=== PATIENT | female | born 1945 | race Caucasian/White ===

== ENCOUNTER 2020-06-26 09:54 | Outpatient (REF) | payer MEDICARE, SELFPAY ==
--- NOTE | 2020-06-26 09:59 | EMG_ITS ---
HISTORY OF PRESENT ILLNESS: This is a 75-year-old woman who had a 45-minute episode of left hand and left leg numbness and that cleared spontaneously and has not recurred. She has no persistent symptoms. She is not on any medications. PHYSICAL EXAMINATION: On examination, she has mild atrophy of the abductor pollicis brevis muscle on the left with slight weakness. She has some atrophy of the extensor digitorum brevis muscle also. Her reflexes symmetrical. IMPRESSION: Rule out carpal tunnel syndrome. Rule out peripheral neuropathy. History consistent with possible TIA. NERVE CONDUCTION EMG STUDY: Left median neuropathy consistent with carpal tunnel syndrome. Nerve conduction study in the left lower extremity shows axonal loss in the peroneal nerve consistent with peroneal neuropathy. EMG of the left C5 through T1 innervated muscles consistent with mild chronic carpal tunnel syndrome. EMG of the left L4-S1 innervated muscles consistent with mild chronic denervated changes in the extensor digitorum brevis muscle that correlates with a chronic peroneal neuropathy. MD HODAN Chin/JALEN / [id number]
== END 2020-06-26 09:55 | disposition home or self-care (01) ==
LOC: HO.NEURO 09:54
PROVIDERS: PCP Internal Medicine; Visit Provider Internal Medicine
DX: R20.0 Anesthesia of skin (principal)
CPT/HCPCS: 95860; 95886; 95913

== ENCOUNTER → 2020-09-02 09:23 | Outpatient (BNVA) | payer MEDICARE, SELFPAY | PROVIDERS: PCP Internal Medicine; Referring Provider Internal Medicine; Visit Provider Internal Medicine Endocrinology, Diabetes & Metabolism | DX: M81.0 Age-related osteoporosis without current pathological fracture (principal); E55.9 Vitamin D deficiency, unspecified; E03.8 Other specified hypothyroidism; E06.3 Autoimmune thyroiditis; Z79.899 Other long term (current) drug therapy | CPT/HCPCS: Q3014 ==

== ENCOUNTER → 2020-10-03 10:54 | Outpatient (BNVA) | payer MEDICARE, SELFPAY | PROVIDERS: PCP Internal Medicine; Visit Provider Internal Medicine Endocrinology, Diabetes & Metabolism | DX: M81.0 Age-related osteoporosis without current pathological fracture (principal) | CPT/HCPCS: 96402; J0897 ==

== ENCOUNTER 2020-10-24 06:57 | Outpatient (REF) | payer MEDICARE, SELFPAY ==
[2020-10-24 08:14] LABS: Alanine Aminotransferase 13 U/L (0-31); Albumin Level 4.5 g/dL (3.5-5.0); Albumin Level 4.6 g/dL (3.5-5.0); Alkaline Phosphatase 76 U/L (39-117); Anion Gap 13 (12-20); Aspartate Amino Transferase 25 U/L (5-31); Bilirubin Total 0.2 mg/dL (0.0-1.0); Blood Urea Nitrogen 8 mg/dL (9-16); Calcium 9.5 mg/dL (8.4-10.2); Calcium 9.6 mg/dL (8.4-10.2); Carbon Dioxide 28 mmol/L (22-29); Chloride 103 mmol/L (96-108); Cholesterol 173 mg/dL; Estimated Glomerular Filt Rate > 60; Glucose Fasting 98 mg/dL (60-99); HDL Cholesterol 54 mg/dL; LDL Cholesterol Calculated 91 mg/dl; Potassium 4.9 mmol/L (3.3-5.1); Sodium 139 mmol/L (135-145); Total Protein 8.4 g/dL (6.5-8.0); Triglycerides 144 mg/dL
[2020-10-24 08:30] LABS: Free T4 (Free Thyroxine) 1.01 ng/dL (0.71-1.85); Thyroid Stimulating Hormone 2.44 uIU/mL (0.32-4.0); Vitamin D 25-OH Total 34.1 ng/mL (>30)
== END 2020-10-24 06:58 | disposition home or self-care (01) ==
LOC: HO.LAB 06:57
PROVIDERS: Absent Provider Internal Medicine; PCP Internal Medicine; Visit Provider Internal Medicine Endocrinology, Diabetes & Metabolism
DX: M81.0 Age-related osteoporosis without current pathological fracture (principal); E78.5 Hyperlipidemia, unspecified; I10 Essential (primary) hypertension
CPT/HCPCS: 36415; 80053; 80061; 82040; 82306; 82310; 84439; 84443

== ENCOUNTER 2020-11-08 10:05 | Outpatient (REF) | payer MEDICARE, SELFPAY ==
--- NOTE | ~2020-11-08 | XR_ITS ---
EXAMINATION: XR HIP, LEFT CLINICAL INFORMATION: Pain COMPARISON: None TECHNIQUE: Two views of the left hip. FINDINGS: The femoral acetabular joint appears normal without degenerative change. Surrounding bone normal. Arterial calcification present. XR/XR hip LT min 2V IMPRESSION: Normal left hip joint. Calcific atherosclerotic disease noted
--- NOTE | ~2020-11-08 | XR_ITS ---
EXAMINATION: XR HAND, RIGHT CLINICAL INFORMATION: Pain. COMPARISON: X-rays of the right hand and wrist September 2007. TECHNIQUE: PA, lateral, and oblique views of the right hand. FINDINGS: Slight deformity of the distal radius compatible with healed old fracture. Slight deformity of the ulnar styloid compatible with healed fracture. Radiocarpal joint: Marginal osteophytes and small subchondral cysts indicative of mild arthrosis. Triscaphoid joint: Small marginal osteophytes. Mild arthrosis new compared to prior. First carpometacarpal joint: Mild joint space narrowing and subchondral cystic change indicative of mild arthrosis new compared to prior. Metacarpophalangeal joints: Severe joint space narrowing and marginal osteophytes at the 1st metacarpophalangeal joint indicative of severe arthrosis increased compared to prior. Second metacarpophalangeal joint: Persistent subluxation with marginal osteophytes indicative of arthrosis unchanged compared to prior. Third metacarpophalangeal joint: Subluxation with mild arthrosis new compared to prior. Interphalangeal joints: Advanced arthrosis of the IP joint of the thumb unchanged. Mild arthrosis of the 2nd PIP joint manifested by small marginal osteophytes and capsular calcification unchanged. No chondrocalcinosis or marginal erosions noted. XR/XR hand RT min 3V IMPRESSION: Degenerative changes in the right hand progressed compared with the prior x-rays in 2007 most notably in the wrist and 1st and 3rd metacarpophalangeal joints with an appearance most consistent with osteoarthritis. Subluxation of the 2nd and 3rd metacarpophalangeal joints raise the question of an underlying inflammatory arthropathy although no periarticular erosions are noted.
--- NOTE | ~2020-11-08 | XR_ITS ---
EXAMINATION: XR SHOULDER, RIGHT CLINICAL INFORMATION: Primary osteoarthritis. COMPARISON: None TECHNIQUE: AP external rotation, Grashey, scapular Y, and axillary views of the right shoulder. FINDINGS: GLENOHUMERAL JOINT: Marginal osteophytes most evident along the inferior aspect of the humeral head. No definite joint space narrowing. ACROMIOCLAVICULAR JOINT: Unremarkable. Subacromial spur. Surrounding bone and soft tissues unremarkable. XR/XR shoulder RT min 2V IMPRESSION: [id number] osteoarthritis of the glenohumeral joint.
[2020-11-08 11:28] LABS: MANUAL DIFF FLAG NO
[2020-11-08 11:38] LABS: Basophils Percent Auto 0.1 % (0-2); Hematocrit 41.7 % (37-47); Hemoglobin 13.1 g/dl (12.0-16.0); Imm Gran Abs Auto 0.01 X10*3/uL (0.00-0.03); Imm Gran Pct Auto 0.1 % (0.0-0.4); Lymphocytes Absolute Auto 3.8 X10*3/uL (1.2-4.9); Lymphocytes Percent Auto 46.8 % (20-40); Mean Corpuscular HGB Conc 31.4 g/dl (31.0-35.0); Mean Corpuscular Hemoglobin 32.3 pg (27.0-33.0); Mean Platelet Volume 9.3 fL (9.4-12.3); Monocytes Absolute Auto 0.4 X10*3/uL (0.1-1.2); Monocytes Percent Auto 5.3 % (2-11); Neutrophils Absolute Auto 3.9 X10*3/uL (2.0-8.3); Neutrophils Percent Auto 47.7 % (45-73); Platelet Count 276 X10*3/uL (160-400); Red Blood Count 4.05 X10*6/uL (4.20-5.50); Red Cell Distribution Width 12.3 % (11.0-16.0); White Blood Count 8.1 X10*3/uL (4.8-10.8)
[2020-11-08 12:00] LABS: Alanine Aminotransferase 12 U/L (0-31); Albumin Level 4.6 g/dL (3.5-5.0); Alkaline Phosphatase 66 U/L (39-117); Anion Gap 11 (12-20); Aspartate Amino Transferase 27 U/L (5-31); Bilirubin Total 0.2 mg/dL (0.0-1.0); Blood Urea Nitrogen 9 mg/dL (9-16); C Reactive Protein 0.27 mg/dL (< or = 0.50); Calcium 9.7 mg/dL (8.4-10.2); Carbon Dioxide 30 mmol/L (22-29); Chloride 101 mmol/L (96-108); Estimated Glomerular Filt Rate > 60; Glucose Random 97 mg/dL (60-115); Potassium 4.1 mmol/L (3.3-5.1); Sodium 138 mmol/L (135-145); Total Protein 8.3 g/dL (6.5-8.0)
[2020-11-08 12:15] LABS: Rheumatoid Factor < 15.0 IU/mL (<15.0)
[2020-11-08 12:20] LABS: Erythrocyte Sedimentation Rate 21 MM/HR (0-20)
[2020-11-10 22:21] LABS: Cyclic Citrullinated Peptide <16 UNITS
== END 2020-11-08 10:06 | disposition home or self-care (01) ==
LOC: HO.LAB 10:05
PROVIDERS: PCP Internal Medicine; Visit Provider Student in an Organized Health Care Education/Training Program
DX: M19.011 Primary osteoarthritis, right shoulder (principal); M25.50 Pain in unspecified joint; L40.9 Psoriasis, unspecified; I10 Essential (primary) hypertension; E03.9 Hypothyroidism, unspecified; M81.0 Age-related osteoporosis without current pathological fracture; Z88.0 Allergy status to penicillin; Z79.899 Other long term (current) drug therapy
CPT/HCPCS: 20610; 36415; 73030; 73130; 73502; 80053; 85025; 85652; 86140; 86200; 86431; 99202

== ENCOUNTER → 2021-03-05 10:23 | Outpatient (BNVA) | payer MEDICARE, SELFPAY | PROVIDERS: PCP Internal Medicine; Visit Provider Internal Medicine Endocrinology, Diabetes & Metabolism | CPT/HCPCS: Q3014 ==

== ENCOUNTER 2021-03-11 09:54 | Outpatient (REF) | payer MEDICARE, SELFPAY ==
[2021-03-11 11:07] LABS: Albumin Level 4.2 g/dL (3.5-5.0); Calcium 9.7 mg/dL (8.4-10.2)
[2021-03-11 11:23] LABS: Free T4 (Free Thyroxine) 1.15 ng/dL (0.71-1.85); Thyroid Stimulating Hormone 1.71 uIU/mL (0.32-4.0); Vitamin D 25-OH Total 41.6 ng/mL (>30)
== END 2021-03-11 09:55 | disposition home or self-care (01) ==
LOC: HO.LAB 09:54
PROVIDERS: Absent Provider Internal Medicine; PCP Internal Medicine; Visit Provider Internal Medicine Endocrinology, Diabetes & Metabolism
DX: E03.8 Other specified hypothyroidism (principal); E06.3 Autoimmune thyroiditis; M81.0 Age-related osteoporosis without current pathological fracture
CPT/HCPCS: 36415; 82040; 82306; 82310; 84439; 84443

== ENCOUNTER → 2021-03-21 08:59 | Outpatient (BNVA) | payer MEDICARE, SELFPAY | PROVIDERS: PCP Internal Medicine; Visit Provider Student in an Organized Health Care Education/Training Program | DX: M19.011 Primary osteoarthritis, right shoulder (principal); M25.50 Pain in unspecified joint; L40.9 Psoriasis, unspecified | CPT/HCPCS: 99212 ==

== ENCOUNTER → 2021-04-03 10:56 | Outpatient (BNVA) | payer MEDICARE, SELFPAY | PROVIDERS: PCP Internal Medicine; Visit Provider Nurse Practitioner Gerontology | DX: M81.0 Age-related osteoporosis without current pathological fracture (principal) | CPT/HCPCS: 96372; J0897 ==

== ENCOUNTER 2021-04-22 09:57 | Outpatient (REF) | payer MEDICARE, SELFPAY ==
--- NOTE | ~2021-04-22 | XR_ITS ---
EXAMINATION: XR HAND, LEFT CLINICAL INFORMATION: Left hand pain. COMPARISON: Left hand radiograph dated 08/12/2018. TECHNIQUE: PA, lateral, and oblique views of the left hand. FINDINGS: Mild to moderate interphalangeal, metacarpophalangeal, first carpometacarpal and triscaphe degenerative joint changes are seen. Degenerative joint changes are seen most pronounced laterally in the wrist. There is no acute fracture or dislocation. An old healed proximal fifth metacarpal fracture is noted. The carpal bones are normally aligned. The distal radius and ulna are intact. The soft tissues are unremarkable. XR/XR hand LT min 3V IMPRESSION: [id number] degenerative joint changes without significant change, most consistent with osteoarthritis. No overt acute abnormality.
[2021-04-22 11:40] LABS: Albumin Level 4.3 g/dL (3.5-5.0); Calcium 9.5 mg/dL (8.4-10.2)
[2021-04-22 11:59] LABS: Alanine Aminotransferase 14 U/L (0-31); Albumin Level 4.3 g/dL (3.5-5.0); Alkaline Phosphatase 53 U/L (39-117); Anion Gap 12 (12-20); Aspartate Amino Transferase 27 U/L (5-31); Bilirubin Total 0.3 mg/dL (0.0-1.0); Blood Urea Nitrogen 8 mg/dL (9-16); Calcium 9.5 mg/dL (8.4-10.2); Carbon Dioxide 27 mmol/L (22-29); Chloride 104 mmol/L (96-108); Cholesterol 171 mg/dL; Estimated Glomerular Filt Rate > 60; Glucose Fasting 91 mg/dL (60-99); HDL Cholesterol 54 mg/dL; LDL Cholesterol Calculated 94 mg/dl; Potassium 4.3 mmol/L (3.3-5.1); Sodium 139 mmol/L (135-145); Total Protein 7.8 g/dL (6.5-8.0); Triglycerides 118 mg/dL
[2021-04-22 12:03] LABS: TSH reflex Free T4 2.52 uIU/mL (0.32-4.0)
[2021-04-23 15:57] LABS: Calcium (PTHI) 9.5 mg/dL (8.6-10.4); PTHI 57 pg/mL (14-64)
[2021-04-26 13:01] LABS: Vitamin D 25-OH, D2 <4 ng/mL; Vitamin D 25-OH, D3 34 ng/mL; Vitamin D 25-OH, Total 34 ng/mL (30-100)
== END 2021-04-22 09:58 | disposition home or self-care (01) ==
LOC: HO.LAB 09:57
PROVIDERS: Absent Provider Internal Medicine; PCP Internal Medicine; Visit Provider Student in an Organized Health Care Education/Training Program
DX: M25.50 Pain in unspecified joint (principal); I10 Essential (primary) hypertension; E78.5 Hyperlipidemia, unspecified; E55.9 Vitamin D deficiency, unspecified; E06.3 Autoimmune thyroiditis; E03.8 Other specified hypothyroidism; M81.0 Age-related osteoporosis without current pathological fracture
CPT/HCPCS: 36415; 73130; 80053; 80061; 82040; 82306; 82310; 83970; 84443

== ENCOUNTER 2021-05-15 11:58 | Outpatient (REF) | payer MEDICARE, SELFPAY ==
--- NOTE | ~2021-05-15 | US_ITS ---
EXAMINATION: US VENOUS ULTRASOUND WITH DOPPLER LOWER EXTREMITY, RIGHT CLINICAL INFORMATION: Right leg pain. COMPARISON: None TECHNIQUE: Ultrasound of the deep veins is performed from the hip to the calf with compression sonography and color and pulse Doppler assessment. Spectral analysis with color-flow imaging is performed. FINDINGS: There is normal venous compression and respiratory variation and augmented flow. The visualized common femoral vein, superficial femoral vein, profunda femoral vein, popliteal vein, and the trifurcation region shows no evidence of deep venous thrombosis. There is no significant popliteal fossa cyst. If the patient's symptoms persist, followup ultrasound in 5 days 7 days might be of value to exclude proximal propagation from a non-visualized calf vein. US/US venous duplex LE RT IMPRESSION: No DVT demonstrated in the right lower extremity.
== END 2021-05-15 11:59 | disposition home or self-care (01) ==
LOC: HO.US 11:58
PROVIDERS: PCP Internal Medicine; Visit Provider Internal Medicine
DX: M79.604 Pain in right leg (principal)
CPT/HCPCS: 93971

== ENCOUNTER 2021-05-26 14:19 | Outpatient (REF) | payer MEDICARE, SELFPAY ==
--- NOTE | ~2021-05-26 | US_ITS ---
EXAMINATION: US VENOUS ULTRASOUND WITH DOPPLER LOWER EXTREMITY, RIGHT CLINICAL INFORMATION: Right leg pain COMPARISON: Previous exam 05/15/2021 TECHNIQUE: Ultrasound of the deep veins is performed from the hip to the calf with compression sonography and color and pulse Doppler assessment. Spectral analysis with color-flow imaging is performed. FINDINGS: There is normal venous compression and respiratory variation and augmented flow. The visualized common femoral vein, superficial femoral vein, profunda femoral vein, popliteal vein, and the trifurcation region shows no evidence of deep venous thrombosis. There is no Romo's cyst. US/US venous duplex LE RT IMPRESSION: No DVT demonstrated in the right lower extremity.
== END 2021-05-26 14:20 | disposition home or self-care (01) ==
LOC: HO.US 14:19
PROVIDERS: PCP Internal Medicine; Visit Provider Nurse Practitioner Family
DX: M79.604 Pain in right leg (principal)
CPT/HCPCS: 93971

== ENCOUNTER → 2021-07-08 10:58 | Outpatient (BNVA) | payer MEDICARE, SELFPAY | PROVIDERS: PCP Internal Medicine; Visit Provider Surgery Vascular Surgery | DX: I83.11 Varicose veins of right lower extremity with inflammation (principal) | CPT/HCPCS: 99212 ==

== ENCOUNTER 2021-07-30 10:01 | Outpatient (REF) | payer MEDICARE, SELFPAY ==
--- NOTE | ~2021-07-30 | US_ITS ---
EXAMINATION: US LOWER EXTREMITY VENOUS (REFLUX EXAM), BILATERAL CLINICAL INDICATION: This is a 76-year-old female with venous insufficiency and varicose veins. COMPARISON: None. TECHNIQUE: Color flow triplex imaging and compression Doppler was performed to evaluate both the deep and the superficial systems bilaterally. To evaluate the superficial system, the examination was performed in the upright position. Color-flow Doppler ultrasound and compression ultrasound were utilized. In addition, maneuvers were utilized to demonstrate reflux. FINDINGS: 1. DEEP VENOUS ULTRASOUND OF THE RIGHT LOWER EXTREMITY: Common Femoral Vein: Compressible, normal respiratory variation and augmented flow. Femoral vein: Compressible, normal color flow and augmentation. Popliteal Vein: Compressible, normal augmentation. Deep Reflux: There is no evidence of reflux in the deep system in either the common femoral vein or the popliteal vein. There is no evidence of a Romo's cyst. 2. SUPERFICIAL ULTRASOUND WITH DOPPLER OF RIGHT LOWER EXTREMITY: GREAT SAPHENOUS VEIN: Saphenofemoral Junction: 0.5 cm Mid Thigh: 0.3 cm Above Knee: 0.3 cm Below Knee: 0.3 cm Mid Calf: 0.2 cm Ankle: 0.2 cm GSV REFLUX: There is no reflux in the great saphenous vein. DUPLICATED GREAT SAPHENOUS VEIN: There is a 0.2 cm duplicated lateral great saphenous vein without reflux. SMALL SAPHENOUS VEIN: Proximal: 0.2 cm. There is 900 ms of reflux at the junction. Distal: 0.2 cm SSV REFLUX: There is reflux at the junction. VEIN OF GIACOMINI: None Imaged. PERFORATORS: None Imaged VARICOSITIES: There is a proximal calf 0.2 cm varicose vein with 920 ms of reflux. 3. DEEP VENOUS ULTRASOUND OF THE LEFT LOWER EXTREMITY: Common Femoral Vein: Compressible, normal respiratory variation and augmented flow. Femoral Vein: Compressible, normal color flow and augmentation. Popliteal Vein: Compressible, normal augmentation. Deep Reflux: There is no evidence of reflux in the deep system in either the common femoral vein or the popliteal vein. There is no evidence of a Romo's cyst. 4. SUPERFICIAL ULTRASOUND WITH DOPPLER OF LEFT LOWER EXTREMITY: GREAT SAPHENOUS VEIN: Saphenofemoral Junction: 0.4 cm. There is no reflux at the junction. Mid Thigh: 0.3 cm. The reflux time is 2156 ms per Above Knee: 0.3 cm. The reflux time is 1056 ms. Below Knee: 0.3 cm. The reflux time is 1420 ms. Mid Calf: 0.3 cm. There is no reflux. Ankle: 0.2 cm. There is no reflux. GSV REFLUX: There is no reflux at the junction. However, there is reflux in the mid thigh. DUPLICATED GREAT SAPHENOUS VEIN: There is a 0.3 cm duplicated lateral great saphenous vein without reflux. SMALL SAPHENOUS VEIN: Proximal: 0.2 cm. There is no reflux at the junction. Distal: 0.2 cm. There is a reflux time of 1644 ms per SSV REFLUX: There is distal reflux. VEIN OF GIACOMINI: None Imaged. PERFORATORS: There is a 0.2 cm mid calf [employer] without reflux. VARICOSITIES: There are 0.2 cm mid calf varicose veins with the reflux time 1108 ms. US/US venous duplex LE BI IMPRESSION: 1. There is a patent right great saphenous vein without evidence of reflux at the junction. 2. There is a duplicated right lateral great saphenous vein without evidence of reflux at the junction. 3. There is a patent right small saphenous vein measuring 0.2 cm with reflux of 900 ms at the junction. 4. There is a patent left great saphenous vein without evidence of reflux at the junction. 5. There is a patent tube located left lateral great saphenous vein without reflux. 6. There is a patent left small saphenous vein without evidence of reflux at the junction. 7. There are bilateral 0.2 cm calf varicose veins with reflux as noted.
== END 2021-07-30 10:02 | disposition home or self-care (01) ==
LOC: HO.US 10:01
PROVIDERS: PCP Internal Medicine; Visit Provider Surgery Vascular Surgery
DX: I83.11 Varicose veins of right lower extremity with inflammation (principal)
CPT/HCPCS: 93970

== ENCOUNTER → 2021-08-07 09:56 | Outpatient (BNVA) | payer MEDICARE, SELFPAY | PROVIDERS: PCP Internal Medicine; Visit Provider Surgery Vascular Surgery | DX: I83.12 Varicose veins of left lower extremity with inflammation (principal) | CPT/HCPCS: 99212 ==

== ENCOUNTER → 2021-09-05 10:54 | Outpatient (BNVA) | payer MEDICARE, SELFPAY | PROVIDERS: PCP Internal Medicine; Visit Provider Surgery Vascular Surgery | DX: I83.12 Varicose veins of left lower extremity with inflammation (principal) | CPT/HCPCS: 36482 ==

== ENCOUNTER 2021-09-10 12:49 | Outpatient (REF) | payer MEDICARE, SELFPAY ==
--- NOTE | ~2021-09-10 | US_ITS ---
EXAMINATION: US VENOUS ULTRASOUND WITH DOPPLER LOWER EXTREMITY, LEFT CLINICAL INFORMATION: Pain. Venous seal procedure 09/05/2021 COMPARISON: Previous venous ultrasound most recent July 2021 TECHNIQUE: Ultrasound of the deep veins is performed from the hip to the calf with compression sonography and color and pulse Doppler assessment. Spectral analysis with color-flow imaging is performed. FINDINGS: There is normal venous compression and respiratory variation and augmented flow. The visualized common femoral vein, superficial femoral vein, profunda femoral vein, popliteal vein, and the trifurcation region shows no evidence of deep venous thrombosis. There is echogenic material seen in the left greater saphenous vein post vena seal procedure. This extends to 2.7 cm from the saphenofemoral junction. The left greater saphenous vein is closed. There is no Romo's cyst. The contralateral right common femoral vein is patent. US/US venous duplex LE LT IMPRESSION: No DVT demonstrated in the left lower extremity.
== END 2021-09-10 12:50 | disposition home or self-care (01) ==
LOC: HO.US 12:49
PROVIDERS: PCP Internal Medicine; Visit Provider Surgery Vascular Surgery
DX: M79.605 Pain in left leg (principal)
CPT/HCPCS: 93971

== ENCOUNTER → 2021-09-18 09:52 | Outpatient (BNVA) | payer MEDICARE, SELFPAY | PROVIDERS: PCP Internal Medicine; Visit Provider Surgery Vascular Surgery | DX: I83.12 Varicose veins of left lower extremity with inflammation (principal) | CPT/HCPCS: 99212 ==

== ENCOUNTER 2021-09-18 10:24 | Outpatient (REF) | payer MEDICARE, SELFPAY ==
[2021-09-18 11:39] LABS: Alanine Aminotransferase 14 U/L (0-31); Albumin Level 4.3 g/dL (3.5-5.0); Alkaline Phosphatase 49 U/L (39-117); Anion Gap 12 (12-20); Aspartate Amino Transferase 29 U/L (5-31); Bilirubin Total 0.4 mg/dL (0.0-1.0); Blood Urea Nitrogen 8 mg/dL (9-16); Calcium 9.8 mg/dL (8.4-10.2); Carbon Dioxide 27 mmol/L (22-29); Chloride 105 mmol/L (96-108); Estimated Glomerular Filt Rate > 60; Glucose Random 100 mg/dL (60-115); Phosphorus 3.5 mg/dL (2.7-4.5); Potassium 3.5 mmol/L (3.3-5.1); Sodium 140 mmol/L (135-145)
[2021-09-18 12:00] LABS: Free T4 (Free Thyroxine) 0.66 ng/dL (0.71-1.85); Thyroid Stimulating Hormone 15.56 uIU/mL (0.32-4.0); Vitamin D 25-OH Total 35.4 ng/mL (>30)
[2021-09-19 13:06] LABS: Calcium (PTHI) 9.4 mg/dL (8.6-10.4); PTHI 41 pg/mL (14-64)
[2021-09-23 22:41] LABS: Prot Elec - Albumin 4.1 g/dL (3.8-4.8); Prot Elec - Alpha1 0.3 g/dL (0.2-0.3); Prot Elec - Alpha2 0.8 g/dL (0.5-0.9); Prot Elec - Beta 1 0.6 g/dL (0.4-0.6); Prot Elec - Beta 2 0.5 g/dL (0.2-0.5); Prot Elec - Gamma 1.5 g/dL (0.8-1.7); Prot Elec - Total Protein 7.8 g/dL (6.1-8.1)
== END 2021-09-18 10:25 | disposition home or self-care (01) ==
LOC: HO.LAB 10:24
PROVIDERS: PCP Internal Medicine; Visit Provider Internal Medicine
DX: M81.0 Age-related osteoporosis without current pathological fracture (principal); E55.9 Vitamin D deficiency, unspecified
CPT/HCPCS: 36415; 80053; 82306; 83970; 84100; 84165; 84439; 84443

== ENCOUNTER 2021-09-23 11:07 | Outpatient (REF) | payer MEDICARE, SELFPAY ==
[2021-09-23 11:40] LABS: Total Volume 24 Hour Urine 800 mL
[2021-09-23 12:08] LABS: Creatinine, 24Hr Urine 0.6 G/Day (1.0-2.0); Creatinine, mg/dL 76.37
[2021-09-25 18:37] LABS: Calcium, 24 Hr Urine 175 mg/24 h; Calcium/Creatinine Ratio 292 mg/g creat (30-275)
[2021-09-28 14:12] LABS: N-Telopeptide 40 (see note); NTXCreaRU 88 mg/dL (20-275)
== END 2021-09-23 11:08 | disposition home or self-care (01) ==
LOC: HO.LNP 11:07
PROVIDERS: Visit Provider Internal Medicine
DX: M81.0 Age-related osteoporosis without current pathological fracture (principal)
CPT/HCPCS: 82340; 82523; 82570

== ENCOUNTER 2021-11-25 10:58 | Outpatient (REF) | payer MEDICARE, SELFPAY ==
[2021-11-25 14:02] LABS: Thyroid Stimulating Hormone 7.48 uIU/mL (0.32-4.0)
== END 2021-11-25 10:59 | disposition home or self-care (01) ==
LOC: HO.LAB 10:58
PROVIDERS: PCP Internal Medicine; Visit Provider Internal Medicine Endocrinology, Diabetes & Metabolism
DX: E03.9 Hypothyroidism, unspecified (principal); M81.0 Age-related osteoporosis without current pathological fracture; I10 Essential (primary) hypertension; E55.9 Vitamin D deficiency, unspecified; Z87.891 Personal history of nicotine dependence; Z88.1 Allergy status to other antibiotic agents; Z88.0 Allergy status to penicillin; Z79.899 Other long term (current) drug therapy
CPT/HCPCS: 36415; 84439; 84443; 96372; 99212; J0897

== ENCOUNTER 2021-12-17 | Outpatient (REF) | payer MEDICARE, SELFPAY ==
[2021-12-18 12:53] LABS: CDiff Gene PCR NEGATIVE (Negative)
[2021-12-18 12:55] LABS: Leukocytes Stool Qualitative NEGATIVE (NEGATIVE)
== END 2021-12-17 00:01 | disposition home or self-care (01) ==
LOC: HO.LNP
PROVIDERS: Visit Provider Internal Medicine
DX: R19.7 Diarrhea, unspecified (principal)
CPT/HCPCS: 87045; 87046; 87329; 87338; 87493; 89055

== ENCOUNTER 2021-12-18 10:33 | Outpatient (REF) | payer MEDICARE, SELFPAY ==
[2021-12-23 17:56] LABS: N-Telopeptide 10 (see note); NTXCreaRU 63 mg/dL (20-275)
== END 2021-12-18 10:34 | disposition home or self-care (01) ==
LOC: HO.LNP 10:33
PROVIDERS: Visit Provider Internal Medicine
DX: M81.0 Age-related osteoporosis without current pathological fracture (principal)
CPT/HCPCS: 82523

== ENCOUNTER 2021-12-22 11:33 | Outpatient (REF) | payer MEDICARE, SELFPAY | END 2021-12-22 11:34 | disposition home or self-care (01) | LOC: HO.LNP 11:33 | PROVIDERS: Visit Provider Internal Medicine | DX: R19.7 Diarrhea, unspecified (principal) | CPT/HCPCS: 87045; 87046 ==

== ENCOUNTER 2022-02-10 09:59 | Outpatient (REF) | payer MEDICARE, SELFPAY ==
[2022-02-10 10:20] LABS: MANUAL DIFF FLAG NO
[2022-02-10 12:03] LABS: Basophils Percent Auto 0.1 % (0-2); Hematocrit 33.6 % (37.0-47.0); Hemoglobin 10.1 g/dl (12.0-16.0); Imm Gran Abs Auto 0.02 X10*3/uL (0.00-0.03); Imm Gran Pct Auto 0.3 % (0.0-0.4); Lymphocytes Absolute Auto 2.9 X10*3/uL (1.2-4.9); Lymphocytes Percent Auto 42.8 % (20-40); Mean Corpuscular HGB Conc 30.1 g/dl (31.0-35.0); Mean Corpuscular Hemoglobin 29.3 pg (27.0-33.0); Mean Corpuscular Volume 97.4 fL (80.0-98.0); Mean Platelet Volume 10.2 fL (9.4-12.3); Monocytes Absolute Auto 0.5 X10*3/uL (0.1-1.2); Monocytes Percent Auto 7.6 % (2-11); Neutrophils Absolute Auto 3.3 x10*3/uL (2.0-8.3); Neutrophils Percent Auto 49.2 % (45-73); Platelet Count 236 X10*3/uL (160-400); Red Blood Count 3.45 X10*6/uL (4.20-5.50); Red Cell Distribution Width 13.8 % (11.0-16.0); White Blood Count 6.8 X10*3/uL (4.8-10.8)
[2022-02-10 12:08] LABS: Cholesterol 159 mg/dL; HDL Cholesterol 44 mg/dL; LDL Cholesterol Calculated 92 mg/dl; Triglycerides 119 mg/dL
[2022-02-15 13:31] LABS: Vitamin D 25-OH, D2 <4 ng/mL; Vitamin D 25-OH, D3 27 ng/mL; Vitamin D 25-OH, Total 27 ng/mL (30-100)
== END 2022-02-10 10:00 | disposition home or self-care (01) ==
LOC: HO.LAB 09:59
PROVIDERS: PCP Internal Medicine; Visit Provider Nurse Practitioner Family
DX: Z00.00 Encounter for general adult medical examination without abnormal findings (principal); E55.9 Vitamin D deficiency, unspecified; E78.00 Pure hypercholesterolemia, unspecified; I10 Essential (primary) hypertension
CPT/HCPCS: 36415; 80061; 82306; 85025; 85027

== ENCOUNTER 2022-03-04 12:57 | Outpatient (REF) | payer MEDICARE, SELFPAY ==
--- NOTE | ~2022-03-04 | US_ITS ---
EXAMINATION: US VENOUS ULTRASOUND WITH DOPPLER LOWER EXTREMITY, RIGHT CLINICAL INFORMATION: Right lower extremity pain. COMPARISON: None TECHNIQUE: Ultrasound of the deep veins is performed from the hip to the calf with compression sonography and color and pulse Doppler assessment. Spectral analysis with color-flow imaging is performed. FINDINGS: There is normal venous compression and respiratory variation and augmented flow. The visualized common femoral vein, superficial femoral vein, profunda femoral vein, popliteal vein, and the trifurcation region shows no evidence of deep venous thrombosis. There is no significant popliteal fossa cyst. If the patient's symptoms persist, followup ultrasound in 5 days 7 days might be of value to exclude proximal propagation from a non-visualized calf vein. US/US venous duplex LE RT IMPRESSION: No DVT demonstrated in the right lower extremity.
[2022-03-04 13:09] LABS: MANUAL DIFF FLAG NO
[2022-03-04 13:27] LABS: Basophils Percent Auto 0.1 % (0-2); Hematocrit 36.5 % (37.0-47.0); Hemoglobin 10.8 g/dl (12.0-16.0); Imm Gran Abs Auto 0.03 X10*3/uL (0.00-0.03); Imm Gran Pct Auto 0.4 % (0.0-0.4); Lymphocytes Percent Auto 42.8 % (20-40); Mean Corpuscular HGB Conc 29.6 g/dl (31.0-35.0); Mean Corpuscular Hemoglobin 28.4 pg (27.0-33.0); Mean Corpuscular Volume 96.1 fL (80.0-98.0); Mean Platelet Volume 9.5 fL (9.4-12.3); Monocytes Absolute Auto 0.6 X10*3/uL (0.1-1.2); Monocytes Percent Auto 7.9 % (2-11); Neutrophils Absolute Auto 3.4 x10*3/uL (2.0-8.3); Neutrophils Percent Auto 48.8 % (45-73); Platelet Count 257 X10*3/uL (160-400); Red Cell Distribution Width 13.6 % (11.0-16.0)
[2022-03-04 14:21] LABS: Iron 42 mcg/dL (30-160); Percent Iron Saturation 10 % (15-50); Total Iron Binding Capacity 414 mcg/dL (228-428); Unsaturated Iron Binding 372 ug/dL
[2022-03-04 15:12] LABS: Folate > 20.0 ng/mL (> or = 4.0); Vitamin B12 189 pg/mL (200-900)
== END 2022-03-04 12:58 | disposition home or self-care (01) ==
LOC: HO.US 12:57
PROVIDERS: PCP Internal Medicine; Visit Provider Nurse Practitioner Family
DX: D64.9 Anemia, unspecified (principal); M79.604 Pain in right leg; R60.0 Localized edema; I10 Essential (primary) hypertension
CPT/HCPCS: 36415; 82607; 82746; 83540; 85025; 93971

== ENCOUNTER 2022-03-17 10:58 | Outpatient (REF) | payer MEDICARE, SELFPAY ==
[2022-03-17 12:35] LABS: Hematocrit 35.3 % (37.0-47.0); Hemoglobin 10.6 g/dl (12.0-16.0); Mean Corpuscular Hemoglobin 28.8 pg (27.0-33.0); Mean Corpuscular Volume 95.9 fL (80.0-98.0); Mean Platelet Volume 10.1 fL (9.4-12.3); Platelet Count 281 X10*3/uL (160-400); Red Blood Count 3.68 X10*6/uL (4.20-5.50); Red Cell Distribution Width 13.5 % (11.0-16.0); White Blood Count 6.8 X10*3/uL (4.8-10.8)
[2022-03-17 13:25] LABS: Thyroid Stimulating Hormone 2.45 uIU/mL (0.32-4.0)
[2022-03-24 19:31] LABS: Intrinsic Factor Antibodies Negative (Negative)
[2022-03-25 05:46] LABS: Parietal Cell Antibody <=20.0 Unit (<=20.0)
== END 2022-03-17 10:59 | disposition home or self-care (01) ==
LOC: HO.LAB 10:58
PROVIDERS: Internal Medicine; Nurse Practitioner Family; PCP Internal Medicine; Visit Provider Internal Medicine
DX: Z00.00 Encounter for general adult medical examination without abnormal findings (principal); E53.8 Deficiency of other specified B group vitamins; I10 Essential (primary) hypertension; E55.9 Vitamin D deficiency, unspecified
CPT/HCPCS: 36415; 83516; 84439; 84443; 85027; 86340

== ENCOUNTER 2022-06-02 09:58 | Outpatient (REF) | payer MEDICARE, SELFPAY ==
--- NOTE | ~2022-06-02 | MM_ITS ---
EXAMINATION: BONE DENSITOMETRY CLINICAL INDICATION: Age-related osteoporosis without current pathological fracture. COMPARISON: Previous BD dated 05/29/2020 and baseline BD dated 03/30/2007 (lumbar spine and left hip). This is the initial examination of the left forearm radius 33%. TECHNIQUE: Using a [employer] DXA System (software version: 13.1) manufactured by [employer], dual-energy x-ray absorptiometry was performed of the lumbar spine, left hip and left forearm radius 33%. The images are of good technical quality. Summary results are attached. FINDINGS: AP SPINE L1-L3 (excluding L4): The data of L1-L4 has been changed to exclude the L4 vertebral body, because degenerative changes at this level may cause overestimation of lumbar spine density. Current: BMD 1.077 g/cm2, Z-score 1.0, T-score -0.8, normal, 4.1% increase from previous, 18.6% increase from baseline (<5% change is not significant). Prior: BMD 1.035 g/cm2. Baseline: BMD 0.908 g/cm2. LEFT FEMUR, NECK: Current: BMD 0.608 g/cm2, Z-score -1.1, T-score -3.1, osteoporosis. Prior: BMD 0.588 g/cm2. Baseline: BMD 0.659 g/cm2. LEFT FEMUR, TOTAL: Current: BMD 0.558 g/cm2, Z-score -1.8, T-score -3.6, osteoporosis, 0.5% increase from previous, 13.6% decrease from baseline (<5% change is not significant). Prior: BMD 0.555 g/cm2. Baseline: BMD 0.646 g/cm2. LEFT FOREARM RADIUS 33%: BMD 0.416 g/cm2, Z-score -3.0, T-score -5.3, osteoporosis. IDENTIFIED RISK FACTORS: History of adult fracture. Osteoporosis. Height loss. Anticonvulsant. Menopause. HISTORY OF FRACTURE: Wrist. Tibia. MEDICATIONS: Calcium supplement and/or multivitamin. Vitamin D. Prolia. MM/XR DEXA appendicular skeleton IMPRESSION: 1. DIAGNOSIS: Osteoporosis based on the lowest T-score value of -5.3 in the left forearm radius 33% applying World Health Organization criteria. 2. 10-YEAR FRACTURE RISK PREDICTION, FRAX: According to the guidelines, FRAX calculation should only be performed on patients in the osteopenia bone density category.?Therefore, FRAX was not performed on this patient.? 3. Treatment Recommendations: NOF guidelines recommend consideration for treatment in postmenopausal women and men age 50 and older presenting with the following: -A hip or vertebral (clinical or morphometric) fracture. -T-score less than or equal to -2.5 at the femoral neck or spine after appropriate evaluation to exclude secondary causes. -Low bone mass at the hip or spine and a 10-year fracture probability by FRAX of greater than or equal to 3% for hip fracture or greater than or equal to 20% for major osteoporotic fracture based on the [place] adapted WHO algorithm. 4. Other Recommendations: All treatment decisions require clinical judgment and consideration of individual patient factors, including patient preferences, comorbidities, previous drug use, risk factors not captured in the FRAX model (e.g. frailty, falls, vitamin D deficiency, increased bone turnover, interval significant decline in bone density) and possible under or overestimation of fracture risk by FRAX. Additional medical evaluation for secondary cause of low bone mineral density may be appropriate. FUTURE SCAN RECOMMENDATION: People with diagnosed cases of osteoporosis or at high risk for fracture should have regular bone mineral density tests. For patients eligible for Medicare, routine testing is allowed once every 2 years. The testing frequency can be increased to one year for patients who have rapidly progressing disease, those who are receiving or discontinuing medical therapy to restore bone mass, or have additional risk factors.
== END 2022-06-02 09:59 | disposition home or self-care (01) ==
LOC: HO.MAMMO 09:58
PROVIDERS: PCP Internal Medicine; Visit Provider Internal Medicine Endocrinology, Diabetes & Metabolism
DX: Z13.820 Encounter for screening for osteoporosis (principal); M81.0 Age-related osteoporosis without current pathological fracture; Z78.0 Asymptomatic menopausal state
CPT/HCPCS: 77081

== ENCOUNTER 2022-06-05 10:03 | Outpatient (REF) | payer MEDICARE, SELFPAY ==
--- NOTE | ~2022-06-05 | MM_ITS ---
DXA VERTEBRAL FRACTURE ASSESSMENT CLINICAL INFORMATION: Osteoporosis, TC score -5.3 left forearm radius 33%. Assess thoracolumbar spine. COMPARISON: Bone densitometry 06/02/2022, radiographs lumbar spine 04/18/2019, chest radiographs 11/02/2017. TECHNIQUE: Your patient completed a vertebral fracture assessment using the [employer] DXA system (software version: 14.10) manufactured by [employer]. The following summarizes the results of our evaluation. LVA MORPHOMETRY RESULTS: Evaluation of the thoracolumbar spine from T4 through L4 was performed. Image quality is acceptable. There are multilevel degenerative disc changes thoracic and lumbar spine. Morphologic assessment suggests wedging lower thoracic region T10, T11, and T12. Visual assessment shows mild wedging in this area without focal angulation. Z scores are T10 (-3.9); T11 (-3.5); T12 (-6.3). MM/XR DEXA vertrebral fracture IMPRESSION: -Multilevel degenerative disc changes thoracic and lumbar spine. -Wedging lower thoracic vertebral bodies T10-T12. RECOMMENDATIONS: All patients should ensure an adequate intake of dietary calcium (1200 mg/d) and vitamin D (400-800 IU/d). Effective therapies are now available in the form of bisphosphonates, (alendronate, ibandronate, risedronate, zoledronic acid), antiresorptive agents (calcitonin, estrogen+progesterone and raloxifene) and anabolic agent (teriparatide). These therapies may reduce vertebral, hip and other fractures by up to 50%. FOLLOW-UP: People with diagnosed cases of osteoporosis, high risk for fracture, or current vertebral fractures should have regular bone mineral density tests. The frequency of follow-up vertebral fracture assessment tests should be determined based on clinical circumstances. Often times, testing frequency will be based on rapidly progressing disease, or the addition or elimination of therapy to treat the disease.
== END 2022-06-05 10:04 | disposition home or self-care (01) ==
LOC: HO.MAMMO 10:03
PROVIDERS: Visit Provider Internal Medicine Endocrinology, Diabetes & Metabolism
DX: Z13.820 Encounter for screening for osteoporosis (principal); Z78.0 Asymptomatic menopausal state; M81.0 Age-related osteoporosis without current pathological fracture
CPT/HCPCS: 77086

== ENCOUNTER → 2022-06-09 10:01 | Outpatient (BNVA) | payer MEDICARE, SELFPAY | PROVIDERS: PCP Internal Medicine; Visit Provider Internal Medicine Endocrinology, Diabetes & Metabolism | DX: M81.0 Age-related osteoporosis without current pathological fracture (principal); E03.8 Other specified hypothyroidism; E06.3 Autoimmune thyroiditis | CPT/HCPCS: 96372; 99212; J0897 ==

== ENCOUNTER 2022-06-25 09:59 | Outpatient (REF) | payer MEDICARE, SELFPAY ==
[2022-06-25 12:33] LABS: Folate > 20.0 ng/mL (> or = 4.0); Vitamin B12 240 pg/mL (200-900)
== END 2022-06-25 10:00 | disposition home or self-care (01) ==
LOC: HO.LAB 09:59
PROVIDERS: PCP Internal Medicine; Visit Provider Internal Medicine
DX: E55.9 Vitamin D deficiency, unspecified (principal); E53.8 Deficiency of other specified B group vitamins
CPT/HCPCS: 36415; 82306; 82607; 82746

== ENCOUNTER 2022-11-12 10:13 | Outpatient (REF) | payer MEDICARE, SELFPAY ==
[2022-11-12 10:36] LABS: MANUAL DIFF FLAG NO
[2022-11-12 10:50] LABS: Basophils Percent Auto 0.1 % (0-2); Hematocrit 34.2 % (37.0-47.0); Hemoglobin 10.1 g/dl (12.0-16.0); Imm Gran Abs Auto 0.03 X10*3/uL (0.00-0.03); Imm Gran Pct Auto 0.4 % (0.0-0.4); Lymphocytes Absolute Auto 2.8 X10*3/uL (1.2-4.9); Mean Corpuscular HGB Conc 29.5 g/dl (31.0-35.0); Mean Corpuscular Hemoglobin 27.7 pg (27.0-33.0); Mean Corpuscular Volume 93.7 fL (80.0-98.0); Mean Platelet Volume 9.7 fL (9.4-12.3); Monocytes Absolute Auto 0.5 X10*3/uL (0.1-1.2); Monocytes Percent Auto 6.9 % (2-11); Neutrophils Percent Auto 54.6 % (45-73); Platelet Count 257 X10*3/uL (160-400); Red Blood Count 3.65 X10*6/uL (4.20-5.50); Red Cell Distribution Width 14.7 % (11.0-16.0); White Blood Count 7.2 X10*3/uL (4.8-10.8)
[2022-11-12 11:19] LABS: Iron 21 mcg/dL (30-160); Percent Iron Saturation 6 % (15-50); Total Iron Binding Capacity 345 mcg/dL (228-428); Unsaturated Iron Binding 324 ug/dL
[2022-11-12 13:07] LABS: Folate > 20.0 ng/mL (> or = 4.0); Thyroid Stimulating Hormone 21.58 uIU/mL (0.32-4.0); Vitamin B12 383 pg/mL (200-900); Vitamin D 25-OH Total 45.1 ng/mL (>30)
== END 2022-11-12 10:14 | disposition home or self-care (01) ==
LOC: HO.LAB 10:13
PROVIDERS: PCP Internal Medicine; Visit Provider Internal Medicine
DX: E53.8 Deficiency of other specified B group vitamins (principal); E03.9 Hypothyroidism, unspecified; D64.9 Anemia, unspecified; E55.9 Vitamin D deficiency, unspecified
CPT/HCPCS: 36415; 82306; 82607; 82746; 83540; 84443; 85025

== ENCOUNTER → 2022-12-09 09:57 | Outpatient (BNVA) | payer MEDICARE, SELFPAY | PROVIDERS: PCP Internal Medicine; Visit Provider Internal Medicine Endocrinology, Diabetes & Metabolism | DX: M81.0 Age-related osteoporosis without current pathological fracture (principal); E03.8 Other specified hypothyroidism; E06.3 Autoimmune thyroiditis | CPT/HCPCS: 99212 ==

== ENCOUNTER 2022-12-09 10:51 | Outpatient (REF) | payer MEDICARE, SELFPAY ==
[2022-12-09 14:40] LABS: Anion Gap 12 (12-20); Blood Urea Nitrogen 7 mg/dL (9-16); Calcium 9.4 mg/dL (8.4-10.2); Carbon Dioxide 27 mmol/L (22-29); Chloride 106 mmol/L (96-108); Estimated Glomerular Filt Rate > 60; Glucose Random 115 mg/dL (60-115); Potassium 3.7 mmol/L (3.3-5.1); Sodium 141 mmol/L (135-145)
== END 2022-12-09 10:52 | disposition home or self-care (01) ==
LOC: HO.10HDL 10:51
PROVIDERS: Visit Provider Internal Medicine Endocrinology, Diabetes & Metabolism
DX: M81.0 Age-related osteoporosis without current pathological fracture (principal)
CPT/HCPCS: 36415; 80048

== ENCOUNTER → 2022-12-11 09:59 | Outpatient (BNV) | payer MEDICARE, SELFPAY | PROVIDERS: Visit Provider Internal Medicine Medical Oncology | DX: D64.9 Anemia, unspecified (principal) | CPT/HCPCS: 99204; 99213; 99214 ==

== ENCOUNTER → 2022-12-15 09:00 | Outpatient (BNVA) | payer MEDICARE, SELFPAY | PROVIDERS: PCP Internal Medicine; Visit Provider Internal Medicine Endocrinology, Diabetes & Metabolism | DX: M81.0 Age-related osteoporosis without current pathological fracture (principal) | CPT/HCPCS: 96372; J0897 ==

== ENCOUNTER 2022-12-28 10:00 | Outpatient (REF) | payer MEDICARE, SELFPAY ==
[2022-12-28 10:22] LABS: MANUAL DIFF FLAG NO
[2022-12-28 10:39] LABS: Basophils Percent Auto 0.2 % (0-2); Hematocrit 37.2 % (37.0-47.0); Hemoglobin 11.2 g/dl (12.0-16.0); Imm Gran Abs Auto 0.02 X10*3/uL (0.00-0.03); Imm Gran Pct Auto 0.3 % (0.0-0.4); Lymphocytes Absolute Auto 2.7 X10*3/uL (1.2-4.9); Lymphocytes Percent Auto 43.6 % (20-40); Mean Corpuscular HGB Conc 30.1 g/dl (31.0-35.0); Mean Corpuscular Hemoglobin 29.7 pg (27.0-33.0); Mean Corpuscular Volume 98.7 fL (80.0-98.0); Mean Platelet Volume 9.8 fL (9.4-12.3); Monocytes Absolute Auto 0.5 X10*3/uL (0.1-1.2); Monocytes Percent Auto 7.4 % (2-11); Neutrophils Percent Auto 48.5 % (45-73); Platelet Count 233 X10*3/uL (160-400); Red Blood Count 3.77 X10*6/uL (4.20-5.50); Red Cell Distribution Width 15.9 % (11.0-16.0); White Blood Count 6.1 X10*3/uL (4.8-10.8)
[2022-12-28 11:59] LABS: Ferritin 12 ng/mL (10-250)
[2022-12-28 12:44] LABS: Alanine Aminotransferase 18 U/L (0-31); Albumin Level 4.1 g/dL (3.5-5.0); Alkaline Phosphatase 51 U/L (39-117); Anion Gap 13 (12-20); Aspartate Amino Transferase 31 U/L (5-31); Bilirubin Total 0.2 mg/dL (0.0-1.0); Blood Urea Nitrogen 9 mg/dL (9-16); Calcium 9.2 mg/dL (8.4-10.2); Carbon Dioxide 27 mmol/L (22-29); Chloride 106 mmol/L (96-108); Estimated Glomerular Filt Rate > 60; Glucose Random 106 mg/dL (60-115); Lactate Dehydrogenase 272 U/L (122-220); Potassium 3.5 mmol/L (3.3-5.1); Sodium 142 mmol/L (135-145); Total Protein 7.5 g/dL (6.5-8.0)
[2022-12-28 13:18] LABS: Free T4 (Free Thyroxine) 1.32 ng/dL (0.71-1.85); Thyroid Stimulating Hormone 0.13 uIU/mL (0.32-4.0); Vitamin B12 286 pg/mL (200-900)
== END 2022-12-28 10:01 | disposition home or self-care (01) ==
LOC: HO.LAB 10:00
PROVIDERS: Internal Medicine Endocrinology, Diabetes & Metabolism; PCP Internal Medicine; Visit Provider Internal Medicine Medical Oncology
DX: E03.9 Hypothyroidism, unspecified (principal); D64.9 Anemia, unspecified
CPT/HCPCS: 36415; 80053; 82607; 82728; 83615; 84439; 84443; 85025

== ENCOUNTER 2023-03-26 09:54 | Outpatient (REF) | payer MEDICARE, SELFPAY ==
[2023-03-26 10:07] LABS: MANUAL DIFF FLAG NO
[2023-03-26 10:21] LABS: Hematocrit 37.5 % (37.0-47.0); Hemoglobin 11.5 g/dl (12.0-16.0); Imm Gran Abs Auto 0.02 X10*3/uL (0.00-0.03); Imm Gran Pct Auto 0.3 % (0.0-0.4); Lymphocytes Absolute Auto 2.7 X10*3/uL (1.2-4.9); Lymphocytes Percent Auto 44.7 % (20-40); Mean Corpuscular HGB Conc 30.7 g/dl (31.0-35.0); Mean Corpuscular Hemoglobin 30.5 pg (27.0-33.0); Mean Corpuscular Volume 99.5 fL (80.0-98.0); Mean Platelet Volume 9.9 fL (9.4-12.3); Monocytes Absolute Auto 0.5 X10*3/uL (0.1-1.2); Monocytes Percent Auto 7.9 % (2-11); Neutrophils Absolute Auto 2.9 x10*3/uL (2.0-8.3); Neutrophils Percent Auto 47.1 % (45-73); Platelet Count 212 X10*3/uL (160-400); Red Blood Count 3.77 X10*6/uL (4.20-5.50); Red Cell Distribution Width 14.1 % (11.0-16.0); White Blood Count 6.1 X10*3/uL (4.8-10.8)
[2023-03-26 11:04] LABS: Iron 47 mcg/dL (30-160); Percent Iron Saturation 16 % (15-50); Total Iron Binding Capacity 301 mcg/dL (228-428); Unsaturated Iron Binding 254 ug/dL
[2023-03-26 11:14] LABS: Thyroid Stimulating Hormone 0.18 uIU/mL (0.32-4.0)
[2023-03-26 12:27] LABS: Free T4 (Free Thyroxine) 1.06 ng/dL (0.71-1.85)
== END 2023-03-26 09:55 | disposition home or self-care (01) ==
LOC: HO.LAB 09:54
PROVIDERS: Internal Medicine Endocrinology, Diabetes & Metabolism; PCP Internal Medicine; Visit Provider Internal Medicine
DX: E03.8 Other specified hypothyroidism (principal); E06.3 Autoimmune thyroiditis; D64.9 Anemia, unspecified
CPT/HCPCS: 36415; 83540; 84439; 84443; 85025

== ENCOUNTER 2023-03-26 10:11 | Outpatient (AMB) | payer MEDICARE, SELFPAY ==
[2023-03-26 10:14] VITALS: BP 112/78; PULSE 76; O2SAT 99; BMI 21.3
--- NOTE | 2023-03-26 10:14 | A.OFFPC_ITS ---
Vital Signs 03/26/23 10:14 Height 5 ft 3 in Weight 120 lb BMI 21.3 BP 112/78 Blood Pressure Location Lt brachial Position Sitting Pulse 76 Pulse Source Pulse Oximeter Temp Source Skin Pulse Oximetry (%) 99 Oxygen Delivery Method Room Air Intake Visit Reasons: PE Intake Note: Patient is here today for a physical. Subsurface Augmentee Operator Required: No Allergies Penicillins [PENICILLINS] Allergy (Intermediate, Verified 03/26/23 11:15) CANKER SORES cephalexin Adverse Reaction (Mild, Verified 03/26/23 11:15) Didn't work Medication List - Last Reconciled 03/26/23 by NAVNEET Davalos acetaminophen 500 mg PO Q6H PRN [id number] 0.85 mg-200 mcg-1.2 mcg (Neuriva Plus) 1 tab PO DAILY blood pressure monitor As directed cholecalciferol (vitamin D3) 50 mcg PO .every other day 90 days compr.stocking,knee,long,large As directed cyanocobalamin (vitamin B-12) 1,000 mcg PO DAILY 90 days folic acid 1 mg PO DAILY 90 days gabapentin 300 mg PO BID Lactobacillus rhamnosus GG (Culturelle) 1 cap PO DAILY PRN levothyroxine 112 mcg PO DAILY melatonin 5 mg PO BEDTIME PRN metoprolol succinate ER 25 mg PO DAILY 90 days Tobacco use date assessed: 03/26/23 Fall risk assessment: No Falls in past year Last assessed Fall Risk: 03/26/23 Dental Screening Dental Screen Date: 03/26/23 HPI HPI Comments History of Present Illness Details This is a 77-year-old female with hypothyroidism, B12 deficiency, osteoporosis and low vitamin-D that comes today for physical exam. Patient denies CP,palpitations,sob and syncope. Patient currently following with Dr. Gross hematology for normochromic anemia. Patient continues to follow-up with Dr. Acosta for osteoporosis bone density screening up-to-date. Patient ambulates with a cane. mammogram: Refused Colonoscopy: 05/2013, repeat colonscopy recommended DEXA: May 2022 eye exam: Due in march. [facility] Medical History Acute diarrhea Essential hypertension Hypothyroidism Hypovitaminosis D Osteoporosis Polyarthralgia Right leg pain Surgical History History of cataract surgery History of colonoscopy History of tubal ligation Family History Father CHF (congestive heart failure) Liver cirrhosis Mother Stroke Social History Household Members: None Housing: Apartment Alcohol intake: never Patient Tobacco Use Status: Never used Tobacco Tobacco use type: Cigarette e-Cigarette/Vaping Use: Never Used Second Hand Smoke Exposure: No service: No Current occupational status: retired Gender identity: Female Cognitive needs: Yes (cane) Hearing needs: No Vision needs: Yes (reading glasses) Questionnaire PHQ-9 Over the last 2 weeks, how often have you been bothered by any of the following problems? 1. Little interest or pleasure in doing things: not at all 2. Feeling down, depressed, or hopeless: not at all 3. Trouble falling or staying asleep, or sleeping too much: not at all 4. Feeling tired or having little energy: not at all 5. Poor appetite or overeating: not at all 6. Feeling bad about yourself - or that you are a failure or have let yourself or your family down: not at all 7. Trouble concentrating on things, such as reading the newspaper or watching television: not at all 8. Moving or speaking so slowly that other people could have noticed. Or the opposite - being so fidgety or restless that you have been moving around a lot more than usual: not at all 9. Thoughts that you would be better off or of hurting yourself in some way: not at all Total score: 0 Depression Screening Interpretation: Negative Source: Developed by Drs. Richard Cintron, Racheal Snell, Arvin Griffiths and colleagues, with an educational daisha from [employer]. Thrive Questionnaire Date Thrive assessed: 03/26/23 I am a: Patient What is your living situation today?: I have a steady place to live Within the past 12 months, did the food you bought not last and you didn't have the money to get more?: Never true Within the past 12 months, did you worry whether your food would run out before you got money to buy more?: Never true Do you have trouble paying for medicines?: No Do you have trouble getting transportation to medical appointments?: No Do you have trouble paying your heating and electricity bill?: No Do you have trouble taking care of your child, family member or friend?: No Do you have trouble with day-to-day activities such as bathing, preparing meals, shopping, managing finances, etc.?: No Are you currently unemployed and looking for a job?: No Are you interested in more education?: No AUDIT C Alcohol Use Questionnaire (AUDIT-C) 1. How often do you have a drink containing alcohol?: Never Total Score: 0 FLORECITA-7 AMB Questionnaire FLORECITA-7 Date FLORECITA - 7 assessed: 03/26/23 Feeling nervous, anxious, or on edge: 0 = Not at all Not being able to stop or control worryin = Not at all Worrying too much about different things: 0 = Not at all Trouble relaxin = Not at all Being so restless that it is hard to sit still: 0 = Not at all Becoming easily annoyed or irritable: 0 = Not at all Feeling afraid as if something awful might happen: 0 = Not at all Total FLORECITA-7 score (0-4 normal; 5-9 mild; 10-14 moderate; 15-21 severe): 0 Source: Developed by Drs. Richard Cintron, Racheal Snell, Arvin Griffiths and colleagues, with an educational daisha from [employer]. Review of Systems Const Denies chills, Denies fatigue, Denies fever(s) and Denies poor appetite Eyes Denies no additional complaints ENT Reports Normal hearing present Card Denies chest pain, Denies syncope, Denies rapid heart rate and Denies dyspnea Resp Denies cough and Denies dyspnea GI Denies change in stool character, Denies constipation, Denies diarrhea, Denies nausea and Denies vomiting Denies urinary frequency, Denies dysuria and Denies urinary urgency Neuro Reports Normal hearing present, Denies confusion and Denies syncope Psych Denies confusion Endo Denies fatigue Physical exam (Primary Care) Vital Signs: Last Vital Signs Pulse 76 03/26/23 10:14 BP 112/78 03/26/23 10:14 Pulse Ox 99 03/26/23 10:14 Oxygen Delivery Method Room Air 03/26/23 10:14 BMI result Body Mass Index 21.3 Tobacco/Smoking Status: Tobacco use Status Tobacco use date assessed 03/26/23 03/26/23 10:17 Patient Tobacco Use Status Never used Tobacco 03/26/23 10:17 Tobacco use type Cigarette 03/26/23 10:17 e-Cigarette/Vaping Use Never Used 03/26/23 10:17 PHQ-9: PHQ-9 Score PHQ-9: Total score 0 03/26/23 11:12 Depression Screening Interpretation: Negative Thrive Assessment: Date of Thrive Assessment Date Thrive assessed 03/26/23 03/26/23 10:17 Const General: No confusion Orientation/consciousness: No confusion HENMT Head: Yes normocephalic and Yes atraumatic Ears: external ears normal and TM's normal bilaterally General nose exam: Normal external nose present and Normal nasal mucous membranes and turbinates present Face and sinus: Yes normal facial exam and Yes sinuses nontender Mouth: moist mucous membranes Throat: Yes tonsils normal Eyes Conjunctivae: conjunctivae normal Sclerae: sclerae normal Pupils: Equal, round and reactive pupils present and Pupils normal by confrontation EOM: EOMs intact bilaterally Direct Ophthalmoscopy: normal light reflex Neck Neck: Yes no lymphadenopathy and Yes supple Thyroid: Thyroid normal Chest Chest palpation & inspection: normal inspection of the chest Resp Effort & Inspection: normal respiratory effort Auscultation: clear to auscultation bilaterally, no crackles, no rhonchi and no wheezes Cardio Rate: regular rate Rhythm: regular rhythm Peripheral pulses: radial pulses present and dorsalis pedis present GI Inspection: Yes normal to inspection Palpation (GI): Soft to palpation, nontender and No hepatosplenomegaly present Auscultation: normoactive bowel sounds Skin General skin exam: no rashes or lesions noted Neuro General: No confusion Cranial nerves: Yes Equal, round and reactive pupils present and Yes Normal hearing present Cognition (Neuro): normal cognition Gait exam (Neuro): Normal gait present Motor exam (neuro): 5/5 motor strength present throughout Deep tendon reflexes (DTR's): Right brachioradialis reflex intensity grade: 2+, Left brachioradialis reflex intensity grade: 2+, Right patellar reflex intensity grade: 2+ and Left patellar reflex intensity grade: 2+ Extrem General: No edema Assessment and Plan Assessment & Plan (1) Normochromic anemia: Code(s): D64.9 - Anemia, unspecified Plan: Continue to follow with Dr. Gross. (2) Osteoporosis: Code(s): M81.0 - Age-related osteoporosis without current pathological fracture Qualifiers: Osteoporosis type: age-related Presence of current pathological fracture: without current pathological fracture Qualified Code(s): M81.0 - Age- related osteoporosis without current pathological fracture Plan: Continue to follow with Dr. Acosta. 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 Patient reports that she has a pain pill and agree pill states occasionally when she runs low 1 the pain pill she will cut the great pill in half which just about makes up her 112 mcg does patient advised not to alter her medication dose in if she runs out of for 112 mcg dose she contact PCP or pharmacy for more refills. Refills sent on levothyroxine in December 2022 with 5 refills on it by Dr. Acosta. TSH and free T4 pending at this time (4) Essential hypertension: Code(s): I10 - Essential (primary) hypertension Plan: Continue on metoprolol 25 mg daily. Blood pressure below goal today. Follow low-salt diet and exercise. 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
== END 2023-03-26 11:33 | disposition home or self-care (01) ==
PROVIDERS: PCP Internal Medicine; Visit Provider Nurse Practitioner Family
DX: Z00.00 Encounter for general adult medical examination without abnormal findings (principal); E03.8 Other specified hypothyroidism; E06.3 Autoimmune thyroiditis; I10 Essential (primary) hypertension; D64.9 Anemia, unspecified; M81.0 Age-related osteoporosis without current pathological fracture
CPT/HCPCS: 99397

== ENCOUNTER 2023-06-04 09:56 | Outpatient (REF) | payer MEDICARE, SELFPAY | END 2023-06-04 09:57 | disposition home or self-care (01) | LOC: HO.LAB 09:56 | PROVIDERS: PCP Internal Medicine; Visit Provider Internal Medicine Endocrinology, Diabetes & Metabolism | DX: E03.8 Other specified hypothyroidism (principal); E06.3 Autoimmune thyroiditis; M81.0 Age-related osteoporosis without current pathological fracture | CPT/HCPCS: 80048; 84439; 84443 ==

== ENCOUNTER 2023-06-09 09:56 | Outpatient (AMB) | payer MEDICARE, SELFPAY ==
[2023-06-09 09:58] VITALS: BP 144/74; PULSE 84; BMI 21.4
--- NOTE | 2023-06-09 09:58 | MHC.OFFVIS ---
Intake Vital Signs 06/09/23 09:58 Height 5 ft 3 in Weight 121 lb 0.54 oz BMI 21.4 BP 144/74 H Blood Pressure Location Lt brachial Position Sitting Pulse 84 Pulse Source Pulse Oximeter Intake Visit Reasons: Osteoporosis,hypothyroism and prolia Intake Note: Patient here today for osteoporosis and hypothyroidism prolia shot f/u visit. Geothermal Technician Required: No Accompanied by: Self / Same As Patient Allergies Penicillins [PENICILLINS] Allergy (Intermediate, Verified 06/09/23 10:04) CANKER SORES cephalexin Adverse Reaction (Mild, Verified 06/09/23 10:04) Didn't work HPI HPI Comments History of Present Illness Details 77 yo female, for osteoporosis and hypothyroidism She is feeling well, she has no complaints. She had her last Prolia injection on She has been on Prolia for about 5 years. She had a Right wrist fracture 2010, GERD, negative FH of fractures or osteoporosis, she denies nephrolithiasis, Denies steroids used, ex smoker quit 1995, denies anti seizures medications, PPI use. She has negative History of head or neck irradiation. Bisphosphonates use:never Calcium intake: caltrate 600 mg daily. Vitamin D:. 2000 IU Weekly +800 international units in the Caltrate Herbal medications. none She is on Levothyroxine 125 ug 2 wks ago raied by PCP was on 100 ug prior She is 100 % adherent, has a good method of administration. State s she wasn't compliant with levothyroxine in 08/2021. She is currently on 125 mcg levothyroxine She denies cold or heat intolerance,no weigth loss or gain, no diarrhea, + constipation, imsomnia, fatigue, dry skin, denies dysphagia, dyspnea, dysphonia, tremors, palpitations, irritability, anxiety. 05/29/2020 DEXA scan SPINE L1-L3 (excluding L4): The data of L1-L4 has been changed to exclude the L4 vertebral body, because dextrocurvature and degenerative changes at this level may cause overestimation of lumbar spine density. Current: BMD 1.035 g/cm2, Z-score 0.6, T-score -1.1, osteopenia, 3.6% increase from previous, 14.0% increase from baseline (<5% change is not significant). Prior: BMD 0.999 g/cm2. Baseline: BMD 0.908 g/cm2. LEFT FEMUR, NECK: Current: BMD 0.588 g/cm2, Z-score -1.4, T-score -3.2, osteoporosis. Prior: BMD 0.629 g/cm2. Baseline: BMD 0.659 g/cm2. LEFT FEMUR, TOTAL: Current: BMD 0.555 g/cm2, Z-score -2.0, T-score -3.6, osteoporosis, 1.6% increase from previous, 14.1% decrease from baseline (<5% change is not significant). Prior: BMD 0.546 g/cm2. Baseline: BMD 0.646 g/cm2. she had a complete secondary workup which was negative. Laboratory Tests Recent DEXA showed [facility] [address] [place] [address] Mammography Report Signed Patient: Merlyn Wong MR#: [id number] : 1945 Acct:[id number] Age/Sex: 77 / F ADM Date: 06/02/22 Loc: MAMMO Attending Dr: Richard Acosta MD Ordering Physician: Richard Acosta MD Results: Date of Service: 06/02/22 Follow Up: Procedure(s): XR DEXA appendicular skeleton Accession Number(s): [id number] cc: Richard Acosta MD~ EXAMINATION: BONE DENSITOMETRY CLINICAL INDICATION: Age-related osteoporosis without current pathological fracture. COMPARISON: Previous BD dated 05/29/2020 and baseline BD dated 03/30/2007 (lumbar spine and left hip). This is the initial examination of the left forearm radius 33%. TECHNIQUE: Using a [employer] DXA System (software version: 13.1) manufactured by [employer], dual-energy x-ray absorptiometry was performed of the lumbar spine, left hip and left forearm radius 33%. The images are of good technical quality. Summary results are attached. FINDINGS: AP SPINE L1-L3 (excluding L4): The data of L1-L4 has been changed to exclude the L4 vertebral body, because degenerative changes at this level may cause overestimation of lumbar spine density. Current: BMD 1.077 g/cm2, Z-score 1.0, T-score -0.8, normal, 4.1% increase from previous, 18.6% increase from baseline (<5% change is not significant). Prior: BMD 1.035 g/cm2. Baseline: BMD 0.908 g/cm2. LEFT FEMUR, NECK: Current: BMD 0.608 g/cm2, Z-score -1.1, T-score -3.1, osteoporosis. Prior: BMD 0.588 g/cm2. Baseline: BMD 0.659 g/cm2. LEFT FEMUR, TOTAL: Current: BMD 0.558 g/cm2, Z-score -1.8, T-score -3.6, osteoporosis, 0.5% increase from previous, 13.6% decrease from baseline (<5% change is not significant). Prior: BMD 0.555 g/cm2. Baseline: BMD 0.646 g/cm2. 02/21/20 02/21/20 10/24/20 00:00 Unknown 07:15 Hgb Hct Sodium Potassium Creatinine Estimated GFR Calcium Alkaline Phosphata se Albumin 25-OH Vitamin D To domenica 34.1 TSH 2.44 Free T4 1.01 Ur 24 Hour Volume 1475 Ur Calcium 24 Hr 165 Calcium/Creat 24 H r 237 11/08/20 11/08/20 10:57 10:57 Hgb 13.1 Hct 41.7 Sodium 138 Potassium 4.1 Creatinine 0.72 Estimated GFR > 60 Calcium 9.7 Alkaline Phosphata se 66 Albumin 4.6 25-OH Vitamin D To domenica TSH Free T4 Ur 24 Hour Volume Ur Calcium 24 Hr Calcium/Creat 24 H r Laboratory Tests 02/09/20 02/09/20 02/09/20 08:31 08:31 08:34 Creatinine 0.70 Est GFR (Non-Af Am er) > 60 Calcium 10.1 Albumin 4.7 N-Telopeptide X-li nked 36 25-OH Vitamin D To domenica 53.1 Free T4 1.14 TSH 3rd Generation 0.39 PTH Intact 25 Ur Calcium 24 Hr Calcium/Creat 24 H r Bone Specific Alk Phos 11.9 02/21/20 00:00 Creatinine Est GFR (Non-Af Am er) Calcium Albumin N-Telopeptide X-li nked 25-OH Vitamin D To domenica Free T4 TSH 3rd Generation PTH Intact Ur Calcium 24 Hr 165 Calcium/Creat 24 H r 237 Bone Specific Alk Phos here today for Prolia injection [facility] Medical History Acute diarrhea Essential hypertension Hypothyroidism Hypovitaminosis D Osteoporosis Polyarthralgia Right leg pain Surgical History History of cataract surgery History of colonoscopy History of tubal ligation Family History Father CHF (congestive heart failure) Liver cirrhosis Mother Stroke Social History Household Members: None Housing: Apartment Alcohol intake: never Patient Tobacco Use Status: Never used Tobacco Tobacco use type: Cigarette e-Cigarette/Vaping Use: Never Used Second Hand Smoke Exposure: No service: No Current occupational status: retired Gender identity: Female Cognitive needs: Yes (cane) Hearing needs: No Vision needs: Yes (reading glasses) Physical Exam Vital Signs: Last Vital Signs Pulse 84 06/09/23 09:58 BP 144/74 H 06/09/23 09:58 BMI result Body Mass Index 21.4 Office Meds Prolia 60 mg/mL subcutaneous syringe Performing Provider: Richard Acosta MD [place] [facility] [place] Administered by: Javi Carrizales RN on 06/09/23 10:18 Dose Route Admin Location Dispensed Lot Number Expiration Date [facility] Thread Grinder Tool 60 mg subcut L arm 1 mL [id number] 10/27/25 AMGEN Assessment & Plan Assessment & Plan (1) Osteoporosis: Code(s): M81.0 - Age-related osteoporosis without current pathological fracture Qualifiers: Osteoporosis type: age-related Presence of current pathological fracture: without current pathological fracture Qualified Code(s): M81.0 - Age-related osteoporosis without current pathological fracture Plan: 78-year-old female with a history of osteoporosis with previous fragility fracture currently on Prolia for 5 years. Secondary workup has been negative. Recent DEXA continue to show osteoporosis in the hip and wrist with stable bone density The plan is to continue the Prolia . 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 She appears to be clinically euthyroid and biochemically euthyroid on 88 mcg levothyroxine. 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
--- NOTE | 2023-06-09 10:18 | AM.OFFVISNUR ---
Intake Vital Signs 06/09/23 09:58 Height 5 ft 3 in Weight 121 lb 0.54 oz BMI 21.4 BP 144/74 H Blood Pressure Location Lt brachial Position Sitting Pulse 84 Pulse Source Pulse Oximeter Intake Visit Reasons: Osteoporosis,hypothyroism and prolia Allergies Penicillins [PENICILLINS] Allergy (Intermediate, Verified 06/09/23 10:04) CANKER SORES cephalexin Adverse Reaction (Mild, Verified 06/09/23 10:04) Didn't work Office Meds Prolia 60 mg/mL subcutaneous syringe Performing Provider: Richard Acosta MD [place] [facility] [place] Administered by: Javi Carrizales RN on 06/09/23 10:18 Dose Route Admin Location Dispensed Lot Number Expiration Date [facility] Senior Devops Engineer 60 mg subcut L arm 1 mL [id number] 10/27/25 AMGEN Coding Diagnoses Age-related osteoporosis without current pathological fracture M81.0 Osteoporosis type: age-related Presence of current pathological fracture: without current pathological fracture 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 Assessment & Plan Assessment & Plan (1) Osteoporosis: Code(s): M81.0 - Age-related osteoporosis without current pathological fracture Qualifiers: Osteoporosis type: age-related Presence of current pathological fracture: without current pathological fracture Qualified Code(s): M81.0 - Age-related osteoporosis without current pathological fracture (2) Hypothyroidism: Code(s): E03.9 - Hypothyroidism, unspecified Qualifiers: 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
== END 2023-06-09 10:25 | disposition home or self-care (01) ==
PROVIDERS: PCP Internal Medicine; Referring Provider Internal Medicine; Visit Provider Internal Medicine Endocrinology, Diabetes & Metabolism
DX: M81.0 Age-related osteoporosis without current pathological fracture (principal); E03.8 Other specified hypothyroidism; E06.3 Autoimmune thyroiditis
CPT/HCPCS: 99213

== ENCOUNTER → 2023-06-09 09:56 | Outpatient (BNVA) | payer MEDICARE, SELFPAY | PROVIDERS: Visit Provider Internal Medicine Endocrinology, Diabetes & Metabolism | DX: M81.0 Age-related osteoporosis without current pathological fracture (principal); E03.8 Other specified hypothyroidism; E06.3 Autoimmune thyroiditis | CPT/HCPCS: 96372; 99212; J0897 ==

== ENCOUNTER 2023-06-29 09:54 | Outpatient (AMB) | payer MEDICARE, SELFPAY ==
--- NOTE | 2023-06-29 09:57 | MHC.PC.OV ---
Vital Signs 06/29/23 09:58 Height 5 ft 3 in Weight 114 lb 4 oz BMI 20.2 BP 120/70 Blood Pressure Location Lt brachial Position Sitting Pulse 67 Pulse Source Pulse Oximeter Pulse Oximetry (%) 97 Oxygen Delivery Method Room Air Intake Visit Reasons: 3 MONTH F/U Intake Note: Patient is here to follow up on Hypothyroidism, Polyarthralgia, HTN . Commercial Lending Relationship Manager Required: No Purchase Analyst: Not Required per policy Accompanied by: Self / Same As Patient Allergies Penicillins [PENICILLINS] Allergy (Intermediate, Verified 06/29/23 10:13) CANKER SORES cephalexin Adverse Reaction (Mild, Verified 06/29/23 10:13) Didn't work Medication List - Last Reconciled 06/29/23 by NAVNEET Davalos acetaminophen 500 mg PO Q6H PRN [id number] 0.85 mg-200 mcg-1.2 mcg (Neuriva Plus) 1 tab PO DAILY blood pressure monitor As directed cholecalciferol (vitamin D3) 50 mcg PO .every other day 90 days compr.stocking,knee,long,large As directed folic acid 1 mg PO DAILY 90 days gabapentin 300 mg PO BID Lactobacillus rhamnosus GG (Culturelle) 1 cap PO DAILY PRN levothyroxine 88 mcg PO DAILY melatonin 5 mg PO BEDTIME PRN metoprolol succinate ER 25 mg PO DAILY 90 days Tobacco use date assessed: 06/29/23 Fall risk assessment: No Falls in past year Last assessed Fall Risk: 06/29/23 Dental Screening Dental Screen Date: 06/29/23 Did you have a dental visit in the last 12 months?: Yes Did you have a dental problem in the last 6 months where you did not have access to dental care?: No Was dental information given to patient?: Patient has dentist HPI HPI Comments History of Present Illness Details This is a 77-year-old female with hypothyroidism, B12 deficiency, osteoporosis and low vitamin-D that comes today for follow-up visit. Patient continues to follow with Dr. Acosta endocrinology states her levothyroxine was decreased 88 mcg daily, TSH 0.73. Blood pressure below goal in office today 120/70. FORMER[facility] Medical History Acute diarrhea Essential hypertension Hypothyroidism Hypovitaminosis D Osteoporosis Polyarthralgia Right leg pain Surgical History History of cataract surgery History of colonoscopy History of tubal ligation Family History Father CHF (congestive heart failure) Liver cirrhosis Mother Stroke Social History Household Members: None Housing: Apartment Alcohol intake: never Patient Tobacco Use Status: Never used Tobacco Tobacco use type: Cigarette e-Cigarette/Vaping Use: Never Used Second Hand Smoke Exposure: No service: No Current occupational status: retired Gender identity: Female Cognitive needs: Yes (cane) Hearing needs: No Vision needs: Yes (reading glasses) Questionnaire Thrive Questionnaire Date Thrive assessed: 03/26/23 FLORECITA-7 AMB Questionnaire FLORECITA-7 Date FLORECITA - 7 assessed: 03/26/23 Source: Developed by Drs. Richard Cintron, Racheal Snell, Arvin Griffiths and colleagues, with an educational daisha from [employer]. Review of Systems Const Denies chills, Denies fatigue, Denies fever(s) and Denies poor appetite Eyes Denies no additional complaints ENT Reports Normal hearing present Card Denies chest pain, Denies syncope, Denies rapid heart rate and Denies dyspnea Resp Denies cough and Denies dyspnea GI Denies change in stool character, Denies constipation, Denies diarrhea, Denies nausea and Denies vomiting Denies urinary frequency, Denies dysuria and Denies urinary urgency Neuro Reports Normal hearing present, Denies confusion and Denies syncope Psych Denies confusion Endo Denies fatigue Physical exam (Primary Care) Vital Signs: Last Vital Signs Pulse 67 06/29/23 09:58 BP 120/70 06/29/23 09:58 Pulse Ox 97 06/29/23 09:58 Oxygen Delivery Method Room Air 06/29/23 09:58 BMI result Body Mass Index 20.2 Tobacco/Smoking Status: Tobacco use Status Tobacco use date assessed 06/29/23 06/29/23 10:04 Patient Tobacco Use Status Never used Tobacco 06/29/23 10:04 Tobacco use type Cigarette 06/29/23 10:04 e-Cigarette/Vaping Use Never Used 06/29/23 10:04 Thrive Assessment: Date of Thrive Assessment Date Thrive assessed 03/26/23 06/29/23 10:04 Const General: No confusion Orientation/consciousness: No confusion HENMT Head: Yes normocephalic and Yes atraumatic Eyes Conjunctivae: conjunctivae normal Chest Chest palpation & inspection: normal inspection of the chest Resp Effort & Inspection: normal respiratory effort Auscultation: clear to auscultation bilaterally, no crackles, no rhonchi and no wheezes Cardio Rate: regular rate Rhythm: regular rhythm Heart sounds: S1 normal heart sound present and S2 normal heart sound present GI Inspection: Yes normal to inspection Neuro General: No confusion Cranial nerves: Yes Normal hearing present Extrem General: No edema Assessment and Plan Assessment & Plan (1) Essential hypertension: Code(s): I10 - Essential (primary) hypertension Plan: Continue metoprolol 25 mg daily. Follow low-salt diet. 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 Continue to follow with endocrinology. (3) Anemia: Code(s): D64.9 - Anemia, unspecified Plan: Continue to follow with Dr. Gross Plan Follow-up in 6 months PCP or sooner if needed Orders: Orders Complete Blood Count Auto Diff 6 Months Z13.0 - Encounter for screening for diseases of the blood and blood-forming organs and certain disorders involving the immune mechanism Comprehensive [place]. 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
[2023-06-29 09:58] VITALS: BP 120/70; PULSE 67; O2SAT 97; BMI 20.2
== END 2023-06-29 10:24 | disposition home or self-care (01) ==
PROVIDERS: PCP Internal Medicine; Visit Provider Nurse Practitioner Family
DX: I10 Essential (primary) hypertension (principal); E03.8 Other specified hypothyroidism; E06.3 Autoimmune thyroiditis; D64.9 Anemia, unspecified
CPT/HCPCS: 99213

== ENCOUNTER 2023-12-21 10:00 | Outpatient (AMB) | payer MEDICARE, SELFPAY ==
--- NOTE | 2023-12-21 10:21 | AM.OFFVISNUR ---
Intake Intake Visit Reasons: Prolia Allergies Penicillins [PENICILLINS] Allergy (Intermediate, Verified 09/13/23 13:15) CANKER SORES cephalexin Adverse Reaction (Mild, Verified 09/13/23 13:15) Didn't work Office Meds Prolia 60 mg/mL subcutaneous syringe Performing Provider: Richard Acosta MD Performing Location: [facility] Endocrinology Administered by: Steff Mckeon LPN on 12/21/23 10:21 Dose Route Admin Location Dispensed Lot Number Expiration Date [facility] Certified Procedural Coder 60 mg subcut Right upper arm 1 mL [id number] 02/26/26 [facility] Coding Assessment & Plan Assessment & Plan Orders: Orders AMB Denosumab Injection Practice Supplied Today M81.0 - Age-related osteoporosis without current pathological fracture Medications: New Prolia (denosumab) 60 mg subcut ONCE 1 mL 0RF NS M81.0 - Age-related osteoporosis without current pathological fracture
== END 2023-12-21 10:20 | disposition home or self-care (01) ==
PROVIDERS: PCP Internal Medicine; Visit Provider Internal Medicine Endocrinology, Diabetes & Metabolism
DX: M81.0 Age-related osteoporosis without current pathological fracture (principal)

== ENCOUNTER 2023-12-21 10:00 | Outpatient (REF) | payer MEDICARE, SELFPAY ==
[2023-12-21 12:25] LABS: Free T4 (Free Thyroxine) 0.94 ng/dL (0.71-1.85); Thyroid Stimulating Hormone 1.75 uIU/mL (0.32-4.0)
[2023-12-21 13:46] LABS: Anion Gap 13 (12-20)
[2023-12-21 13:50] LABS: Alanine Aminotransferase 19 U/L (0-31); Albumin Level 4.4 g/dL (3.5-5.0); Alkaline Phosphatase 57 U/L (39-117); Aspartate Amino Transferase 31 U/L (5-31); Bilirubin Total 0.3 mg/dL (0.0-1.0); Blood Urea Nitrogen 9 mg/dL (9-16); Carbon Dioxide 28 mmol/L (22-29); Chloride 104 mmol/L (96-108); Estimated Glomerular Filt Rate > 60; Glucose Random 127 mg/dL (60-115); Potassium 3.6 mmol/L (3.3-5.1); Sodium 141 mmol/L (135-145); Total Protein 8.3 g/dL (6.5-8.0)
== END 2023-12-21 10:01 | disposition home or self-care (01) ==
LOC: HO.LAB 10:00
PROVIDERS: PCP Internal Medicine; Visit Provider Internal Medicine Endocrinology, Diabetes & Metabolism
DX: E03.8 Other specified hypothyroidism (principal); E06.3 Autoimmune thyroiditis; M81.0 Age-related osteoporosis without current pathological fracture
CPT/HCPCS: 36415; 80053; 84439; 84443; 96372; J0897

== ENCOUNTER 2023-12-29 09:52 | Outpatient (AMB) | payer MEDICARE, SELFPAY ==
--- NOTE | 2023-12-29 10:14 | A.OFFPC_ITS ---
Vital Signs 12/29/23 10:17 Height 5 ft 3 in Weight 111 lb BMI 19.7 BP 148/70 H Blood Pressure Location Lt brachial Position Sitting Intake Visit Reasons: HTN , hypothyroidism, Anemia Intake Note: Patient here for a follow up HTN, Hypothyroidism, Anemia Operations Vocational Instructor Required: No Accompanied by: Self / Same As Patient Allergies Penicillins [PENICILLINS] Allergy (Intermediate, Verified 12/29/23 10:41) CANKER SORES cephalexin Adverse Reaction (Mild, Verified 12/29/23 10:41) Didn't work Medication List - Last Reconciled 12/29/23 by Ashley Hernandez MD acetaminophen 500 mg PO Q6H PRN [id number] 0.85 mg-200 mcg-1.2 mcg (Neuriva Plus) 1 tab PO DAILY blood pressure monitor As directed cholecalciferol (vitamin D3) 50 mcg PO .every other day 90 days compr.stocking,knee,long,large As directed folic acid 1 mg PO DAILY 90 days gabapentin 300 mg PO BID Lactobacillus rhamnosus GG (Culturelle) 1 cap PO DAILY PRN levothyroxine 88 mcg PO DAILY melatonin 5 mg PO BEDTIME PRN metoprolol succinate ER 25 mg PO DAILY 90 days Tobacco use date assessed: 12/29/23 Fall risk assessment: No Falls in past year Last assessed Fall Risk: 12/29/23 Dental Screening Dental Screen Date: 12/29/23 Did you have a dental visit in the last 12 months?: No Did you have a dental problem in the last 6 months where you did not have access to dental care?: No Was dental information given to patient?: Patient has dentist HPI HPI Comments History of Present Illness Details This is a 78-year-old female with hypothyroidism, B12 deficiency, osteoporosis and low vitamin-D that comes today for follow-up on her conditions. Blood pressure borderline. TSH normal. Vitamin B12 and vitamin-D levels will be repeated. Last bone density was May 2022 and osteoporosis is being followed by Endocrinology which have her on Prolia. Walks with a cane for gait stability. Denies any chest pain or shortness of breath. [facility]LY [facility] Medical History Acute diarrhea Right leg pain Polyarthralgia Osteoporosis Hypothyroidism Hypovitaminosis D Essential hypertension Surgical History History of cataract surgery History of colonoscopy History of tubal ligation Family History Father CHF (congestive heart failure) Liver cirrhosis Mother Stroke Social History Household Members: None Housing: Apartment Alcohol intake: never Patient Tobacco Use Status: Never used Tobacco e-Cigarette/Vaping Use: Never Used Second Hand Smoke Exposure: No service: No Current occupational status: retired Gender identity: Female Cognitive needs: Yes (cane) Hearing needs: No Vision needs: Yes (reading glasses) Questionnaire PHQ-9 Over the last 2 weeks, how often have you been bothered by any of the following problems? 1. Little interest or pleasure in doing things: not at all 2. Feeling down, depressed, or hopeless: not at all 3. Trouble falling or staying asleep, or sleeping too much: not at all 4. Feeling tired or having little energy: not at all 5. Poor appetite or overeating: not at all 6. Feeling bad about yourself - or that you are a failure or have let yourself or your family down: not at all 7. Trouble concentrating on things, such as reading the newspaper or watching television: not at all 8. Moving or speaking so slowly that other people could have noticed. Or the opposite - being so fidgety or restless that you have been moving around a lot more than usual: not at all 9. Thoughts that you would be better off or of hurting yourself in some way: not at all Total score: 0 Depression Screening Interpretation: Negative Depression Screening Done: Yes 47998 - PHQ-9 Billing: Yes Source: Developed by Drs. Richard Cintron, Racheal Snell, Arvin Griffiths and colleagues, with an educational daisha from [employer]. Thrive Questionnaire Date Thrive assessed: 12/29/23 I am a: Patient What is your living situation today?: I have a steady place to live Within the past 12 months, did the food you bought not last and you didn't have the money to get more?: Never true Within the past 12 months, did you worry whether your food would run out before you got money to buy more?: Never true Do you have trouble paying for medicines?: No Do you have trouble getting transportation to medical appointments?: No Do you have trouble paying your heating and electricity bill?: No Do you have trouble taking care of your child, family member or friend?: No Do you have trouble with day-to-day activities such as bathing, preparing meals, shopping, managing finances, etc.?: No Are you currently unemployed and looking for a job?: No Are you interested in more education?: No Please select the resources that you would like help with: None Currently or been in a relationship where the following occur: no concerns reported THRIVE Score: 0 AUDIT C Alcohol Use Questionnaire (AUDIT-C) 1. How often do you have a drink containing alcohol?: Never Total Score: 0 Score Reviewed/Action Taken: No FLORECITA-7 AMB Questionnaire FLORECITA-7 Date FLORECITA - 7 assessed: 12/29/23 Feeling nervous, anxious, or on edge: 0 = Not at all Not being able to stop or control worryin = Not at all Worrying too much about different things: 0 = Not at all Trouble relaxin = Not at all Being so restless that it is hard to sit still: 0 = Not at all Becoming easily annoyed or irritable: 0 = Not at all Feeling afraid as if something awful might happen: 0 = Not at all Total FLORECITA-7 score (0-4 normal; 5-9 mild; 10-14 moderate; 15-21 severe): 0 Source: Developed by Drs. Richard Cintron, Racheal Snell, Arvin Griffiths and colleagues, with an educational dasiha from [employer]. FLORECITA-7 Assessment Billing FLORECITA-7 Assessment Tool: FLORECITA-7 Assessment 21190 Review of Systems Const All systems reviewed & are unremarkable except as noted in HPI and below Eyes Reports no additional complaints, Denies change in vision and Denies other visual disturbances Card Denies chest pain at rest, Denies chest pain with activity, Denies edema, Denies irregular heart rhythm, Denies claudication, Denies dyspnea, Denies dyspnea on exertion, Denies orthopnea, Denies paroxysmal nocturnal dyspnea and Denies slow heart rate Resp Denies cough, Denies dyspnea and Denies dyspnea on exertion Musc Denies atrophy, Denies deformity and Denies limited range of motion Physical exam (Primary Care) Vital Signs: Last Vital Signs BP 148/70 H 12/29/23 10:17 BMI result Body Mass Index 19.7 BMI Assessment/Plan discussion: Low BMI Low, Plan discussed: lifestyle and increase calorie intake Tobacco/Smoking Status: Tobacco use Status Tobacco use date assessed 12/29/23 12/29/23 10:24 Patient Tobacco Use Status Never used Tobacco 12/29/23 10:15 Tobacco use type 12/29/23 10:24 e-Cigarette/Vaping Use Never Used 12/29/23 10:15 PHQ-9: PHQ-9 Score PHQ-9: Total score 0 12/29/23 10:49 Depression Screening Interpretation: Negative Thrive Assessment: Date of Thrive Assessment Date Thrive assessed 12/29/23 12/29/23 10:24 Currently or been in a relationship where the following occur: no concerns reported Const Limitations: ambulation with cane Resp Effort & Inspection: normal respiratory effort Auscultation: clear to auscultation bilaterally Cardio Jugular venous distension: no JVD Rate: regular rate Rhythm: regular rhythm Heart sounds: S1 normal heart sound present and S2 normal heart sound present Extrem General: Yes full ROM Assessment and Plan Assessment & Plan (1) Hypovitaminosis D: Code(s): E55.9 - Vitamin D deficiency, unspecified Plan: Continue vitamin-D supplements. 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 (3) Osteoporosis: Code(s): M81.0 - Age-related osteoporosis without current pathological fracture Qualifiers: Osteoporosis type: age-related Presence of current pathological fracture: without current pathological fracture Qualified Code(s): M81.0 - Age- related osteoporosis without current pathological fracture Plan: Continue Prolia. Follow-up with endocrinology. (4) B12 deficiency: Code(s): E53.8 - Deficiency of other specified B group vitamins Plan: Repeat vitamin B12 levels. Orders: Orders Vitamin D 25-OH Total 4 Months E55.9 - Vitamin D deficiency, unspecified Complete Blood Count Auto Diff 4 Months D64.9 - Anemia, unspecified IRON PROFILE 4 Months D64.9 - Anemia, unspecified Thyroid Stimulating Hormone 4 Months E03.8 - Other specified hypothyroidism, E06.3 - Autoimmune thyroiditis Vitamin B12 and Folate 4 Months E53.8 - Deficiency of other specified B group vitamins Comprehensive [place]. 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
[2023-12-29 10:17] VITALS: BP 148/70; BMI 19.7
== END 2023-12-29 10:53 | disposition home or self-care (01) ==
PROVIDERS: PCP Internal Medicine; Visit Provider Internal Medicine
DX: E55.9 Vitamin D deficiency, unspecified (principal); E03.8 Other specified hypothyroidism; E06.3 Autoimmune thyroiditis; M81.0 Age-related osteoporosis without current pathological fracture; E53.8 Deficiency of other specified B group vitamins
CPT/HCPCS: 99214

== ENCOUNTER 2024-01-11 10:03 | Outpatient (REF) | payer MEDICARE, SELFPAY ==
[2024-01-11 10:26] LABS: MANUAL DIFF FLAG NO
[2024-01-11 11:14] LABS: Hematocrit 41.8 % (37.0-47.0); Hemoglobin 13.4 g/dl (12.0-16.0); Imm Gran Abs Auto 0.01 X10*3/uL (0.00-0.03); Imm Gran Pct Auto 0.2 % (0.0-0.4); Lymphocytes Absolute Auto 2.2 X10*3/uL (1.2-4.9); Mean Corpuscular HGB Conc 32.1 g/dl (31.0-35.0); Mean Corpuscular Hemoglobin 34.7 pg (27.0-33.0); Mean Corpuscular Volume 108.3 fL (80.0-98.0); Mean Platelet Volume 10.1 fL (9.4-12.3); Monocytes Absolute Auto 0.4 X10*3/uL (0.1-1.2); Neutrophils Absolute Auto 3.1 x10*3/uL (2.0-8.3); Neutrophils Percent Auto 53.8 % (45-73); Platelet Count 201 X10*3/uL (160-400); Red Blood Count 3.86 X10*6/uL (4.20-5.50); Red Cell Distribution Width 12.5 % (11.0-16.0); White Blood Count 5.7 X10*3/uL (4.8-10.8)
[2024-01-11 11:59] LABS: Alanine Aminotransferase 21 U/L (0-31); Albumin Level 4.6 g/dL (3.5-5.0); Alkaline Phosphatase 71 U/L (39-117); Anion Gap 15 (12-20); Aspartate Amino Transferase 32 U/L (5-31); Bilirubin Total 0.3 mg/dL (0.0-1.0); Blood Urea Nitrogen 9 mg/dL (9-16); Carbon Dioxide 29 mmol/L (22-29); Chloride 102 mmol/L (96-108); Cholesterol 163 mg/dL (<200); Estimated Glomerular Filt Rate > 60; Glucose Fasting 92 mg/dL (60-99); HDL Cholesterol 65 mg/dL (>40); LDL Cholesterol Calculated 85 mg/dL (<100); Potassium 3.9 mmol/L (3.3-5.1); Sodium 142 mmol/L (135-145); Total Protein 8.8 g/dL (6.5-8.0); Triglycerides 68 mg/dL (<150)
== END 2024-01-11 10:04 | disposition home or self-care (01) ==
LOC: HO.LAB 10:03
PROVIDERS: Nurse Practitioner Family; PCP Internal Medicine; Visit Provider Internal Medicine Endocrinology, Diabetes & Metabolism
DX: I10 Essential (primary) hypertension (principal); Z13.0 Encounter for screening for diseases of the blood and blood-forming organs and certain disorders involving the immune mechanism; Z13.220 Encounter for screening for lipoid disorders
CPT/HCPCS: 36415; 80053; 80061; 85025

== ENCOUNTER 2024-02-14 09:57 | Outpatient (REF) | payer MEDICARE, SELFPAY ==
[2024-02-14 10:12] LABS: MANUAL DIFF FLAG NO
[2024-02-14 10:14] LABS: Basophils Percent Auto 0.2 % (0-2); Hematocrit 40.3 % (37.0-47.0); Hemoglobin 13.2 g/dl (12.0-16.0); Imm Gran Abs Auto 0.01 X10*3/uL (0.00-0.03); Imm Gran Pct Auto 0.2 % (0.0-0.4); Lymphocytes Absolute Auto 2.2 X10*3/uL (1.2-4.9); Lymphocytes Percent Auto 39.1 % (20-40); Mean Corpuscular HGB Conc 32.8 g/dl (31.0-35.0); Mean Corpuscular Hemoglobin 35.7 pg (27.0-33.0); Mean Corpuscular Volume 108.9 fL (80.0-98.0); Mean Platelet Volume 9.3 fL (9.4-12.3); Monocytes Absolute Auto 0.4 X10*3/uL (0.1-1.2); Monocytes Percent Auto 6.3 % (2-11); Neutrophils Percent Auto 54.2 % (45-73); Platelet Count 173 X10*3/uL (160-400); Red Cell Distribution Width 12.1 % (11.0-16.0); White Blood Count 5.6 X10*3/uL (4.8-10.8)
[2024-02-14 11:06] LABS: Ferritin 81 ng/mL (10-250)
== END 2024-02-14 09:58 | disposition home or self-care (01) ==
LOC: HO.LAB 09:57
PROVIDERS: Internal Medicine Medical Oncology; PCP Internal Medicine; Visit Provider Internal Medicine Endocrinology, Diabetes & Metabolism
DX: D64.9 Anemia, unspecified (principal)
CPT/HCPCS: 36415; 82728; 85025

== ENCOUNTER 2024-02-16 10:58 | Outpatient (AMB) | payer MEDICARE, SELFPAY ==
[2024-02-16 11:04] VITALS: BP 150/72; PULSE 99; BMI 19.9
--- NOTE | 2024-02-16 11:04 | MHC.OFFVIS ---
Vital Signs 02/16/24 11:04 Height 5 ft 3 in Weight 112 lb 6.972 oz BMI 19.9 BP 150/72 H Blood Pressure Location Lt brachial Position Sitting Pulse 99 Pulse Source Pulse Oximeter Intake Visit Reasons: f/u osteoporosis and hypothyroidism-lvm Intake Note: Patient present today for Osteoporosis and Hypothyroidism follow up visit. Screwmaker Automatic Required: No Accompanied by: Self / Same As Patient Allergies Penicillins [PENICILLINS] Allergy (Intermediate, Verified 02/16/24 11:08) CANKER SORES cephalexin Adverse Reaction (Mild, Verified 02/16/24 11:08) Didn't work HPI Comments Details: 78 yo female, for osteoporosis and hypothyroidism She is feeling well, she has no complaints. She had her last Prolia injection on She has been on Prolia for about 5 years. She had a Right wrist fracture 2010, GERD, negative FH of fractures or osteoporosis, she denies nephrolithiasis, Denies steroids used, ex smoker quit 1995, denies anti seizures medications, PPI use. She has negative History of head or neck irradiation. Bisphosphonates use:never Calcium intake: caltrate 600 mg daily. Vitamin D:. 2000 IU Weekly +800 international units in the Caltrate Herbal medications. none She is on Levothyroxine 125 ug 2 wks ago raied by PCP was on 100 ug prior She is 100 % adherent, has a good method of administration. State s she wasn't compliant with levothyroxine in 08/2021. She is currently on 125 mcg levothyroxine She denies cold or heat intolerance,no weigth loss or gain, no diarrhea, + constipation, imsomnia, fatigue, dry skin, denies dysphagia, dyspnea, dysphonia, tremors, palpitations, irritability, anxiety. 05/29/2020 DEXA scan SPINE L1-L3 (excluding L4): The data of L1-L4 has been changed to exclude the L4 vertebral body, because dextrocurvature and degenerative changes at this level may cause overestimation of lumbar spine density. Current: BMD 1.035 g/cm2, Z-score 0.6, T-score -1.1, osteopenia, 3.6% increase from previous, 14.0% increase from baseline (<5% change is not significant). Prior: BMD 0.999 g/cm2. Baseline: BMD 0.908 g/cm2. LEFT FEMUR, NECK: Current: BMD 0.588 g/cm2, Z-score -1.4, T-score -3.2, osteoporosis. Prior: BMD 0.629 g/cm2. Baseline: BMD 0.659 g/cm2. LEFT FEMUR, TOTAL: Current: BMD 0.555 g/cm2, Z-score -2.0, T-score -3.6, osteoporosis, 1.6% increase from previous, 14.1% decrease from baseline (<5% change is not significant). Prior: BMD 0.546 g/cm2. Baseline: BMD 0.646 g/cm2. she had a complete secondary workup which was negative. Laboratory Tests [facility] [place] [address] Mammography Report Signed Patient: Merlyn Wong MR#: [id number] : 1945 Acct:[id number] Age/Sex: 77 / F ADM Date: 06/02/22 Loc: HOShantiMAMMO Attending Dr: Richard Acosta MD Ordering Physician: Richard Acosta MD Results: Date of Service: 06/02/22 Follow Up: Procedure(s): XR DEXA appendicular skeleton Accession Number(s): [id number] cc: Richard Acosta MD~ EXAMINATION: BONE DENSITOMETRY CLINICAL INDICATION: Age-related osteoporosis without current pathological fracture. COMPARISON: Previous BD dated 05/29/2020 and baseline BD dated 03/30/2007 (lumbar spine and left hip). This is the initial examination of the left forearm radius 33%. TECHNIQUE: Using a Influitive DXA System (software version: 13.1) manufactured by [employer], dual-energy x-ray absorptiometry was performed of the lumbar spine, left hip and left forearm radius 33%. The images are of good technical quality. Summary results are attached. FINDINGS: AP SPINE L1-L3 (excluding L4): The data of L1-L4 has been changed to exclude the L4 vertebral body, because degenerative changes at this level may cause overestimation of lumbar spine density. Current: BMD 1.077 g/cm2, Z-score 1.0, T-score -0.8, normal, 4.1% increase from previous, 18.6% increase from baseline (<5% change is not significant). Prior: BMD 1.035 g/cm2. Baseline: BMD 0.908 g/cm2. LEFT FEMUR, NECK: Current: BMD 0.608 g/cm2, Z-score -1.1, T-score -3.1, osteoporosis. Prior: BMD 0.588 g/cm2. Baseline: BMD 0.659 g/cm2. LEFT FEMUR, TOTAL: Current: BMD 0.558 g/cm2, Z-score -1.8, T-score -3.6, osteoporosis, 0.5% increase from previous, 13.6% decrease from baseline (<5% change is not significant). Prior: BMD 0.555 g/cm2. Baseline: BMD 0.646 g/cm2. 02/21/20 02/21/20 10/24/20 00:00 Unknown 07:15 Hgb Hct Sodium Potassium Creatinine Estimated GFR Calcium Alkaline Phosphatase Albumin 25-OH Vitamin D Total 34.1 TSH 2.44 Free T4 1.01 Ur 24 Hour Volume 1475 Ur Calcium 24 Hr 165 Calcium/Creat 24 Hr 237 11/08/20 11/08/20 10:57 10:57 Hgb 13.1 Hct 41.7 Sodium 138 Potassium 4.1 Creatinine 0.72 Estimated GFR > 60 Calcium 9.7 Alkaline Phosphatase 66 Albumin 4.6 25-OH Vitamin D Total TSH Free T4 Ur 24 Hour Volume Ur Calcium 24 Hr Calcium/Creat 24 Hr Laboratory Tests 02/09/20 02/09/20 02/09/20 08:31 08:31 08:34 Creatinine 0.70 Est GFR (Non-Af Amer) > 60 Calcium 10.1 Albumin 4.7 N-Telopeptide X-linked 36 25-OH Vitamin D Total 53.1 Free T4 1.14 TSH 3rd Generation 0.39 PTH Intact 25 Ur Calcium 24 Hr Calcium/Creat 24 Hr Bone Specific Alk Phos 11.9 02/21/20 00:00 Creatinine Est GFR (Non-Af Amer) Calcium Albumin N-Telopeptide X-linked 25-OH Vitamin D Total Free T4 TSH 3rd Generation PTH Intact Ur Calcium 24 Hr 165 Calcium/Creat 24 Hr 237 Bone Specific Alk Phos on 88 ug of levothyroxine . No fx since last visit [facility] Medical History Acute diarrhea Right leg pain Polyarthralgia Osteoporosis Hypothyroidism Hypovitaminosis D Essential hypertension Surgical History History of cataract surgery History of colonoscopy History of tubal ligation Family History Father CHF (congestive heart failure) Liver cirrhosis Mother Stroke Social History Household Members: None Housing: Apartment Alcohol intake: never Patient Tobacco Use Status: Never used Tobacco e-Cigarette/Vaping Use: Never Used Second Hand Smoke Exposure: No service: No Current occupational status: retired Gender identity: Female Cognitive needs: Yes (cane) Hearing needs: No Vision needs: Yes (reading glasses) Physical Exam Const Other: Thyroid gland is normal size weighs about 15 g. There are no thyroid nodules palpated. Reflexes 2+ DTR. There is no tenderness present on palpation the vertebral spine Assessment & Plan Assessment & Plan (1) Osteoporosis: Code(s): M81.0 - Age-related osteoporosis without current pathological fracture Category: Medical Qualifiers: Osteoporosis type: age-related Presence of current pathological fracture: without current pathological fracture Qualified Code(s): M81.0 - Age-related osteoporosis without current pathological fracture Plan: 78-year-old female with a history of osteoporosis with previous fragility fracture currently on Prolia for> 5 years. Secondary workup has been negative. The plan is to continue the Prolia next dose in 05/2024. 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 She appears to be clinically euthyroid and biochemically euthyroid on 88 mcg levothyroxine. Plan is to continue the current treat. At this point, in terms of hypothyroidism, patient returned to the care of her primary care provider returned back to endocrinology as needed Orders: Orders XR DEXA axial skeleton 4 Months M81.0 - Age-related osteoporosis without current pathological fracture Basic Metabolic Panel 4 Months M81.0 - Age-related osteoporosis without current pathological fracture Calcium 4 Months M81.0 - Age-related osteoporosis without current pathological fracture Albumin Level 4 Months M81.0 - Age-related osteoporosis without current pathological fracture Coding Level of Care Code Est Pt Level 3 (45345) Diagnoses Age-related osteoporosis without current pathological fracture M81.0 Osteoporosis type: age-related Presence of current pathological fracture: without current pathological fracture 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
== END 2024-02-16 11:47 | disposition home or self-care (01) ==
PROVIDERS: PCP Internal Medicine; Visit Provider Internal Medicine Endocrinology, Diabetes & Metabolism
DX: M81.0 Age-related osteoporosis without current pathological fracture (principal); E03.8 Other specified hypothyroidism; E06.3 Autoimmune thyroiditis
CPT/HCPCS: 99213

== ENCOUNTER → 2024-02-16 10:58 | Outpatient (BNVA) | payer MEDICARE, SELFPAY | PROVIDERS: PCP Internal Medicine; Visit Provider Internal Medicine Endocrinology, Diabetes & Metabolism | DX: M81.0 Age-related osteoporosis without current pathological fracture (principal); E03.8 Other specified hypothyroidism; E06.3 Autoimmune thyroiditis | CPT/HCPCS: 99212 ==

== ENCOUNTER 2024-05-18 11:47 | Outpatient (AMB) | payer MEDICARE, SELFPAY ==
--- NOTE | 2024-05-18 12:32 | A.OFFPC_ITS ---
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: No Accompanied by: Self / Same As Patient Allergies Penicillins [PENICILLINS] Allergy (Intermediate, Verified 05/18/24 12:45) CANKER SORES cephalexin Adverse Reaction (Mild, Verified 05/18/24 12:45) Didn't work Medication List - Last Reconciled 05/18/24 by Ashley Hernandez MD acetaminophen 500 mg PO Q6H PRN [id number] 0.85 mg-200 mcg-1.2 mcg (Neuriva Plus) 1 tab PO DAILY blood pressure monitor As directed cholecalciferol (vitamin D3) 50 mcg PO .every other day 90 days compr.stocking,knee,long,large As directed folic acid 1 mg PO DAILY 90 days gabapentin 300 mg PO BID Lactobacillus rhamnosus GG (Culturelle) 1 cap PO DAILY PRN levothyroxine 88 mcg PO DAILY melatonin 5 mg PO BEDTIME PRN metoprolol succinate ER 25 mg PO DAILY 90 days Tobacco use date assessed: 12/29/23 Fall risk assessment: No Falls in past year Last assessed Fall Risk: 05/18/24 Dental Screening Dental Screen Date: 12/29/23 HPI HPI Comments History of Present Illness Details This is a 79-year-old female with mild major depression that comes for her physical exam. She declines any type of treatment for her depression. Says that her 55-year-old son has not talked to her in over a year. She declines mammogram. DEXA scan done 2021 and has another DEXA this year. Will also have colonoscopy soon. Walks with a cane for gait stability. [facility] Medical History (Updated 05/18/24 @ 13:04 by Ashley Hernandez MD) Acute diarrhea Right leg pain Polyarthralgia Osteoporosis Hypothyroidism Hypovitaminosis D Essential hypertension Surgical History History of cataract surgery History of colonoscopy History of tubal ligation Family History Father CHF (congestive heart failure) Liver cirrhosis Mother Stroke Social History (Updated 05/18/24 @ 12:53 by Ashley Hernandez MD) Household Members: None Housing: Apartment Alcohol intake: former Patient Tobacco Use Status: Former Tobacco user e-Cigarette/Vaping Use: Never Used Second Hand Smoke Exposure: No service: No Current occupational status: retired Gender identity: Female Cognitive needs: Yes (cane) Hearing needs: No Vision needs: Yes (reading glasses) Questionnaire PHQ-9 Over the last 2 weeks, how often have you been bothered by any of the following problems? 1. Little interest or pleasure in doing things: several days 2. Feeling down, depressed, or hopeless: not at all 3. Trouble falling or staying asleep, or sleeping too much: nearly every day 4. Feeling tired or having little energy: not at all 5. Poor appetite or overeating: not at all 6. Feeling bad about yourself - or that you are a failure or have let yourself or your family down: not at all 7. Trouble concentrating on things, such as reading the newspaper or watching television: not at all 8. Moving or speaking so slowly that other people could have noticed. Or the opposite - being so fidgety or restless that you have been moving around a lot more than usual: not at all 9. Thoughts that you would be better off or of hurting yourself in some way: not at all Total score: 4 Depression Screening Interpretation: Positive Depression Screening Follow-up: Existing condition, Follow-up Visit Requested and Declines treatment Depression Screening Done: Yes 71725 - PHQ-9 Billing: Yes Source: Developed by Drs. Richard Cintron, Racheal Snell, Arvin Griffiths and colleagues, with an educational daisha from [employer]. Thrive Questionnaire Date Thrive assessed: 05/18/24 I am a: Patient What is your living situation today?: I have a steady place to live Within the past 12 months, did the food you bought not last and you didn't have the money to get more?: Never true Within the past 12 months, did you worry whether your food would run out before you got money to buy more?: Never true Do you have trouble paying for medicines?: No Do you have trouble getting transportation to medical appointments?: Yes Do you have trouble paying your heating and electricity bill?: No Do you have trouble taking care of your child, family member or friend?: No Do you have trouble with day-to-day activities such as bathing, preparing meals, shopping, managing finances, etc.?: No Are you currently unemployed and looking for a job?: No Are you interested in more education?: No Please select the resources that you would like help with: None Currently or been in a relationship where the following occur: No concerns reported THRIVE Score: 1 AUDIT C Alcohol Use Questionnaire (AUDIT-C) 1. How often do you have a drink containing alcohol?: Never Total Score: 0 Score Reviewed/Action Taken: No FLORECITA-7 AMB Questionnaire FLORECITA-7 Date FLORECITA - 7 assessed: 05/18/24 Feeling nervous, anxious, or on edge: 1 = Several days Not being able to stop or control worryin = Not at all Worrying too much about different things: 0 = Not at all Trouble relaxin = Not at all Being so restless that it is hard to sit still: 0 = Not at all Becoming easily annoyed or irritable: 0 = Not at all Feeling afraid as if something awful might happen: 0 = Not at all Total FLORECITA-7 score (0-4 normal; 5-9 mild; 10-14 moderate; 15-21 severe): 1 Source: Developed by Drs. Richard Cintron, Racheal Snell, Arvin Griffiths and colleagues, with an educational daisha from [employer]. FLROECITA-7 Assessment Billing FLORECITA-7 Assessment Tool: FLORECITA-7 Assessment 41245 Review of Systems Const All systems reviewed & are unremarkable except as noted in HPI and below Card Denies chest pain at rest, Denies chest pain with activity, Denies edema, Denies irregular heart rhythm, Denies claudication, Denies dyspnea, Denies dyspnea on exertion, Denies orthopnea, Denies paroxysmal nocturnal dyspnea and Denies slow heart rate Resp Denies cough, Denies dyspnea and Denies dyspnea on exertion GI Denies abdominal pain, Denies change in bowel habits, Denies excessive flatus, Denies nausea and Denies vomiting Denies urinary incontinence, Denies urinary hesitancy and Denies urinary urgency Musc Denies abnormal gait, Denies atrophy, Denies deformity and Denies limited range of motion Skin/Breast Denies bleeding lesions, Denies changing lesions and Denies rash Neuro Denies abnormal gait, Denies behavioral changes and Denies lack of coordination Psych Denies behavioral changes Physical exam (Primary Care) Vital Signs: Last Vital Signs BP 132/74 05/18/24 12:33 BMI result Body Mass Index 20.0 Tobacco/Smoking Status: Tobacco use Status Tobacco use date assessed 12/29/23 05/18/24 12:38 Patient Tobacco Use Status Never used Tobacco 05/18/24 12:38 Tobacco use type 01/10/24 12:45 e-Cigarette/Vaping Use Never Used 05/18/24 12:38 PHQ-9: PHQ-9 Score PHQ-9: Total score 4 05/18/24 12:38 Depression Screening Interpretation: Positive Depression Screening Follow-up: Existing condition, Follow-up Visit Requested and Declines treatment Thrive Assessment: Date of Thrive Assessment Date Thrive assessed 05/18/24 05/18/24 12:38 Currently or been in a relationship where the following occur: No concerns reported [facility] Head: Yes normal to inspection, Yes normocephalic and Yes atraumatic Ears: external ears normal Eyes General: appearance normal, both eyes and all related structures Eyelids: Yes eyelids normal Conjunctivae: conjunctivae normal Neck Neck: Yes normal visual inspection and Yes supple Resp Effort & Inspection: normal respiratory effort Auscultation: clear to auscultation bilaterally Cardio Jugular venous distension: no JVD Rate: regular rate Rhythm: regular rhythm Heart sounds: S1 normal heart sound present and S2 normal heart sound present GI Inspection: Yes normal to inspection Palpation (GI): Soft to palpation and nontender Auscultation: normal bowel sounds Skin General skin exam: no rashes or lesions noted Neuro General: no focal motor deficits Extrem General: Yes full ROM Psych Appearance: grossly normal Assessment and Plan Assessment & Plan (1) Physical exam: Comment: Dr. Denney for eye exam Colourguard ordered for colon cancer screening Never had mammogram, declines Code(s): Z00.00 - Encounter for general adult medical examination without abnormal findings Plan: Repeat in a year. (2) Mild major depression: Code(s): F32.0 - Major depressive disorder, single episode, mild Plan: Declines treatment. Medications: Refilled metoprolol succinate ER 25 mg PO DAILY 90 days 90 tabs 3RF folic acid 1 mg PO DAILY 90 days 90 tabs 1RF E53.8 - Deficiency of other specified B group vitamins cholecalciferol (vitamin D3) 50 mcg PO .every other day 90 days 45 tabs 2RF M81.0 - Age-related osteoporosis without current pathological fracture Review Patient declined Mammogram: 05/18/24 Coding Level of Care Code Est Pt Prev Care >65y(16536) Diagnoses Physical exam Z00.00 Mild major depression F32.0 Additional Codes FLORECITA-7 Assessment Billing - FLORECITA-7 Assessment Tool: FLORECITA-7 Assessment 27005 ([id number]) Time Spent (min) 30
[2024-05-18 12:33] VITALS: BP 132/74
== END 2024-05-18 13:05 | disposition home or self-care (01) ==
PROVIDERS: PCP Internal Medicine; Visit Provider Internal Medicine
DX: Z00.00 Encounter for general adult medical examination without abnormal findings (principal); F32.0 Major depressive disorder, single episode, mild

== ENCOUNTER → 2024-05-18 11:47 | Outpatient (BNVA) | payer MEDICARE, SELFPAY | PROVIDERS: PCP Internal Medicine; Visit Provider Internal Medicine | DX: Z00.00 Encounter for general adult medical examination without abnormal findings (principal); F32.0 Major depressive disorder, single episode, mild | CPT/HCPCS: 96127 ==

== ENCOUNTER 2024-05-29 09:56 | Outpatient (REF) | payer MEDICARE, SELFPAY ==
[2024-05-29 11:32] LABS: Albumin Level 4.5 g/dL (3.5-5.0); Anion Gap 11 (12-20); Blood Urea Nitrogen 12 mg/dL (9-16); Calcium 10.2 mg/dL (8.4-10.2); Carbon Dioxide 30 mmol/L (22-29); Chloride 102 mmol/L (96-108); Estimated Glomerular Filt Rate > 60; Glucose Random 108 mg/dL (60-115); Potassium 4.3 mmol/L (3.3-5.1); Sodium 139 mmol/L (135-145)
== END 2024-05-29 09:57 | disposition home or self-care (01) ==
LOC: HO.LAB 09:56
PROVIDERS: PCP Internal Medicine; Visit Provider Internal Medicine Endocrinology, Diabetes & Metabolism
DX: M81.0 Age-related osteoporosis without current pathological fracture (principal)
CPT/HCPCS: 36415; 80048; 82040

== ENCOUNTER 2024-06-13 10:57 | Outpatient (AMB) | payer MEDICARE, SELFPAY ==
[2024-06-13 10:59] VITALS: BMI 19.7
--- NOTE | 2024-06-13 10:59 | A.OFFVIS_ITS ---
Vital Signs 06/13/24 10:59 Height 5 ft 3 in Weight 111 lb BMI 19.7 Intake Visit Reasons: VV of R lower extremity/behind knee Intake Note: PRN follow up Right LE VV. Has Hx of Left GSV Venaseal 09/05/21, she states Left LE feels great but Right LE continues to feel worse. Accompanied by: Self / Same As Patient Allergies Penicillins [PENICILLINS] Allergy (Intermediate, Verified 06/13/24 11:03) CANKER SORES cephalexin Adverse Reaction (Mild, Verified 06/13/24 11:03) Didn't work HPI HPI VV of R lower extremity/behind knee: Details: Very pleasant 79-year-old female presents for follow-up regarding venous insufficiency. She had actually seen us nearly 3 years ago where she had undergone left lower extremity ablation. The left leg has done extremely well since that time. She is noticing some swelling and discomfort on the right lower extremity. She does have areas that are uncomfortable for her. She now presents for re-evaluation of the right lower extremity. Of note she has been extremely compliant with her compression stockings in actually brought a pair in during her visit. She has been using compression stockings for nearly 3 years [facility] Medical History Acute diarrhea Right leg pain Polyarthralgia Osteoporosis Hypothyroidism Hypovitaminosis D Essential hypertension Surgical History History of cataract surgery History of colonoscopy History of tubal ligation Family History Father CHF (congestive heart failure) Liver cirrhosis Mother Stroke Social History Household Members: None Housing: Apartment Alcohol intake: former Patient Tobacco Use Status: Former Tobacco user e-Cigarette/Vaping Use: Never Used Second Hand Smoke Exposure: No service: No Current occupational status: retired Gender identity: Female Cognitive needs: Yes (cane) Hearing needs: No Vision needs: Yes (reading glasses) Review of Systems Const Reports as per HPI ENT Reports no additional complaints Card Denies chest pain, Denies chest pain at rest and Denies chest pain with activity Resp Denies chest congestion and Denies cough GI Reports no additional complaints Musc Details: pain over varicosities, aching of lower extremities, swelling, cramping, heaviness and tiredness, itching Denies abnormal gait Skin/Breast Reports pruritus and Denies wounds Neuro Reports no additional complaints and Denies abnormal gait Psych Denies no additional complaints Physical Exam Vital Signs: BMI result Body Mass Index 19.7 Const General: cooperative, healthy appearing and comfortable Orientation/consciousness: oriented to person, oriented to place and oriented to time Neck Carotids: no bruits Chest Chest palpation & inspection: normal inspection of the chest and normal palpation of entire chest wall Resp Effort & Inspection: normal respiratory effort and able to speak in complete sentences Cardio Rate: regular rate Heart sounds: S1 normal heart sound present and S2 normal heart sound present Peripheral pulses: Peripheral pulses 2+ throughout GI Inspection: Yes normal to inspection Skin Other: +2 edema, right calf and behind the knee CEAP Classification C4 - skin color changes Ep - Etiology Primary As - superficial veins P - reflux General skin exam: dry skin Neuro General: oriented to person, oriented to place and oriented to time Extrem Right lower extremity: full ROM, normal capillary refill and edema Left lower extremity: full ROM, normal capillary refill and edema Psych Mental Status: mental status grossly normal Assessment & Plan Assessment & Plan (1) Varicose veins of right lower extremity with inflammation: Code(s): I83.11 - Varicose veins of right lower extremity with inflammation Category: Medical Plan: In short patient does have evidence of venous insufficiency. We did discuss routine conservative measures including compression elevation and exercise. I have taken the liberty of ordering repeat venous insufficiency testing since the last 1 was dated 07/30/2021. She will follow up with us after testing. Thank you for allowing us to assist in her care. (2) Varicose veins of left lower extremity with inflammation: Comment: 09/05/2021 - left great saphenous vein Cyanoacralate ablation Code(s): I83.12 - Varicose veins of left lower extremity with inflammation Category: Medical Plan: Doing well. See above Orders: Orders US venous duplex LE RT 1 Week I83.11 - Varicose veins of right lower extremity with inflammation Coding Level of Care Code Est Pt Level 4 (35055) Diagnoses Varicose veins of right lower extremity with inflammation I83.11 Varicose veins of left lower extremity with inflammation I83.12
== END 2024-06-13 11:23 | disposition home or self-care (01) ==
PROVIDERS: PCP Internal Medicine; Visit Provider Surgery Vascular Surgery
DX: I83.11 Varicose veins of right lower extremity with inflammation (principal); I83.12 Varicose veins of left lower extremity with inflammation
CPT/HCPCS: 99214

== ENCOUNTER → 2024-06-13 10:57 | Outpatient (BNVA) | payer MEDICARE, SELFPAY | PROVIDERS: PCP Internal Medicine; Visit Provider Surgery Vascular Surgery | DX: I83.11 Varicose veins of right lower extremity with inflammation (principal); I83.12 Varicose veins of left lower extremity with inflammation | CPT/HCPCS: 99212 ==

== ENCOUNTER 2024-06-15 09:58 | Outpatient (REF) | payer MEDICARE, SELFPAY ==
--- NOTE | ~2024-06-15 | MM_ITS ---
EXAMINATION: BONE DENSITOMETRY CLINICAL INDICATION: Age-related osteoporosis without current pathological fracture. COMPARISON: Previous BD dated 06/02/2022 and baseline BD dated 03/30/2007. TECHNIQUE: Using a [employer] DXA System (software version: 13.1) manufactured by [employer], dual-energy x-ray absorptiometry was performed of the lumbar spine and left hip. The images are of good technical quality. Summary results are attached. FINDINGS: AP SPINE L1-L4: Current: BMD 0.998 g/cm2, Z-score 0.7, T-score -1.5, osteopenia, 16.0% decrease from previous, 9.7% increase from baseline (<5% change is not significant). Prior: BMD 1.188 g/cm2. Baseline: BMD 0.910 g/cm2. LEFT FEMUR, NECK: Current: BMD 0.650 g/cm2, Z-score -0.5, T-score -2.8, osteoporosis. Prior: BMD 0.608 g/cm2. Baseline: BMD 0.659 g/cm2. LEFT FEMUR, TOTAL: Current: BMD 0.527 g/cm2, Z-score -1.7, T-score -3.8, osteoporosis, 5.6% decrease from previous, 18.4% decrease from baseline (<5% change is not significant). Prior: BMD 0.558 g/cm2. Baseline: BMD 0.646 g/cm2. IDENTIFIED RISK FACTORS: History of adult fracture. Osteoporosis. Height loss. Menopause. HISTORY OF FRACTURE: Wrist. MEDICATIONS: Calcium supplement and/or multivitamin. Vitamin D. Prolia. MM/XR DEXA axial skeleton IMPRESSION: 1. DIAGNOSIS: Severe osteoporosis based on the lowest T-score value of -3.8 in the total femur and the prior history of fracture applying World Health Organization criteria. 2. 10-YEAR FRACTURE RISK PREDICTION, FRAX: According to the guidelines, FRAX calculation should only be performed on patients in the osteopenia bone density category. Therefore, FRAX was not performed on this patient. 3. Treatment Recommendations: NOF guidelines recommend consideration for treatment in postmenopausal women and men age 50 and older presenting with the following: -A hip or vertebral (clinical or morphometric) fracture. -T-score less than or equal to -2.5 at the femoral neck or spine after appropriate evaluation to exclude secondary causes. -Low bone mass at the hip or spine and a 10-year fracture probability by FRAX of greater than or equal to 3% for hip fracture or greater than or equal to 20% for major osteoporotic fracture based on the [place] adapted WHO algorithm. 4. Other Recommendations: All treatment decisions require clinical judgment and consideration of individual patient factors, including patient preferences, comorbidities, previous drug use, risk factors not captured in the FRAX model (e.g. frailty, falls, vitamin D deficiency, increased bone turnover, interval significant decline in bone density) and possible under or overestimation of fracture risk by FRAX. Additional medical evaluation for secondary cause of low bone mineral density may be appropriate. FUTURE SCAN RECOMMENDATION: People with diagnosed cases of osteoporosis or at high risk for fracture should have regular bone mineral density tests. For patients eligible for Medicare, routine testing is allowed once every 2 years. The testing frequency can be increased to one year for patients who have rapidly progressing disease, those who are receiving or discontinuing medical therapy to restore bone mass, or have additional risk factors. Electronically signed by: Osman Castillo MD 06/15/2024 01:13 PM EDT
== END 2024-06-15 09:59 | disposition home or self-care (01) ==
LOC: HO.MAMMO 09:58
PROVIDERS: PCP Internal Medicine; Visit Provider Internal Medicine Endocrinology, Diabetes & Metabolism
DX: M81.0 Age-related osteoporosis without current pathological fracture (principal)
CPT/HCPCS: 77080

== ENCOUNTER → 2024-06-20 10:03 | Outpatient (BNVA) | payer MEDICARE, SELFPAY | PROVIDERS: PCP Internal Medicine; Visit Provider Internal Medicine Endocrinology, Diabetes & Metabolism ==

== ENCOUNTER 2024-06-21 12:00 | Outpatient (REF) | payer MEDICARE, SELFPAY ==
[2024-06-21 12:44] LABS: MANUAL DIFF FLAG NO
[2024-06-21 13:06] LABS: Appearance Urine Clear; Color Urine Yellow; Glucose Urine UA Negative (Negative); Leukocyte Esterase Urine Trace (Negative); Nitrite Urine Negative (Negative); PH 5.5 (5.0-9.0); UMIC TRIGGER UACC YES; Urine Blood Small (1+) (Negative); Urine Ketones Negative (Negative); Urine Protein Negative (Neg-Trace)
[2024-06-21 13:19] LABS: Bacteria Urine 2+ (None Seen); Hyaline Casts Urine 0-2 /LPF (0-2); Squamous Epithelial Cell Urine 0-2 /HPF (0-2); UACC Culture Trigger YES
[2024-06-21 13:40] LABS: Basophils Percent Auto 0.2 % (0-2); Hematocrit 38.8 % (37.0-47.0); Hemoglobin 12.6 g/dl (12.0-16.0); Imm Gran Abs Auto 0.01 X10*3/uL (0.00-0.03); Imm Gran Pct Auto 0.2 % (0.0-0.4); Lymphocytes Absolute Auto 2.1 X10*3/uL (1.2-4.9); Lymphocytes Percent Auto 38.8 % (20-40); Mean Corpuscular HGB Conc 32.5 g/dl (31.0-35.0); Mean Corpuscular Hemoglobin 35.7 pg (27.0-33.0); Mean Corpuscular Volume 109.9 fL (80.0-98.0); Mean Platelet Volume 9.6 fL (9.4-12.3); Monocytes Absolute Auto 0.4 X10*3/uL (0.1-1.2); Neutrophils Absolute Auto 2.8 x10*3/uL (2.0-8.3); Neutrophils Percent Auto 52.8 % (45-73); Platelet Count 214 X10*3/uL (160-400); Red Blood Count 3.53 X10*6/uL (4.20-5.50); White Blood Count 5.4 X10*3/uL (4.8-10.8)
[2024-06-21 14:25] LABS: Alanine Aminotransferase 20 U/L (0-31); Alkaline Phosphatase 49 U/L (39-117); Anion Gap 9 (12-20); Aspartate Amino Transferase 37 U/L (5-31); Bilirubin Total 0.2 mg/dL (0.0-1.0); Blood Urea Nitrogen 8 mg/dL (9-16); Calcium 9.7 mg/dL (8.4-10.2); Carbon Dioxide 33 mmol/L (22-29); Chloride 104 mmol/L (96-108); Estimated Glomerular Filt Rate > 60; Glucose Fasting 132 mg/dL (60-99); Iron 42 mcg/dL (30-160); Percent Iron Saturation 18 % (15-50); Potassium 3.6 mmol/L (3.3-5.1); Sodium 142 mmol/L (135-145); Total Iron Binding Capacity 235 mcg/dL (228-428); Total Protein 7.6 g/dL (6.5-8.0); Unsaturated Iron Binding 193 ug/dL
[2024-06-21 14:38] LABS: Vitamin D 25-OH Total 59.3 ng/mL (>30)
[2024-06-21 14:43] LABS: Thyroid Stimulating Hormone 2.17 uIU/mL (0.32-4.0)
[2024-06-21 14:53] LABS: Folate 16.9 ng/mL (> or = 4.0); Vitamin B12 255 pg/mL (200-900)
== END 2024-06-21 12:01 | disposition home or self-care (01) ==
LOC: HO.LAB 12:00
PROVIDERS: Internal Medicine Endocrinology, Diabetes & Metabolism; PCP Internal Medicine; Visit Provider Internal Medicine
DX: D64.9 Anemia, unspecified (principal); E55.9 Vitamin D deficiency, unspecified; E03.8 Other specified hypothyroidism; E06.3 Autoimmune thyroiditis; E53.8 Deficiency of other specified B group vitamins; I10 Essential (primary) hypertension; E03.9 Hypothyroidism, unspecified; N39.0 Urinary tract infection, site not specified; B96.1 Klebsiella pneumoniae [K. pneumoniae] as the cause of diseases classified elsewhere
CPT/HCPCS: 36415; 80053; 81001; 81003; 82306; 82607; 82746; 83540; 84443; 85025; 87086; 87088; 87186

== ENCOUNTER 2024-06-23 12:30 | Outpatient (REF) | payer MEDICARE, SELFPAY ==
--- NOTE | ~2024-06-23 | US_ITS ---
EXAMINATION: US LOWER EXTREMITY (REFLUX EXAM), RIGHT CLINICAL INDICATION: Chronic venous insufficiency with right lower extremity varicose veins, inflammation COMPARISON: None. TECHNIQUE: Color flow triplex imaging and compression Doppler was performed to evaluate both the deep and the superficial systems of the right lower extremity. To evaluate the superficial system, the examination was performed in the upright position. Color-flow Doppler ultrasound and compression ultrasound were utilized. In addition, maneuvers were utilized to demonstrate reflux. FINDINGS: 1. DEEP VENOUS DOPPLER ULTRASOUND: Common Femoral Vein: Compressible, normal respiratory variation and augmented flow. Femoral Vein: Compressible, normal color flow and augmentation. Popliteal Vein: Compressible, normal augmentation. Deep Reflux: There is no evidence of reflux in the deep system in either the common femoral vein, superficial femoral vein or the popliteal vein. There is no evidence of a Romo's cyst. 2. SUPERFICIAL VENOUS DOPPLER ULTRASOUND: GREAT SAPHENOUS VEIN: Saphenofemoral Junction: 0.5 cm; Reflux: 0 ms Proximal Thigh: 0.5 cm; Reflux: 0 ms Mid Thigh: 0.2 cm; Reflux: 0 ms Above Knee: 0.3 cm; Reflux: 0 ms At Knee: 0.3 cm; Reflux: 0 ms Below Knee: 0.2 cm; Reflux: 0 ms Mid Calf: 0.2 cm; Reflux: 2396 ms Ankle: 0.1 cm; Reflux: 2388 ms DUPLICATED MEDIAL GREAT SAPHENOUS VEIN: Diameter: None imaged Reflux: NA DUPLICATED LATERAL GREAT SAPHENOUS VEIN: Diameter: 0.2 cm Reflux: None SMALL SAPHENOUS VEIN: Saphenopopliteal Junction: 0.2 cm; Reflux: 1956 ms Proximal: 0.1 cm; Reflux: 0 ms Distal: 0.3 cm; Reflux: 0 ms VEIN OF GIACOMINI: Size: NA Reflux: NA PERFORATORS: Location: None imaged Size: NA Reflux: NA VARICOSITIES: Location: Medial thigh and calf off the great saphenous vein. Posterior calf off the small saphenous vein. Size: Less than 2 mm in size Reflux: None US/US venous duplex LE RT IMPRESSION: 1. Right great saphenous vein with focal reflux in the mid calf and ankle. 2. Right small saphenous vein with severe reflux at the saphenopopliteal junction. 3. Small varicosities in the right thigh and calf as described above. Electronically signed by: Minor Singh MD 07/03/2024 10:14 AM EST RP
== END 2024-06-23 12:31 | disposition home or self-care (01) ==
LOC: HO.US 12:30
PROVIDERS: PCP Internal Medicine; Visit Provider Surgery Vascular Surgery
DX: I83.11 Varicose veins of right lower extremity with inflammation (principal)
CPT/HCPCS: 93971

== ENCOUNTER 2024-06-27 10:00 | Outpatient (AMB) | payer MEDICARE, SELFPAY ==
--- NOTE | 2024-06-27 10:02 | A.OFFVIS_ITS ---
Vital Signs 06/27/24 10:05 Height 5 ft 3.98 in Weight 119 lb 4.321 oz BMI 20.5 BP 126/56 L Blood Pressure Location Rt brachial Position Sitting Pulse 65 Pulse Source Pulse Oximeter Intake Visit Reasons: f/u osteoporosis-vm not set up Intake Note: Patient present today for osteoporosis follow up visit. Medical Collections Specialist Required: No Accompanied by: Self / Same As Patient Allergies Penicillins [PENICILLINS] Allergy (Intermediate, Verified 06/27/24 10:05) CANKER SORES cephalexin Adverse Reaction (Mild, Verified 06/27/24 10:05) Didn't work Medication List - Last Reconciled 06/27/24 by Richard Acosta MD acetaminophen 500 mg PO Q6H PRN [id number] 0.85 mg-200 mcg-1.2 mcg (Neuriva Plus) 1 tab PO DAILY blood pressure monitor As directed cholecalciferol (vitamin D3) 50 mcg PO .every other day 90 days compr.stocking,knee,long,large As directed folic acid 1 mg PO DAILY 90 days gabapentin 300 mg PO BID Lactobacillus rhamnosus GG (Culturelle) 1 cap PO DAILY PRN levothyroxine 88 mcg PO DAILY melatonin 5 mg PO BEDTIME PRN metoprolol succinate ER 25 mg PO DAILY 90 days nitrofurantoin macrocrystal 100 mg PO BID 5 days HPI Comments Details: 79 yo female, for osteoporosis She is feeling well, she has no complaints. She had her last Prolia injection on She has been on Prolia for about 5 years. She had a Right wrist fracture 2010, GERD, negative FH of fractures or osteoporosis, she denies nephrolithiasis, Denies steroids used, ex smoker quit 1995, denies anti seizures medications, PPI use. She has negative History of head or neck irradiation. Bisphosphonates use:never Calcium intake: caltrate 600 mg daily. Vitamin D:. 2000 IU Weekly +800 international units in the Caltrate Herbal medications. none She is on Levothyroxine 125 ug 2 wks ago raied by PCP was on 100 ug prior She is 100 % adherent, has a good method of administration. State s she wasn't compliant with levothyroxine in 08/2021. She is currently on 125 mcg levothyroxine She denies cold or heat intolerance,no weigth loss or gain, no diarrhea, + constipation, imsomnia, fatigue, dry skin, denies dysphagia, dyspnea, dysphonia, tremors, palpitations, irritability, anxiety. 05/29/2020 DEXA scan SPINE L1-L3 (excluding L4): The data of L1-L4 has been changed to exclude the L4 vertebral body, because dextrocurvature and degenerative changes at this level may cause overestimation of lumbar spine density. Current: BMD 1.035 g/cm2, Z-score 0.6, T-score -1.1, osteopenia, 3.6% increase from previous, 14.0% increase from baseline (<5% change is not significant). Prior: BMD 0.999 g/cm2. Baseline: BMD 0.908 g/cm2. LEFT FEMUR, NECK: Current: BMD 0.588 g/cm2, Z-score -1.4, T-score -3.2, osteoporosis. Prior: BMD 0.629 g/cm2. Baseline: BMD 0.659 g/cm2. LEFT FEMUR, TOTAL: Current: BMD 0.555 g/cm2, Z-score -2.0, T-score -3.6, osteoporosis, 1.6% increase from previous, 14.1% decrease from baseline (<5% change is not significant). Prior: BMD 0.546 g/cm2. Baseline: BMD 0.646 g/cm2. she had a complete secondary workup which was negative. Laboratory Tests Recent DEXA showed [facility] [address] [place] [address] Mammography Report Signed Patient: Merlyn Wong MR#: [id number] : 1945 Acct:[id number] Age/Sex: 77 / F ADM Date: 06/02/22 Loc: HO.MAMMO Attending Dr: Richrad Acosta MD Ordering Physician: Richard Acosta MD Results: Date of Service: 06/02/22 Follow Up: Procedure(s): XR DEXA appendicular skeleton Accession Number(s): [id number] cc: Richard Acosta MD~ EXAMINATION: BONE DENSITOMETRY CLINICAL INDICATION: Age-related osteoporosis without current pathological fracture. COMPARISON: Previous BD dated 05/29/2020 and baseline BD dated 03/30/2007 (lumbar spine and left hip). This is the initial examination of the left forearm radius 33%. TECHNIQUE: Using a [employer] DXA System (software version: 13.1) manufactured by [employer], dual-energy x-ray absorptiometry was performed of the lumbar spine, left hip and left forearm radius 33%. The images are of good technical quality. Summary results are attached. FINDINGS: AP SPINE L1-L3 (excluding L4): The data of L1-L4 has been changed to exclude the L4 vertebral body, because degenerative changes at this level may cause overestimation of lumbar spine density. Current: BMD 1.077 g/cm2, Z-score 1.0, T-score -0.8, normal, 4.1% increase from previous, 18.6% increase from baseline (<5% change is not significant). Prior: BMD 1.035 g/cm2. Baseline: BMD 0.908 g/cm2. LEFT FEMUR, NECK: Current: BMD 0.608 g/cm2, Z-score -1.1, T-score -3.1, osteoporosis. Prior: BMD 0.588 g/cm2. Baseline: BMD 0.659 g/cm2. LEFT FEMUR, TOTAL: Current: BMD 0.558 g/cm2, Z-score -1.8, T-score -3.6, osteoporosis, 0.5% increase from previous, 13.6% decrease from baseline (<5% change is not significant). Prior: BMD 0.555 g/cm2. Baseline: BMD 0.646 g/cm2. 02/21/20 02/21/20 10/24/20 00:00 Unknown 07:15 Hgb Hct Sodium Potassium Creatinine Estimated GFR Calcium Alkaline Phosphatase Albumin 25-OH Vitamin D Total 34.1 TSH 2.44 Free T4 1.01 Ur 24 Hour Volume 1475 Ur Calcium 24 Hr 165 Calcium/Creat 24 Hr 237 11/08/20 11/08/20 10:57 10:57 Hgb 13.1 Hct 41.7 Sodium 138 Potassium 4.1 Creatinine 0.72 Estimated GFR > 60 Calcium 9.7 Alkaline Phosphatase 66 Albumin 4.6 25-OH Vitamin D Total TSH Free T4 Ur 24 Hour Volume Ur Calcium 24 Hr Calcium/Creat 24 Hr Laboratory Tests 02/09/20 02/09/20 02/09/20 08:31 08:31 08:34 Creatinine 0.70 Est GFR (Non-Af Amer) > 60 Calcium 10.1 Albumin 4.7 N-Telopeptide X-linked 36 25-OH Vitamin D Total 53.1 Free T4 1.14 TSH 3rd Generation 0.39 PTH Intact 25 Ur Calcium 24 Hr Calcium/Creat 24 Hr Bone Specific Alk Phos 11.9 02/21/20 00:00 Creatinine Est GFR (Non-Af Amer) Calcium Albumin N-Telopeptide X-linked 25-OH Vitamin D Total Free T4 TSH 3rd Generation PTH Intact Ur Calcium 24 Hr 165 Calcium/Creat 24 Hr 237 Bone Specific Alk Phos . No fx since last visit . On Prolia [facility] Medical History Acute diarrhea Right leg pain Polyarthralgia Osteoporosis Hypothyroidism Hypovitaminosis D Essential hypertension Surgical History History of cataract surgery History of colonoscopy History of tubal ligation Family History Father CHF (congestive heart failure) Liver cirrhosis Mother Stroke Social History Household Members: None Housing: Apartment Alcohol intake: former Patient Tobacco Use Status: Former Tobacco user e-Cigarette/Vaping Use: Never Used Second Hand Smoke Exposure: No service: No Current occupational status: retired Gender identity: Female Cognitive needs: Yes (cane) Hearing needs: No Vision needs: Yes (reading glasses) Physical Exam Vital Signs: BMI result Body Mass Index 20.5 Assessment & Plan Assessment & Plan (1) Osteoporosis: Code(s): M81.0 - Age-related osteoporosis without current pathological fracture Category: Medical Qualifiers: Osteoporosis type: age-related Presence of current pathological fracture: without current pathological fracture Qualified Code(s): M81.0 - Age- related osteoporosis without current pathological fracture Plan: 79-year-old female with a history of osteoporosis with previous fragility fracture currently on Prolia for> 5 years. Secondary workup has been negative. Recent DEXA showed continued severe osteoporosis in the hip The plan is to continue the Prolia with dose today. Would continue the Prolia for a full 10 years in this patient who has a very high risk for subsequent fracture (2) Hypothyroidism: Code(s): E03.9 - Hypothyroidism, unspecified Category: Medical Qualifiers: 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 Qualified Code(s): E03.8 - Other specified hypothyroidism; E06.3 - Autoimmune thyroiditis Plan: This to be followed by patient's primary care provider Coding Level of Care Code Est Pt Level 3 (31993) Diagnoses Age-related osteoporosis without current pathological fracture M81.0 Osteoporosis type: age-related Presence of current pathological fracture: without current pathological fracture 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
[2024-06-27 10:05] VITALS: BP 126/56; PULSE 65; BMI 20.5
== END 2024-06-27 10:35 | disposition home or self-care (01) ==
LOC: HO.ENCR 10:01
PROVIDERS: PCP Internal Medicine; Visit Provider Internal Medicine Endocrinology, Diabetes & Metabolism
DX: M81.0 Age-related osteoporosis without current pathological fracture (principal); E03.8 Other specified hypothyroidism; E06.3 Autoimmune thyroiditis
CPT/HCPCS: 99213

== ENCOUNTER → 2024-06-27 10:00 | Outpatient (BNVA) | payer MEDICARE, SELFPAY | PROVIDERS: PCP Internal Medicine; Visit Provider Internal Medicine Endocrinology, Diabetes & Metabolism | DX: M81.0 Age-related osteoporosis without current pathological fracture (principal); E03.8 Other specified hypothyroidism; E06.3 Autoimmune thyroiditis; Z51.81 Encounter for therapeutic drug level monitoring; Z79.899 Other long term (current) drug therapy | CPT/HCPCS: 96372; 99212; J0897 ==

== ENCOUNTER 2024-07-18 11:06 | Outpatient (AMB) | payer MEDICARE, SELFPAY ==
--- NOTE | 2024-07-18 11:12 | MHC.OFFVIS ---
Intake Visit Reasons: follow up s/p US 06/23/24 Intake Note: Patient presents for follow up US performed on 06/23/24. Patient states she has had pain in her right leg. Minimal swelling. Accompanied by: Self / Same As Patient Allergies Penicillins [PENICILLINS] Allergy (Intermediate, Verified 07/18/24 11:15) CANKER SORES cephalexin Adverse Reaction (Mild, Verified 07/18/24 11:15) Didn't work HPI HPI follow up s/p US 06/23/24: Details: Very pleasant 79-year-old female presents for follow-up regarding venous insufficiency. She had seen us in the past and had undergone left lower extremity ablation. She now has some discomfort on the right lower extremity and now presents for follow-up with venous insufficiency testing. She does report that compression stockings do provide mild relief. [facility] Medical History Acute diarrhea Right leg pain Polyarthralgia Osteoporosis Hypothyroidism Hypovitaminosis D Essential hypertension Surgical History History of cataract surgery History of colonoscopy History of tubal ligation Family History Father CHF (congestive heart failure) Liver cirrhosis Mother Stroke Social History Household Members: None Housing: Apartment Alcohol intake: former Patient Tobacco Use Status: Former Tobacco user e-Cigarette/Vaping Use: Never Used Second Hand Smoke Exposure: No service: No Current occupational status: retired Gender identity: Female Cognitive needs: Yes (cane) Hearing needs: No Vision needs: Yes (reading glasses) Review of Systems Const All systems reviewed & are unremarkable except as noted in HPI and below Reports no additional complaints ENT Reports Normal hearing present Card Denies chest pain, Denies chest pain at rest, Denies chest pain with activity and Denies pedal edema Resp Denies cough GI Denies abdominal pain Musc Denies abnormal gait, Denies muscle cramps and Denies radiating pain into limb Skin/Breast Denies skin ulcer and Denies wounds Neuro Reports Normal hearing present and Denies abnormal gait Psych Reports no additional complaints Physical Exam Const General: cooperative, healthy appearing and comfortable Orientation/consciousness: oriented to person, oriented to place and oriented to time HEENT Head: Yes normal to inspection Neck Neck: Yes normal visual inspection Carotids: no bruits Chest Chest palpation & inspection: normal inspection of the chest Resp Effort & Inspection: normal respiratory effort and able to speak in complete sentences Auscultation: clear to auscultation bilaterally, no crackles, no rales, no rhonchi and no wheezes Cardio Rate: regular rate Rhythm: regular rhythm Heart sounds: S1 normal heart sound present and S2 normal heart sound present Bruits: no carotid bruits Peripheral pulses: Peripheral pulses 2+ throughout GI Inspection: Yes normal to inspection Skin Wounds: no wounds Hair: normal Neuro General: oriented to person, oriented to place and oriented to time Cranial nerves: Yes CN's II-XII intact bilaterally and Yes Normal hearing present Cognition (Neuro): normal cognition Motor exam (neuro): 5/5 motor strength present throughout Extrem Other: venous exam: No significant superficial varicosities or spider telangiectasias, minimal edema General: No clubbing, No cyanosis and No edema Psych Appearance: grossly normal Mental Status: mental status grossly normal Speech and movement: Normal speech and movement present Results Reviewed Results Reviewed: Brief summary of venous insufficiency testing is as follows: right great saphenous vein: Focally positive only a calf with small caliber vein right small saphenous vein: negative right accessory vein: none present Please note there is no evidence of any venous aneurysms or significant tortuosity Assessment & Plan Assessment & Plan (1) Varicose veins of left lower extremity with inflammation: Comment: 09/05/2021 - left great saphenous vein Cyanoacralate ablation Code(s): I83.12 - Varicose veins of left lower extremity with inflammation Category: Medical Plan: See below (2) Varicose veins of right lower extremity with inflammation: Code(s): I83.11 - Varicose veins of right lower extremity with inflammation Category: Medical Plan: Right lower extremity has minimal venous insufficiency. I would not treat this. At the current time would recommend only conservative measures including compression elevation and exercise. This was discussed with the patient and she was in agreement. She will follow up with us on an as-needed basis. Thank you for allowing us to assist in her care. Coding Level of Care Code Est Pt Level 4 (76310) Diagnoses Varicose veins of left lower extremity with inflammation I83.12 Varicose veins of right lower extremity with inflammation I83.11
== END 2024-07-18 11:35 | disposition home or self-care (01) ==
PROVIDERS: PCP Internal Medicine; Visit Provider Surgery Vascular Surgery
DX: I83.12 Varicose veins of left lower extremity with inflammation (principal); I83.11 Varicose veins of right lower extremity with inflammation
CPT/HCPCS: 99214

== ENCOUNTER → 2024-07-18 11:06 | Outpatient (BNVA) | payer MEDICARE, SELFPAY | PROVIDERS: PCP Internal Medicine; Visit Provider Surgery Vascular Surgery | DX: I83.12 Varicose veins of left lower extremity with inflammation (principal); I83.11 Varicose veins of right lower extremity with inflammation | CPT/HCPCS: 99212 ==

== ENCOUNTER 2024-09-25 11:01 | Outpatient (REF) | payer MEDICARE, SELFPAY ==
[2024-09-25 11:46] LABS: Appearance Urine Turbid; Color Urine Yellow; Glucose Urine UA Negative (Negative); Leukocyte Esterase Urine Large (3+) (Negative); Nitrite Urine Positive (Negative); PH 5.5 (5.0-9.0); Specific Gravity - Urine 1.015 (1.005-1.025); UMIC TRIGGER UACC YES; Urine Blood Small (1+) (Negative); Urine Ketones Negative (Negative); Urine Protein Trace mg/dL (Neg-Trace)
[2024-09-25 11:54] LABS: Bacteria Urine 3+ (None Seen); Hyaline Casts Urine 0-2 /LPF (0-2); RBC Urine 0-2 /HPF (0-2); Squamous Epithelial Cell Urine 0-2 /HPF (0-2); UACC Culture Trigger YES; WBC Clumps Urine Present; WBC Urine >50 /HPF (0-5)
--- OUTSIDE RECORDS SUMMARY | 2024-09-25 16:01 | XMS_ITS ---
[facility] Organization [facility] [place] Address [address] [place] [address] Care Team Providers Care Die Filer Name Role Phone Gomez CLARK, Ashley Primary Care Provider Unavail able Lesly Srinivasan Unavailable [phone] Omar Rojas Unavailable [phone] Allergies Allergen (clinical drug ingredient) Drug/Non Drug Allergy documented on EMR Reaction Allergy Type Onset Date Status erythromycin Erythromycin does not work Drug Allergy Active Penicillin break out in mouth Drug Allergy Active Medications Medication SIG (Take, Route, Frequency, Duration) Notes Start Date End Date Status Melatonin 5 MG 1 tablet in the evening Orally Once a day for 30 day(s) Active Gabapentin 300 MG 1 capsule Orally Once a day for 30 day(s) Active Vitamin D3 50 MCG (2000 UT) 1 capsule Orally Once a day for 30 day(s) every other day Active Folic Acid Active Ferrous Sulfate 325 (65 Fe) MG 1 tablet Orally Three times a Week for 30 day(s) Active Neuriva Plus Active Acetaminophen prn Active Metoprolol Succinate 25 MG 1 capsule Orally Once a day for 30 day(s) Active Levothyroxine Sodium 88 MCG 1 tablet in the morning on an empty stomach Orally Once a day for 30 day(s) Active Prolia every 6 months Activ e Social History Tobacco Use: Social History Observation Description Date Details (start date - stop date) Former Smoker NA - NA Tobacco Use/Smoking Question Answer Notes Are you a: former smoker Alcohol Screen Question Answer Notes Did you have a drink containing alcohol in the p ast year? No Points 0 Interpretation Negative Tobacco use other than smoking: Question Answer Notes Are you an other tobacco user? No Vital Signs Height 5ft 3in in 03/28/2024 Weight 120 lbs 03/28/2024 BMI 21.25 kg/m2 03/28/2024 Encounters Encounter Location Date Provider Diagnosis [facility] [place] [address] [facility] [address] [place] [address] 03/28/2024 Omar Rojas Skin disease L98.9 and Tinea unguium B35.1 Assessments Encounter Date Diagnosis (ICD Code) Assessment Notes Treatment Notes Treatment Clinical Notes Section Notes 03/28/2024 Skin disease (ICD-10 - L98.9) 03/28/2024 Tinea unguium (ICD-10 - B35.1) Plan Of Treatment Next Appt Details Follow Up: 6 Months, Reason: Provider Name:Lesly Armendariz ruben, 09/26/2024 10:00:00 AM, [address] [facility], [place] [address] [address], [place], [address], Progress Notes * Merlyn KHOURY ADOB:1944 (78 yo F)Acc No.[id number]:03/28/2024 Progress Note Patient:?Judith Merlyn A Provider:?Omar Rojas DPM :1945???Age:78 Y???Sex:Female D ate:03/28/2024 Address:[address] [place], [place] [address] Pcp:Ashley Dyer MD Subjective: * Chief Complaints: * ??? * HPI: ???Skin problems:?Nature:?discolored.?[facility]Duration:?a year.?Onset/Cause:?pt believes that this change is due to bed bug infestation.? * ROS:?General/Constitutional:?Nausea?denies.?Vomiting?denies.?Hunger Thirst?denies.?Loss appetite?denies.?Chills?denies.?Fatigue?denies.?Fever?denies.?Night Sweats?denies.?Unexplained weight loss?denies.?Unexplained weight gain?denies.?HEENTM:?Dentures?denies.?Dizziness?admits.?Glasses/contacts?denies.?Retinopathy?de nies.?Blurred/double vision?denies.?TMJ?denies.?Discharge/drainage?denies.?Implants?denies.?Sore throat?denies.?Dental implants?denies.?Hard of hearing ?denies.?Difficulty chewing/swallowing/speaking?denies.?Nose bleeds?denies.?Sore mouth?denies.?Respiratory:?On Oxygen?denies.?Pneumonia/pleurisy?admits.?Bronchitis?denies.?Emphysema?denies.?C oughing?denies.?Cough blood?denies.?Shortness of breath?denies.?Wheezing?denies.?Cardiovascular:?Pacemaker?denies.?MVP?denies.?WPW?denies.?CHF?denies.?Heart attack?denies.?Septal defect?denies.?Rapid beat?denies.?Chest pain ?denies.?Atrial Fib.?denies.?Murmur/Palpitations?denies.?Gastrointestinal:?Hemorrhoids?denies.?Stomach/Abdominal pain?denies.?Dark blood stool?denies.?Irritable bowel ?denies.?Constipation?denies.?Diarrhea?admits.?Hematology:?Swelling?denies.?Clots?denies.?Varicose Veins?denies.?Bruising?denies.?Bleeding problem?denies.?Genitourinary:?Blood urine?denies.?Frequent/Painfu/urination/bladder control?denies.?Kidney stones?denies.?Infection (UTI)?denies.?Nephropathy?denies.?sex trans dis (STD)?denies.?Prostate?denies.?Musculoskeletal:?Hammertoes?denies.?Bunions?denies.?Back Pain?denies.?Muscle Cramps/ Resting?denies.?Muscle cramps / walking?denies.?Generalized aches and pains?denies.?Weakness?denies.?Integ.:?Cantor?denies.?Scars?denies.?Corns/calluses?denies.?Ingrown nails?denies.?Painful nails?denies.?Open Sores?denies.?Rashes?denies.?Neurologic:?Difficulty sleeping?denies.?Brain disorder?denies.?Numbness?denies.?Balance trouble?denies.?Confusion?denies.?Fainting/blackouts?denies.?Tingling?denies.?Tr emors?denies.? * Medical History:? * Surgical History:?mohs surge ry 07/21/22 * Hospitalization/Major Diagno stic Procedure:?No Hospitalization History. * Family History:?Mother: dece ased, diagnosed with Unspecified cerebral artery occlusion with cerebral infarction.?Father: , diagnosed with Unspecified essential hypertension.? * Social History:?Tobacco Use:?Tobacco Use/Smoking?Are you a:?former smoker ?Tobacco use other than smoking?Are you an other tobacco user??No ???Drugs/Alcohol:?Drugs?Have you used drugs other than those for medical reasons in the past 12 months??No ?Alcohol Screen?Did you have a drink containing alcohol in the past year??No ?Points?0 ?Interpretation?Negative ???Miscellaneous:?Caffeine: yes, 1-2 cups per day. ?Children: yes. ?Exercise: yes, walking. ?Marital status: . ?Occupation: Retired. * Medications:?TakingProlia , Notes: every 6 monthsAcetaminophen , Notes: prnNeuriva Plus Ferrous Sulfate 325 (65 Fe) MG Tablet 1 tablet Orally Three times a WeekMelatonin 5 MG Tablet 1 tablet in the evening Orally Once a dayGabapentin 300 MG Capsule 1 capsule Orally Once a dayVitamin D3 50 MCG (2000 UT) Capsule 1 capsule Orally Once a day, Notes: every other dayFolic Acid Metoprolol Succinate 25 MG Capsule ER 24 Hour Sprinkle 1 capsule Orally Once a dayLevothyroxine Sodium 88 MCG Tablet 1 tablet in the morning on an empty stomach Orally Once a dayMedication List reviewed and reconciled with the patientTaking Prolia , Notes: every 6 monthsTaking Acetaminophen , Notes: prnTaking Neuriva Plus Taking Ferrous Sulfate 325 (65 Fe) MG Tablet 1 tablet Orally Three times a WeekTaking Melatonin 5 MG Tablet 1 tablet in the evening Orally Once a dayTaking Gabapentin 300 MG Capsule 1 capsule Orally Once a dayTaking Vitamin D3 50 MCG (1999 UT) Capsule 1 capsule Orally Once a day, Notes: every other dayTaking Folic Acid Taking Metoprolol Succinate 25 MG Capsule ER 24 Hour Sprinkle 1 capsule Orally Once a dayTaking Levothyroxine Sodium 88 MCG Tablet 1 tablet in the morning on an empty stomach Orally Once a dayMedication List reviewed and reconciled with the patient * Allergies:?Penicillin: break out in mouthErythromycin: does not workyes[Allergies Verified] Objective: * Vitals:?Ht: 5ft 3in, Wt: 120 , BMI: 21.25, Shoe size: 8, Wt-k.43 kg. * Examination: ???General Examination: ?GENERAL APPEARANCE:?pleasant, alert, well nourished, well developed, well hydrated, with good attention to hygene/body habitus, and in no acute distress.?ORIENTED:?person,place, and time.?Neurological: ?SENSORY:?neurological exam reveals intact sensorium, pain sensation normal, vibration sensation intact, pinprick sensation is normal in the lower extremities, anesthesia, burning, tingling, B/L.?Vascular: ?DP PULSES:?2/4, B/L.?PT PULSES:?2/4, B/L.?CAPILLARY FILL TIME:?3 secs. per digit. B/L.?SKIN TEMPERTURE GRADIENT OF THE LOWER EXTERMITIES:?normal, B/L.?HAIR GROWTH/TEXTURE/ELASTICITY/TURGOR:?normal, B/L.?PIGMENTATION:?normal, B/L.?EDEMA:?absent, B/L.?TELANGECTASIA:?absent, B/L.?Dermatologic: ?SKIN FINDINGS:?Skin exam reveals normal texture, elasticity, and tugor. There are no masses. The interspaces are clear.?Orthopedic: ?MUSCLE STRENGTH:?5/5 all groups in a symmetrical fashion , B/L.?Nails: ?NAILS are:? Elongated, overgrown, dystrophic, lytic, greater than 3mm thick, discolored and friable with crumbly malodorous subungual debris, TA--20% lysis , T5--10% lysis, Elongated, overgrown, dystrophic, lytic, greater than 3mm thick, discolored and friable with crumbly malodorous subungual debris, T4, T9.? Assessment: * Assessment: 1.?Skin disease - L98.9 ([facility])?2.?Tinea unguium - B35.1? Plan: * Treatment: * Procedure Codes:? * Preventive Medicine:? ??Counseling:?Discussion:?-13: Office or other outpatient visit for the evaluation and management of an established patient, which required a medically appropriate history and/or examination and LOW level of DECISION MAKING for: 1 STABLE ACUTE UNCOMPLICATED PROBLEM, 2 OR MORE MINOR PROBLEMS, OR 1 STABLE CHRONIC PROBLEM, THAT POSE(S) A LOW RISK FOR MORBIDITY/MORTALITY. The visit on the day of the encounter encompassed interpreting the data and educating the patient as to the nature of their condition, treatment options available according to their individual PMH, meds, allergies, and overall health/living conditions, as well as any potential risks or complications that may occur from a failure to adhere to, and participate in, the recommended course of therapy. The discussion included a complete verbal, and/or written explanation of the examination results, any x-rays taken, the proposed diagnosis, and outline of the treatment plan. A schedule for future care needs was also explained. The patient verbalized an understanding of the instructions at this time and agreed to be an active participant in their treatment. If the patient should think of any questions or concerns after the visit, I have encouraged the patient to call the office; cotninue with topical vicks qd hs eileen 1,5 toes.? * Follow Up:?6 Months * Images: * Sign off status: Completed true * Provider:?Omar Rojas DPM Date:? 024 Generated for Carloz cantrell/Sabine/Hank on:?09/25/2024 04:01 PM EST History and Physical Notes * HPI (History of Present Illness) Category Sub-Category Detail Notes Category Not es Skin problems Nature: discolored Location: B/L , 1st Duration: a year Onset/Cause: pt believes that thi s change is due to bed bug infestation Examination Category Sub-Category Detail Notes Category Not es Neurological SENSORY: neurological exa m reveals intact sensorium, pain sensation normal, vibration sensation intact, pinprick sensation is normal in the lower extremities, anesthesia, burning, tingling, B/L Dermatologic SKIN FINDINGS: Skin exam reveal s normal texture, elasticity, and tugor. There are no masses. The interspaces are clear Orthopedic MUSCLE STRENGTH: 5/5 all groups in a symmetrical fashion , B/L General Examination GENERAL APPEARANCE: pleasant , alert, well nourished, well developed, well hydrated, with good attention to hygene/body habitus, and in no acute distress ORIENTED: person,place, and ti me Vascular DP PULSES (B): 2/4, B/L PT PULSES (B): 2/4, B/L CAPILLARY FILL TIME: 3 secs. per digit. B/L TEMPERTURE GRADIENT (C): normal, B/L TROPHIC CONDITION-TEXTURE/ELASTICITY/TUR GOR/HAIR GROWTH (B): normal, B/L EDEMA (C): absent, B/L TELANGECTASIA: absent, B/L PIGMENTATION: normal, B/L Nails NAILS are: Elongated, overg rown, dystrophic, lytic, greater than 3mm thick, discolored and friable with crumbly malodorous subungual debris, TA--20% lysis , T5--10% lysis, Elongated, overgrown, dystrophic, lytic, greater than 3mm thick, discolored and friable with crumbly malodorous subungual debris, T4, T9
--- OUTSIDE RECORDS SUMMARY | 2024-09-25 16:01 | XMS_ITS ---
Author Organization [facility] Address [address] [place] [address] Care Team Providers Care Mash Filter Operator Name Role Phone Gomez CLARK, Ashley Primary Care Provider Unavail able Lesly Srinivasan Unavailable [phone] Omar Rojas Unavailable [phone] REASON FOR VISIT biopsy assessment Encounters Encounter Location Date Provider Diagnosis [facility] [address] [place] [address] 10/15/2023 Omar Rojas Plan Of Treatment Next Appt Details Provider Name:Lesly Marcello miranda, 09/26/2024 10:00:00 AM, [address] [facility], [address] [facility], [place], [address], Progress Notes * IRAIDA Merlyn ADOB:1944 (78 yo F)Acc No.[id number]:10/15/2023 Patient:?Meryln Wong A :1945???Age:78 Y???Sex:Female Address:[address] [facility], [address], [place] [address] * true * Date:? Generated for Elidai tamia/Sabine/eTransmitting on:?09/25/2024 04:01 PM EST
--- OUTSIDE RECORDS SUMMARY | 2024-09-25 16:02 | XMS_ITS ---
Author Organization [facility] [place] Address [address] [place] [address] Care Team Providers Care Coverstitch Machine Operator Name Role Phone Gomez CLARK, Ashley Primary Care Provider Unavail able Lesly Srinivasan Unavailable [phone] Omar Rojas Unavailable [phone] Allergies Allergen (clinical drug ingredient) Drug/Non Drug Allergy documented on EMR Reaction Allergy Type Onset Date Status erythromycin Erythromycin does not work Drug Allergy Active Penicillin break out in mouth Drug Allergy Active Medications Medication SIG (Take, Route, Frequency, Duration) Notes Start Date End Date Status Ferrous Sulfate 325 (65 Fe) MG 1 tablet Orally Three times a Week for 30 day(s) Active Neuriva Plus Active Vitamin D3 50 MCG (2000 UT) 1 capsule Orally Once a day for 30 day(s) every other day Active Gabapentin 300 MG 1 capsule Orally Once a day for 30 day(s) Active Melatonin 5 MG 1 tablet in the evening Orally Once a day for 30 day(s) Active Acetaminophen prn Active Prolia every 6 months Activ e Levothyroxine Sodium 88 MCG 1 tablet in the morning on an empty stomach Orally Once a day for 30 day(s) Active Metoprolol Succinate 25 MG 1 capsule Orally Once a day for 30 day(s) Active Folic Acid Active Social History Tobacco Use: Social History Observation [...] No Vital Signs Height 5ft 3in in 09/28/2023 Weight 120 lbs 09/28/2023 BMI 21.25 kg/m2 09/28/2023 Encounters Encounter Location Date Provider Diagnosis [facility] [place] [address] [facility] [address] [place] [address] 09/28/2023 Omar Rojas Skin disease L98.9 and Tinea unguium B35.1 Assessments Encounter Date Diagnosis (ICD Code) Assessment Notes Treatment Notes Treatment Clinical Notes Section Notes 09/28/2023 Skin disease (ICD-10 - L98.9) 09/28/2023 Tinea unguium (ICD-10 - B35.1) Plan Of Treatment Next Appt Details Follow Up: 6 Months, Reason: Provider Name:Lesly Armendariz ruben, 09/26/2024 10:00:00 AM, [address] [facility], [place] [address], [place], [address], Progress Notes * Merlyn KHOURY ADOB:1944 (78 yo F)Acc No.[id number]:09/28/2023 Progress Notes Patient:?Merlyn Khoury A Provider:?Omar Rojas DPM :1945???Age:78 Y???Sex:Female D ate:09/28/2023 Address:[address] [place], [place] [address] Pcp:Ashley Dyer MD Subjective: * Chief Complaints: * ??? * HPI: ???Skin problems:?Nature:?discolored.?Location:?/ , [facility].?Duration:?a year.?Onset/Cause:?pt believes that this change is due to bed bug infestation.?Course:?worse.? * ROS:?General/Constitutional:?Nausea?denies.?Vomiting?denies.?Hunger Thirst?denies.?Loss appetite?denies.?Chills?denies.?Fatigue?denies.?Fever?denies.?Night Sweats?denies.?Unexplained weight loss?denies.?Unexplained [...] Orally Once a dayVitamin D3 50 MCG (1999 UT) Capsule 1 [...] Once a dayTaking Vitamin D3 50 MCG (1999) Capsule 1 capsule Orally Once a day, [...] and friable with crumbly malodorous subungual debris, TA--80% lysis , T5--30% lysis, Elongated, overgrown, dystrophic, lytic, greater than 3mm thick, discolored and friable with crumbly malodorous subungual debris, T4, T9.? Assessment: * Assessment: 1.?Tinea unguium - B35.1?2.? Skin disease - L98.9 (Primary)? Plan: * Treatment: * Procedure Codes:? * Preventive Medicine:? ??Counseling:?Biopsy Follow-Up:?Biopsy Results (All components):?Reviewed with patient, Tracking process documented ?Discussion:?-13: Office or other outpatient visit for the [...] have encouraged the patient to call the office.?Fungal Nail Counseling:?The patient was counseled on the diagnosis, potential etiologies (including, but not limited to, environmental factors, genetic, immune deficiency), and the multiple treatment options for Onychomycosis. We discussed the risks and benefits of each option from performing no treatment, to ultraviolet light shoe treatment, to laser nail treatment, to applying topical antifungals, to taking oral antifungal medication, to surgical removal of the involved nail(s) with or without performing a matricectomy, or any combination thereof. We discussed the advantages and disadvantages of each of possible treatment and importance for adherence to all the recommended therapies for optimum success. This includes the necessity for weekly emery board self nail home debridements, and control the nail and skin environment as much as possible by only using a fresh, dry pair of shoes/socks each day, as well as keeping the skin as dry as possible through the use of sprays/powders if necessary. The patient was instructed to discard the emery board after use to prevent reinfection of the involved nail(s). We discussed the mycological and visual clinical effectiveness of topical vs oral antifungal treatments as well as each ones potential side effects and/or any patient- specific medication interactions. We discussed the reasons behind the important requirement of regular liver function testing with oral antifungal therapy for safety. Patient questions regarding use, dosage, successful outcomes, blood tests, and possible pharmaceutical interactions were reviewed and the patient verbalized that all answers were clearly understood, The Pt prefers topical treatment--rx vicks qd hs for 6 months.? * Follow Up:?6 Months * Images: * [...] change is due to bed bug infestation Course: worse Examination Category Sub-Category Detail Notes Category Not [...] and friable with crumbly malodorous subungual debris, TA--80% lysis , T5--30% lysis, Elongated, overgrown, dystrophic, lytic, greater than 3mm thick, discolored and friable with crumbly malodorous subungual debris, T4, T9
--- OUTSIDE RECORDS SUMMARY | 2024-09-25 16:02 | XMS_ITS | Patient Health Record ---
Author Organization [facility] [place] Address [address] [place] [address] Care Team Providers Care General Merchandise Manager Name Role Phone Gomez CLARK, Ashley Primary Care Provider Unavail able Lesly Srinivasan Unavailable [phone] Omar Rojas Unavailable [phone] Allergies Allergen (clinical drug ingredient) Drug/Non Drug Allergy documented on EMR Reaction Allergy Type Onset Date Status erythromycin Erythromycin does not work Drug Allergy Active Penicillin break out in mouth Drug Allergy Active Reason For Referral No Information Medications Medication SIG (Take, Route, Frequency, Duration) [...] every other day Active Folic Acid Active Neuriva Plus Active Ferrous Sulfate 325 (65 Fe) MG 1 tablet Orally Three times a Week for 30 day(s) Active Acetaminophen prn Active Metoprolol Succinate 25 [...] 03/28/2024 Encounters Encounter Location Date [facility] [address] [address] 09/28/2023 Omar Rojas Skin disease L98.9 and Tinea unguium B35.1 [facility] [address] [place] [address] 03/28/2024 Omar Rojas Skin disease L98.9 and Tinea unguium B35.1 [facility] [address] [place] [address] 10/15/2023 Omar Rojas Assessments Encounter Date Diagnosis (ICD Code) Assessment Notes Treatment Notes Treatment Clinical Notes Section Notes 09/28/2023 Tinea unguium (ICD-10 - B35.1) 09/28/2023 Skin disease (ICD-10 - L98.9) 03/28/2024 Skin disease (ICD-10 - L98.9) 03/28/2024 Tinea unguium (ICD-10 - B35.1) Plan Of Treatment Next Appt Details Provider Name:Lesly Armendariz ruben, 09/26/2024 10:00:00 AM, [address] [address], [place], [address], Insurance Providers Payer Name Payer Address Payer Phone Subscriber Number Group Number Insured Name Patient Relationship to Insured Coverage Start Date Coverage End Date [employer] Medicare Complete [address] [address] [place] [address] [phone] [id number] Merlyn Wong Self - patient is the insured Medical (General) History Medical History History ICD Code Anemia Back,Hip,and Knee pain Osteoporosis Psoriasis/eczema Rheumatic fever thyroid Measles Surgical History Surgery Date(Month/Year) mohs surgery 07/21/22
== END 2024-09-25 11:02 | disposition home or self-care (01) ==
LOC: HO.LAB 11:01
PROVIDERS: PCP Internal Medicine; Visit Provider Internal Medicine
DX: R30.0 Dysuria (principal)
CPT/HCPCS: 81001; 87086; 87088; 87186

== ENCOUNTER 2024-12-14 08:56 | Outpatient (REF) | payer MEDICARE, SELFPAY ==
--- NOTE | ~2024-12-14 | XR_ITS ---
EXAMINATION: XR CHEST 2 VIEWS HISTORY: J18.9 - Pneumonia, unspecified organism COMPARISON: Comparison is made with the prior examination dated the least 61. FINDINGS: PA and lateral views of the chest are submitted. There is airspace opacity in the left upper lobe which is superimposed on the hilum on the PA view. Findings are compatible with pneumonia. There is no pleural effusion, pneumothorax, or pulmonary vascular congestion. The heart is normal in size. There is scoliosis and degenerative disc disease of the spine. XR/XR chest 2V IMPRESSION: Left upper lobe pneumonia. Follow-up is recommended to document resolution. Electronically signed by: Richard Cedeno MD 12/14/2024 11:31 AM EDT
--- OUTSIDE RECORDS SUMMARY | 2024-12-14 09:44 | XMS_ITS ---
Author Organization [facility] [place] Address [address] [place] [address] Care Team Providers Care Boatswain'S Mate Name Role Phone Gomez CLARK, Ashley Primary Care Provider Unavail able Lesly Srinivasan Unavailable [phone] Omar Rojas Unavailable [phone] Allergies Allergen (clinical drug ingredient) Drug/Non Drug Allergy documented on EMR Reaction Allergy Type Onset Date Status Information temporarily unavailable Erythromycin does not work Drug Allergy Active Information temporarily unavailable Penicillin break out in mouth Drug Allergy [...] 03/28/2024 Encounters Encounter Location Date Provider Diagnosis [facility] [place] [address] [facility] [address] [place] [address] 03/28/2024 Omar Rojas Skin disease L98.9 and Tinea unguium B35.1 Assessments Encounter Date Diagnosis (ICD Code) Assessment Notes Treatment Notes Treatment Clinical Notes Section Notes 03/28/2024 Skin disease (ICD-10 - L98.9) 03/28/2024 Tinea unguium (ICD-10 - B35.1) Plan Of Treatment Next Appt Details Follow Up: 6 Months, Reason: Progress Notes * Merlyn KHOURY ADOB:1944 (78 yo F)Acc No.[id number]:03/28/2024 Progress Note Patient:?Merlyn Khoury A Provider:?Omar Rojas DPM :1945???Age:78 Y???Sex:Female D ate:03/28/2024 Address:[address] [place], [place] [id number] Pcp:Ashley Dyer MD Subjective: * Chief Complaints: * ??? * HPI: ???Skin problems:?Nature:?discolored.?Location:?/ , [facility].?Duration:?a year.?Onset/Cause:?pt believes that this change is [...] Once a dayTaking Vitamin D3 50 MCG (2000 UT) Capsule 1 [...] Assessment: * Assessment: 1.?Skin disease - L98.9 ([facility])?2.?Tinea unguium - B35.1? Plan: * Treatment: * [...] DPM Date:? 024 Generated for Carloz cantrell/Sabine/Hank on:?12/14/2024 09:43 AM EDT History and Physical Notes * HPI (History [...]
--- OUTSIDE RECORDS SUMMARY | 2024-12-14 09:44 | XMS_ITS ---
Author Organization [facility] Address [address] [place] [address] Care Team Providers Care Software Sales Manager Name Role Phone Gomez CLARK, Ashley Primary Care Provider Unavail able Lesly Srinivasan Unavailable [phone] REASON FOR VISIT NS to 09/26/24 appt Encounters Encounter Location Date [facility] [address] [place] [address] [address] [place] [address] 09/26/2024 Lesly Srinivasan Plan Of Treatment No Information Progress Notes * JUDITH Merlyn ADOB:1944 (79 yo F)Acc No.[id number]:09/26/2024 Patient:?Merlyn KHOURY A :1945???Age:79 Y???Sex:Female Address:[address], [address], [place] [address] * true * Date:? Generated for Carloz cantrell/Sabine/eTransmitting on:?12/14/2024 09:43 AM EDT
--- OUTSIDE RECORDS SUMMARY | 2024-12-14 09:44 | XMS_ITS ---
Author Organization [facility] Address [address] [place] [address] Care Team Providers Care Photo Booth Operator Name Role Phone Gomez CLARK, Ashley Primary Care Provider Unavail Lesly Roe Unavailable [phone] Encounters Encounter Location Date [facility] [address] [facility] [address] [place] [address] 09/26/2024 Lesly Srinivasan Plan Of Treatment No Information Progress Notes * Merlyn KHOURY ADOB:1944 (79 yo F)Acc No.[id number]:09/26/2024 Progress Note Patient:?Merlyn KHOURY A Provider:?Lesly Srinivasan DPM :1945???Age:79 Y???Sex:Female D ate:09/26/2024 Address:[address] [facility], [facility] Pcp:Ashley Dyer MD Subjective: * Chief Complaints: * ??? * Medical History:? Objective: * Vitals:? Assessment: Plan: * Treatment: * Images: * The named appointment provid er may or may not be the originator of this progress note, and it is not deemed complete until electronically signed by the appointment provider. Sign off status: Pending * Provider:?Lesly Srinivasan DPM Date:?0 09/26/2024 Generated for Carloz cantrell/Sabine/eTransmitting on:?12/14/2024 09:44 AM EDT
--- OUTSIDE RECORDS SUMMARY | 2024-12-14 09:44 | XMS_ITS | Patient Health Record ---
Author Organization [facility] Address [address] [place] [address] Care Team Providers Care Patrol Officer Name Role Phone Gomez CLARK, Ashley Primary Care Provider Unavail able Lesly Srinivasan Unavailable [phone] Omar Rojas Unavailable [phone] Allergies Allergen (clinical drug ingredient) Drug/Non Drug [...] 03/28/2024 Encounters Encounter Location Date Provider Diagnosis [facility] [place] [address] [address] 03/28/2024 Omar Rojas Skin disease L98.9 and Tinea unguium B35.1 [facility] [place] [address] [address] 09/26/2024 Lesly Srinivasan Assessments Encounter Date Diagnosis (ICD Code) Assessment Notes Treatment Notes Treatment Clinical Notes Section Notes 03/28/2024 Skin disease (ICD-10 - L98.9) 03/28/2024 Tinea unguium (ICD-10 - B35.1) Plan Of Treatment No Information Insurance Providers Payer Name Payer Address Payer Phone Subscriber Number Group Number Insured Name Patient Relationship to Insured Coverage Start Date Coverage End Date AARP Medicare Complete [address] [address] [place] [address] [phone] [id number] [place], [place] Self - patient is the insured Medical (General) History Medical History History ICD Code Anemia Back,Hip,and Knee pain Osteoporosis Psoriasis/eczema Rheumatic fever thyroid Measles Surgical History Surgery Date(Month/Year) mohs surgery 07/21/22
[2024-12-14 09:50] LABS: Influenza A PCR NEGATIVE (Negative); Influenza B PCR NEGATIVE (Negative); Resp Syncy Virus RNA Qual PCR NEGATIVE (Negative); SARS COV2 PCR INHOUSE NEGATIVE (Negative)
== END 2024-12-14 08:57 | disposition home or self-care (01) ==
LOC: HO.LAB 08:56
PROVIDERS: PCP Internal Medicine; Visit Provider Internal Medicine
DX: J18.9 Pneumonia, unspecified organism (principal); R09.89 Other specified symptoms and signs involving the circulatory and respiratory systems
CPT/HCPCS: 0241U; 71046

== ENCOUNTER → 2024-12-14 09:13 | Outpatient (BNV) | payer MEDICARE, SELFPAY | PROVIDERS: PCP Internal Medicine; Visit Provider Radiology Diagnostic Radiology | DX: J18.9 Pneumonia, unspecified organism (principal) | CPT/HCPCS: 71046 ==

== ENCOUNTER 2024-12-27 09:53 | Outpatient (REF) | payer MEDICARE, SELFPAY ==
--- OUTSIDE RECORDS SUMMARY | 2024-12-27 10:50 | XMS_ITS ---
Author Organization [facility] Address [address] [place] [address] Care Team Providers Care Piped Buttonhole Machine Operator Name Role Phone Gomez CLARK, Ashley Primary Care Provider Unavail able Lesly Srinivasan Unavailable [phone] REASON FOR VISIT NS to 09/26/24 appt Encounters Encounter Location Date [facility] [address] [place] [address] [address] [place] [address] 09/26/2024 Lesly Srinivasan Plan Of Treatment No Information Progress Notes * JUDITH Merlyn ADOB:1944 (79 yo F)Acc No.[id number]:09/26/2024 Patient:?Merlyn KHOURY A :1945???Age:79 Y???Sex:Female Address:[address], [place] [address] * true * Date:? Generated for Carloz cantrell/Sabine/eTransmitting on:?12/27/2024 10:50 AM EDT
--- OUTSIDE RECORDS SUMMARY | 2024-12-27 10:50 | XMS_ITS | Patient Health Record ---
Author Organization [facility] Address [address] [place] [address] Care Team Providers Care Test Case Developer Name Role Phone Gomez CLARK, Ashley Primary Care Provider Unavail able Lesly Srinivasan Unavailable [phone] Omar Rojas Unavailable [phone] Allergies Allergen (clinical drug ingredient) Drug/Non Drug [...] 03/28/2024 Encounters Encounter Location Date Provider Diagnosis [facility] [place] [address] [address] 03/28/2024 Omar Rojas Skin disease L98.9 and Tinea unguium B35.1 [facility] [place] [address] [address] 09/26/2024 Lesly Srinivasan Assessments Encounter Date Diagnosis [...] End Date AARP Medicare Complete [address] [address] [place] [id number] [place], [place] Self - patient is the insured Medical (General) History Medical History History ICD Code Anemia Back,Hip,and Knee pain Osteoporosis Psoriasis/eczema Rheumatic fever thyroid Measles Surgical History Surgery Date(Month/Year) mohs surgery 07/21/22
--- OUTSIDE RECORDS SUMMARY | 2024-12-27 10:50 | XMS_ITS ---
Author Organization [facility] Address [address] [place] [address] Care Team Providers Care Transition Assistant Name Role Phone Gomez CLARK, Ashley Primary Care Provider Unavail Lesly Roe Unavailable [phone] Encounters Encounter Location Date [facility] [address] [facility] [address] [place] [address] 09/26/2024 Lesly Srinivasan Plan Of Treatment No Information Progress Notes * Merlyn KHOURY ADOB:1944 (79 yo F)Acc No.[id number]:09/26/2024 Progress Note Patient:?Merlyn KHOURY A Provider:?Lesly Srinivasan DPM :1945???Age:79 Y???Sex:Female D ate:09/26/2024 Address:[address] [facility], [address], [facility] Pcp:Ashley Dyer MD Subjective: * Chief Complaints: [...] DPM Date:?0 09/26/2024 Generated for Carloz cantrell/Sabine/eTransmitting on:?12/27/2024 10:50 AM EDT
--- OUTSIDE RECORDS SUMMARY | 2024-12-27 10:50 | XMS_ITS ---
[facility] Address [address] [place] [address] Care Team Providers Care Energy Sales Consultant Name Role Phone Gomez CLARK, Ashley Primary Care Provider Unavail able Lesly Srinivasan Unavailable [phone] Omar Rojas Unavailable [phone] Allergies Allergen (clinical drug ingredient) Drug/Non Drug [...] 03/28/2024 Encounters Encounter Location Date Provider Diagnosis [facility] [place] [address] [facility] [address] [place] [address] 03/28/2024 Omar Rojas Skin disease L98.9 and Tinea unguium B35.1 Assessments Encounter Date Diagnosis (ICD Code) Assessment Notes Treatment Notes Treatment Clinical Notes Section Notes 03/28/2024 Skin disease (ICD-10 - L98.9) 03/28/2024 Tinea unguium (ICD-10 - B35.1) Plan Of Treatment Next Appt Details Follow Up: 6 Months, Reason: Progress Notes * IRAIDA Merlyn ADOB:1944 (78 yo F)Acc No.[id number]:03/28/2024 Progress Note Patient:?Merlyn Wong A Provider:?Omar Rojas DPM :1945???Age:78 Y???Sex:Female D ate:03/28/2024 Address:[address] [place], [place] [id number] Pcp:Ashley Dyer MD Subjective: * Chief Complaints: * ??? * HPI: ???Skin problems:?Nature:?discolored.?Location:?/L , [facility].?Duration:?a year.?Onset/Cause:?pt believes that this change [...] * Assessment: 1.?Skin disease - L98.9 (Bhavani shaw)?2.?Tinea unguium - B35.1? Plan: * Treatment: * [...] DPM Date:? 024 Generated for Carloz cantrell/Sabine/Hank on:?12/27/2024 10:49 AM EDT History and Physical Notes * [...]
[2024-12-27 11:30] LABS: Calcium 10.3 mg/dL (8.4-10.2)
== END 2024-12-27 09:54 | disposition home or self-care (01) ==
LOC: HO.LAB 09:53
PROVIDERS: PCP Internal Medicine; Visit Provider Internal Medicine Endocrinology, Diabetes & Metabolism
DX: M81.0 Age-related osteoporosis without current pathological fracture (principal)
CPT/HCPCS: 36415; 82310

== ENCOUNTER 2025-01-03 10:02 | Outpatient (REF) | payer MEDICARE, SELFPAY ==
[2025-01-03 11:01] LABS: Anion Gap 12 (12-20); Blood Urea Nitrogen 6 mg/dL (9-16); Carbon Dioxide 30 mmol/L (22-29); Chloride 99 mmol/L (96-108); Estimated Glomerular Filt Rate > 60; Glucose Random 105 mg/dL (60-115); Potassium 3.3 mmol/L (3.3-5.1); Sodium 138 mmol/L (135-145)
--- OUTSIDE RECORDS SUMMARY | 2025-01-03 11:12 | XMS_ITS ---
Author [facility] [place] Address [address] [place] [address] Care Team Providers Care Newspaper Press Operator Apprentice Name Role Phone Gomez CLARK, Ashley Primary Care Provider Unavail able Lesly Srinivasan Unavailable [phone] Omar Rojas Unavailable [phone] Allergies Allergen (clinical drug ingredient) Drug/Non Drug [...] 03/28/2024 Encounters Encounter Location Date Provider Diagnosis [facility] [place] [address] [facility] [address] [place] [address] 03/28/2024 Omar Rojas Skin disease L98.9 and Tinea unguium B35.1 Assessments Encounter Date Diagnosis (ICD Code) Assessment Notes Treatment Notes Treatment Clinical Notes Section Notes 03/28/2024 Skin disease (ICD-10 - L98.9) 03/28/2024 Tinea unguium (ICD-10 - B35.1) Plan Of Treatment Next Appt Details Follow Up: 6 Months, Reason: Progress Notes * IRAIDA Merlyn ADOB:1944 (78 yo F)Acc No.[id number]:03/28/2024 Progress Note Patient:?Merlyn Wong A Provider:?Omar Rojas DPM :1945???Age:78 Y???Sex:Female D ate:03/28/2024 Address:[address] [place], [place] [id number] Pcp:Ashley Dyer MD Subjective: * Chief Complaints: * ??? * HPI: ???Skin problems:?Nature:?discolored.?Location:?/L , [facility].?Duration:?a year.?Onset/Cause:?pt believes that this change is [...] DPM Date:? 024 Generated for Carloz cantrell/Sabine/Hank on:?01/03/2025 11:12 AM EDT History and Physical Notes * [...]
--- OUTSIDE RECORDS SUMMARY | 2025-01-03 11:13 | XMS_ITS | Patient Health Record ---
Author Organization [facility] Address [address] [place] [address] Care Team Providers Care Research Center Partner Name Role Phone Gomez CLARK, Ashley Primary Care Provider Unavail able Lesly Srinivasan Unavailable [phone] Omar Rojas Unavailable [phone] Allergies Allergen (clinical drug ingredient) Drug/Non Drug [...] 03/28/2024 Encounters Encounter Location Date Provider Diagnosis [facility] [place] [address] [address] 03/28/2024 Omar Rojas Skin disease L98.9 and Tinea unguium B35.1 [facility] [place] [address] [address] 09/26/2024 Lesly Srinivasan Assessments Encounter Date Diagnosis [...] End Date AARP Medicare Complete [address] [address] [place] [phone] [id number] [place], [place] Self - patient is the insured Medical (General) History Medical History History ICD Code Anemia Back,Hip,and Knee pain Osteoporosis Psoriasis/eczema Rheumatic fever thyroid Measles Surgical History Surgery Date(Month/Year) mohs surgery 07/21/22
--- OUTSIDE RECORDS SUMMARY | 2025-01-03 11:13 | XMS_ITS ---
Author Organization [facility] Address [address] [place] [address] Care Team Providers Care Client Finance Analyst Name Role Phone Gomez CLARK, Ashley Primary Care Provider Unavail able Lesly Srinivasan Unavailable [phone] REASON FOR VISIT NS to 09/26/24 appt Encounters Encounter Location Date [facility] [address] [place] [address] [address] [place] [address] 09/26/2024 Lesly Srinivasan Plan Of Treatment No Information Progress Notes * JUDITH Merlyn ADOB:1944 (79 yo F)Acc No.[id number]:09/26/2024 Patient:?Merlyn KHOURY A :1945???Age:79 Y???Sex:Female Address:[address], [place] [address] * true * Date:? Generated for Carloz cantrell/Sabine/eTransmitting on:?01/03/2025 11:12 AM EDT
--- OUTSIDE RECORDS SUMMARY | 2025-01-03 11:13 | XMS_ITS ---
Author Organization [facility] Address [address] [place] [address] Care Team Providers Care Cage Clerk Name Role Phone Gomez CLARK, Ashley Primary Care Provider Unavail Lesly Roe Unavailable [phone] Encounters Encounter Location Date [facility] [address] [facility] [address] [place] [address] 09/26/2024 Lesly Srinivasan Plan Of Treatment No Information Progress Notes * Merlyn KHOURY ADOB:1944 (79 yo F)Acc No.[id number]:09/26/2024 Progress Note Patient:?Merlyn KHOURY A Provider:?Lesly Srinivasan DPM :1945???Age:79 Y???Sex:Female D ate:09/26/2024 Address:[address] [facility], [address], [facility] Pcp:Ashley Dyer MD Subjective: * Chief Complaints: [...] DPM Date:?0 09/26/2024 Generated for Carloz cantrell/Sabine/eTransmitting on:?01/03/2025 11:12 AM EDT
[2025-01-03 12:07] LABS: Appearance Urine Clear; Color Urine Yellow; Glucose Urine UA Negative (Negative); Leukocyte Esterase Urine Moderate (2+) (Negative); Nitrite Urine Positive (Negative); Specific Gravity - Urine 1.015 (1.005-1.025); UMIC TRIGGER UACC YES; Urine Blood Trace (Negative); Urine Ketones Negative (Negative); Urine Protein 30 (1+) mg/dL (Neg-Trace)
[2025-01-03 12:13] LABS: Bacteria Urine 4+ (None Seen); Hyaline Casts Urine 0-2 /LPF (0-2); RBC Urine 0-2 /HPF (0-2); UACC Culture Trigger YES; WBC Urine >50 /HPF (0-5)
== END 2025-01-03 10:03 | disposition home or self-care (01) ==
LOC: HO.LAB 10:02
PROVIDERS: PCP Internal Medicine; Visit Provider Internal Medicine Endocrinology, Diabetes & Metabolism
DX: M81.0 Age-related osteoporosis without current pathological fracture (principal)
CPT/HCPCS: 36415; 80048; 81001; 81003; 87086; 87088; 87186

== ENCOUNTER 2025-01-08 10:05 | Outpatient (AMB) | payer MEDICARE, SELFPAY ==
--- NOTE | 2025-01-08 10:09 | MHC.OFFVIS ---
Vital Signs 01/08/25 10:14 Height 5 ft 3.35 in Weight 115 lb 4.828 oz BMI 20.2 BP 152/86 H Blood Pressure Location Rt brachial Position Sitting Pulse 90 Pulse Source Pulse Oximeter Pulse Oximetry (%) 94 Oxygen Delivery Method Room Air Intake Visit Reasons: f/u osteoporosis/prolia injection Intake Note: Patient present today for Osteoporosis and Prolia Injection. Claims Coordinator Required: No Accompanied by: Self / Same As Patient Allergies Penicillins [PENICILLINS] Allergy (Intermediate, Verified 01/08/25 10:15) CANKER SORES cephalexin Adverse Reaction (Mild, Verified 01/08/25 10:15) Didn't work Medication List - Last Reconciled 01/08/25 by Richard Acosta MD acetaminophen 500 mg PO Q6H PRN azithromycin 250 mg PO DAILY 5 days [id number] 0.85 mg-200 mcg-1.2 mcg (Neuriva Plus) 1 tab PO DAILY blood pressure monitor As directed cholecalciferol (vitamin D3) 50 mcg PO .every other day 90 days compr.stocking,knee,long,large As directed folic acid 1 mg PO DAILY 90 days Lactobacillus rhamnosus GG (Culturelle) 1 cap PO DAILY PRN levofloxacin 750 mg PO DAILY 7 days levothyroxine 88 mcg PO DAILY melatonin 5 mg PO BEDTIME PRN metoprolol succinate ER 25 mg PO DAILY 90 days nitrofurantoin macrocrystal 100 mg PO BID 5 days HPI Comments Details: 79 yo female, for osteoporosis She is feeling well, she has no complaints. She had her last Prolia injection on She has been on Prolia for about 5 years. She had a Right wrist fracture 2010, GERD, negative FH of fractures or osteoporosis, she denies nephrolithiasis, Denies steroids used, ex smoker quit 1995, denies anti seizures medications, PPI use. She has negative History of head or neck irradiation. Bisphosphonates use:never Calcium intake: caltrate 600 mg daily. Vitamin D:. 2000 IU Weekly +800 international units in the Caltrate Herbal medications. none She is on Levothyroxine 125 ug 2 wks ago raied by PCP was on 100 ug prior She is 100 % adherent, has a good method of administration. State s she wasn't compliant with levothyroxine in 08/2021. She is currently on 125 mcg levothyroxine She denies cold or heat intolerance,no weigth loss or gain, no diarrhea, + constipation, imsomnia, fatigue, dry skin, denies dysphagia, dyspnea, dysphonia, tremors, palpitations, irritability, anxiety. 05/29/2020 DEXA scan SPINE L1-L3 (excluding L4): The data of L1-L4 has been changed to exclude the L4 vertebral body, because dextrocurvature and degenerative changes at this level may cause overestimation of lumbar spine density. Current: BMD 1.035 g/cm2, Z-score 0.6, T-score -1.1, osteopenia, 3.6% increase from previous, 14.0% increase from baseline (<5% change is not significant). Prior: BMD 0.999 g/cm2. Baseline: BMD 0.908 g/cm2. LEFT FEMUR, NECK: Current: BMD 0.588 g/cm2, Z-score -1.4, T-score -3.2, osteoporosis. Prior: BMD 0.629 g/cm2. Baseline: BMD 0.659 g/cm2. LEFT FEMUR, TOTAL: Current: BMD 0.555 g/cm2, Z-score -2.0, T-score -3.6, osteoporosis, 1.6% increase from previous, 14.1% decrease from baseline (<5% change is not significant). Prior: BMD 0.546 g/cm2. Baseline: BMD 0.646 g/cm2. she had a complete secondary workup which was negative. Laboratory Tests Recent DEXA showed [facility]'[address] [place] [address] Mammography Report Signed Patient: Merlyn Wong MR#: [id number] : 1945 Acct:[id number] Age/Sex: 77 / F ADM Date: 06/02/22 Loc: HO.MAMMO Attending Dr: Richard Acosta MD Ordering Physician: Richard Acosta MD Results: Date of Service: 06/02/22 Follow Up: Procedure(s): XR DEXA appendicular skeleton Accession Number(s): [id number] cc: Richard Acosta MD~ EXAMINATION: BONE DENSITOMETRY CLINICAL INDICATION: Age-related osteoporosis without current pathological fracture. COMPARISON: Previous BD dated 05/29/2020 and baseline BD dated 03/30/2007 (lumbar spine and left hip). This is the initial examination of the left forearm radius 33%. TECHNIQUE: Using a Sagence DXA System (software version: 13.1) manufactured by [employer], dual-energy x-ray absorptiometry was performed of the lumbar spine, left hip and left forearm radius 33%. The images are of good technical quality. Summary results are attached. FINDINGS: AP SPINE L1-L3 (excluding L4): The data of L1-L4 has been changed to exclude the L4 vertebral body, because degenerative changes at this level may cause overestimation of lumbar spine density. Current: BMD 1.077 g/cm2, Z-score 1.0, T-score -0.8, normal, 4.1% increase from previous, 18.6% increase from baseline (<5% change is not significant). Prior: BMD 1.035 g/cm2. Baseline: BMD 0.908 g/cm2. LEFT FEMUR, NECK: Current: BMD 0.608 g/cm2, Z-score -1.1, T-score -3.1, osteoporosis. Prior: BMD 0.588 g/cm2. Baseline: BMD 0.659 g/cm2. LEFT FEMUR, TOTAL: Current: BMD 0.558 g/cm2, Z-score -1.8, T-score -3.6, osteoporosis, 0.5% increase from previous, 13.6% decrease from baseline (<5% change is not significant). Prior: BMD 0.555 g/cm2. Baseline: BMD 0.646 g/cm2. 02/21/20 02/21/20 10/24/20 00:00 Unknown 07:15 Hgb Hct Sodium Potassium Creatinine Estimated GFR Calcium Alkaline Phosphatase Albumin 25-OH Vitamin D Total 34.1 TSH 2.44 Free T4 1.01 Ur 24 Hour Volume 1475 Ur Calcium 24 Hr 165 Calcium/Creat 24 Hr 237 11/08/20 11/08/20 10:57 10:57 Hgb 13.1 Hct 41.7 Sodium 138 Potassium 4.1 Creatinine 0.72 Estimated GFR > 60 Calcium 9.7 Alkaline Phosphatase 66 Albumin 4.6 25-OH Vitamin D Total TSH Free T4 Ur 24 Hour Volume Ur Calcium 24 Hr Calcium/Creat 24 Hr Laboratory Tests 02/09/20 02/09/20 02/09/20 08:31 08:31 08:34 Creatinine 0.70 Est GFR (Non-Af Amer) > 60 Calcium 10.1 Albumin 4.7 N-Telopeptide X-linked 36 25-OH Vitamin D Total 53.1 Free T4 1.14 TSH 3rd Generation 0.39 PTH Intact 25 Ur Calcium 24 Hr Calcium/Creat 24 Hr Bone Specific Alk Phos 11.9 02/21/20 00:00 Creatinine Est GFR (Non-Af Amer) Calcium Albumin N-Telopeptide X-linked 25-OH Vitamin D Total Free T4 TSH 3rd Generation PTH Intact Ur Calcium 24 Hr 165 Calcium/Creat 24 Hr 237 Bone Specific Alk Phos . No fx since last visit . On Prolia for >5 yrs The patient is a 79-year-old female presenting for her scheduled Prolia injection, which is part of her ongoing osteoporosis management. She has been receiving these injections for approximately nine years, and the treatment plan has been consistent as a measure to address her low bone density and reduce fracture risk. Her medical history with Prolia indicates its effectiveness; however, it is noted that her bone density remains low, hence the continuation of treatment beyond the traditionally considered period of ten years. Recent discussions emphasize the safety profile of Prolia up to ten years, though continuation beyond this timeframe is possible based on patient-specific factors, which includes ongoing monitoring of bone density. Her routine blood tests, inclusive of serum calcium, revealed no significant abnormalities. There is a proactive approach in maintaining calcium and vitamin D supplementation, alongside the Prolia regimen, considering the absence of data beyond ten years of Prolia administration. - Prolia (Denosumab) injections for osteoporosis, approximately nine years, compliance good, no adverse effects noted. - Calcium and Vitamin D supplements for bone health, current regimen not specified. [facility] Medical History Acute diarrhea Right leg pain Polyarthralgia Osteoporosis Hypothyroidism Hypovitaminosis D Essential hypertension Surgical History History of cataract surgery History of colonoscopy History of tubal ligation Family History Father CHF (congestive heart failure) Liver cirrhosis Mother Stroke Social History Household Members: None Housing: Apartment Alcohol intake: former Patient Tobacco Use Status: Former Tobacco user e-Cigarette/Vaping Use: Never Used Second Hand Smoke Exposure: No service: No Current occupational status: retired Gender identity: Female Cognitive needs: Yes (cane) Hearing needs: No Vision needs: Yes (reading glasses) Physical Exam Vital Signs: Last Vital Signs Pulse 90 01/08/25 10:14 BP 152/86 H 01/08/25 10:14 Pulse Ox 94 01/08/25 10:14 Oxygen Delivery Method Room Air 01/08/25 10:14 BMI result Body Mass Index 20.2 Assessment & Plan Assessment & Plan (1) Osteoporosis: Code(s): M81.0 - Age-related osteoporosis without current pathological fracture Category: Medical Qualifiers: Osteoporosis type: age-related Presence of current pathological fracture: without current pathological fracture Qualified Code(s): M81.0 - Age-related osteoporosis without current pathological fracture Plan: 79-year-old female with a history of osteoporosis with previous fragility fracture currently on Prolia for> 5 years. Secondary workup has been negative. Recent DEXA showed continued severe osteoporosis in the hip The plan is to continue the Prolia with dose today. Would continue the Prolia for at least full 10 years in this patient who has a very high risk for subsequent fracture 1. Osteoporosis The patient continues on Prolia injections, a treatment she has been on for approximately nine years. Given her ongoing low bone density and heightened fracture risk, the decision was made to extend the use of Prolia beyond the ten-year data-supported window. Her current laboratory tests indicate stable and normal calcium levels, affirming the safety of continued treatment. The regimen of Prolia injections, calcium, and vitamin D supplementation remains optimal for managing her osteoporosis, with a planned follow-up injection in six months. Further monitoring of her bone health will be maintained during subsequent visits. I discussed with the patient the importance of continuing the Prolia injections due to her ongoing low bone density and elevated risk of fractures. We reviewed that while Prolia is typically supported for use up to ten years, her unique health circumstances warrant the continuation of treatment beyond this period given the absence of adverse effects and the stability of her calcium levels. I stressed the ongoing monitoring of her bone health and any potential risks associated with prolonged Prolia use. Calcium and vitamin D supplementation were confirmed to be part of her management plan. The patient agreed to return for follow-up in six months for her next injection, understanding the necessity and benefits of this approach. - Continue receiving Prolia injections as scheduled for osteoporosis. - Maintain the prescribed calcium and vitamin D supplementation. - Return in six months for the next scheduled Prolia injection. - Follow up sooner if there are any concerns or unusual symptoms. The patient had an opportunity to ask questions regarding treatment plan. The patient expressed understanding and agreement with the above treatment plan. and any followup testing/consults which may have been ordered. Patient was informed and verbally consented to the use of an ambient scribe for clinic note documentation during this visit. 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
[2025-01-08 10:14] VITALS: BP 152/86; PULSE 90; O2SAT 94; BMI 20.2
--- OUTSIDE RECORDS SUMMARY | 2025-01-08 10:31 | XMS_ITS ---
Author [facility] jose Kaplan Address [address] [place] [address] Care Team Providers Care [place] Removal/Plowing Name Role Phone Gomez CLARK, Ashley Primary Care Provider Unavail able Lesly Srinivasan Unavailable [phone] Omar Rojas Unavailable [phone] Allergies Allergen (clinical drug ingredient) Drug/Non Drug [...] 03/28/2024 Encounters Encounter Location Date Provider Diagnosis [facility] [address] [facility] [address] [place] [address] 03/28/2024 Omar Rojas Skin disease L98.9 and Tinea unguium B35.1 Assessments Encounter Date Diagnosis (ICD Code) Assessment Notes Treatment Notes Treatment Clinical Notes Section Notes 03/28/2024 Skin disease (ICD-10 - L98.9) 03/28/2024 Tinea unguium (ICD-10 - B35.1) Plan Of Treatment Next Appt Details Follow Up: 6 Months, Reason: Progress Notes * IRAIDA Merlyn ADOB:1944 (78 yo F)Acc No.[id number]:03/28/2024 Progress Note Patient:?Merlyn Wong A Provider:?Omar Rojas DPM :1945???Age:78 Y???Sex:Female D ate:03/28/2024 Address:[address] [place], [place] [id number] Pcp:Ashley Dyer MD Subjective: * Chief Complaints: * ??? * HPI: ???Skin problems:?Nature:?discolored.?Location:?/L , [facility].?Duration:?a year.?Onset/Cause:?pt believes that this change [...] DPM Date:? 024 Generated for Carloz cantrell/Sabine/Hank on:?01/08/2025 10:31 AM EDT History and Physical Notes * [...]
--- OUTSIDE RECORDS SUMMARY | 2025-01-08 10:32 | XMS_ITS ---
Author Organization [facility] Address [address] [place] [address] Care Team Providers Care Carpet Installer Helper Name Role Phone Gomez CLARK, Ashley Primary Care Provider Unavail able Lesly Srinivasan Unavailable [phone] REASON FOR VISIT NS to 09/26/24 appt Encounters Encounter Location Date [facility] [address] [place] [address] [address] [place] [address] 09/26/2024 Lesly Srinivasan Plan Of Treatment No Information Progress Notes * JUDITH Merlyn ADOB:1944 (79 yo F)Acc No.[id number]:09/26/2024 Patient:?Merlyn KHOURY A :1945???Age:79 Y???Sex:Female Address:[address], [address], [place] [address] * true * Date:? Generated for Carloz cantrell/Sabine/eTransmitting on:?01/08/2025 10:31 AM EDT
--- OUTSIDE RECORDS SUMMARY | 2025-01-08 10:32 | XMS_ITS | Patient Health Record ---
Author Organization [facility] Address [address] [place] [address] Care Team Providers Care Air Quality Engineer Name Role Phone Gomez CLARK, Ashley Primary Care Provider Unavail able Lesly Srinivasan Unavailable [phone] Omar Rojas Unavailable [phone] Allergies Allergen (clinical drug ingredient) Drug/Non Drug [...] 03/28/2024 Encounters Encounter Location Date Provider Diagnosis [facility] [address] [address] 03/28/2024 Omar Rojas Skin disease L98.9 and Tinea unguium B35.1 [facility] [address] [address] 09/26/2024 Lesly Srinivasan Assessments Encounter Date Diagnosis [...] End Date [employer] Medicare Complete [address] [address] [place] [id number] [place], [place] Self - patient is the insured Medical (General) History Medical History History ICD Code Anemia Back,Hip,and Knee pain Osteoporosis Psoriasis/eczema Rheumatic fever thyroid Measles Surgical History Surgery Date(Month/Year) mohs surgery 07/21/22
--- OUTSIDE RECORDS SUMMARY | 2025-01-08 10:32 | XMS_ITS ---
Author Organization [facility] Address [address] [place] [address] Care Team Providers Care Alteration Worker Name Role Phone Gomez CLARK, Ashley Primary Care Provider Unavail Lesly Roe Unavailable [phone] Encounters Encounter Location Date Provider [facility] [address] [facility] [address] [place] [address] 09/26/2024 Lesly Srinivasan Plan Of Treatment No Information Progress Notes * Merlyn KHOURY ADOB:1944 (79 yo F)Acc No.[id number]:09/26/2024 Progress Note Patient:?Merlyn KHOURY A Provider:?Lesly Srinivasan DPM :1945???Age:79 Y???Sex:Female D ate:09/26/2024 Address:[address] [facility], [facility] Pcp:Ashley Dyer MD Subjective: * Chief Complaints: [...] DPM Date:?0 09/26/2024 Generated for Carloz cantrell/Sabine/eTransmitting on:?01/08/2025 10:32 AM EDT
== END 2025-01-08 10:35 | disposition home or self-care (01) ==
PROVIDERS: PCP Internal Medicine; Visit Provider Internal Medicine Endocrinology, Diabetes & Metabolism
DX: M81.0 Age-related osteoporosis without current pathological fracture (principal); E03.8 Other specified hypothyroidism; E06.3 Autoimmune thyroiditis
CPT/HCPCS: 99213

== ENCOUNTER → 2025-01-08 10:05 | Outpatient (BNVA) | payer MEDICARE, SELFPAY | PROVIDERS: PCP Internal Medicine; Visit Provider Internal Medicine Endocrinology, Diabetes & Metabolism | DX: M81.0 Age-related osteoporosis without current pathological fracture (principal); E03.8 Other specified hypothyroidism; E06.3 Autoimmune thyroiditis | CPT/HCPCS: 96372; 99212; J0897 ==

== ENCOUNTER 2025-05-17 10:13 | Inpatient (IN) | payer MEDICARE, SELFPAY ==
--- NOTE | ~2025-05-17 | CT_ITS ---
EXAMINATION: CT HEAD WITHOUT CONTRAST CLINICAL INFORMATION: Fall, head strike COMPARISON: CT brain 02/06/2013. TECHNIQUE: Contiguous axial imaging was performed from the skull base to vertex without intravenous administration of contrast. This CT examination was performed using dose optimization techniques as appropriate, variously including the following: *Automated exposure control *Adjustment of mA and/or kV according to patient size (this includes techniques or standardized protocols for targeted exams where dose is matched to indication/reason for exam; i.e. extremities or head) *Use of iterative reconstruction technique DLP: [id number] FINDINGS: There is no acute intra-axial, extra-axial bleed, masses or midline shift shift. There is a hypodensity in the right mesial occipital lobe suggestive of old infarction, but new since 2013 CT brain exam. There is diffuse periventrical hypodensity in both cerebral hemispheres without mass effect. The lateral ventricles are symmetrical in size and configuration with mild enlargement. Bone windows reveal no calvarial abnormality. No scalp soft tissue abnormality. Bilateral paranasal sinuses and mastoid air cells are well-aerated. CT/CT head/brain wo IV con IMPRESSION: No acute intracranial process seen. 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 Diffuse small vessel ischemic disease in periventricular white matter. Electronically signed by: Joshua Atkinson MD 05/17/2025 11:44 AM EDT
--- NOTE | ~2025-05-17 | CT_ITS ---
EXAMINATION: CT CERVICAL SPINE WITHOUT CONTRAST CLINICAL INFORMATION: Fall, neck pain COMPARISON: None available. TECHNIQUE: Spiral CT imaging of the cervical spine performed in axial plane without contrast. Multiplanar reformatted images were constructed from the axial data set. This CT examination was performed using dose optimization techniques as appropriate, variously including the following: *Automated exposure control *Adjustment of mA and/or kV according to patient size (this includes techniques or standardized protocols for targeted exams where dose is matched to indication/reason for exam; i.e. extremities or head) *Use of iterative reconstruction technique FINDINGS: CORONAL ALIGNMENT: -There is a mild levoconvex scoliosis, apex at C5. SAGITTAL ALIGNMENT: -There is a mild reversal of the normal lordosis. -There is a 2 mm degenerative anterolisthesis of C3 on C4. Sagittal alignment is otherwise anatomic. C1-C2 AND CRANIOCERVICAL JUNCTION: -Intact and aligned. Moderate to severe degenerative arthritis in the anterior atlantoaxial joint. There is calcified posterior pannus formation. VERTEBRAL BODIES AND FACETS: -There is no definite fracture, compression deformity, or suspicious bone lesion. There is no evidence of traumatic subluxation. -There is normal facet alignment bilaterally. There are multilevel hypertrophic degenerative facet changes bilaterally. There is facet fusion of C2-3 on the left. DISCS: -Severe disc degeneration present spanning C4-T1. Moderate degeneration at C3-4, and mild degeneration at C2-3. CENTRAL CANAL: -There appears to be high-grade central canal stenosis at C3-4, C4-5, and C5-6 secondary to disc osteophytic bulges, and posterior element hypertrophic changes. Cannot exclude cord impingement at these levels. PREVERTEBRAL AND PARAVERTEBRAL SOFT TISSUES: -There is no prevertebral or paravertebral soft tissue swelling, edema, or abnormal fluid collection. -The thyroid is diminutive. -There is no mass or abnormal lymphadenopathy within the neck. -Mild left and moderate right carotid bulb calcifications. LUNG APICES: -There is a cavitary lesion in the medial right apex (series 7, image 303) measuring 1.2 x 1.3 cm. This is nonspecific. -There are multiple groundglass nodular foci in the posterior left upper lobe, nonspecific. CT/CT cervical spine wo IV con IMPRESSION: 1. No CT evidence of acute cervical spine fracture or injury. 2. Advanced cervical spondylosis. Probable severe central canal stenosis at C3-4, C4-5, and C5-C6. Cannot exclude cord impingement at these levels. 3. Abnormal nodular opacities in the lung apices, with a cavitary right apical opacity measuring 1.2 x 1.3 cm. These are nonspecific and could be neoplastic, infectious, or inflammatory. Would correlate with known recent medical history. Would also consider dedicated CT imaging of the thorax. Electronically signed by: Cm Galarza MD 05/17/2025 11:45 AM EDT
--- NOTE | ~2025-05-17 | XR_ITS ---
EXAMINATION: XR WRIST 3 OR MORE VIEWS LEFT HISTORY: fall COMPARISON: There are no prior studies available for comparison. FINDINGS: Four views of the left wrist, including a scaphoid view are submitted. The bones are osteopenic. There is no fracture or dislocation. There is severe degenerative change of the radial aspect of the carpus. There is chondrocalcinosis. XR/XR wrist LT min 3V IMPRESSION: Osteopenia. No evidence of fracture of the left wrist. Electronically signed by: Richard Cedeno MD 05/17/2025 11:45 AM EDT
--- NOTE | ~2025-05-17 | CT_ITS ---
EXAMINATION: CT CHEST WITHOUT CONTRAST CLINICAL INFORMATION: Cavitary abnormality in right lung apex on CT C-spine of same day. Weakness. COMPARISON: CT C-spine earlier same day. No prior chest CT. Chest radiograph 05/17/2025 TECHNIQUE: Multidetector volumetric CT imaging of the chest was done. Axial MIP volume rendering provided. Sagittal and coronal reformatted images were obtained. This CT examination was performed using dose optimization techniques as appropriate, variously including the following: *Automated exposure control *Adjustment of mA and/or kV according to patient size (this includes techniques or standardized protocols for targeted exams where dose is matched to indication/reason for exam; i.e. extremities or head) *Use of iterative reconstruction technique FINDINGS: LUNGS: Oval cavitary opacity in the posterior right apex measuring 1.4 x 1.1 cm (series 4, image 20). Abutting tree-in-bud nodules in the anterior right upper lobe, as well as the posterior left upper lobe, in keeping with infectious etiology. Centrilobular nodular opacities in the posterior segment right upper lobe (series 4, images 44-45), similar etiology. There are 2 additional abutting stellate nodular opacities in the posterior segment right upper lobe (series 4, image 52). Bronchiectasis in the lower anterior segment right upper lobe with foci of endobronchial mucous plugging and tree-in-bud opacities. Pleural-based nodular opacity in the right lower lobe medially measuring 1.2 x 1.2 cm (series 4, image 81). Right middle lobe bronchiectasis with foci of endobronchial mucous plugging, and similar foci in the lateral left upper lobe and lingula. There is no effusion or pneumothorax. There is mild lower lobe bronchiectasis bilaterally. MEDIASTINUM: Thyroid is atrophic. No adenopathy is noted in the mediastinum or hilum. Aorta is moderately calcified without aneurysm. Main pulmonary artery is normal in size. Heart size is normal. There is a tiny pericardial effusion. The esophagus is mildly patulous. There is some retained internal debris suggesting reflux. This raises the possibility of aspiration. There is no mediastinal mass. The central airways are patent. CORONARY ARTERY CALCIFICATION: There are heavy coronary calcifications. AXILLA/CHEST WALL: No abnormal lymphadenopathy or mass. UPPER ABDOMEN: Heavy atheromatous calcification of the abdominal aorta. There is a granuloma in the posterior spleen. Remainder the imaged upper abdominal contents appear normal. OSSEOUS STRUCTURES: No suspicious lytic or blastic bone lesions. S-shaped scoliosis of the thoracic spine with moderate to severe degenerative spondylosis. CT/CT chest wo IV con IMPRESSION: 1. Scattered bilateral centrilobular opacities, tree-in-bud opacities, and stellate nodular opacities in both lungs. There is a cavitary oval opacity in the right apex measuring 1.4 x 1.1 cm. In addition, there are foci of cylindrical bronchiectasis in the lower anterior right upper lobe and right middle lobe, as well as the lingula, with foci of endobronchial mucous plugging and associated tree-in-bud opacities. Overall, the findings are highly suspicious for disseminated atypical infection, such as DAVIE/MAC. Cannot exclude fungal etiologies. 2. There are no effusions. 3. Mildly patulous esophagus with some internal retained debris. This raises the possibility of reflux and possible aspiration. 4. Heavy coronary calcification. Electronically signed by: Cm Galarza MD 05/17/2025 12:52 PM EDT
--- NOTE | ~2025-05-17 | XR_ITS ---
EXAMINATION: XR CHEST 1 VIEW HISTORY: weakness, fall COMPARISON: Comparison is made with the prior examination dated 12/14/2024. FINDINGS: A single AP portable view of the chest performed at 11:23 AM is submitted. The lungs are expanded and clear. There is no pleural effusion, pneumothorax, or pulmonary vascular congestion. The heart is normal in size. There is scoliosis and degenerative disc disease of the spine. XR/XR chest 1V IMPRESSION: No acute cardiopulmonary abnormality. Electronically signed by: Richard Cedeno MD 05/17/2025 11:43 AM EDT
--- NOTE | ~2025-05-17 | XR_ITS ---
Examination: Pelvis and chest. CLINICAL INDICATION: Fall with weakness. COMPARISON: Chest 12/14/2024. TECHNIQUE: Chest 1 view. AP pelvis one view. FINDINGS: PELVIS: There is normal symmetry of bilateral hip joints and SI joints. No visible acute fracture, dislocation or subluxation seen. There is mild Rotary dextroscoliosis of lumbar spine. CHEST: The lungs are well-expanded and clear acute process. The heart size and pulmonary vascularity is normal. No gross bony abnormality seen. XR/XR shoulder RT min 2V IMPRESSION: Unremarkable pelvic exam. No visible fracture or dislocation. Unremarkable chest exam. Electronically signed by: Joshua Atkinson MD 05/17/2025 11:47 AM EDT
--- NOTE | ~2025-05-17 | XR_ITS ---
Examination: Pelvis and chest. CLINICAL INDICATION: Fall with weakness. COMPARISON: Chest 12/14/2024. TECHNIQUE: Chest 1 view. AP pelvis one view. FINDINGS: PELVIS: There is normal symmetry of bilateral hip joints and SI joints. No visible acute fracture, dislocation or subluxation seen. There is mild Rotary dextroscoliosis of lumbar spine. CHEST: The lungs are well-expanded and clear acute process. The heart size and pulmonary vascularity is normal. No gross bony abnormality seen. XR/XR pelvis 1-2V IMPRESSION: Unremarkable pelvic exam. No visible fracture or dislocation. Unremarkable chest exam. Electronically signed by: Joshua Atkinson MD 05/17/2025 11:47 AM EDT
[2025-05-17 10:20] VITALS: BP 187/86; PULSE 98; RESP 20; TEMP 36.8; O2SAT 96; BMI 19.3
--- NOTE | 2025-05-17 10:29 | ECG_ITS ---
Test Reason : FALL Blood Pressure : */* mmHG Vent. Rate : 95 BPM Atrial Rate : 95 BPM P-R Int : 142 ms QRS Dur : 128 ms QT Int : 416 ms P-R-T Axes : 87 79 66 degrees QTcB Int : 522 ms Normal sinus rhythm Possible Left atrial enlargement Right bundle branch block Abnormal ECG When compared with ECG of 09-Feb-2020 08:43, QT has lengthened Referred By: Charo Dillard Electronically Signed By: LEEANN CANTRELL
--- NOTE | 2025-05-17 10:37 | ED_ITS ---
HPI - Fall General Chief Complaint: Fall Stated Complaint: unwit fall, headstrike Source: patient, EMS and old records reviewed Mode of arrival: EMS Limitations: no limitations History of Present Illness ED Provider: LEONARDO HPI Narrative: 80 yo female with PMH of HTN, hypothyroidism who is not on thinners she lives alone. She reports recent falls starting last wednesday had some bruises, again on Wednesday bruises never checked out. Last night she is not sure of the time. She tried to get out of her bed and had a hard time she has to prop herself up and she fell. No headstrike or LOC any of the falls but she has sore L wrist, R shoulder, she was on the ground for unknown amount of time. She has no life alert. She denies any CP/SOB. She is alert and oriented. She had saturated pad on when she came in. MD complaint: fall Onset (ago): day(s) (1) Fall from: out of bed Fall witnessed: no Place fall occurred: home Loss of consciousness: none Prolonged down time: yes and hour(s) (since last night) Symptoms prior to fall: none Context: tripped/slipped Location of injury: other Severity: mild Quality: aching Associated symptoms (after fall): denies Related Data Home Medications ?Medication ?Instructions ?Recorded ?Confirmed acetaminophen 500 mg capsule 500 mg PO Q6H PRN Pain, M ild 06/06/20 05/17/25 B6 0.85 mg-folic 200 1 tab PO DAILY 02/18/2104/30 [id number] oral chewable tablet (Neuriva Plus) ascorbic acid (vitamin C) 500 mg 500 mg PO DAILY 05/1705/17/25 chewable tablet (Vitamin C) cholecalciferol (vitamin D3) 50 50 mcg PO Q48H 5 05/17/25 mcg (2,000 unit) tablet levothyroxine 88 mcg tablet 88 mcg PO DAILY@0600 05/1705/17/25 Previous Rx's ?Medication ?Instructions ?Recorded compr.stocking,knee,long,large #2 ea 07/02/21 blood pressure monitor #1 ea 02/04/22 Lactobacillus rhamnosus GG 10 1 cap PO DAILY PRN abdom inal 02/05/22 billion cell capsule (Culturelle) discomfort #30 caps metoprolol succinate 25 mg 25 mg PO DAILY 90 days #90 tabs 11/24/24 tablet,extended release 24 hr folic acid 1 mg tablet 1 mg PO DAILY 90 days #90 ta bs 02/12/25 Allergies Allergy/AdvReac Type Severity Reaction Status Date / Time Penicillins (PENICILLINS) Allergy Intermediate MATEOKER Verified 05/17/25 10:35 SORES cephalexin AdvReac Mild Didn't work Verified 05/17/25 10:35 Review of Systems 2 Review of Systems: Constitutional : No Fever, No Chills, pos Fatigue ENT/Mouth : No sore throat, No Rhinorrhea Eyes: No Eye Pain, No Swelling, No Redness Cardiovascular : No Chest Pain, No SOB, No Dyspnea on Exertion Respiratory : No Cough, No Sputum Gastrointestinal : No Nausea, No Vomiting, No Diarrhea, No abdominal Pain Genitourinary : No Dysuria, No Urinary Frequency, No Hematuria, Musculoskeletal : pos joint pain, No Myalgias, No Joint Swelling Skin : No Skin Lesions, No rash Neuro : No Weakness, No Numbness, No Dizziness, no Headache All other systems reviewed and are negative [facility] Past Medical History Attestation statement: The following information was validated with the patient. Source: old records reviewed Medical History Acute diarrhea Right leg pain Polyarthralgia Osteoporosis Hypothyroidism Hypovitaminosis D Essential hypertension Surgical History History of cataract surgery History of colonoscopy History of tubal ligation Family History Family History Father CHF (congestive heart failure) Liver cirrhosis Mother Stroke Social History Social History Household Members: None Housing: Apartment Do you presently have visiting nurse or other home services: No Alcohol intake: former Patient Tobacco Use Status: Former Tobacco user e-Cigarette/Vaping Use: Never Used Second Hand Smoke Exposure: No Have you been hit, kicked, punched, or otherwise hurt by someone within the past year? If so, by whom?: No Do you feel safe in your current relationship?: No Current Relationship Is there a partner from a previous relationship who is making you feel unsafe now?: No Are you made to feel afraid or neglected: No Advance Directives: No Advance Directives Information Provided: Yes Do you have a plan to hurt others: No Plan Recently lost weight without trying: No How much weight loss: Not applicable Eating poorly because of decreased appetite: No Nutrition screen score: 0 Nutrition Risks: No Nutritional Risk Patient : No : No Poor oral hygiene: No service: No Current occupational status: retired Gender identity: Female Cognitive needs: Yes (cane) Hearing needs: No Vision needs: Yes (reading glasses) Physical Exam 2 Vital Signs: Vital Signs: Last Vital Signs Temp 98.3 F 05/17/25 10:20 Pulse 93 05/17/25 14:32 Resp 20 05/17/25 10:20 BP 123/59 L 05/17/25 14:32 Pulse Ox 96 05/17/25 10:20 O2 Del Method Room Air 05/17/25 10:20 BMI result Body Mass Index 19.3 Appearance: Alert. Oriented X3. No acute distress. Eyes: Pupils equal, round and reactive to light. ENT: Pharynx normal. Neck: Normal inspection. Neck supple. refuses cervical collar CVS: Normal heart rate and rhythm. Pulses normal. Respiratory: No respiratory distress. Breath sounds normal. Abdomen: Soft and nontender. Skin: Skin warm and dry. Normal skin color. Normal skin turgor. Extremities: No lower extremity edema. multiple old and new bruises on legs, hips, back, R shoulder/elbows - nothing appears acute Neuro: Oriented X 3. No motor deficit. No sensory deficit. CN2-12 intact Course Course Course Narrative: WBC elevated possible infection suspected I ordered ceftriaxone in case of UTI Charo EffieDO 05/17/25 1110 Medications Administered Generic Name Dose Route Start Last Admin Trade Name Freq PRN Reason Stop Dose Admin Heparin Sodium (Porcine) 5,000 unit 05/17/25 14:00 05/17/25 14:00 Heparin Sodium,Porcine 5,000 Unit/Ml Vial SUBCUT 5,000 unit Q12H JOY Administration Sodium Chloride 1,000 mls @ 100 mls/hr 05/17/25 12:15 05/17/25 13:57 Ns IVCONT 100 mls/hr .Q10H JOY Administration Metoprolol Succinate 25 mg 05/17/25 14:10 05/17/25 14:32 Metoprolol Succinate Er 25 Mg Tab.Er.24h PO 25 mg DAILY JOY Administration Protocol Sodium Chloride 3 ml 05/17/25 16:00 05/17/25 16:16 0.9 % Sodium Chloride Flush 3 Ml Syringe IVFLUSH Not Given QSHIFT JOY Vitamin D 50 mcg 05/17/25 14:15 05/17/25 14:24 Cholecalciferol (Vitamin D3) 25 Mcg Tablet PO 50 mcg Q48H JOY Administration Discontinued Medications Generic Name Dose Route Start Last Admin Trade Name Xochilt PRN Reason Stop Dose Admin Ceftriaxone Sodium 1 gm 05/17/25 11:06 05/17/25 12:03 Ceftriaxone Sodium 1 Gm Vial IVPUSH 05/17/25 11:07 1 gm ONCE ONE Administration Lactated Ringer's 1,000 mls @ 999 mls/hr 05/17/25 10:29 05/17/25 13:50 Lr IV 05/17/25 11:29 Infused .Q1H1M ONE Infusion Acetaminophen 1,000 mg in 100 mls @ 400 mls/hr 05/17/25 10:29 05/17/25 11:59 Ofirmev IV 05/17/25 10:43 Infused ONCE ONE Infusion Magnesium Sulfate 2 gm in 50 mls @ 25 mls/hr 05/17/25 12:06 05/17/25 14:29 Magnesium Sulfate/H2o IV 05/17/25 14:05 Infused ONCE ONE Infusion Medical Decision Making Medical Decision Making [facility] Narrative: 80 yo female with PMH of HTN, hypothyroidism who is not on thinners now here s/p prolonged downtime from fall out of bed she denies preceding symptoms to the fall she is covered in old and new bruises - at this time will obtain labs, CT scans of head/neck, CXR, pelvis xray, ext xray and start on IVF in case of rhabdo - possible PRIYANK, lyte abnormality, trauma, FTT Differential Diagnosis Differential Diagnoses: The differential diagnosis associated with the presentation includes rhabdo, PRIYANK, trauma, contusions, FTT Admission/Observation Consideration of admission/observation: Escalation of care including admission/observation considered will admit for labs, CT scan pending of chest, UTI, rhabdo Consult Healthcare Provider Management of the patient was discussed with: Hospitalist (will admit) Lab Data [facility] Lab Attestation statement: I reviewed the patient's lab results. 05/17/25 10:56 05/17/25 10:54 Labs: Lab Results 05/17/25 05/17/25 05/17/25 Range/Units 10:54 10:56 11:01 WBC 17.9 H (4.8-10.8) X10*3/uL RBC 4.51 D (4.20-5.50) X10*6/uL Hgb 15.3 D (12.0-16.0) g/dl Hct 44.9 (37.0-47.0) % MCV 99.6 H (80.0-98.0) fL MCH 33.9 H (27.0-33.0) pg MCHC 34.1 (31.0-35.0) g/dl RDW 12.2 (11.0-16.0) % Plt Count 240 (160-400) X10*3/uL MPV 9.9 (9.4-12.3) fL Immature Gran % (Auto) 0.4 (0.0-0.4) % Neut % (Auto) 88.1 H (45-73) % Lymph % (Auto) 6.8 L (20-40) % [place] % (Auto) 4.5 (2-11) % Eos % (Auto) 0.0 (0-4) % Baso % (Auto) 0.2 (0-2) % Lymph # (Auto) 1.2 (1.2-4.9) X10*3/uL [place] # (Auto) 0.8 (0.1-1.2) X10*3/uL Eos # (Auto) 0.0 (0.0-0.4) X10*3/uL Baso # (Auto) 0.0 (0.0-0.2) X10*3/uL Abs Immat Gran (auto) 0.08 H (0.00-0.03) X10*3/uL Absolute Neuts (auto) 15.8 H (2.0-8.3) x10*3/uL Absolute Nucleated RBC 0.000 (0.0-0.012) X10*3/uL Nucleated RBC % (auto) 0.0 (0.0-0.2) /100WBC Sodium 138 (135-145) mmol/L Potassium 4.6 D (3.3-5.1) mmol/L Chloride 99 (96-108) mmol/L Carbon Dioxide 25 (22-29) mmol/L Anion Gap 19 (12-20) BUN 27 H (9-16) mg/dL Creatinine 0.80 (0.5-1.4) mg/dL Estim Creat Clear Calc 43.8 Estimated GFR > 60 Random Glucose 115 (60-115) mg/dL Lactic Acid 2.0 (0.5-2.0) mmol/L Calcium 10.2 (8.4-10.2) mg/dL Magnesium 2.1 (1.6-2.6) mg/dL Total Bilirubin 0.8 (0.0-1.0) mg/dL Direct Bilirubin 0.2 (0.0-0.5) mg/dL AST 296 H (5-31) U/L ALT 91 H (0-31) U/L Alkaline Phosphatase 62 (39-117) U/L Total Creatine Kinase 5024 H (26-140) U/L Troponin I High Sens 35.2 H (<3.5-17.0) ng/L C-Reactive Protein 20.06 H (< or = 0.50) mg/dL Total Protein 9.1 H (6.5-8.0) g/dL Albumin 4.6 (3.5-5.0) g/dL Lipase 10 (8-78) U/L TSH 20.77 H (0.32-4.0) uIU/mL Free T4 0.76 (0.71-1.85) ng/dL Urine Color Yellow Urine Appearance Turbid Urine pH 5.5 (5.0-9.0) Ur Specific [place] 1.020 (1.005-1.025) Urine Protein 300 (3+) H (Neg-Trace) mg/dL Urine Glucose (UA) Negative (Negative) mg/dL Urine Ketones 40 (Negative) mg/dL Urine Blood Large (3+) H (Negative) Urine Nitrite Negative (Negative) Ur Leukocyte Esterase Large (3+) H (Negative) Urine RBC 3-5 H (0-2) /HPF Urine WBC >50 H (0-5) /HPF Ur Squamous Epith Cells 3-5 (0-2) /HPF Urine Bacteria 3+ (None Seen) Hyaline Casts 11-20 (0-2) /LPF Independent Interpretation I performed an independent interpretation of an: EKG, Plain X-Ray (no trauma) and CT Scan (no head or neck trauma, apices of lungs are abnormal) Interpretation: Rate: 95 Rhythm: NSR [place]: normal Normal P waves. Normal CAROLYNE. RBBB ST T wave : inverted t waves V1-V3, no SARAH qTC: 522 prior studies: no change from prior The study has been interpreted contemporaneously by me. . Radiology Impression Discussion of test interpretation with radiology: I have reviewed the radiologist's reading. Independent Historian Clinical information obtained from an independent historian. History obtained from or confirmed by: EMS External Record Review External record reviewed: Inpatient record and Outpatient record Critical Care Time Critical Care Time Critical Care Time: Yes Total Critical Care Time: 45 Attestation: Time is exclusive of separately billable procedures. Time includes: direct patient care, patient reassessment, coordination of patient care, interpretation of data (laboratory data, pulse oximetry, CT scans and chest xrays), review of patient's medical records, medical consultation and documentation of patient care. IVF and repeat fluids for rhabod, IV magnesium for prolonged qtc. Procedures excluded from critical care time: central intravenous line placement and electrocardiography. Discharge Plan Discharge Clinical Impression: Prolonged QT interval, Acute UTI Contusion Qualifiers: Encounter type: initial encounter Contusion area: upper arm Laterality: right Q ualified Code(s): S40.021A - Contusion of right upper arm, initial encounter Rhabdomyolysis Qualifiers: Rhabdomyolysis type: non-traumatic Qualified Code(s): M62.82 - Rhabdomyolysis Patient Disposition: Admitted As Inpatient Interventions: Admission Worksheet (ED) Last Done: 05/17/25 15:23 Discharge Date/Time: 05/17/25 16:28
[2025-05-17 11:01] LABS: MANUAL DIFF FLAG NO
[2025-05-17 11:03] LABS: Hematocrit 44.9 % (37.0-47.0); Hemoglobin 15.3 g/dl (12.0-16.0); Imm Gran Abs Auto 0.08 X10*3/uL (0.00-0.03); Imm Gran Pct Auto 0.4 % (0.0-0.4); Lymphocytes Absolute Auto 1.2 X10*3/uL (1.2-4.9); Mean Corpuscular HGB Conc 34.1 g/dl (31.0-35.0); Mean Corpuscular Hemoglobin 33.9 pg (27.0-33.0); Mean Corpuscular Volume 99.6 fL (80.0-98.0); NRBC Abs Auto 0.000 X10*3/uL (0.0-0.012); NRBC Pct Auto 0.0 /100WBC (0.0-0.2); Platelet Count 240 X10*3/uL (160-400); Red Blood Count 4.51 X10*6/uL (4.20-5.50); White Blood Count 17.9 X10*3/uL (4.8-10.8)
--- NOTE | 2025-05-17 11:11 | MHC.EDTECH ---
Attempted to do 2nd set of blood cultures but patient was taken to ct scan will atempt again shortly RN aware.
--- NOTE | 2025-05-17 11:16 | PC.NURSE ---
coming in from assisted living for multiple falls over past week, bruising noted. patient reports pain all over. no thinners. alert and oriented w/ even and unlabored respirations. patient incontinent of urine upon arrival, states she has been experiencing this lately. straight cath to obtain urine. IV established, labs/cultures obtained and sent. in ct/xray at this time.
[2025-05-17 11:19] LABS: Appearance Urine Turbid; Glucose Urine UA Negative (Negative); PH 5.5 (5.0-9.0); Specific Gravity - Urine 1.020 (1.005-1.025); UMIC TRIGGER UACC YES
[2025-05-17 11:23] LABS: Alanine Aminotransferase 91 U/L (0-31); Albumin Level 4.6 g/dL (3.5-5.0); Alkaline Phosphatase 62 U/L (39-117); Anion Gap 19 (12-20); Aspartate Amino Transferase 296 U/L (5-31); Blood Urea Nitrogen 27 mg/dL (9-16); Calcium 10.2 mg/dL (8.4-10.2); Carbon Dioxide 25 mmol/L (22-29); Chloride 99 mmol/L (96-108); Creatinine Clr Calc Pharmacy 43.8; Estimated Glomerular Filt Rate > 60; Lipase 10 U/L (8-78); Magnesium 2.1 mg/dL (1.6-2.6); Potassium 4.6 mmol/L (3.3-5.1); Sodium 138 mmol/L (135-145); Total Protein 9.1 g/dL (6.5-8.0)
[2025-05-17 11:27] LABS: Troponin-I High Sensitivity 35.2 ng/L (<3.5-17.0)
[2025-05-17 11:36] LABS: UACC Culture Trigger YES
[2025-05-17] MEDS: Lactated Ringers 1,000 ML 999 ML IV (11:44)
[2025-05-17 12:14] LABS: Free T4 (Free Thyroxine) 0.76 ng/dL (0.71-1.85)
[2025-05-17] MEDS: Magnesium Sulfate/H2O 2 GM/50 ML PIGGYBACK IV (12:29)
--- NOTE | 2025-05-17 13:39 | PM.IMHP ---
History of Present Illness Date of Service: 05/17/25 Attending physician on admission: Leida Ferrari Chief Complaint: fall, elevated CPK This is a 80-year-old female who presented to the emergency department after falling. Patient states she has macular degeneration and that her eyesight is poor. She had a fall 1 week ago and she also fell yesterday. She denies being dizzy prior to her fall. She said that she lost her balance due to bad eyesight. Last night she was unable to get up off the floor and although she tried shouting no one from her apartment building came to check on her. This morning someone did come to check on her and called 911 and she was brought to the hospital for evaluation. She had imaging studies which were all negative for acute fracture. Lab work was significant for CPK of 5024, elevated LFTs, abnormal TSH and elevated CRP. Urinalysis was consistent with a UTI and she was started on IV ceftriaxone. Due to lung abnormality on CT C-spine a chest CT was obtained which was abnormal, showin findings concerning for disseminated atypical infection. She denies any respiratory symptoms. Review of Systems Review of Systems: Yes all other systems are reviewed and are negative Constitutional: Constitutional: Denies chills and Denies fever(s) ENT: Denies dizziness Cardiovascular: Cardiovascular: Denies chest pain, Denies palpitations and Denies dyspnea Respiratory: Respiratory: Denies cough and Denies dyspnea Gastrointestinal: Gastrointestinal: Denies abdominal pain Neurologic: Denies dizziness Endocrine: Endocrine: Denies palpitations [facility] Medical History Acute diarrhea Right leg pain Polyarthralgia Osteoporosis Hypothyroidism Hypovitaminosis D Essential hypertension Family History Father CHF (congestive heart failure) Liver cirrhosis Mother Stroke Surgical History History of cataract surgery History of colonoscopy History of tubal ligation Social History Household Members: None Housing: Apartment Alcohol intake: former Patient Tobacco Use Status: Former Tobacco user e-Cigarette/Vaping Use: Never Used Second Hand Smoke Exposure: No Advance Directives: No Advance Directives Information Provided: Yes service: No Current occupational status: retired Gender identity: Female Cognitive needs: Yes (cane) Hearing needs: No Vision needs: Yes (reading glasses) Meds Allergies Allergy/AdvReac Type Severity Reaction Status Date / Time Penicillins (PENICILLINS) Allergy Intermediate CANKER Verified 05/17/25 10:35 SORES cephalexin AdvReac Mild Didn't work Verified 05/17/25 10:35 Active Medications: Current Medications Acetaminophen (Acetaminophen 325 Mg Tablet) 650 mg PO Q6H PRN PRN Reason: Pain, Mild 1-3,fever,headache Calcium Carbonate (Calcium Carbonate 750 Mg Tab.Chew) 750 mg PO Q4H PRN PRN Reason: Heartburn Ceftriaxone Sodium (Ceftriaxone Sodium 1 Gm Vial) 1 gm IVPUSH Q24H JOY Heparin Sodium (Porcine) (Heparin Sodium,Porcine 5,000 Unit/Ml Vial) 5,000 unit SUBCUT Q12H JOY Sodium Chloride (Ns) 1,000 mls @ 100 mls/hr IVCONT .Q10H JOY Magnesium Sulfate (Magnesium Sulfate/H2o) 2 gm in 50 mls @ 25 mls/hr IV ONCE ONE Stop: 05/17/25 14:05 Last Admin: 05/17/25 12:29 Dose: 25 mls/hr Magnesium Hydroxide (Milk Of Magnesia 30 Ml Oral.Susp) 30 ml PO DAILY PRN PRN Reason: Constipation Melatonin (Melatonin 3 Mg Tablet) 6 mg PO BEDTIME PRN PRN Reason: Insomnia Sodium Chloride (0.9 % Sodium Chloride Flush 3 Ml Syringe) 3 ml IVFLUSH QSHIFT [facility] Home Medications ?Medication ?Instructions ?Recorded ?Confirmed ?Last Taken ?Type acetaminophen 500 mg capsule 500 mg PO Q6H PRN Pain, Mild 06/06/20 05/17/25 Unknown History B6 0.85 mg-folic 200 1 tab PO DAILY 02/18/21 05/17/25 05/06/25 History [id number]-[id number]-wvanht-yvtyiwttpnkb oral chewable tablet (Neuriva Plus) ascorbic acid (vitamin C) 500 mg 500 mg PO DAILY 05/17/25 05/17/25 05/06/25 History chewable tablet (Vitamin C) cholecalciferol (vitamin D3) 50 50 mcg PO Q48H 05/17/25 05/17/25 05/06/25 History mcg (2,000 unit) tablet levothyroxine 88 mcg tablet 88 mcg PO DAILY@0600 05/17/25 05/17/25 05/06/25 History Physical Exam Vital Signs and Narrative: Vital Signs: Last Vital Signs Temp 98.3 F 05/17/25 10:20 Pulse 98 05/17/25 10:20 Resp 20 05/17/25 10:20 BP 187/86 H 05/17/25 10:20 Pulse Ox 96 05/17/25 10:20 O2 Del Method Room Air 05/17/25 10:20 BMI result Body Mass Index 19.3 Const: Other: fraily elderly female General: cooperative, comfortable, no acute distress, alert and awake Nutritional Appearance: thin Orientation/consciousness: patient oriented x3 Resp: Effort & Inspection: normal respiratory effort, able to speak in complete sentences, no respiratory distress and no use of accessory muscles Cardio: Rate: regular rate GI: Inspection: No distended Palpation (GI): Soft to palpation Skin: Other: bruising b/l elbows, shoulders, redness to back Neuro: General: patient oriented x3 Results Labs 05/17/25 10:56 05/17/25 10:54 Labs: Laboratory Results - last 24 hr 05/17/25 05/17/25 05/17/25 10:54 10:56 11:01 MCV 99.6 H MCH 33.9 H MCHC 34.1 RDW 12.2 Plt Count 240 MPV 9.9 Immature Gran % (Auto) 0.4 Neut % (Auto) 88.1 H Lymph % (Auto) 6.8 L [place] % (Auto) 4.5 Eos % (Auto) 0.0 Baso % (Auto) 0.2 Lymph # (Auto) 1.2 [place] # (Auto) 0.8 Eos # (Auto) 0.0 Baso # (Auto) 0.0 Abs Immat Gran (auto) 0.08 H Absolute Neuts (auto) 15.8 H Absolute Nucleated RBC 0.000 Nucleated RBC % (auto) 0.0 Anion Gap 19 Estim Creat Clear Calc 43.8 Estimated GFR > 60 Random Glucose 115 Lactic Acid 2.0 Calcium 10.2 Magnesium 2.1 Total Bilirubin 0.8 Direct Bilirubin 0.2 AST 296 H ALT 91 H Alkaline Phosphatase 62 Total Creatine Kinase 5024 H Troponin I High Sens 35.2 H C-Reactive Protein 20.06 H Total Protein 9.1 H Albumin 4.6 Lipase 10 TSH 20.77 H Free T4 0.76 Urine Color Yellow Urine Appearance Turbid Urine pH 5.5 Ur Specific [place] 1.020 Urine Protein 300 (3+) H Urine Glucose (UA) Negative Urine Ketones 40 Urine Blood Large (3+) H Urine Nitrite Negative Ur Leukocyte Esterase Large (3+) H Urine RBC 3-5 H Urine WBC >50 H Ur Squamous Epith Cells 3-5 Urine Bacteria 3+ Hyaline Casts 11-20 Imaging Radiologist's Impressions: Impressions Cervical Spine CT 05/17/25 11:07 IMPRESSION: 1. No CT evidence of acute cervical spine fracture or injury. 2. Advanced cervical spondylosis. Probable severe central canal stenosis at C3-4, C4-5, and C5-C6. Cannot exclude cord impingement at these levels. 3. Abnormal nodular opacities in the lung apices, with a cavitary right apical opacity measuring 1.2 x 1.3 cm. These are nonspecific and could be neoplastic, infectious, or inflammatory. Would correlate with known recent medical history. Would also consider dedicated CT imaging of the thorax. Electronically signed by: Cm Galarza MD 05/17/2025 11:[address] 05/17/25 11:07 IMPRESSION: No acute intracranial process seen. 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 Diffuse small vessel ischemic disease in periventricular white matter. Electronically signed by: Joshua Atkinson MD 05/17/2025 11:44 AM EDT RP Chest X-Ray 05/17/25 11:23 IMPRESSION: No acute cardiopulmonary abnormality. Electronically signed by: Richard Cedeno MD 05/17/2025 11:43 AM EDT RP Shoulder X-Ray 05/17/25 11:24 IMPRESSION: Unremarkable pelvic exam. No visible fracture or dislocation. Unremarkable chest exam. Electronically signed by: Joshua Atkinson MD 05/17/2025 11:47 AM EDT RP Wrist X-Ray 05/17/25 11:28 IMPRESSION: Osteopenia. No evidence of fracture of the left wrist. Electronically signed by: Richard Cedeno MD 05/17/2025 11:45 AM EDT RP Pelvis X-Ray 05/17/25 11:34 IMPRESSION: Unremarkable pelvic exam. No visible fracture or dislocation. Unremarkable chest exam. Electronically signed by: Joshua Atkinson MD 05/17/2025 11:47 AM EDT RP Chest CT 05/17/25 12:15 IMPRESSION: 1. Scattered bilateral centrilobular opacities, tree-in-bud opacities, and stellate nodular opacities in both lungs. There is a cavitary oval opacity in the right apex measuring 1.4 x 1.1 cm. In addition, there are foci of cylindrical bronchiectasis in the lower anterior right upper lobe and right middle lobe, as well as the lingula, with foci of endobronchial mucous plugging and associated tree-in-bud opacities. Overall, the findings are highly suspicious for disseminated atypical infection, such as DAVIE/MAC. Cannot exclude fungal etiologies. 2. There are no effusions. 3. Mildly patulous esophagus with some internal retained debris. This raises the possibility of reflux and possible aspiration. 4. Heavy coronary calcification. Electronically signed by: Cm Galarza MD 05/17/2025 12:52 PM EDT RP Assessment and Plan (1) Rhabdomyolysis: Qualifiers: Rhabdomyolysis type: non-traumatic Qualified Code(s): M62.82 - Rhabdomyolysis Status: Acute Plan This is a 80-year-old female with a history of hypothyroidism, chronic anemia,, B12 deficiency, osteoporosis, macular degeneration brought in by ambulance after a fall at home and unable to get up found to have rhabdomyolysis Rhabdomyolysis Due to fall and inability to get up off floor CPK 5025 renal function ok continue IVF Trend CPK Transaminitis Likely due to above Trend LFTs Mild elevation in troponin Likely due to above will trend UTI IV ceftriaxone Follow urine cultures abnormal CT scan Showing concern for disseminated atypical infection such as DAVIE; possible chronic aspiration Found incidentally, no respiratory symptoms. No hypoxia speech evaluation pulmonary consult Fall pt reports due to macular degenration in left eye causing issues with depth preception imaging negative for fracture although EKG poor quality, qtc prolonged treated with iv mag in ED montior on tele PT evaluation hypothyroidism TSH elevated, free t4 normal due to acute illness will avoid adjusting synthroid dose at this time outpatient follow up with endocrinology/PCP HTN BP elevated resume metoprolol now follow bp closely dvt ppx - DNR/DNI Patient will likely require 2 midnight stay in the hospital for management of rhabdomyolysis, transaminitis, UTI and abnormal CT scan requiring specialist evaluation and possible further workup Quality Stroke Does the patient have a stroke diagnosis?: No VTE Prior VTE?: No VTE Risk Level:: Medical - moderate - high VTE Device Contraindication: N/A - Device Ordered VTE Drug Contraindication: N/A - Med Ordered
--- NOTE | 2025-05-17 14:01 | PHA.MEDREC ---
Pharmacy Consult ? Medication Reconciliation Pharmacy has completed the medication reconciliation, spoke to patient who confirmed medications when provided with name.
[2025-05-17 14:32] VITALS: BP 123/59; PULSE 93
[2025-05-17] MEDS: Metoprolol Succinate ER 25 MG TAB.ER.24H PO (14:32)
--- NOTE | 2025-05-17 15:38 | HO.NURTONUR ---
Pt arrived s/p unwitnessed fall @ assisted living facility, and pt was unable to get back up. Hx: hypothyroidism, chronic anemia, B12 deficiency, osteoporosis, macular degeneration. ED workup positive for rhabdo, CPK 5025. Also positive for UTI, IV ceftriaxone given. CT scan concerning for 'disseminated atypical infection such as DAVIE, possible chronic aspiration'. Pt admitted for IVF, IV abx, and tele monitoring. Pt awake/alert but forgetful, pleasant, oriented x2. 20g IV to LAC, purewick in place.
[2025-05-17 15:52] LABS: Troponin-I High Sensitivity 28.7 ng/L (<3.5-17.0)
[2025-05-17 16:49] VITALS: BMI 22.7
[2025-05-17 19:05] VITALS: BP 136/66; PULSE 80; RESP 18; TEMP 37.1; O2SAT 93
[2025-05-18] VITALS (9 sets, daily range): BP systolic 128–151; BP diastolic 57–71; PULSE 61–77; RESP 16–20; TEMP 36.3–37.1; O2SAT 92–98
[2025-05-18] MEDS: 0.9 % Sodium Chloride Flush 3 ML SYRINGE IVFLUSH (01:28)
[2025-05-18 06:25] LABS: Hematocrit 39.2 % (37.0-47.0); Hemoglobin 12.9 g/dl (12.0-16.0); Mean Corpuscular HGB Conc 32.9 g/dl (31.0-35.0); Mean Corpuscular Hemoglobin 33.5 pg (27.0-33.0); Mean Corpuscular Volume 101.8 fL (80.0-98.0); NRBC Abs Auto 0.000 X10*3/uL (0.0-0.012); NRBC Pct Auto 0.0 /100WBC (0.0-0.2); Platelet Count 203 X10*3/uL (160-400); Red Blood Count 3.85 X10*6/uL (4.20-5.50); White Blood Count 13.6 X10*3/uL (4.8-10.8)
[2025-05-18 06:44] LABS: Alanine Aminotransferase 63 U/L (0-31); Albumin Level 3.5 g/dL (3.5-5.0); Alkaline Phosphatase 67 U/L (39-117); Anion Gap 13 (12-20); Aspartate Amino Transferase 180 U/L (5-31); Blood Urea Nitrogen 18 mg/dL (9-16); Calcium 8.5 mg/dL (8.4-10.2); Carbon Dioxide 27 mmol/L (22-29); Chloride 105 mmol/L (96-108); Creatinine Clr Calc Pharmacy 69.1; Estimated Glomerular Filt Rate > 60; Potassium 4.4 mmol/L (3.3-5.1); Sodium 141 mmol/L (135-145); Total Protein 7.0 g/dL (6.5-8.0)
--- NOTE | 2025-05-18 07:36 | P.PNIM_ITS ---
Subjective Subjective Date of Service: 05/18/25 Interval History: dementia noted, tangential talk HDS Cont abx V poor historian Physical Exam 2 Exam: Exam: General: AOx1 , frail, deconditioned and Resp: CTA bilaterally CVS: S1, S2, RRR GI: +BS, NT, no distention Skin: Warm, dry Vital Signs: Vital Signs: Last Vital Signs Temp 97.4 F 05/18/25 03:48 Pulse 69 05/18/25 03:48 Resp 16 05/18/25 03:48 BP 137/67 05/18/25 03:48 Pulse Ox 97 05/18/25 03:48 O2 Del Method Room Air 05/18/25 03:48 BMI result Body Mass Index 22.7 Objective Data Active Medications Acetaminophen (Acetaminophen 325 Mg Tablet) 650 mg PO Q6H PRN PRN Reason: Pain, Mild 1-3,fever,headache Last Admin: 05/18/25 05:48 Dose: 650 mg Documented By: SKINNY Ascorbic Acid (Ascorbic Acid 500 Mg Tablet) 500 mg PO DAILY [facility] Calcium Carbonate (Calcium Carbonate 750 Mg Tab.Chew) 750 mg PO Q4H PRN PRN Reason: Heartburn Ceftriaxone Sodium (Ceftriaxone Sodium 1 Gm Vial) 1 gm IVPUSH Q24H [facility] Folic Acid (Folic Acid 1 Mg Tablet) 1 mg PO DAILY [facility] Heparin Sodium (Porcine) (Heparin Sodium,Porcine 5,000 Unit/Ml Vial) 5,000 unit SUBCUT Q12H [facility] Last Admin: 05/18/25 01:28 Dose: 5,000 unit Documented By: SKINNY Sodium Chloride (Ns) 1,000 mls @ 100 mls/hr IVCONT .Q10H [facility] Last Admin: 05/18/25 01:17 Dose: 100 mls/hr Documented By: SKINNY Levothyroxine Sodium (Levothyroxine Sodium 88 Mcg Tablet) 88 mcg PO DAILY@0600 [facility] Last Admin: 05/18/25 05:48 Dose: 88 mcg Documented By: SKINNY Magnesium Hydroxide (Milk Of Magnesia 30 Ml Oral.Susp) 30 ml PO DAILY PRN PRN Reason: Constipation Melatonin (Melatonin 3 Mg Tablet) 6 mg PO BEDTIME PRN PRN Reason: Insomnia Metoprolol Succinate (Metoprolol Succinate Er 25 Mg Tab.Er.24h) 25 mg PO DAILY [facility]; Protocol Last Admin: 05/17/25 14:32 Dose: 25 mg Documented By: LUIS ALBERTO Sodium Chloride (0.9 % Sodium Chloride Flush 3 Ml Syringe) 3 ml IVFLUSH QSHIFT [facility] Last Admin: 05/18/25 01:28 Dose: 3 ml Documented By: SKINNY Vitamin D (Cholecalciferol (Vitamin D3) 25 Mcg Tablet) 50 mcg PO Q48H [facility] Last Admin: 05/17/25 14:24 Dose: 50 mcg Documented By: LUIS ALBERTO Labs 05/18/25 05:35 05/18/25 05:35 Labs: Laboratory Results - last 24 hr 05/17/25 05/17/25 05/17/25 10:54 10:56 11:01 MCV 99.6 H MCH 33.9 H MCHC 34.1 RDW 12.2 Plt Count 240 MPV 9.9 Immature Gran % (Auto) 0.4 Neut % (Auto) 88.1 H Lymph % (Auto) 6.8 L [place]icks[place] % (Auto) 4.5 Eos % (Auto) 0.0 Baso % (Auto) 0.2 Lymph # (Auto) 1.2 [place]icks[place] # (Auto) 0.8 Eos # (Auto) 0.0 Baso # (Auto) 0.0 Abs Immat Gran (auto) 0.08 H Absolute Neuts (auto) 15.8 H Absolute Nucleated RBC 0.000 Nucleated RBC % (auto) 0.0 Anion Gap 19 Estim Creat Clear Calc 43.8 Estimated GFR > 60 Random Glucose 115 Lactic Acid 2.0 Calcium 10.2 Magnesium 2.1 Total Bilirubin 0.8 Direct Bilirubin 0.2 AST 296 H ALT 91 H Alkaline Phosphatase 62 Total Creatine Kinase 5024 H Troponin I High Sens 35.2 H C-Reactive Protein 20.06 H Total Protein 9.1 H Albumin 4.6 Lipase 10 TSH 20.77 H Free T4 0.76 Urine Color Yellow Urine Appearance Turbid Urine pH 5.5 Ur Specific [place] 1.020 Urine Protein 300 (3+) H Urine Glucose (UA) Negative Urine Ketones 40 Urine Blood Large (3+) H Urine Nitrite Negative Ur Leukocyte Esterase Large (3+) H Urine RBC 3-5 H Urine WBC >50 H Ur Squamous Epith Cells 3-5 Urine Bacteria 3+ Hyaline Casts 11-20 05/17/25 05/18/25 15:23 05:35 MCV 101.8 H MCH 33.5 H MCHC 32.9 RDW 12.5 Plt Count 203 MPV 10.0 Immature Gran % (Auto) Neut % (Auto) Lymph % (Auto) [place]icks[place] % (Auto) Eos % (Auto) Baso % (Auto) Lymph # (Auto) [place]ickson # (Auto) Eos # (Auto) Baso # (Auto) Abs Immat Gran (auto) Absolute Neuts (auto) Absolute Nucleated RBC 0.000 Nucleated RBC % (auto) 0.0 Anion Gap 13 Estim Creat Clear Calc 69.1 Estimated GFR > 60 Random Glucose 95 Lactic Acid Calcium 8.5 D Magnesium Total Bilirubin 0.4 Direct Bilirubin 0.2 AST 180 H ALT 63 H Alkaline Phosphatase 67 Total Creatine Kinase 1816 H Troponin I High Sens 28.7 H C-Reactive Protein Total Protein 7.0 Albumin 3.5 Lipase TSH Free T4 Urine Color Urine Appearance Urine pH Ur Specific [place] Urine Protein Urine Glucose (UA) Urine Ketones Urine Blood Urine Nitrite Ur Leukocyte Esterase Urine RBC Urine WBC Ur Squamous Epith Cells Urine Bacteria Hyaline Casts Assessment and Plan (1) UTI (urinary tract infection): Status: Acute Plan This is a 80-year-old female with a history of dementia , pulm nodule (incidentaloma),hypothyroidism, chronic anemia,, B12 deficiency, osteoporosis, macular degeneration BIBA 2/2 unwitnessed fall s/p significant deconditioning in a frail elderly dementia pt who was noted 2/2 UTI. Also noted to have incidentaloma. Fall 2/2 sepsis 2/2 UTI + deconditioning 2/2 fraility in elderly High risk of PRIYANK Transaminitis - acute ishcemic insult - intact synthetic function Type II troponenemia Cont IV abx, will switch to po augmentin from tomorrow if HDS and responsive IVF , will hold from tomorrow Incidentaloma - Less likely to be malignant or DAVIE - non hypoxic on RA - asp precautions and prn nebs passed swallow eval -resumed diet A/C falls 2/2 fraility in elderly PT/OT STR Macular degeneration OP mx hypothyroidism TSH elevated, free t4 normal due to acute illness will avoid adjusting synthroid dose at this time outpatient follow up with endocrinology/PCP HTN BP elevated resume metoprolol now follow bp closely dvt ppx - DNR/DNI Patient will cont in the hospital for management of severe sepsis 2/2 UTi in a frail elderly dementia pt req PT/OT and rehab placement Quality Stroke Does the patient have a stroke diagnosis?: No VTE Prior VTE?: No VTE Risk Level:: Medical - moderate - high VTE Device Contraindication: N/A - Device Ordered VTE Drug Contraindication: N/A - Med Ordered
--- NOTE | 2025-05-18 08:54 | P.CONPL_ITS ---
History of Present Illness History of Present Illness Consult date: 05/18/25 Chief complaint: rhabdo Narrative: I WAS ASKED TO SEE THIS PATIENT BECAUSE OF ABNORMALITY ON THE CHEST CT. PATIENT IS 80 YEARS OLD THIN BUILD TO CHRONICALLY SICK-LOOKING LADY, WHO FELL 2ND TIME IN A WEEK, AND WAS NOT ABLE TO GET UP. CAME TO THE EMERGENCY ROOM BY AMBULANCE, IMAGING IS NEGATIVE FOR ANY FRACTURES, BUT SHE DID HURT BACK OF CHEST ALONG WITH CERVICAL SPINE. LAB WORK HAS SHOWN ELEVATED CPK SUGGESTING RHABDOMYOLYSIS , URINE TESTING IS CONSISTENT WITH THE URINARY TRACT INFECTION, AND SHE DOES HAVE HISTORY OF RECURRENT UTIS DUE TO URINARY INCONTINENCE FOR QUITE A FEW YEARS. PART OF WORKUP SHE HAD CT SCAN OF CHEST, THOUGH SHE HAS DENIED ANY ACUTE RESPIRATORY ISSUES. CHEST CT IS QUITE ABNORMAL, BUT PATIENT IS NOT AWARE OF ANY PREVIOUS RESPIRATORY PROBLEMS. WHEN I SAW THIS PATIENT THIS MORNING SHE IS VERY ALERT AND JOLLY, SHE LOVES HER BREAKFAST AND IS EATING VERY ENERGETICALLY . SHE DENIES ANY HISTORY OF MAJOR CHOKING ATTACK EXCEPT SOMETIME ON SWALLOWING PILLS. SHE HAS PREVIOUS PROBLEM OF PERIPHERAL VASCULAR DISEASE WEAK BONES GENERALIZED ARTHRITIS, PSORIASIS OF THE SKIN HYPOTHYROIDISM AND MILD HYPERTENSION. NO HISTORY OF ASTHMA OR COPD. SHE IS NONSMOKER Review of Systems 2 Review of Systems: Yes all other systems are reviewed and are negative PMF Past Medical History Medical History (Updated 05/18/25 @ 09:08 by Parish Maciel MD) Pulmonary aspiration Bronchiectasis Cavitary lesion of lung Acute diarrhea Right leg pain Polyarthralgia Osteoporosis Hypothyroidism Hypovitaminosis D Essential hypertension Family History Family History Father CHF (congestive heart failure) Liver cirrhosis Mother Stroke Surgical History Surgical History History of cataract surgery History of colonoscopy History of tubal ligation Social History Social History Household Members: None Housing: Apartment Do you presently have visiting nurse or other home services: No Alcohol intake: former Patient Tobacco Use Status: Former Tobacco user e-Cigarette/Vaping Use: Never Used Second Hand Smoke Exposure: No Currently Displaying Signs/Symptoms of Drug Intoxication Withdrawal: No Have you been hit, kicked, punched, or otherwise hurt by someone within the past year? If so, by whom?: No Do you feel safe in your current relationship?: No Current Relationship Is there a partner from a previous relationship who is making you feel unsafe now?: No Are you made to feel afraid or neglected: No Advance Directives: No Advance Directives Information Provided: Yes Do you have a plan to hurt others: No Plan Recently lost weight without trying: No How much weight loss: Not applicable Eating poorly because of decreased appetite: No Nutrition screen score: 0 Nutrition Risks: No Nutritional Risk Patient : No : No Poor oral hygiene: No service: No Current occupational status: retired Gender identity: Female Cognitive needs: Yes (cane) Hearing needs: No Vision needs: Yes (reading glasses) Meds Allergies Allergy/AdvReac Type Severity Reaction Status Date / Time Penicillins (PENICILLINS) Allergy Intermediate CANKER Verified 05/17/25 10:35 SORES cephalexin AdvReac Mild Didn't work Verified 05/17/25 10:35 Active Medications: Current Medications Acetaminophen (Acetaminophen 325 Mg Tablet) 650 mg PO Q6H PRN PRN Reason: Pain, Mild 1-3,fever,headache Last Admin: 05/18/25 05:48 Dose: 650 mg Ascorbic Acid (Ascorbic Acid 500 Mg Tablet) 500 mg PO DAILY [facility] Calcium Carbonate (Calcium Carbonate 750 Mg Tab.Chew) 750 mg PO Q4H PRN PRN Reason: Heartburn Ceftriaxone Sodium (Ceftriaxone Sodium 1 Gm Vial) 1 gm IVPUSH Q24H [facility] Folic Acid (Folic Acid 1 Mg Tablet) 1 mg PO DAILY [facility] Heparin Sodium (Porcine) (Heparin Sodium,Porcine 5,000 Unit/Ml Vial) 5,000 unit SUBCUT Q12H [facility] Last Admin: 05/18/25 01:28 Dose: 5,000 unit Sodium Chloride (Ns) 1,000 mls @ 100 mls/hr IVCONT .Q10H [facility] Last Admin: 05/18/25 01:17 Dose: 100 mls/hr Levothyroxine Sodium (Levothyroxine Sodium 88 Mcg Tablet) 88 mcg PO DAILY@0600 [facility] Last Admin: 05/18/25 05:48 Dose: 88 mcg Magnesium Hydroxide (Milk Of Magnesia 30 Ml Oral.Susp) 30 ml PO DAILY PRN PRN Reason: Constipation Melatonin (Melatonin 3 Mg Tablet) 6 mg PO BEDTIME PRN PRN Reason: Insomnia Metoprolol Succinate (Metoprolol Succinate Er 25 Mg Tab.Er.24h) 25 mg PO DAILY [facility]; Protocol Last Admin: 05/17/25 14:32 Dose: 25 mg Sodium Chloride (0.9 % Sodium Chloride Flush 3 Ml Syringe) 3 ml IVFLUSH QSHIFT [facility] Last Admin: 05/18/25 01:28 Dose: 3 ml Vitamin D (Cholecalciferol (Vitamin D3) 25 Mcg Tablet) 50 mcg PO Q48H [facility] Last Admin: 05/17/25 14:24 Dose: 50 mcg Home Medications ?Medication ?Instructions ?Recorded ?Confirmed ?Last Taken ?Type acetaminophen 500 mg capsule 500 mg PO Q6H PRN Pain, M ild 06/06/20 05/17/25 Unknown History B6 0.85 mg-folic 200 1 tab PO DAILY 02/18/2104/3005/06/25 History [id number] oral chewable tablet (Neuriva Plus) ascorbic acid (vitamin C) 500 mg 500 mg PO DAILY 05/1705/17/25 05/06/25 History chewable tablet (Vitamin C) cholecalciferol (vitamin D3) 50 50 mcg PO Q48H 5 05/17/25 05/06/25 History mcg (2,000 unit) tablet levothyroxine 88 mcg tablet 88 mcg PO DAILY@0600 05/1705/17/25 05/06/25 History Physical Exam 2 Exam: Exam: 80 YEARS OLD THIN BUILD, CHRONICALLY SIC K-LOOKING, BUT VERY PLEASANT. Vital Signs: Vital Signs: Last Vital Signs Temp 97.9 F 05/18/25 07:57 Pulse 61 05/18/25 07:57 Resp 18 05/18/25 07:57 BP 128/57 L 05/18/25 07:57 Pulse Ox 92 05/18/25 07:57 O2 Del Method Room Air 05/18/25 07:57 BMI result Body Mass Index 22.7 Const: General: comfortable, no acute distress, alert and awake O rientation/consciousness: patient oriented x3 HEENT: Head: Yes normal to inspection General nose exam: No nasal polyps present and No nasal discharge present Face and sinus: Yes sinuses nontender Mouth: oropharynx normal Throat: Yes posterior oropharynx normal Eyes: General: appearance normal, both eyes and all related structures Neck: Neck: Yes normal visual inspection, Yes no lymphadenopathy, Yes trachea midline, Yes no JVD and Yes other (NECK IS SLIGHTLY STIFF AND TENDER IN THE BACK) Thyroid: Thyroid normal Chest: Chest palpation & inspection: normal inspection of the chest, normal palpation of entire chest wall and no tenderness Resp: Other: PERCUSSION NOTE IS HYPER-RESONANT, BREATH SOUNDS ARE EQUAL ON BOTH SIDES, I DID NOT HEAR ANY CREPITATIONS OR WHEEZES. Cardio: Palpation: normal PMI Rate: regular rate Rhythm: regular rhythm Heart sounds: no gallops and no murmurs GI: Palpation (GI): Soft to palpation, nontender, No hepatosplenomegaly present and no masses Auscultation: normal bowel sounds Back/Spine/Pelvis: Other: NOT EXAMINED Skin: General skin exam: no rashes or lesions noted Neuro: General: patient oriented x3 and no focal motor deficits Cranial nerves: Yes CN's II-XII intact bilaterally Extrem: General: Yes normal to inspection, Yes no clubbing, cyanosis or edema and Yes no calf tenderness Psych: Appearance: grossly normal and well kempt Speech and movement: N ormal speech and movement present Results Laboratory Findings 05/18/25 05:35 05/18/25 05:35 Abnormal lab findings: Abnormal Labs 05/17/25 05/17/25 05/17/25 10:54 10:56 11:01 WBC 17.9 H RBC MCV 99.6 H MCH 33.9 H Neut % (Auto) 88.1 H Lymph % (Auto) 6.8 L Abs Immat Gran (auto) 0.08 H Absolute Neuts (auto) 15.8 H BUN 27 H AST 296 H ALT 91 H Total Creatine Kinase 5024 H Troponin I High Sens 35.2 H C-Reactive Protein 20.06 H Total Protein 9.1 H TSH 20.77 H Urine Protein 300 (3+) H Urine Blood Large (3+) H Ur Leukocyte Esterase Large (3+) H Urine RBC 3-5 H Urine WBC >50 H 05/17/25 05/18/25 15:23 05:35 WBC 13.6 H RBC 3.85 L MCV 101.8 H MCH 33.5 H Neut % (Auto) Lymph % (Auto) Abs Immat Gran (auto) Absolute Neuts (auto) BUN 18 H AST 180 H ALT 63 H Total Creatine Kinase 1816 H Troponin I High Sens 28.7 H C-Reactive Protein Total Protein TSH Urine Protein Urine Blood Ur Leukocyte Esterase Urine RBC Urine WBC Diagnostic Findings Chest x-ray: report reviewed and image reviewed CT scan - chest: report reviewed and image reviewed Assessment and Plan (1) Cavitary lesion of lung: Status: Acute (2) Bronchiectasis: Status: Acute (3) Pulmonary aspiration: Status: Acute Plan THIS PATIENT HAS FINDING OF A SMALL CAVITARY LESION IN THE RIGHT UPPER LOBE, AN INCIDENTAL FINDING. THIS IS MOST LIKELY IS SMALL INFECTED PULMONARY NODULE. OTHER POSSIBILITY WOULD BE A NEOPLASTIC CAVITARY NODULE. THE CHEST CT SHOWS, TREE IN BUD PICTURE SUGGESTIVE OF BRONCHIECTASIS, SMALL NODULAR LESIONS, WHICH ARE MOST LIKELY CHRONIC INFLAMMATORY. QUESTION OF DAVIE INFECTION IS RAISED, BUT SEEMS TO BE UNLIKELY. TREATMENT PLAN : AT THIS POINT SHE IS BEING TREATED FOR UTI WITH IV CEFTRIAXONE, WHICH IS ADEQUATE FOR TREATMENT OF THE CAVITARY LESION. WHEN SHE IS CONVERTED TO ORAL ANTIBIOTICS , AUGMENTIN MAY BE A GOOD CHOICE. SHE WOULD NEED TO REPEAT CT SCAN IN A FEW WEEKS AFTER THIS TREATMENT IS COMPLETED. FOR THAT SHE CAN BE FOLLOWED UP OUTPATIENT. THIS PATIENT IS REALLY NOT MUCH CONCERNED ABOUT THE LUNG PROBLEM AT THIS TIME. HER MAIN EXPECTATION IS TO GET STRONGER AND GET SOME PHYSICAL THERAPY AND IMPROVE OR GAIT AND BALANCE . THANK YOU VERY MUCH, FOR ASTHMA TO SEE THIS PATIENT AND AFTER DISCHARGE WILL BE GLAD TO FOLLOW HER UP IN THE OFFICE. Procedures Date of Service Date of Service: 05/18/25
[2025-05-18] MEDS: Metoprolol Succinate ER 25 MG TAB.ER.24H PO (10:43)
--- NOTE | 2025-05-18 12:24 | MHC.SL.SWA ---
Speech Pathologist Impression: Risk of Aspiration Due to: Dysphasia Diet Status: Liquid Consistency and Strategies for Safe Swallow: Liquid Intake Recommendation: Thin Liquid Intake Strategies: Solid Food Consistency: Dietary Recommendations: Regular Additional Modifications to Solid Foods: Oral Medication Intake: Whole with Liquid Please contact the pharmacy regarding appropriate crushable or liquid drug formulations that are available whenever modified delivery is recommended. Compensatory Strategies and Precautions to be Taken for Safe Swallow: Supervision While Eating and Drinking for Safe Swallow: None Needed Foods to Avoid: Reduce distractions during meals. Swallowing Recommended Treatments: Recommendation for Speech: NA:Typical Evaluation Comment: Patient presents with swallow and oral motor function that is WFL. Patient however reports reflux, and also at times reported choking and fear of choking, however denied any history of difficulty swallowing, or globus sensation after swallow. Patient notably very distracted and distractible, very chatty and often losing train of thought, and offering confused time line of recent events and was mildly confused at times during this assessment. Given level of distractibility, if is recommended that patient at meals focus on eating and distractions, conversations and interactions with staff be minimized. Patient reports GERD, should remain upright at least 30 minutes after each meal. Recommend continue on current REGULAR diet, with thin liquids, pills whole with liquid or puree. No further TRANSFORMATION MANAGER intervention indicated as patient's swallow is WFL and on least restrictive diet. MD RD notified by secure text, RN in person. Frequency/Duration: Date Range for Service Req: Timeline to reassess: Health Safety Instructor Clinican/Clinical Fellow: No Supervisory Statement: I have reviewed and agree with the student/clinical fellow's documentation: N/A Speech Language Pathologist: Devorah Osborne M.A., CCC-TRANSFORMATION MANAGER
--- NOTE | 2025-05-18 14:17 | HO.WOUND ---
Wound Consult: Initial 80 yr old female admitted to [facility] on 05/17/25 - See progress notes and H&P for detailed history. Wound consult placed for coccyx. Patient agreeable to assessment and photo documentation. Patient stood for assessment of coccyx. Coccyx Etiology: unstageble pressure injury Present on Admission Measurements: 1cm x 1cm x 0.1cm Wound Bed: dry jones/yellow slough Drainage / Odor: none Edges: ? attached Angela wound: ? No Induration, Fluctuance or Warmth noted, redness and mild swelling noted angela wound. also noted with intact redness and left buttock with purple spot as noted above, all blanching. Pain: none Goals of Treatment: ? offloading, triad paste to provide an occlusive dressing for autolytic debridment, to allow moist wound healing with absorption of mild exudate, to minimize contamination of urine/stool or bacteria, and to soothe and protect angela wound skin Left lateral ankle Right lateral ankle Etiology: bilateral lateral ankles with stage 2 pressure injuries Present on Admission Measurements: 0.5cm x 0.5cm x 0.1cm Wound Bed: dry red Drainage / Odor: none Edges: ? attached Angela wound: ? No Induration, Fluctuance or Warmth noted Pain: none Goals of Treatment: ? offloading Recommendations: 1. Turn and Reposition every 2 hours and as needed for patient comfort. Use pillows or wedges to support off loading positions. 2. Off Load all bony prominences with use of pillows and heel boots if needed. Apply Preventative foams where needed. 3. Monitor for incontinence and moisture control, use barrier creams when needed for prevention and treatment. 4. Provide adequate and supplemental nutrition. 5. Order or Continue low air loss mattress. 6. When applicable maintain blood glucose levels per Providers order. Coccyx: Off Load Pressure with Q2 hr turns and use of pillows - Cleanse with PH balance spray or wipes, pat dry. ?Apply thin layer of Triad to wound bed. Do not remove all of paste between applications as this may cause further skin damage.? Cover with foam dressing to aid in off loading and protection from friction. Change every other day and PRN. Bilateral lateral ankles - Elevate heels/ankles off of bed surface with pillows. Float heels off of pillows. Apply skin prep allow to dry. Apply heel foam dressings, peel back and assess Q shift and change every 5-7 days and PRN. Re-consult wound care Nurse for wound deterioration or wound changes.
--- NOTE | 2025-05-18 16:01 | MHC.CM.PN ---
IMM 05/18/25 S/P DX Fall Rhabdo She lives alone. She is in need of help at home. A referral has been sent to [facility] She does not have a person to name as a HCP. [place] [facility] [place]. DP Home with [facility] and [facility] pending PT eval. She will transport via BLS or Shuttle.
--- NOTE | 2025-05-18 19:42 | PC.NURSE ---
pt oob to chair today, alert, pleasant and cooperative. mental status waxing and waning. pt at times thought she was at home and at times talking about plan for placement. She reported that she had an earing in her R ear that is lost. room, bed, linens searched, not found. linen bag was empty at the time. Pt states the earing matches the one in left ear. She states it's no big deal . Pt transferred to [facility] after verbal report without incident.
[2025-05-19 03:29] VITALS: BP 152/68; PULSE 63; RESP 14; TEMP 36.1; O2SAT 96
[2025-05-19 07:22] VITALS: BP 142/68; PULSE 71; RESP 16; TEMP 37.6; O2SAT 92
--- NOTE | 2025-05-19 07:25 | P.PNIM_ITS ---
Subjective Subjective Date of Service: 05/19/25 Interval History: Son in room - pt recovering dementia noted, tangential talk HDS switched to po abx V poor historian Physical Exam 2 Exam: Exam: General: AOx1 , frail, deconditioned Resp: CTA bilaterally CVS: S1, S2, RRR GI: +BS, NT, no distention Neuro: Demntia baseline Vital Signs: Vital Signs: Last Vital Signs Temp 97.0 F 05/19/25 03:29 Pulse 63 05/19/25 03:29 Resp 14 05/19/25 03:29 BP 152/68 H 05/19/25 03:29 Pulse Ox 96 05/19/25 03:29 O2 Del Method Room Air 05/19/25 03:29 BMI result Body Mass Index 22.7 Objective Data Active Medications Acetaminophen (Acetaminophen 325 Mg Tablet) 650 mg PO Q6H PRN PRN Reason: Pain, Mild 1-3,fever,headache Last Admin: 05/18/25 05:48 Dose: 650 mg Documented By: SKINNY Amoxicillin/Clavulanate Potassium (Amoxicillin/Potassium Clav 875 Mg Tablet) 875 mg PO Q12H [facility] Last Admin: 05/19/25 01:03 Dose: 875 mg Documented By: NAYANA Ascorbic Acid (Ascorbic Acid 500 Mg Tablet) 500 mg PO DAILY [facility] Last Admin: 05/18/25 10:43 Dose: 500 mg Documented By: TEOFILO Calcium Carbonate (Calcium Carbonate 750 Mg Tab.Chew) 750 mg PO Q4H PRN PRN Reason: Heartburn Folic Acid (Folic Acid 1 Mg Tablet) 1 mg PO DAILY [facility] Last Admin: 05/18/25 10:43 Dose: 1 mg Documented By: TEOFILO Heparin Sodium (Porcine) (Heparin Sodium,Porcine 5,000 Unit/Ml Vial) 5,000 unit SUBCUT Q12H [facility] Last Admin: 05/19/25 01:11 Dose: 5,000 unit Documented By: NAYANA Sodium Chloride (Ns) 1,000 mls @ 100 mls/hr IVCONT .Q10H [facility] Last Admin: 05/18/25 23:08 Dose: 100 mls/hr Documented By: NAYANA Levothyroxine Sodium (Levothyroxine Sodium 88 Mcg Tablet) 88 mcg PO DAILY@0600 [facility] Last Admin: 05/19/25 05:53 Dose: 88 mcg Documented By: NAYANA Magnesium Hydroxide (Milk Of Magnesia 30 Ml Oral.Susp) 30 ml PO DAILY PRN PRN Reason: Constipation Melatonin (Melatonin 3 Mg Tablet) 6 mg PO BEDTIME PRN PRN Reason: Insomnia Metoprolol Succinate (Metoprolol Succinate Er 25 Mg Tab.Er.24h) 25 mg PO DAILY [facility]; Protocol Last Admin: 05/18/25 10:43 Dose: 25 mg Documented By: TEOFILO Sodium Chloride (0.9 % Sodium Chloride Flush 3 Ml Syringe) 3 ml IVFLUSH QSHIFT [facility] Last Admin: 05/18/25 23:46 Dose: Not Given Documented By: NAYANA Non-Admin Reason: IV Running Vitamin D (Cholecalciferol (Vitamin D3) 25 Mcg Tablet) 50 mcg PO Q48H [facility] Last Admin: 05/17/25 14:24 Dose: 50 mcg Documented By: NAJMA-RANJITH Labs 05/18/25 05:35 05/18/25 05:35 Microbiology Microbiology Results: Microbiology 05/17/25 11:53 Blood Culture - Preliminary Blood - Venous No growth after 24 hours. 05/17/25 10:54 Blood Culture - Preliminary Blood - Venous No growth after 24 hours. 05/17/25 Unknown Urine Culture - Final Urine Catheterized - Straight Catheter Assessment and Plan (1) UTI (urinary tract infection): Status: Acute Plan This is a 80-year-old female with a history of dementia , pulm nodule (incidentaloma),hypothyroidism, chronic anemia,, B12 deficiency, osteoporosis, macular degeneration BIBA 2/2 unwitnessed fall s/p significant deconditioning in a frail elderly dementia pt who was noted 2/2 UTI. Also noted to have incidentaloma. Fall 2/2 sepsis 2/2 UTI + deconditioning 2/2 fraility in elderly High risk of PRIYANK Transaminitis - acute ishcemic insult - intact synthetic function Type II troponenemia Abx switched to po Augmentin if HDS and responsive - will rx for 5 day course IVF , will hold from tomorrow Incidentaloma - Less likely to be malignant or DAVIE - non hypoxic on RA - asp precautions and prn nebs passed swallow eval -resumed diet hypothyroidism TSH elevated, free t4 normal due to acute illness will avoid adjusting synthroid dose at this time outpatient follow up with endocrinology/PCP HTN BP elevated resume metoprolol now follow bp closely A/C falls 2/2 fraility in elderly PT/OT STR Macular degeneration OP mx dvt ppx - Lovenox This note is constructed using voice recognition software. While every effort has been made to ensure accuracy, resource paraprofessional errors may have been included. A patient is awaiting short-term rehabilitation (STR) after a urinary tract infection (UTI) and deconditioning?because they are too weak to return home safely. While the infection has been medically treated, the resulting physical decline requires intensive therapy to regain strength and mobility before discharge Quality Stroke Does the patient have a stroke diagnosis?: No VTE Prior VTE?: No VTE Risk Level:: Medical - moderate - high VTE Device Contraindication: N/A - Device Ordered VTE Drug Contraindication: N/A - Med Ordered
[2025-05-19] MEDS: 0.9 % Sodium Chloride Flush 3 ML SYRINGE IVFLUSH ×2 (07:40→15:13)
[2025-05-19] MEDS: Metoprolol Succinate ER 25 MG TAB.ER.24H PO (07:42)
[2025-05-19 15:09] VITALS: BP 142/77; PULSE 82; RESP 18; TEMP 36.8; O2SAT 97
[2025-05-19 19:23] VITALS: BP 148/96; PULSE 85; RESP 18; TEMP 36.6; O2SAT 99
[2025-05-20 03:10] VITALS: BP 171/76; PULSE 65; RESP 16; TEMP 36; O2SAT 97
--- NOTE | 2025-05-20 04:58 | PC.NURSE ---
pt has been sinus rhythm with occasional bundle branch for 24 hours with O2 saturation 96-[address] Montejo notified and asked to discontinue telemetry monitoring and continuos oxygen monitoring to free up telemetry for another pt elsewhere in hospital. Dr. Montejo discontinued both tele and oxygen monitoring for this pt.
--- NOTE | 2025-05-20 06:56 | HO.PM.IMPN ---
Subjective Subjective Date of Service: 05/20/25 Interval History: dementia noted, tangential talk HDS switched to po abx V poor historian Review of Systems Review of Systems: Yes all other systems are reviewed and are negative Physical Exam Exam: Exam: General: AOx1 , frail, deconditioned Resp: CTA bilaterally CVS: S1, S2, RRR GI: +BS, NT, no distention Neuro: Demntia baseline Vital Signs: Vital Signs: Last Vital Signs Temp 96.8 F 05/20/25 03:10 Pulse 65 05/20/25 03:10 Resp 16 05/20/25 03:10 BP 171/76 H 05/20/25 03:10 Pulse Ox 97 05/20/25 03:10 O2 Del Method Room Air 05/20/25 03:10 BMI result Body Mass Index 22.7 Objective Data Active Medications Acetaminophen (Acetaminophen 325 Mg Tablet) 650 mg PO Q6H PRN PRN Reason: Pain, Mild 1-3,fever,headache Last Admin: 05/19/25 07:42 Dose: 650 mg Documented By: BRITTA Amoxicillin/Clavulanate Potassium (Amoxicillin/Potassium Clav 875 Mg Tablet) 875 mg PO Q12H [facility] Last Admin: 05/20/25 01:13 Dose: 875 mg Documented By: NAYANA Ascorbic Acid (Ascorbic Acid 500 Mg Tablet) 500 mg PO DAILY [facility] Last Admin: 05/19/25 07:42 Dose: 500 mg Documented By: BRITTA Calcium Carbonate (Calcium Carbonate 750 Mg Tab.Chew) 750 mg PO Q4H PRN PRN Reason: Heartburn Folic Acid (Folic Acid 1 Mg Tablet) 1 mg PO DAILY [facility] Last Admin: 05/19/25 07:41 Dose: 1 mg Documented By: BRITTA Heparin Sodium (Porcine) (Heparin Sodium,Porcine 5,000 Unit/Ml Vial) 5,000 unit SUBCUT Q12H [facility] Last Admin: 05/20/25 01:18 Dose: 5,000 unit Documented By: NAYANA Sodium Chloride (Ns) 1,000 mls @ 100 mls/hr IVCONT .Q10H [facility] Last Admin: 05/20/25 04:27 Dose: 100 mls/hr Documented By: NAYANA Levothyroxine Sodium (Levothyroxine Sodium 88 Mcg Tablet) 88 mcg PO DAILY@0600 [facility] Last Admin: 05/20/25 05:41 Dose: 88 mcg Documented By: NAYANA Magnesium Hydroxide (Milk Of Magnesia 30 Ml Oral.Susp) 30 ml PO DAILY PRN PRN Reason: Constipation Melatonin (Melatonin 3 Mg Tablet) 6 mg PO BEDTIME PRN PRN Reason: Insomnia Metoprolol Succinate (Metoprolol Succinate Er 25 Mg Tab.Er.24h) 25 mg PO DAILY [facility]; Protocol Last Admin: 05/19/25 07:42 Dose: 25 mg Documented By: BRITTA Sodium Chloride (0.9 % Sodium Chloride Flush 3 Ml Syringe) 3 ml IVFLUSH QSHIFT [facility] Last Admin: 05/20/25 00:15 Dose: Not Given Documented By: NAYANA Non-Admin Reason: IV Running Vitamin D (Cholecalciferol (Vitamin D3) 25 Mcg Tablet) 50 mcg PO Q48H [facility] Last Admin: 05/19/25 15:03 Dose: 50 mcg Documented By: BRITTA Labs 05/18/25 05:35 05/18/25 05:35 Microbiology Microbiology Results: Microbiology 05/17/25 11:53 Blood Culture - Preliminary Blood - Venous No growth after 48 hours. 05/17/25 10:54 Blood Culture - Preliminary Blood - Venous No growth after 48 hours. Assessment and Plan (1) UTI (urinary tract infection): Status: Acute Plan This is a 80-year-old female with a history of dementia , pulm nodule (incidentaloma),hypothyroidism, chronic anemia,, B12 deficiency, osteoporosis, macular degeneration BIBA 2/2 unwitnessed fall s/p significant deconditioning in a frail elderly dementia pt who was noted 2/2 UTI. Also noted to have incidentaloma. Fall 2/2 sepsis 2/2 UTI + deconditioning 2/2 fraility in elderly Abx switched to po Augmentin if HDS and responsive - will rx for 5 day course Rhabdomyolysis-resolving with fluids Transaminitis - acute ishcemic insult - intact synthetic function- OP f/up for resolution Type II troponenemia - stable, no rx indicated Clinically appears dry-to prevent PRIYANK -we will give her another bolus, encourage her to for p.o. intake Incidentaloma - Scattered bilateral centrilobular opacities, tree-in-bud opacities, and stellate nodular opacities in both lungs. There is a cavitary oval opacity in the right apex measuring 1.4 x 1.1 cm. In addition, there are foci of cylindrical bronchiectasis in the lower anterior right upper lobe and right middle lobe, as well as the lingula, with foci of endobronchial mucous plugging and associated tree-in-bud opacities. Overall, the findings are highly suspicious for disseminated atypical infection, such as DAVIE/MAC. Cannot exclude fungal etiologies. Pulm consulted. Less likely to be malignant or DAVIE - non hypoxic on RA - asp precautions and prn nebs hypothyroidism- TSH elevated, free t4 normal - likely euthyroid sick syndrome- due to acute illness will avoid adjusting synthroid dose at this time outpatient follow up with endocrinology/PCP HTN not on home meds-mild HTN - likely reactive, we will not initiate any antibiotics given risk of hypovolemic hypotension. We will advise the patient to get a new PCP and check blood pressures in outpatient and initiate medications. A/C falls 2/2 fraility in elderly - PTOT, SDR placement pending-that is a hold up Macular degeneration - OP mx dvt ppx - Lovenox This note is constructed using voice recognition software. While every effort has been made to ensure accuracy, tuyere fitter errors may have been included. A patient is awaiting short-term rehabilitation (STR) after a urinary tract infection (UTI) and deconditioning?because they are too weak to return home safely. While the infection has been medically treated, the resulting physical decline requires intensive therapy to regain strength and mobility before discharge Quality Stroke Does the patient have a stroke diagnosis?: No VTE Prior VTE?: No VTE Risk Level:: Medical - moderate - high VTE Device Contraindication: N/A - Device Ordered VTE Drug Contraindication: N/A - Med Ordered
[2025-05-20 07:50] VITALS: BP 143/67; PULSE 68; RESP 14; TEMP 36; O2SAT 95
[2025-05-20] MEDS: Metoprolol Succinate ER 25 MG TAB.ER.24H PO (07:56)
[2025-05-20 15:30] VITALS: BP 144/77; PULSE 64; RESP 16; TEMP 36.6; O2SAT 96
[2025-05-20] MEDS: 0.9 % Sodium Chloride Flush 3 ML SYRINGE IVFLUSH (16:11)
[2025-05-20 19:21] VITALS: BP 143/71; PULSE 75; RESP 18; TEMP 36.3; O2SAT 93
[2025-05-21] MEDS: 0.9 % Sodium Chloride Flush 3 ML SYRINGE IVFLUSH (01:07)
[2025-05-21 03:27] VITALS: BP 160/72; PULSE 68; RESP 16; TEMP 36.6; O2SAT 95
[2025-05-21 07:19] LABS: Alanine Aminotransferase 49 U/L (0-31); Albumin Level 3.6 g/dL (3.5-5.0); Alkaline Phosphatase 48 U/L (39-117); Anion Gap 9 (12-20); Aspartate Amino Transferase 66 U/L (5-31); Blood Urea Nitrogen 6 mg/dL (9-16); Calcium 8.6 mg/dL (8.4-10.2); Carbon Dioxide 33 mmol/L (22-29); Chloride 101 mmol/L (96-108); Creatinine Clr Calc Pharmacy 69.1; Estimated Glomerular Filt Rate > 60; Potassium 3.0 mmol/L (3.3-5.1); Sodium 140 mmol/L (135-145); Total Protein 7.1 g/dL (6.5-8.0)
--- NOTE | 2025-05-21 07:22 | P.PNIM_ITS ---
Subjective Subjective Date of Service: 05/21/25 Interval History: dementia noted, tangential talk HDS awaiting placement Review of Systems Review of Systems: Yes all other systems are reviewed and are negative and Unobtainable due to mental status Physical Exam 2 Exam: Exam: General: AOx1 , frail, deconditioned Resp: CTA bilaterally CVS: S1, S2, RRR GI: +BS, NT, no distention Neuro: Demntia baseline Vital Signs: Vital Signs: Last Vital Signs Temp 97.8 F 05/21/25 03:27 Pulse 68 05/21/25 03:27 Resp 16 05/21/25 03:27 BP 160/72 H 05/21/25 03:27 Pulse Ox 95 05/21/25 03:27 O2 Del Method Room Air 05/21/25 03:27 BMI result Body Mass Index 22.7 Objective Data Active Medications Acetaminophen (Acetaminophen 325 Mg Tablet) 650 mg PO Q6H PRN PRN Reason: Pain, Mild 1-3,fever,headache Last Admin: 05/20/25 23:39 Dose: 650 mg Documented By: NAYANA Amoxicillin/Clavulanate Potassium (Amoxicillin/Potassium Clav 875 Mg Tablet) 875 mg PO Q12H [facility] Stop: 05/26/25 00:29 Last Admin: 05/21/25 01:12 Dose: 875 mg Documented By: NAYANA Ascorbic Acid (Ascorbic Acid 500 Mg Tablet) 500 mg PO DAILY [facility] Last Admin: 05/20/25 07:56 Dose: 500 mg Documented By: BRITTA Calcium Carbonate (Calcium Carbonate 750 Mg Tab.Chew) 750 mg PO Q4H PRN PRN Reason: Heartburn Folic Acid (Folic Acid 1 Mg Tablet) 1 mg PO DAILY [facility] Last Admin: 05/20/25 07:57 Dose: 1 mg Documented By: BRITTA Heparin Sodium (Porcine) (Heparin Sodium,Porcine 5,000 Unit/Ml Vial) 5,000 unit SUBCUT Q12H [facility] Last Admin: 05/21/25 01:08 Dose: 5,000 unit Documented By: NAYANA Sodium Chloride (Ns) 1,000 mls @ 75 mls/hr IVCONT .[id number] [facility] Last Admin: 05/21/25 04:03 Dose: 75 mls/hr Documented By: NAYANA Levothyroxine Sodium (Levothyroxine Sodium 88 Mcg Tablet) 88 mcg PO DAILY@0600 [facility] Last Admin: 05/21/25 05:59 Dose: 88 mcg Documented By: NAYANA Magnesium Hydroxide (Milk Of Magnesia 30 Ml Oral.Susp) 30 ml PO DAILY PRN PRN Reason: Constipation Melatonin (Melatonin 3 Mg Tablet) 6 mg PO BEDTIME PRN PRN Reason: Insomnia Metoprolol Succinate (Metoprolol Succinate Er 25 Mg Tab.Er.24h) 25 mg PO DAILY [facility]; Protocol Last Admin: 05/20/25 07:56 Dose: 25 mg Documented By: BRITTA Sertraline HCl (Sertraline Hcl 50 Mg Tablet) 50 mg PO DAILY [facility] Sodium Chloride (0.9 % Sodium Chloride Flush 3 Ml Syringe) 3 ml IVFLUSH QSHIFT [facility] Last Admin: 05/21/25 01:07 Dose: 3 ml Documented By: NAYANA Vitamin D (Cholecalciferol (Vitamin D3) 25 Mcg Tablet) 50 mcg PO Q48H [facility] Last Admin: 05/19/25 15:03 Dose: 50 mcg Documented By: BRITTA Labs 05/18/25 05:35 05/21/25 06:22 Labs: Laboratory Results - last 24 hr 05/21/25 05/21/25 06:22 06:24 Hold Purple Top SEE NOTE Anion Gap 9 L Estim Creat Clear Calc 69.1 Estimated GFR > 60 Random Glucose 99 Calcium 8.6 Total Bilirubin 0.3 AST 66 H ALT 49 H Alkaline Phosphatase 48 Total Protein 7.1 Albumin 3.6 Assessment and Plan (1) UTI (urinary tract infection): Status: Acute Plan This is a 80-year-old female with a history of dementia , pulm nodule (incidentaloma),hypothyroidism, chronic anemia,, B12 deficiency, osteoporosis, macular degeneration BIBA 2/2 unwitnessed fall s/p significant deconditioning in a frail elderly dementia pt who was noted 2/2 UTI. Also noted to have incidentaloma. Fall 2/2 sepsis 2/2 UTI + deconditioning 2/2 fraility in elderly Abx switched to po Augmentin if HDS and responsive - will rx for 5 day course last day 05/24/2025 A/C falls 2/2 fraility in elderly - PTOT, SDR placement pending-that is a hold up Rhabdomyolysis-resolved with fluids Transaminitis - acute ishcemic insult - intact synthetic function- OP f/up for resolution Clinically appears dry-to prevent PRIYANK -we will give her another bolus, encourage her to for p.o. intake Incidentaloma - Scattered bilateral centrilobular opacities, tree-in-bud opacities, and stellate nodular opacities in both lungs. There is a cavitary oval opacity in the right apex measuring 1.4 x 1.1 cm. In addition, there are foci of cylindrical bronchiectasis in the lower anterior right upper lobe and right middle lobe, as well as the lingula, with foci of endobronchial mucous plugging and associated tree-in-bud opacities. Overall, the findings are highly suspicious for disseminated atypical infection, such as DAVIE/MAC. Cannot exclude fungal etiologies. Pulm consulted. Less likely to be malignant or DAVIE - non hypoxic on RA - asp precautions and prn nebs hypothyroidism- TSH elevated, free t4 normal - likely euthyroid sick syndrome- due to acute illness will avoid adjusting synthroid dose at this time outpatient follow up with endocrinology/PCP. 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 While every effort has been made to ensure accuracy, international specialist errors may have been included. A patient is awaiting short-term rehabilitation (STR) after a urinary tract infection (UTI) and deconditioning?because they are too weak to return home safely. While the infection has been medically treated, the resulting physical decline requires intensive therapy to regain strength and mobility before discharge Quality Stroke Does the patient have a stroke diagnosis?: No VTE Prior VTE?: No VTE Risk Level:: Medical - moderate - high VTE Device Contraindication: N/A - Device Ordered VTE Drug Contraindication: N/A - Med Ordered
[2025-05-21 07:52] VITALS: BP 163/72; PULSE 63; RESP 18; TEMP 36.1; O2SAT 97
[2025-05-21] MEDS: Metoprolol Succinate ER 25 MG TAB.ER.24H PO (07:55)
[2025-05-21 08:32] LABS: HBS Num1 0.00 mIU/mL (0-7.99); HBc Num1 0.12 S/CO (0.00-0.79); HBsAGNum1 0.44 S/CO (0.00-0.99); Hepatitis A Antibody IgM 0.16 Index (0-0.79); Hepatitis B Surface Antigen Negative (Negative); ~HepC Num1 0.25 S/CO (0.00-0.79); ~Hepatitis A Antibody IgM Nonreactive (Nonreactive); ~Hepatitis B Surface Antibody NONREACTIVE (Nonreactive); ~Hepatitis C Antibody Nonreactive (Nonreactive)
[2025-05-21 09:54] VITALS: BMI 22.7
--- NOTE | 2025-05-21 10:02 | MHC.CLN ---
NUTRITION DIET RX REGULAR. PO INTAKE 50-100%. PATIENT WITH UNSTAGEABLE INJURY TO COCCYX AND BILATERAL STAGE II PRESSURE INJURIES TO ANKLE. ADDING ENSURE MAX BID TO PROMOTE SKIN INTEGRITY. SUPPLEMENT PROVIDES 300 KCALS, 40 G PROTEIN. FOLLOW FOR PO INTAKE AND SKIN INTEGRITY. SEE CLINICAL NUTRITION ASSESSMENT 05/21/25.
--- NOTE | 2025-05-21 12:44 | MHC.CM.PN ---
Patient medically cleared for dc. Has accepted a bed at [facility], who has submitted for auth. Completed HCP naming her son, Сергей, as HCA. Though, reports that they have not spoken recently. CM will continue to await [facility] auth.
[2025-05-21 19:11] VITALS: BP 146/67; PULSE 61; RESP 16; TEMP 36.7; O2SAT 95
[2025-05-22 03:44] VITALS: BP 172/77; PULSE 65; RESP 18; TEMP 36.7; O2SAT 96
[2025-05-22 04:06] VITALS: BP 143/67; PULSE 61
[2025-05-22 07:04] LABS: Calcium 8.7 mg/dL (8.4-10.2); Chloride 100 mmol/L (96-108); Potassium 2.8 mmol/L (3.3-5.1); Sodium 139 mmol/L (135-145)
[2025-05-22 07:34] VITALS: BP 126/61; PULSE 62; RESP 14; TEMP 37; O2SAT 95
--- NOTE | 2025-05-22 07:51 | HO.PM.IMPN ---
Subjective Subjective Date of Service: 05/22/25 Physical Exam Vital Signs: Vital Signs: Last Vital Signs Temp 98.6 F 05/22/25 07:34 Pulse 62 05/22/25 07:34 Resp 14 05/22/25 07:34 BP 126/61 05/22/25 07:34 Pulse Ox 95 05/22/25 07:34 O2 Del Method Room Air 05/22/25 07:34 BMI result Body Mass Index 22.7 Objective Data Active Medications Acetaminophen (Acetaminophen 325 Mg Tablet) 650 mg PO Q6H PRN PRN Reason: Pain, Mild 1-3,fever,headache Last Admin: 05/22/25 03:15 Dose: 650 mg Documented By: JUNE Amlodipine Besylate (Amlodipine Besylate 5 Mg Tablet) 5 mg PO DAILY [facility]; Protocol Amoxicillin/Clavulanate Potassium (Amoxicillin/Potassium Clav 875 Mg Tablet) 875 mg PO Q12H [facility] Stop: 05/24/25 00:29 Last Admin: 05/22/25 01:09 Dose: 875 mg Documented By: JUNE Ascorbic Acid (Ascorbic Acid 500 Mg Tablet) 500 mg PO DAILY [facility] Last Admin: 05/21/25 07:55 Dose: 500 mg Documented By: CHUCKIE Calcium Carbonate (Calcium Carbonate 750 Mg Tab.Chew) 750 mg PO Q4H PRN PRN Reason: Heartburn Folic Acid (Folic Acid 1 Mg Tablet) 1 mg PO DAILY [facility] Last Admin: 05/21/25 07:55 Dose: 1 mg Documented By: CHUCKIE Heparin Sodium (Porcine) (Heparin Sodium,Porcine 5,000 Unit/Ml Vial) 5,000 unit SUBCUT Q12H [facility] Last Admin: 05/22/25 01:06 Dose: 5,000 unit Documented By: JUNE Sodium Chloride (Ns) 1,000 mls @ 75 mls/hr IVCONT .[id number] [facility] Last Admin: 05/22/25 05:39 Dose: 75 mls/hr Documented By: JUNE Levothyroxine Sodium (Levothyroxine Sodium 88 Mcg Tablet) 88 mcg PO DAILY@0600 [facility] Last Admin: 05/22/25 05:39 Dose: 88 mcg Documented By: JUNE Magnesium Hydroxide (Milk Of Magnesia 30 Ml Oral.Susp) 30 ml PO DAILY PRN PRN Reason: Constipation Melatonin (Melatonin 3 Mg Tablet) 6 mg PO BEDTIME PRN PRN Reason: Insomnia Last Admin: 05/22/25 03:16 Dose: 6 mg Documented By: JUNE Metoprolol Succinate (Metoprolol Succinate Er 25 Mg Tab.Er.24h) 25 mg PO DAILY [facility]; Protocol Last Admin: 05/21/25 07:55 Dose: 25 mg Documented By: CHUCKIE Sertraline HCl (Sertraline Hcl 50 Mg Tablet) 50 mg PO DAILY [facility] Last Admin: 05/21/25 07:55 Dose: 50 mg Documented By: CHUCKIE Sodium Chloride (0.9 % Sodium Chloride Flush 3 Ml Syringe) 3 ml IVFLUSH QSHIFT [facility] Last Admin: 05/21/25 20:22 Dose: Not Given Documented By: JUNE Non-Admin Reason: IV Running Vitamin D (Cholecalciferol (Vitamin D3) 25 Mcg Tablet) 50 mcg PO Q48H [facility] Last Admin: 05/21/25 14:17 Dose: 50 mcg Documented By: CHUCKIE Labs 05/18/25 05:35 05/22/25 05:59 Labs: Laboratory Results - last 24 hr 05/20/25 05/22/25 14:57 05:59 Anion Gap 10 L Estim Creat Clear Calc 85.3 Estimated GFR > 60 Random Glucose 96 Calcium 8.7 Total Bilirubin 0.3 AST 52 H ALT 40 H Alkaline Phosphatase 49 Total Protein 7.0 Albumin 3.5 Hepatitis A IgM Ab Nonreactive Hep Bs Antigen Negative Hep Bs Antibody NONREACTIVE Hep B Core Total Ab Nonreactive Hepatitis C Ab (EIA) Nonreactive Quality Stroke Does the patient have a stroke diagnosis?: No VTE Prior VTE?: No VTE Risk Level:: Medical - moderate - high VTE Device Contraindication: N/A - Device Ordered VTE Drug Contraindication: N/A - Med Ordered
[2025-05-22] MEDS: Metoprolol Succinate ER 25 MG TAB.ER.24H PO (09:24)
[2025-05-22] MEDS: Potassium Chloride Packet 20 MEQ PACKET 40 MEQ PO (10:42)
[2025-05-22] MEDS: Potassium Chloride/H20 10 MEQ/100 ML PIGGYBACK 100 MEQ IV ×2 (10:43→12:18)
--- NOTE | 2025-05-22 14:25 | MHC.CM.PN ---
DP: PT HAS BEEN MEDICALLY CLEARED FOR DC TO STR AT [facility]. INSURANCE AUTH OBTAINED BY [facility]. BLS TRANSPORT BOOKED FOR 4 :30 PM [facility]IA [facility]. RN UPDATED. FINAL IMM DELIVERED.
--- NOTE | 2025-05-22 14:39 | PM.DS ---
DS: Providers Provider Date of Service: 05/22/25 Date of admission: 05/17/25 13:13 Date of discharge: 05/22/25 Primary care physician: Ashley Hernandez MD Consults: 05/17/25 13:34 Consult to Pulmonology Routine Consulting Provider: [facility] Pulmonology Services Reason for consultation: abnormal chest CT ?disseminated DAVIE Has provider been notified: No 05/17/25 17:07 Consult to Wound Care Routine Reason for consultation: pressure to coccyx DS: Diagnosis Discharge Diagnosis (1) UTI (urinary tract infection): Status: Acute DS: Summary Hospital Course Hospital Course: Fall 2/2 sepsis 2/2 UTI + deconditioning 2/2 fraility in elderly Abx switched to po Augmentin if HDS and responsive - resolved for 5 day course last day 05/24/2025 A/C falls 2/2 fraility in elderly - improving with PT OT This is a 80-year-old female with a history of dementia , pulm nodule (incidentaloma),hypothyroidism, chronic anemia,, B12 deficiency, osteoporosis, macular degeneration BIBA 2/2 unwitnessed fall s/p significant deconditioning in a frail elderly dementia pt who was noted 2/2 UTI. Rhabdomyolysis without PRIYANK-resolved with fluids Transaminitis - acute ishcemic insult - intact synthetic function- OP f/up for resolution Incidentaloma - Scattered bilateral centrilobular opacities, tree-in-bud opacities, and stellate nodular opacities in both lungs. There is a cavitary oval opacity in the right apex measuring 1.4 x 1.1 cm. In addition, there are foci of cylindrical bronchiectasis in the lower anterior right upper lobe and right middle lobe, as well as the lingula, with foci of endobronchial mucous plugging and associated tree-in-bud opacities. Overall, the findings are highly suspicious for disseminated atypical infection, such as DAVIE/MAC. Cannot exclude fungal etiologies. Pulm consulted. Less likely to be malignant or DAVIE - non hypoxic on RA - asp precautions and prn nebs will likely need to follow-up outpatient for resolution/management hypothyroidism- TSH elevated, free t4 normal - likely euthyroid sick syndrome- due to acute illness will avoid adjusting synthroid dose at this time outpatient follow up with endocrinology/PCP. 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 While every effort has been made to ensure accuracy, hospice community liaison errors may have been included. A patient is going to short-term rehabilitation (STR) after a urinary tract infection (UTI) and deconditioning and needs a short-term rehab. Time spent discussing smoking cessation with patient: more than 10 minutes Time Attestation Discharge Coordination Time (in mins): 35 Quality: Safe Use of Opioids Does Pt have an Active Cancer Diagnosis on the Problem List?: No Quality: Stroke Does the patient have a stroke diagnosis?: No Physical Exam Vital Signs: Vital Signs: Last Vital Signs Temp 98.6 F 05/22/25 07:34 Pulse 62 05/22/25 07:34 Resp 14 05/22/25 07:34 BP 126/61 05/22/25 07:34 Pulse Ox 95 05/22/25 07:34 O2 Del Method Room Air 05/22/25 07:34 BMI result Body Mass Index 22.7 DS: Data Data Completed and Pending Labs on day of discharge: Laboratory Results - last 24 hr 05/22/25 05:59 Sodium 139 Potassium 2.8 L* Chloride 100 Carbon Dioxide 32 H Anion Gap 10 L BUN 4 L Creatinine 0.43 L Estim Creat Clear Calc 85.3 Estimated GFR > 60 Random Glucose 96 Calcium 8.7 Total Bilirubin 0.3 AST 52 H ALT 40 H Alkaline Phosphatase 49 Total Protein 7.0 Albumin 3.5 Discharge Plan Discharge Anticipated Discharge Date/Time: 05/22/25 12:41 Patient Disposition: Xfer SNF Discharge Diagnosis: Fall 2/2 sepsis 2/2 UTI + deconditioning 2/2 fraility in elderly Referrals: [facility] [Outside] - 1 Week Referral Note: TRANSPORT FOR SHORT TERM REHAB Physician,Guy J [Physician, Medical] - 1 Week Discharge Medications: New amoxicillin-pot clavulanate 875-125 mg Tablet 1 tab PO Q12H 2 Days Qty: 4 0RF amlodipine 5 mg Tablet 5 mg PO DAILY 30 Days Qty: 30 3RF Protocol: Hold for SBP< HOLD for SBP < : 90 sertraline 50 mg Tablet 50 mg PO DAILY 30 Days Qty: 30 3RF Continued Culturelle 10 billion cell capsule 1 cap PO DAILY PRN (Reason: abdominal discomfort) Qty: 30 0RF metoprolol succinate 25 mg tablet extended release 24 hr 25 mg PO DAILY 90 Days Qty: 90 3RF folic acid 1 mg tablet 1 mg PO DAILY 90 Days Qty: 90 1RF levothyroxine 88 mcg tablet 88 mcg PO DAILY@0600 cholecalciferol (vitamin D3) 50 mcg (2,000 unit) tablet 50 mcg PO Q48H ascorbic acid (vitamin C) [Vitamin C] 500 mg Tablet,Chewable 500 mg PO DAILY Neuriva Plus 0.85 mg-200 mcg-1.2 mcg tablet,chewable 1 tab PO DAILY acetaminophen 500 mg capsule 500 mg PO Q6H PRN (Reason: Pain, Mild) No Action (DME) compr.stocking,knee,long,large Misc See Rx Instructions .Route Qty: 2 0RF Rx Instructions: As directed (DME) blood pressure monitor Kit See Rx Instructions .Route Qty: 1 0RF Rx Instructions: As directed Discharge Orders: Discharge Order (Routine); Ordered 05/22/25 Ordered By: Leida Ferrari Diet: Low salt diet Activity on Discharge: As tolerated Stand Alone Forms: Patient Portal Discharge page Print Language: Hungarian Care Plan Goals: Physical therapy Completing antibiotic Help with anxiety and depression-was initiated on sertraline this admission Health Concerns: See above Plan of Treatment: See above Assessment: See above Patient Instructions: Urinary Tract Infection in Women (DC)
[2025-05-22 15:44] VITALS: BP 109/52; PULSE 59; RESP 16; TEMP 36.8; O2SAT 95
== END 2025-05-22 16:55 | disposition skilled nursing facility (03) | DRG 558 ==
LOC: HO.ED 12:29 → HO.EDOVER 13:13 → HO.IMC 15:22 → HO.S3 05-18 15:30
PROVIDERS: Admitting Provider Physician Assistant Medical; Emergency Provider Emergency Medicine; PCP Internal Medicine; Visit Provider Student in an Organized Health Care Education/Training Program
DX: M62.82 Rhabdomyolysis (principal); N39.0 Urinary tract infection, site not specified; E03.9 Hypothyroidism, unspecified; J98.4 Other disorders of lung; J47.9 Bronchiectasis, uncomplicated; F03.90 Unspecified dementia, unspecified severity, without behavioral disturbance, psychotic disturbance, mood disturbance, and anxiety; H35.30 Unspecified macular degeneration; I10 Essential (primary) hypertension; R53.81 Other malaise; Z66 Do not resuscitate; W19.XXXA Unspecified fall, initial encounter; Z79.890 Hormone replacement therapy; Z79.899 Other long term (current) drug therapy
CPT/HCPCS: 36415; 70450; 71045; 71250; 72125; 72170; 73030; 73110; 80048; 80053; 80076; 81001; 82550; 83605; 83690; 83735; 84439; 84443; 84484; 85025; 85027; 86140; 86704; 86706; 86709; 86803; 87040; 87086; 87340; 92610; 93005; 97110; 97162; 97530; 99285; J0131; J0696; J1644; J3475; J3480; J7120

== ENCOUNTER → 2025-05-17 10:29 | Outpatient (BNV) | payer MEDICARE, SELFPAY | PROVIDERS: Admitting Provider Physician Assistant Medical; Emergency Provider Emergency Medicine; Visit Provider Internal Medicine | DX: I45.10 Unspecified right bundle-branch block (principal) | CPT/HCPCS: 93010 ==

== ENCOUNTER → 2025-05-17 10:30 | Outpatient (BNV) | payer MEDICARE, SELFPAY | PROVIDERS: Emergency Provider Emergency Medicine; Visit Provider Radiology Diagnostic Radiology | DX: J47.9 Bronchiectasis, uncomplicated (principal); M48.02 Spinal stenosis, cervical region; I67.82 Cerebral ischemia; M25.511 Pain in right shoulder; R53.1 Weakness; M11.232 Other chondrocalcinosis, left wrist; R10.2 Pelvic and perineal pain | CPT/HCPCS: 70450; 71045; 71250; 72125; 72170; 73030; 73110 ==

== ENCOUNTER → 2025-05-17 13:13 | Outpatient (BNV) | payer MEDICARE, SELFPAY | PROVIDERS: Admitting Provider Physician Assistant Medical; Emergency Provider Emergency Medicine; Visit Provider Internal Medicine | DX: J98.4 Other disorders of lung (principal); J47.9 Bronchiectasis, uncomplicated; T17.900A Unspecified foreign body in respiratory tract, part unspecified causing asphyxiation, initial encounter | CPT/HCPCS: 99223 ==

== ENCOUNTER → 2025-05-17 13:13 | Outpatient (BNV) | payer MEDICARE, SELFPAY | PROVIDERS: Admitting Provider Physician Assistant Medical; Emergency Provider Emergency Medicine; Visit Provider Physician Assistant Medical | DX: N39.0 Urinary tract infection, site not specified (principal) | CPT/HCPCS: 99223; 99232; 99239 ==

== ENCOUNTER 2025-06-18 13:07 | Inpatient (IN) | payer MEDICARE, SELFPAY ==
--- OUTSIDE RECORDS SUMMARY | 2024-09-26 06:00 | XMS_ITS ---
Author Organization [facility] Address [address] [place] [address] Care Team Providers Care Electronic Device Monitor Name Role Phone Gomez CLARK, Ashley Primary Care Provider Unavail Lesly Roe Unavailable [phone] Encounters Encounter Location Date [facility] [address] [facility] [address] [place] [address] 09/26/2024 Lesly Srinivasan Plan Of Treatment No Information Progress Notes * Merlyn KHOURY ADOB:1944 (80 yo F)Acc No.[id number]:09/26/2024 Progress Note Patient: Merlyn COLLINS Provider: Fadia Srinivasan DPM :1945 A ge:79 Y S ex:Female Date:09/26/2024 Address:[address] [facility], [address], [facility] Pcp:Ashley Dyer MD Subjective: * Chief Complaints: * * Medical History: Objective: * Vitals: Assessment: Plan: * Treatment: * Images: * The named appointment provid er may or may not be the originator of this progress note, and it is not deemed complete until electronically signed by the appointment provider. Sign off status: Pending * Provider: Fadia Srinivasan DPM Date: 0 09/26/2024 Generated for Carloz cantrell/Sabine/Muitting on: 07:08 PM EDT
--- OUTSIDE RECORDS SUMMARY | 2025-06-12 10:45 | XMS_ITS | Encounter Summary ---
Author Organization [facility] Address [address] [place] [id number] Phone Care Team Providers Care Director Of Curriculum And Instruction Name Role Phone Manav Barrera MD Primary Care Provider [phone] Encounter Details Date Type Department Care Team (Latest Contact Info) Description 06/12/2025 10:45 AM EDT - 06/12/2025 11:59 PM EDT Hospital Encounter [facility] [address] [place] [address] Taylor Jimenez MD [address] [place] [id number] [email or web address] Discharge Disposition: Home or Self Care Social History Tobacco Use Types Packs/Day Years Used Date Smoking Tobacco: Never Assessed Education Answer Date Recorded Are you interested in more education? Not on more e 05/25/2025 Are you concerned about learning? Not on file 05/25/2025 No 05/25/2025 No 05/25/2025 Digital Access Answer Date Recorded No 05/25/2025 No 05/25/2025 Reliable internet access at home? Not on file 05/25/2025 Device with a working camera? Not on file Comments Unknown Sex and Gender Information Value Date Recorded Sex Assigned at Not on file Legal Sex Female 10:06 PM EDT Gender Identity Not on file Sexual Orientation Not on file documented as of this encounter Plan of Treatment Not on file documented as of this encounter Procedures Procedure Name Priority Date/Time Associated Diagnosis Comments CBC Routine 06/12/2025 8:12 AM EDT Septicemia during labor Hypopotassemia Essential hypertension, malignant BASIC METABOLIC PANEL Routine 06/12/2025 8:12 AM EDT Septicemia during labor Hypopotassemia Essential hypertension, malignant documented in this encounter Results * (ABNORMAL) CBC (06/12/2025 8:12 AM EDT) WBC 7.79 4.00 - 11.00 K/uL [facility] RBC 3.86(L) 4.00 - 5.20 M/uL [facility] HGB 12.6 12.0 - 16.0 g/dL [facility] HCT 39.9 36.0 - 46.0 % [facility] PLT 365 150 - 450 K/uL [facility] MCV 103.4(H) 80.0 - 100.0 fL [facility] MCH 32.6(H) 27.0 - 31.0 pg [facility] MCHC 31.6(L) 32.0 - 36.0 g/dL [facility] RDW 13.4 11.5 - 14.5 % [facility] MPV 9.1 8.4 - 12.0 fL [facility] NRBC 0.00 0.00 /100 WBCs [facility] ABSOLUTE NRBC 0.00 0.00 K/uL [facility] 06/12/2025 8:12 AM EDT 06/12/2025 11:02 AM EDT us Taylor Jimenez MD LAB BLOOD ORDERABLES Final Res ult Performing Organization Address City/State/[facility] Co de Phone Number [address] [address] * (ABNORMAL) Basic metabolic panel (06/12/2025 8:12 AM EDT) SODIUM 139 133 - 146 mmol/L [facility] CHLORIDE 97 96 - 108 mmol/L [facility] POTASSIUM 4.2 3.3 - 5.1 mmol/L [facility] CO2 31 21 - 35 mmol/L [facility] BUN 8 6 - 19 mg/dL [facility] CREATININE 0.40(L) 0.5 - 1.5 mg/dL [facility] GLUCOSE 76 70 - 99 mg/dL [facility] CALCIUM 9.6 8.4 - 10.3 mg/dL [facility] EGFR 101 >59 mL/min/1.7 3m2 [facility] Comment:Estimated glomerular filtration rate calculated using the CKD-EPI refit equation. ANION GAP 15 10 - 20 mmol/L [facility] 06/12/2025 8:12 AM EDT 06/12/2025 11:02 AM EDT us Taylor Jimenez MD LAB BLOOD ORDERABLES Final Res ult [facility] [address] [place] [address] documented in this encounter Visit Diagnoses Diagnosis Septicemia during labor- Primary Generalized infection during labor, unspecified as to episode of care Hypopotassemia Essential hypertension, malignant documented in this encounter Additional Health Concerns Infection Onset Date Last Indicated Resolved Time C. diff 05/30/2025 05/30/2025 documented as of this encounter Care Teams Director Of Curriculum And Instruction Relationship Specialty Start Date End Date Manav Barrera MD [address] [place] [address] PCP - General 05/25/25 documented as of this encounter Additional Source Comments The information contained in this document represents components of the legal health record. It is not the complete legal health record.[facility]
--- NOTE | ~2025-06-18 | CT_ITS ---
EXAMINATION: CT HEAD WITHOUT CONTRAST CLINICAL INFORMATION: AMS COMPARISON: May 17, 2025 TECHNIQUE: Contiguous axial imaging was performed from the skull base to vertex without intravenous administration of contrast. This CT examination was performed using dose optimization techniques as appropriate, variously including the following: *Automated exposure control *Adjustment of mA and/or kV according to patient size (this includes techniques or standardized protocols for targeted exams where dose is matched to indication/reason for exam; i.e. extremities or head) *Use of iterative reconstruction technique DLP: 606 mGy-cm FINDINGS: Patient's motion artifact. Bilateral multifocal patchy and confluent deep periventricular subcortical white matter hypodensities involving centrum semiovale and beatty radiata. Focal macrocystic encephalomalacia, right lingual gyrus and right cuneus. Old lacunar infarcts, cerebellar hemispheres, basal ganglia and extracapsular. Johnson-white matter differentiation is normal. Calcified plaques in the cavernous supracavernous segments both ICAs and V4 segments of the vertebral arteries and within the basilar artery. Sellar/suprasellar region demonstrated no gross masses. Endocervical junction is intact with normal position of the cerebellar tonsils. Partially calcified pannus formation in the periodontal C1 region. Small trace air-fluid levels in the sphenoid sinus. Tympanic cavities and mastoid cells are aerated. CT/CT head/brain wo IV con IMPRESSION: No acute intracranial hemorrhage. Extensive white matter disease likely related to small vessel occlusive disease. Sequela of right PROOF SORTER infarct. Superimposed acute stroke cannot be excluded. Electronically signed by: Lamine Mittal MD 06/18/2025 02:29 PM EDT
--- NOTE | ~2025-06-18 | XR_ITS ---
CLINICAL HISTORY: ?fluid overload 1 view chest Comparison: CR/SR - XR CHEST 1 VIEW - 06/18/25 13:[address]/MN/SR - CT CHEST WITHOUT IV CONTRAST - 05/17/25 12:15 EDT Findings: Low inspiration. Resultant mild vascular crowding centrally with subsegmental atelectasis. Lungs are appear clear. Suspect eventration right hemidiaphragm can not exclude subpulmonic effusion. Mild cardiomegaly.No passive venous congestion. No acute fractures. Scoliosis. Impression: 1. Low inspiration with central vascular crowding and subsegmental atelectasis. 2. Suspect eventration right hemidiaphragm. Can not exclude subpulmonic effusion. Right lateral decubitus film would be confirmatory. This document has been electronically signed by: Matti Goetz MD on 06/21/2025 05:14:57
--- NOTE | ~2025-06-18 | XR_ITS ---
EXAMINATION: XR CHEST CLINICAL INFORMATION: AMS COMPARISON: 05/17/2025 x-ray and CT exam. TECHNIQUE: Frontal view of the chest was obtained. FINDINGS: The cardiac, hilar, and mediastinal contours are normal. Aortic mural calcifications. Lungs are mildly hyperaerated and hyperlucent. Calcified pleural plaque along the right margin of the spine. Lungs otherwise grossly clear. Previously seen nodular opacities have improved significantly. No pneumothorax or effusion. No focal osseous or soft tissue abnormality. Degenerative changes of both shoulder joints. Scoliosis and degenerative changes of the spine. XR/XR chest 1V IMPRESSION: 1. COPD. No definite active superimposed disease. Electronically signed by: Cm Galarza MD 06/18/2025 02:06 PM EDT
[2025-06-18 13:13] VITALS: BP 143/72; BP 146/66; PULSE 113; RESP 17; O2SAT 96; O2SAT 97; BMI 22.3
--- NOTE | 2025-06-18 13:21 | ED_ITS ---
HPI - General Adult General Chief complaint: Altered Mental Status Stated complaint: Confused, diarrhea, warm Time Seen by Provider: 06/18/25 13:21 Source: patient and EMS Mode of arrival: EMS Limitations: no limitations History of Present Illness ED Provider: Danita Urban PA-C HPI narrative: Patient is a 80 year old assigned female at with a history of hypothyroidism, psoriasis, MDD, anemia, and recent UTI presenting to the emergency department today with increased confusion and diarrhea. Patient states that she has been having diarrhea since being home but she does not feel as though she is confused. Patient states that her visiting nurse came and they believed her to be confused. Patient denies any other complaints at this time. Related Data Home Medications ?Medication ?Instructions ?Recorded ?Confirmed levothyroxine 100 mcg tablet 100 mcg PO DAILY@0600 06/18/25 potassium chloride 20 mEq 20 meq PO DAILY 06/18/25 tablet,extended release Previous Rx's ?Medication ?Instructions ?Recorded compr.stocking,knee,long,large #2 ea 07/02/21 blood pressure monitor #1 ea 02/04/22 metoprolol succinate 25 mg 25 mg PO DAILY 90 days #90 tabs 11/24/24 tablet,extended release 24 hr folic acid 1 mg tablet 1 mg PO DAILY 90 days #90 ta bs 02/12/25 amlodipine 5 mg tablet 5 mg PO DAILY 30 days #30 ta bs 05/22/25 sertraline 50 mg tablet 50 mg PO DAILY 30 days #30 t abs 05/22/25 Allergies Allergy/AdvReac Type Severity Reaction Status Date / Time Penicillins (PENICILLINS) Allergy Intermediate CANKER Verified 06/18/25 13:17 SORES cephalexin AdvReac Mild Didn't work Verified 06/18/25 13:17 Review of Systems 2 Constitutional: Constitutional: Reports as per HPI Eyes: Eyes: Reports as per HPI ENT: Reports as per HPI Cardiovascular: Cardiovascular: Reports as per HPI Respiratory: Respiratory: Reports as per HPI Gastrointestinal: Gastrointestinal: Reports as per HPI Genitourinary: Genitourinary: Reports as per HPI Musculoskeletal: Musculoskeletal: Reports as per HPI Integumentary/Breasts: Skin/Breast: Reports as per HPI Neurologic: Reports as per HPI Psychiatric: Psychiatric: Reports as per HPI Endocrine: Endocrine: Reports as per HPI Hematologic/Lymphatic: Hematologic/Lymphatic: Reports as per HPI Allergic/Immunologic: Allergic/Immunologic: Reports as per HPI PMF Past Medical History Attestation statement: The following information was validated with the patient. Source: old records reviewed and nursing notes reviewed Medical History Bronchiectasis Cavitary lesion of lung Acute diarrhea Right leg pain Polyarthralgia Osteoporosis Hypothyroidism Hypovitaminosis D Essential hypertension Surgical History History of cataract surgery History of colonoscopy History of tubal ligation Family History Family History Father CHF (congestive heart failure) Liver cirrhosis Mother Stroke Social History Social History Household Members: None Housing: Apartment Do you presently have visiting nurse or other home services: Yes Alcohol intake: former Patient Tobacco Use Status: Former Tobacco user e-Cigarette/Vaping Use: Never Used Second Hand Smoke Exposure: No Have you been hit, kicked, punched, or otherwise hurt by someone within the past year? If so, by whom?: No Do you feel safe in your current relationship?: No Current Relationship Is there a partner from a previous relationship who is making you feel unsafe now?: No Are you made to feel afraid or neglected: No Advance Directives: Yes Advance Directives on File: Yes Advance Directives Date on File: 05/23/25 Do you have a plan to hurt others: No Plan Recently lost weight without trying: No How much weight loss: Not applicable Eating poorly because of decreased appetite: No Nutrition screen score: 0 Nutrition Risks: No Nutritional Risk Patient : No : No Poor oral hygiene: No service: No Current occupational status: retired Gender identity: Female Cognitive needs: Yes (cane) Hearing needs: No Vision needs: Yes (reading glasses) Physical Exam ED Vital Signs: Vital Signs - 24 hr 06/18/25 13:13 Pulse Rate 113 H Respiratory Rate 17 Blood Pressure 146/66 H Pulse Oximetry 97 Oxygen Delivery Method Room Air BMI result Body Mass Index 22.3 Const General: cooperative, no acute distress, alert and awake Nutritional Appearance: cachectic Orientation/consciousness: oriented to person and oriented to place HENMT Head: Yes normal to inspection and Yes atraumatic Ears: hearing grossly normal bilaterally and external ears normal General nose exam: Normal external nose present, no nasal discharge noted and no epistaxis Face and sinus: Yes normal facial exam, No abrasion and No laceration Mouth: Normal oral and palatal mucosa present, no drooling and no muffled voice Eyes General: appearance normal, both eyes and all related structures Periorbital: periorbital findings normal Eyelids: Yes eyelids normal Conjunctivae: conjunctivae normal Pupils: Equal, round and reactive pupils present EOM: EOMs intact bilaterally Neck Neck: Yes normal visual inspection and Yes full ROM Resp Effort & Inspection: normal respiratory effort and able to speak in complete sentences Cardio Rate: tachycardic Rhythm: regular rhythm Neuro General: oriented to person, oriented to place, moves all extremities and CN's II-XI intact bilaterally Cranial nerves: Yes Equal, round and reactive pupils present Cognition (Neuro): normal cognition Extrem General: Yes normal to inspection, Yes full ROM and Yes capillary refill normal Psych Mental Status: mental status grossly normal Affect: normal affect Medications Administered Generic Name Dose Route Start Last Admin Trade Name Freq PRN Reason Stop Dose Admin Acetaminophen 650 mg 06/18/25 17:22 06/19/25 20:40 Acetaminophen 325 Mg Tablet PO 650 mg Q6H PRN Administration Pain, Mild 1-3,fever,headache Docusate Sodium 100 mg 06/18/25 21:00 06/19/25 20:40 Docusate Sodium 100 Mg Capsule PO 100 mg BID JOY Administration Enoxaparin Sodium 40 mg 06/18/25 18:00 06/19/25 17:09 Enoxaparin Sodium 40 Mg/0.4 Ml Syringe SUBCUT 40 mg Q24H JOY Administration Dextrose/Sodium Chloride 1,000 mls @ 100 mls/hr 06/18/25 17:30 06/19/25 23:44 D5ns IVCONT 100 mls/hr .Q10H JOY Administration Levofloxacin 750 mg in 150 mls @ 100 mls/hr 06/18/25 18:00 06/19/25 18:59 Levaquin IV Infused Q24H JOY Infusion Sodium Chloride 1,000 mls @ 100 mls/hr 06/18/25 18:30 06/20/25 00:07 Ns IVCONT Not Given .Q10H [facility] Insulin Human Lispro 0 unit 06/18/25 21:00 06/19/25 20:48 Insulin Lispro 100 Unit/Ml 3 Ml Vial SUBCUT Not Given QIDACHS [facility] Protocol Levothyroxine Sodium 100 mcg 06/19/25 06:00 06/20/25 05:16 Levothyroxine Sodium 100 Mcg Tablet PO 100 mcg DAILY@0600 JOY Administration Senna 17.2 mg 06/18/25 21:00 06/19/25 20:40 Sennosides 8.6 Mg Tablet PO 17.2 mg BEDTIME JOY Administration Sertraline HCl 50 mg 06/19/25 09:00 06/19/25 10:38 Sertraline Hcl 50 Mg Tablet PO 50 mg DAILY JOY Administration Sodium Chloride 3 ml 06/19/25 00:00 06/19/25 20:49 0.9 % Sodium Chloride Flush 3 Ml Syringe IVFLUSH 3 ml QSHIFT JOY Administration Vancomycin HCl 125 mg 06/19/25 06:30 06/20/25 05:16 Vancomycin Hcl 125 Mg Capsule PO 06/29/25 06:29 125 mg Q6H JOY Administration Discontinued Medications Generic Name Dose Route Start Last Admin Trade Name Freq PRN Reason Stop Dose Admin Ceftriaxone Sodium 2 gm 06/18/25 14:43 06/18/25 15:13 Ceftriaxone Sodium 2 Gm Vial IVPUSH 06/18/25 14:44 2 gm ONCE ONE Administration Potassium Chloride 10 meq in 100 mls @ 100 mls/hr 06/18/25 14:45 06/18/25 21:59 Potassium Chloride/H20 IV 06/18/25 18:44 Infused Q1H JOY Infusion Magnesium Sulfate/Dextrose 1 gm in 100 mls @ 100 mls/hr 06/18/25 14:45 06/18/25 16:16 Magnesium Sulfate/D5w IV 06/18/25 15:44 Infused ONCE ONE Infusion Sodium Chloride 1,000 mls @ 999 mls/hr 06/18/25 18:30 06/18/25 20:54 Ns IV 06/18/25 19:30 Not Given .Q1H1M JOY Sodium Chloride 1,769.01 mls @ 1,769.01 mls/hr 06/18/25 18:25 06/18/25 20:55 Ns 30 ml/kg infuse over 1 hr (1769.01 ml) 06/18/25 19:24 Infused IV Infusion .Q1H STA Vancomycin HCl 1,500 mg/ 500 mls @ 333.333 mls/hr 06/18/25 19:00 06/18/25 22:52 Sodium Chloride IV 06/18/25 20:29 Infused ONCE ONE Infusion Sodium Chloride 3 ml 06/19/25 00:00 06/19/25 11:36 0.9 % Sodium Chloride Flush 3 Ml Syringe IVFLUSH Not Given QSHIFT [facility] Medical Decision Making Medical Decision Making [facility] Narrative: Patient is a 80 year old assigned female at with a history of hypothyroidism, psoriasis, MDD, anemia, and recent UTI presenting to the emergency department today with increased confusion and diarrhea. Patient's physical exam was as noted in the physical exam portion of this note. Patient was oriented to person and place but less so to time. Patient's blood work showed a WBC count of 20.5 with 15% band neutrophils, potassium 2.9, magnesium 1.6, lactic acid 2.5. Patient's urine is pending - though I suspect this is the source of the patient's elevated WBC count, tachycardia, and mild confusion given she was recently diagnosed with one on an outpatient basis. Patient's EKG was unremarkable. Patient's chest x-ray showed no acute process. Patient's head CT showed possible right [employer] infarct which may be a superimposed acute stroke however, the patient has no focal deficits or examination findings concerning for stroke. I explained my physical exam findings as well as all test results to the patient. I answered all questions asked by the patient. Patient requested that I NOT call her son, Sebas. Patient received IV potassium, magnesium, and ceftriaxone. I suspected the patient was septic at 1443. I spoke with the hospitalist team who agreed to admission. Patient verbalized agreement and understanding with this treatment plan and admission. Differential Diagnosis Differential Diagnoses: The differential diagnosis associated with the presentation includes Sepsis Urosepsis Lactic acidosis Tachycardia Elevated WBC count Admission/Observation Consideration of admission/observation: Escalation of care including admission/observation considered Patient admitted as noted in the MDM Rationale portion of this note. Consult Healthcare Provider Management of the patient was discussed with: Hospitalist (agreed to admission as noted in the MDM Rationale portion of this note. ) Lab Data [facility] Lab Attestation statement: I reviewed the patient's lab results. My interpretation of these results are in the MDM Rationale portion of this note. 06/19/25 03:48 06/19/25 03:48 Labs: Lab Results 06/18/25 06/18/25 06/18/25 Range/Units 14:13 15:13 17:40 WBC 20.5 H (4.8-10.8) X10*3/uL RBC 3.75 L (4.20-5.50) X10*6/uL Hgb 12.3 (12.0-16.0) g/dl Hct 37.4 (37.0-47.0) % MCV 99.7 H (80.0-98.0) fL MCH 32.8 (27.0-33.0) pg MCHC 32.9 (31.0-35.0) g/dl RDW 13.7 (11.0-16.0) % Plt Count 288 D (160-400) X10*3/uL MPV 9.4 (9.4-12.3) fL Immature Gran % (Auto) Cancelled Neut % (Auto) Cancelled Lymph % (Auto) Cancelled [place] % (Auto) Cancelled Eos % (Auto) Cancelled Baso % (Auto) Cancelled Lymph # (Auto) Cancelled [place] # (Auto) Cancelled Eos # (Auto) Cancelled Baso # (Auto) Cancelled Abs Immat Gran (auto) Cancelled Absolute Neuts (auto) Cancelled Absolute Nucleated RBC 0.000 (0.0-0.012) X10*3/uL Nucleated RBC % (auto) 0.0 (0.0-0.2) /100WBC Neutrophils % (Manual) 74 H (45-73) % Band Neutrophils % 15 H (3-5) % Lymphocytes % (Manual) 5 L (20-40) % Atypical Lymphs % (Man) (0-6) % Monocytes % (Manual) 4 (2-11) % Metamyelocytes % 2 % Abs Neuts (Manual) 18.2 H (2.0-8.3) X10*3/uL Lymphocytes # (Manual) 1.0 L (1.2-4.9) X10*3/uL Atyp Lymphs # (Manual) x10*3/uL Monocytes # (Manual) 0.8 (0.1-1.2) X10*3/uL Metamyelocytes # 0.4 X10*3/uL Toxic Granulation Toxic Vacuolation PRESENT Dohle Bodies PRESENT Platelet Estimate NORMAL (NORMAL) Large Platelets PRESENT Plt Morphology Comment NOTED RBC Morphology NOTED Macrocytosis /OIF [place] Cells /OIF Schistocytes 1+ (0-2) /OIF PT 17.3 H (10.9-12.4) SEC INR 1.5 H (0.9-1.1) Sodium 135 (135-145) mmol/L Potassium 2.9 L* (3.3-5.1) mmol/L Chloride 95 L (96-108) mmol/L Carbon Dioxide 30 H (22-29) mmol/L Anion Gap 13 (12-20) BUN 10 (9-16) mg/dL Creatinine 0.63 (0.5-1.4) mg/dL Estim Creat Clear Calc 63.5 Estimated GFR > 60 POC Glucose (60-115) mg/dL Random Glucose 136 H (60-115) mg/dL Lactic Acid 2.5 H* (0.5-2.0) mmol/L Lactic Acid F/U @ 2Hr 1.7 (0.5-2.0) mmol/L Calcium 9.0 (8.4-10.2) mg/dL Magnesium 1.6 1.9 (1.6-2.6) mg/dL Total Bilirubin 1.0 (0.0-1.0) mg/dL AST 37 H (5-31) U/L ALT 11 (0-31) U/L Alkaline Phosphatase 62 (39-117) U/L NT-Pro-B Natriuret Pep 971.1 H (<300) pg/mL Total Protein 7.1 (6.5-8.0) g/dL Albumin 3.6 (3.5-5.0) g/dL TSH 5.18 H (0.32-4.0) uIU/mL Free T4 1.14 (0.71-1.85) ng/dL Stl C. cayetanensis PCR (Not Detect.) Stool Rotavirus A PCR (Not Detect.) Stl Adenov F 40/41 PCR (Not Detect.) Stool Astrovirus (PCR) (Not Detect.) Stool Campylobacter PCR (Not Detect.) Stool Cryptosporidium PCR (Not Detect.) Stl Sh Tox Pr E STEC PCR (Not Detect.) Stool E coli O157 PCR (Not Detect.) Stl Enterotoxigenic E PCR (Not Detect.) Stool EPEC (PCR) (Not Detect.) Stool EAEC (PCR) (Not Detect.) Stl E. histolytica PCR (Not Detect.) Stool Giardia Lamblia PCR (Not Detect.) Stl P. shigelloides PCR (Not Detect.) Stool Salmonella PCR (Not Detect.) Stool Sapovirus (PCR) (Not Detect.) Stl Shigella/EIEC PCR (Not Detect.) St Y.enterocolitica PCR (Not Detect.) Stool Vibrio (PCR) (Not Detect.) Stl Vibrio cholerae PCR (Not Detect.) Stl Norovirus GI/GII PCR (Not Detect.) C. difficile Tox B Gene (Negative) C. difficile Toxin A&B (Negative) C. difficile Interpret COVID-19 (LEONIDAS) Negative (Negative) COVID-19 Clin Com See Note Influenza Type A (URBAN) Negative (Negative) Influenza Type B (URBAN) Negative (Negative) Influenza A & B Note See Note 06/18/25 06/19/25 06/19/25 Range/Units 21:40 03:08 03:48 WBC 13.7 H (4.8-10.8) X10*3/uL RBC 3.38 L (4.20-5.50) X10*6/uL Hgb 10.8 L (12.0-16.0) g/dl Hct 34.3 L (37.0-47.0) % MCV 101.5 H (80.0-98.0) fL MCH 32.0 (27.0-33.0) pg MCHC 31.5 (31.0-35.0) g/dl RDW 13.7 (11.0-16.0) % Plt Count 265 (160-400) X10*3/uL MPV 10.1 (9.4-12.3) fL Immature Gran % (Auto) Cancelled Neut % (Auto) Cancelled Lymph % (Auto) Cancelled [place] % (Auto) Cancelled Eos % (Auto) Cancelled Baso % (Auto) Cancelled Lymph # (Auto) Cancelled [place] # (Auto) Cancelled Eos # (Auto) Cancelled Baso # (Auto) Cancelled Abs Immat Gran (auto) Cancelled Absolute Neuts (auto) Cancelled Absolute Nucleated RBC 0.000 (0.0-0.012) X10*3/uL Nucleated RBC % (auto) 0.0 (0.0-0.2) /100WBC Neutrophils % (Manual) 56 (45-73) % Band Neutrophils % 35 H (3-5) % Lymphocytes % (Manual) 3 L (20-40) % Atypical Lymphs % (Man) 2 (0-6) % Monocytes % (Manual) 4 (2-11) % Metamyelocytes % % Abs Neuts (Manual) 12.5 H (2.0-8.3) X10*3/uL Lymphocytes # (Manual) 0.4 L (1.2-4.9) X10*3/uL Atyp Lymphs # (Manual) 0.3 x10*3/uL Monocytes # (Manual) 0.5 (0.1-1.2) X10*3/uL Metamyelocytes # X10*3/uL Toxic Granulation PRESENT Toxic Vacuolation PRESENT Dohle Bodies PRESENT Platelet Estimate NORMAL (NORMAL) Large Platelets PRESENT Plt Morphology Comment NORMAL RBC Morphology NORMAL Macrocytosis 1+ (5-14) /OIF Christy Cells 1+ (0-2) /OIF Schistocytes /OIF PT (10.9-12.4) SEC INR (0.9-1.1) Sodium 135 (135-145) mmol/L Potassium 3.4 (3.3-5.1) mmol/L Chloride 106 (96-108) mmol/L Carbon Dioxide 21 L (22-29) mmol/L Anion Gap 11 L (12-20) BUN 8 L (9-16) mg/dL Creatinine 0.52 (0.5-1.4) mg/dL Estim Creat Clear Calc 76.9 Estimated GFR > 60 POC Glucose 133 H (60-115) mg/dL Random Glucose 145 H (60-115) mg/dL Lactic Acid (0.5-2.0) mmol/L Lactic Acid F/U @ 2Hr (0.5-2.0) mmol/L Calcium 7.3 L D (8.4-10.2) mg/dL Magnesium (1.6-2.6) mg/dL Total Bilirubin 0.5 (0.0-1.0) mg/dL AST 31 (5-31) U/L ALT 8 (0-31) U/L Alkaline Phosphatase 50 (39-117) U/L NT-Pro-B Natriuret Pep (<300) pg/mL Total Protein 5.1 L (6.5-8.0) g/dL Albumin 2.5 L (3.5-5.0) g/dL TSH 4.94 H (0.32-4.0) uIU/mL Free T4 (0.71-1.85) ng/dL Stl C. cayetanensis PCR Not Detected (Not Detect.) Stool Rotavirus A PCR Not Detected (Not Detect.) Stl Adenov F 40/41 PCR Not Detected (Not Detect.) Stool Astrovirus (PCR) Not Detected (Not Detect.) Stool Campylobacter PCR Not Detected (Not Detect.) Stool Cryptosporidium PCR Not Detected (Not Detect.) Stl Sh Tox Pr E STEC PCR Not Detected (Not Detect.) Stool E coli O157 PCR Not applicable (Not Detect.) Stl Enterotoxigenic E PCR Not Detected (Not Detect.) Stool EPEC (PCR) Not Detected (Not Detect.) Stool EAEC (PCR) Not Detected (Not Detect.) Stl E. histolytica PCR Not Detected (Not Detect.) Stool Giardia Lamblia PCR Not Detected (Not Detect.) Stl P. shigelloides PCR Not Detected (Not Detect.) Stool Salmonella PCR Not Detected (Not Detect.) Stool Sapovirus (PCR) Not Detected (Not Detect.) Stl Shigella/EIEC PCR Not Detected (Not Detect.) St Y.enterocolitica PCR Not Detected (Not Detect.) Stool Vibrio (PCR) Not Detected (Not Detect.) Stl Vibrio cholerae PCR Not Detected (Not Detect.) Stl Norovirus GI/GII PCR Not Detected (Not Detect.) C. difficile Tox B Gene POSITIVE A* (Negative) C. difficile Toxin A&B Positive A* (Negative) C. difficile Interpret SEE NOTE COVID-19 (LEONIDAS) (Negative) COVID-19 Clin Com Influenza Type A (URBAN) (Negative) Influenza Type B (URBAN) (Negative) Influenza A & B Note 06/19/25 Range/Units 07:28 WBC (4.8-10.8) X10*3/uL RBC (4.20-5.50) X10*6/uL Hgb (12.0-16.0) g/dl Hct (37.0-47.0) % MCV (80.0-98.0) fL MCH (27.0-33.0) pg MCHC (31.0-35.0) g/dl RDW (11.0-16.0) % Plt Count (160-400) X10*3/uL MPV (9.4-12.3) fL Immature Gran % (Auto) Neut % (Auto) Lymph % (Auto) [place] % (Auto) Eos % (Auto) Baso % (Auto) Lymph # (Auto) [place] # (Auto) Eos # (Auto) Baso # (Auto) Abs Immat Gran (auto) Absolute Neuts (auto) Absolute Nucleated RBC (0.0-0.012) X10*3/uL Nucleated RBC % (auto) (0.0-0.2) /100WBC Neutrophils % (Manual) (45-73) % Band Neutrophils % (3-5) % Lymphocytes % (Manual) (20-40) % Atypical Lymphs % (Man) (0-6) % Monocytes % (Manual) (2-11) % Metamyelocytes % % Abs Neuts (Manual) (2.0-8.3) X10*3/uL Lymphocytes # (Manual) (1.2-4.9) X10*3/uL Atyp Lymphs # (Manual) x10*3/uL Monocytes # (Manual) (0.1-1.2) X10*3/uL Metamyelocytes # X10*3/uL Toxic Granulation Toxic Vacuolation Dohle Bodies Platelet Estimate (NORMAL) Large Platelets Plt Morphology Comment RBC Morphology Macrocytosis /OIF Christy Cells /OIF Schistocytes /OIF PT (10.9-12.4) SEC INR (0.9-1.1) Sodium (135-145) mmol/L Potassium (3.3-5.1) mmol/L Chloride (96-108) mmol/L Carbon Dioxide (22-29) mmol/L Anion Gap (12-20) BUN (9-16) mg/dL Creatinine (0.5-1.4) mg/dL Estim Creat Clear Calc Estimated GFR POC Glucose 155 H (60-115) mg/dL Random Glucose (60-115) mg/dL Lactic Acid (0.5-2.0) mmol/L Lactic Acid F/U @ 2Hr (0.5-2.0) mmol/L Calcium (8.4-10.2) mg/dL Magnesium (1.6-2.6) mg/dL Total Bilirubin (0.0-1.0) mg/dL AST (5-31) U/L ALT (0-31) U/L Alkaline Phosphatase (39-117) U/L NT-Pro-B Natriuret Pep (<300) pg/mL Total Protein (6.5-8.0) g/dL Albumin (3.5-5.0) g/dL TSH (0.32-4.0) uIU/mL Free T4 (0.71-1.85) ng/dL Stl C. cayetanensis PCR (Not Detect.) Stool Rotavirus A PCR (Not Detect.) Stl Adenov F 40/41 PCR (Not Detect.) Stool Astrovirus (PCR) (Not Detect.) Stool Campylobacter PCR (Not Detect.) Stool Cryptosporidium PCR (Not Detect.) Stl Sh Tox Pr E STEC PCR (Not Detect.) Stool E coli O157 PCR (Not Detect.) Stl Enterotoxigenic E PCR (Not Detect.) Stool EPEC (PCR) (Not Detect.) Stool EAEC (PCR) (Not Detect.) Stl E. histolytica PCR (Not Detect.) Stool Giardia Lamblia PCR (Not Detect.) Stl P. shigelloides PCR (Not Detect.) Stool Salmonella PCR (Not Detect.) Stool Sapovirus (PCR) (Not Detect.) Stl Shigella/EIEC PCR (Not Detect.) St Y.enterocolitica PCR (Not Detect.) Stool Vibrio (PCR) (Not Detect.) Stl Vibrio cholerae PCR (Not Detect.) Stl Norovirus GI/GII PCR (Not Detect.) C. difficile Tox B Gene (Negative) C. difficile Toxin A&B (Negative) C. difficile Interpret COVID-19 (LEONIDAS) (Negative) COVID-19 Clin Com Influenza Type A (URBAN) (Negative) Influenza Type B ([facility]AN) (Negative) Influenza A & B Note Independent Interpretation I performed an independent interpretation of an: Plain X-Ray and CT Scan Interpretation: My interpretation is in agreement with the radiologist's impression of these imaging studies. L Reason for Exam: AMS EXAMINATION: XR CHEST CLINICAL INFORMATION: AMS COMPARISON: 05/17/2025 x-ray and CT exam. TECHNIQUE: Frontal view of the chest was obtained. FINDINGS: The cardiac, hilar, and mediastinal contours are normal. Aortic mural calcifications. Lungs are mildly hyperaerated and hyperlucent. Calcified pleural plaque along the right margin of the spine. Lungs otherwise grossly clear. Previously seen nodular opacities have improved significantly. No pneumothorax or effusion. No focal osseous or soft tissue abnormality. Degenerative changes of both shoulder joints. Scoliosis and degenerative changes of the spine. XR/XR chest 1V IMPRESSION: 1. COPD. No definite active superimposed disease. Electronically signed by: Cm Galarza MD 06/18/2025 02:06 PM EDT RP Dictated By: Cm Galarza MD Signed By: Electronically signed by Cm Galarza MD 06/18/25 1406 Report Number: [id number]: Total DLP = 606.00 mGy-cm Reason for Exam: AMS EXAMINATION: CT HEAD WITHOUT CONTRAST CLINICAL INFORMATION: AMS COMPARISON: May 17, 2025 TECHNIQUE: Contiguous axial imaging was performed from the skull base to vertex without intravenous administration of contrast. This CT examination was performed using dose optimization techniques as appropriate, variously including the following: *Automated exposure control *Adjustment of mA and/or kV according to patient size (this includes techniques or standardized protocols for targeted exams where dose is matched to indication/reason for exam; i.e. extremities or head) *Use of iterative reconstruction technique DLP: 606 mGy-cm FINDINGS: Patient's motion artifact. Bilateral multifocal patchy and confluent deep periventricular subcortical white matter hypodensities involving centrum semiovale and beatty radiata. Focal macrocystic encephalomalacia, right lingual gyrus and right cuneus. Old lacunar infarcts, cerebellar hemispheres, basal ganglia and extracapsular. Jhonson-white matter differentiation is normal. Calcified plaques in the cavernous supracavernous segments both ICAs and V4 segments of the vertebral arteries and within the basilar artery. Sellar/suprasellar region demonstrated no gross masses. Endocervical junction is intact with normal position of the cerebellar tonsils. Partially calcified pannus formation in the periodontal C1 region. Small trace air-fluid levels in the sphenoid sinus. Tympanic cavities and mastoid cells are aerated. CT/CT head/brain wo IV con IMPRESSION: No acute intracranial hemorrhage. Extensive white matter disease likely related to small vessel occlusive disease. 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 Superimposed acute stroke cannot be excluded. Electronically signed by: Lamine Mittal MD 06/18/2025 02:29 PM EDT RP Dictated By: Lamine Sheppard MD Signed By: Electronically signed by Lamine Smith MD 06/18/25 1429 I independently interpreted this EKG and am in agreement with the below findings: Vent. Rate: 107 BPM Atrial Rate: 107 BPM P-R Int: 148 ms QRS Dur: 140 ms QT Int: 392 ms P-R-T Axes: 87 80 62 degrees QTcB Int: 523 ms Sinus tachycardia with occasional Premature ventricular complexes Biatrial enlargement Right bundle branch block Inferior infarct, age undetermined When compared with ECG of 17-May-2025 10:39, Premature ventricular complexes are now Present ST more depressed Anterior leads Referred By: Danita Urban Electronically Signed By: AVNI HOOKER MD Dictated By: Avni Hooker MD Signed By: Electronically signed by Avni Hooker MD 06/18/25 1513 Radiology Impression Discussion of test interpretation with radiology: I have reviewed the radiologist's reading. Independent Historian Clinical information obtained from an independent historian. History obtained from or confirmed by: EMS (EMS provided additional history and confirmed the history provided by the patient. ) Critical Care Time Critical Care Time Critical Care Time: Yes Total Critical Care Time: 48 Attestation: I spent 48 minutes of Critical Care Time with this patient. This does not include time spent on separately reported billable procedures. Discharge Plan Discharge Clinical Impression: Acute UTI, Bandemia, Acute hypokalemia Patient Disposition: Admitted As Inpatient Interventions: Admission Worksheet (ED) Last Done: 06/19/25 11:16 Discharge Date/Time: 06/19/25 12:50
--- NOTE | 2025-06-18 13:22 | ECG_ITS ---
Test Reason : AMS Blood Pressure : */* mmHG Vent. Rate : 107 BPM Atrial Rate : 107 BPM P-R Int : 148 ms QRS Dur : 140 ms QT Int : 392 ms P-R-T Axes : 87 80 62 degrees QTcB Int : 523 ms Sinus tachycardia with occasional Premature ventricular complexes Biatrial enlargement Right bundle branch block Inferior infarct , age undetermined Abnormal ECG When compared with ECG of 17-May-2025 10:39, Premature ventricular complexes are now Present ST more depressed Anterior leads Referred By: Danita Urban Electronically Signed By: DESIREE MONTENEGOR MD
[2025-06-18 14:25] LABS: Hematocrit 37.4 % (37.0-47.0); Hemoglobin 12.3 g/dl (12.0-16.0); Mean Corpuscular HGB Conc 32.9 g/dl (31.0-35.0); Mean Corpuscular Hemoglobin 32.8 pg (27.0-33.0); Mean Corpuscular Volume 99.7 fL (80.0-98.0); NRBC Abs Auto 0.000 X10*3/uL (0.0-0.012); NRBC Pct Auto 0.0 /100WBC (0.0-0.2); Platelet Count 288 X10*3/uL (160-400); Red Blood Count 3.75 X10*6/uL (4.20-5.50); White Blood Count 20.5 X10*3/uL (4.8-10.8)
[2025-06-18 14:36] LABS: INTERNATIONAL NORM RATIO 1.5 (0.9-1.1); Prothrombin Time 17.3 SEC (10.9-12.4)
[2025-06-18 14:39] LABS: COVID-19 Test Negative (Negative); IDNOW Serial# 58CA691E
[2025-06-18 14:41] LABS: Alanine Aminotransferase 11 U/L (0-31); Albumin Level 3.6 g/dL (3.5-5.0); Alkaline Phosphatase 62 U/L (39-117); Anion Gap 13 (12-20); Aspartate Amino Transferase 37 U/L (5-31); Blood Urea Nitrogen 10 mg/dL (9-16); Calcium 9.0 mg/dL (8.4-10.2); Carbon Dioxide 30 mmol/L (22-29); Chloride 95 mmol/L (96-108); Creatinine Clr Calc Pharmacy 63.5; Estimated Glomerular Filt Rate > 60; Magnesium 1.6 mg/dL (1.6-2.6); Potassium 2.9 mmol/L (3.3-5.1); Sodium 135 mmol/L (135-145); Total Protein 7.1 g/dL (6.5-8.0)
[2025-06-18 14:42] LABS: IDNOW Serial# 55D5AD1C; Influenza B2 Negative (Negative)
[2025-06-18 15:11] LABS: Neutrophils Percent Manual 74 % (45-73)
[2025-06-18 15:13] LABS: Band Neutrophils Percent 15 % (3-5); Lymphocytes Absolute Manual 1.0 X10*3/uL (1.2-4.9); Lymphocytes Percent Manual 5 % (20-40); Metamyelocytes Absolute 0.4 X10*3/uL; Metamyelocytes Percent 2 %; Monocytes Absolute Manual 0.8 X10*3/uL (0.1-1.2); Monocytes Percent Manual 4 % (2-11); Neutrophils Absolute Manual 18.2 X10*3/uL (2.0-8.3)
[2025-06-18 15:14] LABS: RBC Morphology NOTED; Schistocytes 1+ (0-2) /OIF
[2025-06-18 15:15] LABS: Dohle Bodies PRESENT; Large Platelet PRESENT; Toxic Vacuolation PRESENT
[2025-06-18] MEDS: Potassium Chloride/H20 10 MEQ/100 ML PIGGYBACK 100 MEQ IV ×4 (15:27→20:14)
--- NOTE | 2025-06-18 15:48 | MHC.CM.ED ---
Patient currently in ER. Received notifcation from Gwendolyn BRYANT that patient was admitted to their service over the weekend. Return referral made in [facility] so they can follow for d/c needs.
--- NOTE | 2025-06-18 16:11 | PHA.MEDREC ---
Pharmacy Consult ? Medication Reconciliation Pharmacy has completed the medication reconciliation.Med rec complete, utilized list from Gwendolyn BRYANT
[2025-06-18 17:14] LABS: Free T4 (Free Thyroxine) 1.14 ng/dL (0.71-1.85)
[2025-06-18 17:19] LABS: Reflex Lactate? Lactic Acid Added
--- NOTE | 2025-06-18 17:21 | PM.IMHP ---
History of Present Illness Date of Service: 06/18/25 Chief Complaint: Altered mental status per VNA Patient is a 80-year-old female with PMH notable for adult failure to thrive, recent UTI, recurrent falls, dementia, incident to Kyrie (pulmonary nodule), hypothyroidism, chronic anemia, B12 deficiency, osteoporosis, macular degeneration was brought in by ambulance when her VNA noticed that she was more confused than her usual and given her recent admission a month ago for a UTI, transferred her to the ED for further workup. Patient was quite weak, somnolent and unable to provide history given her baseline dementia and I was unable to reach the VNA for more history and patient lives alone. Hence history and physical is mainly from imaging and prior notes. Patient spiked a fever of 102.9 while in the ED. Patient receiving sepsis workup and antibiotics ceftriaxone and vancomycin. Labs notable for leukocytosis, venous lactate, altered mental status, elevated proBNP PMFSH Medical History Bronchiectasis Cavitary lesion of lung Acute diarrhea Right leg pain Polyarthralgia Osteoporosis Hypothyroidism Hypovitaminosis D Essential hypertension Family History Father CHF (congestive heart failure) Liver cirrhosis Mother Stroke Surgical History History of cataract surgery History of colonoscopy History of tubal ligation Social History Household Members: None Housing: Apartment Do you presently have visiting nurse or other home services: No Alcohol intake: former Patient Tobacco Use Status: Former Tobacco user e-Cigarette/Vaping Use: Never Used Second Hand Smoke Exposure: No Advance Directives: Yes Advance Directives on File: Yes Advance Directives Date on File: 05/23/25 Do you have a plan to hurt others: No Plan service: No Current occupational status: retired Gender identity: Female Cognitive needs: Yes (cane) Hearing needs: No Vision needs: Yes (reading glasses) Meds Allergies Allergy/AdvReac Type Severity Reaction Status Date / Time Penicillins (PENICILLINS) Allergy Intermediate CANKER Verified 06/18/25 13:17 SORES cephalexin AdvReac Mild Didn't work Verified 06/18/25 13:17 Active Medications: Current Medications Potassium Chloride (Potassium Chloride/H20) 10 meq in 100 mls @ 100 mls/hr IV Q1H JOY Stop: 06/18/25 18:44 Last Admin: 06/18/25 17:11 Dose: 100 mls/hr Home Medications ?Medication ?Instructions ?Recorded ?Confirmed ?Last Taken ?Type levothyroxine 100 mcg tablet 100 mcg PO DAILY@0600 06/18/25 06/18/25 Unknown History potassium chloride 20 mEq 20 meq PO DAILY 06/18/25 06/18/25 Unknown History tablet,extended release Physical Exam Vital Signs and Narrative: Vital Signs: Last Vital Signs Pulse 113 H 06/18/25 13:13 Resp 17 06/18/25 13:13 BP 146/66 H 06/18/25 13:13 Pulse Ox 97 06/18/25 13:13 O2 Del Method Room Air 06/18/25 13:13 BMI result Body Mass Index 22.3 General: AOx0, frail elderly woman who appears quite pale and somnolent Resp: CTA bilaterally CVS: S1, S2, RRR GI: Sluggish bowel sounds Skin: Could not examine as the patient was wincing in pain Neuro:Motor grossly intact bilaterally Results Labs 06/18/25 14:13 06/18/25 14:13 Labs: Laboratory Results - last 24 hr 06/18/25 06/18/25 14:13 15:13 MCV 99.7 H MCH 32.8 MCHC 32.9 RDW 13.7 Plt Count 288 D MPV 9.4 Immature Gran % (Auto) Cancelled Neut % (Auto) Cancelled Lymph % (Auto) Cancelled [place] % (Auto) Cancelled Eos % (Auto) Cancelled Baso % (Auto) Cancelled Lymph # (Auto) Cancelled [place] # (Auto) Cancelled Eos # (Auto) Cancelled Baso # (Auto) Cancelled Abs Immat Gran (auto) Cancelled Absolute Neuts (auto) Cancelled Absolute Nucleated RBC 0.000 Nucleated RBC % (auto) 0.0 Neutrophils % (Manual) 74 H Band Neutrophils % 15 H Lymphocytes % (Manual) 5 L Monocytes % (Manual) 4 Metamyelocytes % 2 Abs Neuts (Manual) 18.2 H Lymphocytes # (Manual) 1.0 L Monocytes # (Manual) 0.8 Metamyelocytes # 0.4 Toxic Vacuolation PRESENT Dohle Bodies PRESENT Platelet Estimate NORMAL Large Platelets PRESENT Plt Morphology Comment NOTED RBC Morphology NOTED Schistocytes 1+ (0-2) PT 17.3 H INR 1.5 H Anion Gap 13 Estim Creat Clear Calc 63.5 Estimated GFR > 60 Random Glucose 136 H Lactic Acid 2.5 H* Calcium 9.0 Magnesium 1.6 Total Bilirubin 1.0 AST 37 H ALT 11 Alkaline Phosphatase 62 Total Protein 7.1 Albumin 3.6 TSH 5.18 H Free T4 1.14 COVID-19 (LEONIDAS) Negative COVID-19 Clin Com See Note Influenza Type A (URBAN) Negative Influenza Type B (URBAN) Negative Influenza A & B Note See Note Imaging Radiologist's Impressions: Impressions Chest X-Ray 06/18/25 13:40 IMPRESSION: 1. COPD. No definite active superimposed disease. Electronically signed by: Cm Galarza MD 06/18/2025 02:06 PM EDT RP Head CT 06/18/25 13:59 IMPRESSION: No acute intracranial hemorrhage. Extensive white matter disease likely related to small vessel occlusive disease. Sequela of right DISABILITIES CAREGIVER infarct. Superimposed acute stroke cannot be excluded. Electronically signed by: Lamine Mittal MD 06/18/2025 02:29 PM EDT RP Assessment and Plan (1) AMS (altered mental status): Status: Acute Plan 80-year-old female with a history of dementia , pulm nodule (incidentaloma),hypothyroidism, chronic anemia,, B12 deficiency, osteoporosis, macular degeneration BIBA 2/2 unwitnessed fall s/p significant deconditioning who was recently admitted a month ago for fall and was noted to have UTI and was discharged to a SNF. A VNA noted her to be significantly altered compared to her baseline and brought her to the ED. Workup revealed sepsis most likely etiology UTI (patient unable to give any history) Acute AMS likely Sepsis likely UTI plus deconditioning secondary to frailty in elderly with falls We will treat her with ceftriaxone and vancomycin We will follow sepsis workup Fluids per sepsis protocol given lactic acid normalized in the ED Hypothyroidism-TSH slightly elevated , likely euthyroid sick syndrome. 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 While every effort has been made to ensure accuracy, top cager errors may have been included. Quality Stroke Does the patient have a stroke diagnosis?: No VTE Prior VTE?: No VTE Risk Level:: Medical - moderate - high VTE Device Contraindication: N/A - Device Ordered VTE Drug Contraindication: N/A - Med Ordered
[2025-06-18 18:05] LABS: ~Lactic Acid-LAB USE ONLY 1.7 mmol/L (0.5-2.0)
[2025-06-18 18:06] LABS: Magnesium 1.9 mg/dL (1.6-2.6)
[2025-06-18 18:13] LABS: NT Pro B Type Natriuretic Pept 971.1 pg/mL (<300)
[2025-06-18 18:21] VITALS: BP 120/54; PULSE 108; RESP 20; TEMP 39.3; O2SAT 94
[2025-06-18] MEDS: 0.9 % Sodium Chloride 1,769.01 ML 1769.01 ML IV (18:32)
--- OUTSIDE RECORDS SUMMARY | 2025-06-18 19:09 | XMS_ITS | Patient Health Record ---
[facility] [place] Address [address] [place] [address] Care Team Providers Care Roll Wrapper Name Role Phone Gomez CLARK, Ashley Primary Care Provider Unavail Lesly Roe Unavailable [phone] Allergies Allergen (clinical drug ingredient) Drug/Non Drug Allergy documented on EMR Reaction Allergy Type Onset Date Status erythromycin Erythromycin does not work Drug Allergy Active Penicillin break out in mouth Drug Allergy Active Reason For Referral No Information Medications Medication SIG (Take, Route, Frequency, Duration) Notes Start Date End Date Status Melatonin 5 MG 1 tablet in the evening Orally Once a day; Duration: 30 day(s) Active Gabapentin 300 MG 1 capsule Orally Once a day; Duration: 30 day(s) Active Vitamin D3 50 MCG (2000 UT) 1 capsule Orally Once a day; Duration: 30 day(s) every other day Active Folic Acid Active Neuriva Plus Active Ferrous Sulfate 325 (65 Fe) MG 1 tablet Orally Three times a Week; Duration: 30 day(s) Active Acetaminophen prn Active Metoprolol Succinate 25 MG 1 capsule Orally Once a day; Duration: 30 day(s) Active Levothyroxine Sodium 88 MCG 1 tablet in the morning on an empty stomach Orally Once a day; Duration: 30 day(s) Active Prolia every 6 months [...] Are you an other tobacco user? No Encounters Encounter Location Date Provider [facility] [address] [place] [address] 09/26/2024 Lesly Srinivasan Plan Of Treatment No Information Insurance Providers Payer Name Payer Address Payer Phone Subscriber Number Group Number Insured Name Patient Relationship to Insured Coverage Start Date Coverage End Date [employer] Medicare Complete [address] [address] [place] [address] [id number] Merlyn Wong Self - patient is the insured Medical (General) History Medical History History ICD Code Anemia Back,Hip,and Knee pain Osteoporosis Psoriasis/eczema Rheumatic fever thyroid Measles Surgical History Surgery Date(Month/Year) mohs surgery 07/21/22
--- OUTSIDE RECORDS SUMMARY | 2025-06-18 19:09 | XMS_ITS | Clinical Summary ---
Author Organization [facility] Address [address] [place] [id number] Phone Care Team Providers Care Alternative Education Teacher Name Role Phone Manav Barrera MD Primary Care Provider [phone] Encounters Date Type Department Care Team Description 06/12/2025 10:45 AM EDT - 06/12/2025 11:59 PM EDT Hospital Encounter [facility] Laboratory [address] [place] [phone] Taylor Jimenez MD Discharge Disposition: Home or Self Care 06/04/2025 9:01 AM EDT - 06/04/2025 11:59 PM EDT Hospital Encounter [facility] Laboratory [address] [place] [phone] Taylor Jimenez MD Discharge Disposition: Home or Self Care 06/04/2025 Transcribe Orders [facility] Specimen Processing [address] [place] [address] Taylor Jimenez MD Non-traumatic rhabdomyolysis (Primary Dx); Avitaminosis D; Anemia, unspecified type; Essential hypertension, malignant 05/31/2025 8:34 AM EDT - 05/31/2025 11:59 PM EDT Hospital Encounter [facility] Laboratory [address] [place] [phone] Taylor Jimenez MD Discharge Disposition: Home or Self Care 05/30/2025 4:40 PM EDT - 05/30/2025 11:59 PM EDT Hospital Encounter [facility] Laboratory [address] [place] [phone] Taylor Jimenez MD Discharge Disposition: Home or Self Care 05/30/2025 8:01 AM EDT - 05/30/2025 4:39 PM EDT Hospital Encounter [facility] Laboratory [address] [place] [phone] Taylor Jimenez MD Discharge Disposition: Home or Self Care 05/30/2025 Transcribe Orders [facility] Specimen Processing [address] [place] [address] Taylor Jimenez MD Altered mental status, unspecified altered mental status type (Primary Dx) 05/30/2025 Transcribe Orders [facility] Specimen Processing [address] [place] [address] Taylor Jimenez MD Loose stools (Primary Dx) 05/29/2025 9:20 AM EDT - 05/29/2025 11:59 PM EDT Hospital Encounter [facility] Laboratory [address] [place] [address] Taylor Jimenez MD Discharge Disposition: Home or Self Care 05/29/2025 Transcribe Orders [facility] Specimen Processing [address] [place] [address] Taylor Jimenez MD Septicemia during labor (Primary Dx); Essential hypertension, malignant; Anemia, unspecified type 05/28/2025 8:26 AM EDT - 05/28/2025 11:59 PM EDT Hospital Encounter [facility] Laboratory [address] [place] [address] Taylor Jimenez MD Discharge Disposition: Home or Self Care 05/28/2025 Transcribe Orders [facility] Specimen Processing [address] [place] [address] Taylor Jimenez MD Illness (Primary Dx) 05/25/2025 12:41 PM EDT - 05/25/2025 11:59 PM EDT Hospital Encounter [facility] Laboratory [address] [place] [phone] Luis Harrington MD Discharge Disposition: Home or Self Care 05/25/2025 Transcribe Orders [facility] Specimen Processing [address] [place] [address] Luis Harrington MD Illness (Primary Dx) from Last 3 Months Social History Tobacco Use Types Packs/Day Years [...] on file Sexual Orientation Not on file Last Filed Vital Signs Vital Sign Reading Time Taken Comments Blood Pressure 138/66 05/08/2013 9:13 AM EDT Pulse 72 05/08/2013 9:13 AM EDT Temperature - - Respiratory Rate - - Oxygen Saturation - - Inhaled Oxygen Concentration - - Weight 50.2 kg (110 lb 9.6 oz) 05/08/2013 9:13 A M EDT Height 157.5 cm (5' 2 ) 05/08/2013 9:13 AM EDT Body Mass Index 20.23 05/08/2013 9:13 AM EDT Plan of Treatment Not on file Medical Devices Not on file Procedures Procedure Name Priority Date/Time Associated Diagnosis Comments BASIC METABOLIC PANEL Routine 06/12/2025 8:12 AM EDT Septicemia during labor Hypopotassemia Essential hypertension, malignant CBC Routine 06/12/2025 8:12 AM EDT Septicemia during labor Hypopotassemia Essential hypertension, malignant BASIC METABOLIC PANEL Routine 06/04/2025 8:20 AM EDT Non-traumatic rhabdomyolysis Avitaminosis D Anemia, unspecified type Essential hypertension, malignant CBC Routine 06/04/2025 8:20 AM EDT Non-traumatic rhabdomyolysis Avitaminosis D Anemia, unspecified type Essential hypertension, malignant BASIC METABOLIC PANEL Routine 05/31/2025 6:52 AM EDT Septicemic Myxedema heart disease CBC Routine 05/31/2025 6:52 AM EDT Septicemic Myxedema heart disease URINE SEDIMENT Routine 05/30/2025 10:25 AM EDT URINALYSIS W/REFLEX URINE CULTURE Routine 05/30/2025 10:25 AM EDT Altered mental status, unspecified altered mental status type C. DIFFICILE ANTIGEN/TOXIN ASSAY Routine 05/30/2025 10:25 AM EDT URINE CULTURE Routine 05/30/2025 10:25 AM EDT C. DIFFICILE PCR Routine 05/30/2025 10:2 5 AM EDT Loose stools CBC AND DIFFERENTIAL Routine 05/30/2025 7:09 AM EDT Septicemia during labor Anemia, unspecified type BASIC METABOLIC PANEL Routine 05/29/2025 6:32 AM EDT Septicemia during labor Essential hypertension, malignant Anemia, unspecified type CBC Routine 05/29/2025 6:32 AM EDT Septicemia during labor Essential hypertension, malignant Anemia, unspecified type BASIC METABOLIC PANEL Routine 05/28/2025 5:50 AM EDT Illness CBC Routine 05/28/2025 5:50 AM EDT Illness MAGNESIUM STAT 05/25/2025 8:22 PM EDT Illness BASIC METABOLIC PANEL STAT 05/25/2025 8:22 PM EDT Illness TSH STAT 05/25/2025 8:22 PM EDT Illness from Last 3 Months Results * (ABNORMAL) CBC (06/12/2025 8:12 AM EDT) Only the most recent of5 resultswithin the time period is included. WBC 7.79 4.00 - 11.00 K/uL [facility] RBC 3.86(L) 4.00 - 5.20 M/uL [facility] HGB 12.6 12.0 - 16.0 g/dL [facility] HCT 39.9 36.0 - 46.0 % [facility] PLT 365 150 - 450 K/uL [facility] MCV 103.4(H) 80.0 - 100.0 fL [facility] MCH 32.6(H) 27.0 - 31.0 pg [facility] MCHC 31.6(L) 32.0 - 36.0 g/dL [facility] RDW 13.4 11.5 - 14.5 % [facility] MPV 9.1 8.4 - 12.0 fL [facility] NRBC 0.00 0.00 /100 WBCs [facility] ABSOLUTE NRBC 0.00 0.00 K/uL [facility] 06/12/2025 8:12 AM EDT 06/12/2025 11:02 AM EDT us Taylor Jimenez MD LAB BLOOD ORDERABLES Final Res ult [address] [address] * (ABNORMAL) Basic metabolic panel (06/12/2025 8:12 AM EDT) Only the most recent of6 resultswithin the time period is included. SODIUM 139 133 - 146 mmol/L [facility] CHLORIDE 97 96 - 108 mmol/L [facility] POTASSIUM 4.2 3.3 - 5.1 mmol/L [facility] CO2 31 21 - 35 mmol/L [facility] BUN 8 6 - 19 mg/dL [facility] CREATININE 0.40(L) 0.5 - 1.5 mg/dL [facility] GLUCOSE 76 70 - 99 mg/dL [facility] CALCIUM 9.6 8.4 - 10.3 mg/dL [facility] EGFR 101 >59 mL/min/1.7 3m2 [facility] Comment:Estimated glomerular filtration rate calculated using the CKD-EPI refit equation. ANION GAP 15 10 - 20 mmol/L [facility] 06/12/2025 8:12 AM EDT 06/12/2025 11:02 AM EDT Taylor Jimenez MD LAB BLOOD ORDERABLES Final Res ult Performing Organization Address [facility] Co de Phone Number [address] [address] * (ABNORMAL) Urinalysis w/reflex Urine Culture (05/30/2025 10:25 AM EDT) COLOR Yellow Yellow [facility] CLARITY CLOUDY [facility] GLUCOSE Negative Negative [facility] BILI Negative Negative [facility] KETONES Negative Negative [facility] SPECIFIC GRAVITY 1.015 1.005 - 1.030 [facility] BLOOD Trace(A) Negative [facility] PH 6.0 5.0 - 8.0 [facility] Protein-UA 1+(A) Negative [facility] NITRITE Positive(A) Negative [facility] Leukocyte esterase, ur 1+(A) Negative [facility] Urine 05/30/2025 10:2 5 AM EDT 05/30/2025 4:54 PM EDT Taylor Jimenez MD URINE ORDERABLES Final Result Performing Organization Address [facility] Co de Phone Number [address] [address] * (ABNORMAL) Urine Culture (05/30/2025 10:25 AM EDT) Special Requests None Reflexed from [id number] 05/30/2025 6:32 PM EDT [facility] Urine Culture >100,000 colony forming units per mL KLEBSIELLA PNEUMONIAE(A) 06/01/2025 12:25 PM EDT [facility] Urine 05/30/2025 10:2 5 AM EDT 05/30/2025 4:54 PM EDT Narrative Organism Antibiotic Method Susceptibility Klebsiella pneumoniae Ampicillin SHANNEN METHOD >=32: Resistant Klebsiella pneumoniae Ampicillin + Sulbactam SHANNEN METHO D 16: Intermediate Klebsiella pneumoniae Cefepime SHANNEN METHOD <=0.12: Susceptible Klebsiella pneumoniae Ceftazidime SHANNEN METHOD <=0.5: Susceptible Klebsiella pneumoniae Ceftriaxone SHANNEN METHOD <=0.25: Susceptible Klebsiella pneumoniae Ciprofloxacin SHANNEN METHOD <=0.06: Susceptible Klebsiella pneumoniae Extended Spectrum B-lactamase CT C METHOD Negative Klebsiella pneumoniae Gentamicin SHANNEN METHOD <=1: Susceptible Klebsiella pneumoniae Levofloxacin SHANNEN METHOD <=0.12: Susceptible Klebsiella pneumoniae Nitrofurantoin SHANNEN METHOD 64: Intermediate Klebsiella pneumoniae Piperacillin-tazobactam SHANNEN METH OD <=4: Susceptible Klebsiella pneumoniae Trimethoprim/sulfamethoxazole CT C METHOD <=20: Susceptible Klebsiella pneumoniae Cefazolin(urine) SHANNEN METHOD 4: Susceptible Comment: us Taylor Jimenez MD MICROBIOLOGY - GENERAL ORDERAB LES Final Result Performing Organization Address [facility] de Phone Number [address] [address] * (ABNORMAL) Urine sediment (05/30/2025 10:25 AM EDT) WBC 50-100(A) NONE SEEN /hpf [facility] RBC 0-2(A) NONE SEEN /hpf [facility] URINE EPITHELIAL NONE SEEN NONE SEEN [facility] MUCUS Trace(A) NONE SEEN /hpf [facility] BACTERIA 3+(A) NONE SEEN /hpf [facility] 05/30/2025 10:2 5 AM EDT 05/30/2025 4:54 PM EDT us Taylor Jimenez MD URINE ORDERABLES Final Result Performing Organization Address [facility] de Phone Number [address] [address] * (ABNORMAL) C. DIFFICILE PCR (05/30/2025 10:25 AM EDT) C.DIFFICILE PCR Positive(A) Negative [facility] Comment:C.difficile gene was detected. C.difficile toxin assay has been reflexed. See separate report. C.DIFFICILE STRAIN Presumptive Positive(A) PRESUMPTIVE NEGATIVE [facility] Comment:Detection of 027/NAP 1/BI strains of C.difficile is presumptive and is solely for epidemiological purposes and is not intended to guide or monitor treatment of infections. Stool 05/30/2025 10:2 5 AM EDT 05/30/2025 4:52 PM EDT Taylor Jimenez MD MICROBIOLOGY - GENERAL ORDERAB LES Final Result Performing Organization Address [facility] Co de Phone Number [address] [address] * (ABNORMAL) Clostridioides (Clostridium) difficile Antigen/Toxin Assay (05/30/2025 10:25 AM EDT) C. diff GDH Positive(A) Negative [facility] C. DIFFICILE TOXIN POSITIVE for Clostridium difficile toxin.(A) NEGATIVE for Clostridium difficile toxin. [facility] 05/30/2025 10:2 5 AM EDT 05/30/2025 4:52 PM EDT Taylor Jimenez MD MICROBIOLOGY - GENERAL ORDERAB LES Final Result Performing Organization Address [facility] Co de Phone Number [address] [address] * (ABNORMAL) CBC and differential (05/30/2025 7:09 AM EDT) WBC 27.29(H) 4.00 - 11.00 K/uL [facility] RBC 3.65(L) 4.00 - 5.20 M/uL [facility] HGB 12.0 12.0 - 16.0 g/dL [facility] HCT 39.0 36.0 - 46.0 % [facility] PLT 273 150 - 450 K/uL [facility] MCV 106.8(H) 80.0 - 100.0 fL [facility] MCH 32.9(H) 27.0 - 31.0 pg [facility] MCHC 30.8(L) 32.0 - 36.0 g/dL [facility] RDW 13.2 11.5 - 14.5 % [facility] MPV 10.1 8.4 - 12.0 [facility] NRBC 0.00 0.00 /100 WBCs [facility] ABSOLUTE NRBC 0.00 0.00 K/uL [facility] DIFF METHOD Manual [facility] TOTAL CELLS COUNTED 100 [facility] NEUTS 83.0(H) 48.0 - 76.0 % [facility] BANDS 7.0 0 - 10 % [facility] LYMPHS 6.0(L) 18.0 - 41.0 % [facility] MONOS 4.0 4.0 - 11.0 % [facility] Blood 05/30/2025 7:09 AM EDT 05/30/2025 8:46 AM EDT us Taylor Jimenez MD LAB BLOOD ORDERABLES Final Res ult Performing Organization Address [facility] Co de Phone Number [address] [address] * (ABNORMAL) TSH (05/25/2025 8:22 PM EDT) TSH 22.40(H) 0.27 - 4.20 uIU/mL [facility] Blood 05/25/2025 8:22 PM EDT 05/25/2025 8:25 PM EDT us Luis Harrington MD LAB BLOOD ORDERABLES Final Resul t Performing Organization Address [facility] Co de Phone Number [address] [address] * Magnesium (05/25/2025 8:22 PM EDT) MAGNESIUM 1.8 1.6 - 2.6 mg/dL [facility] Blood 05/25/2025 8:22 PM EDT 05/25/2025 8:25 PM EDT us Luis Harrington MD LAB BLOOD ORDERABLES Final Resul t Performing Organization Address [facility] Co de Phone Number [address] [address] from Last 3 Months Additional Health Concerns Infection Onset Date Last Indicated C. diff 05/30/2025 05/30/2025 Insurance [facility] MEDICARE REPLACEMENT [id number] [place] [id number] [facility] MEDICARE REPLACEMENT [facility] MEDICARE REPLACEMENT [place] [id number] [facility] MEDICARE REPLACEMENT [facility] MEDICARE REPLACEMENT [facility] MEDICARE REPLACEMENT Care Teams Alternative Education Teacher Relationship Specialty Start Date End Date Manav Barrera MD [address] [place] [address] PCP - General 05/25/25 Additional Source Comments The information contained in this document represents components of the legal health record. It is not the complete legal health record.[facility]
--- NOTE | 2025-06-18 19:20 | PC.NURSE ---
Assumed care of patient at 1915. Pt laying in stretcher, alert and oriented to person and place. Breathing unlabored. Plan of care on going.
[2025-06-18 19:25] VITALS: BP 102/54; PULSE 102; RESP 20; TEMP 36.9
[2025-06-18 20:29] VITALS: TEMP 37.9
[2025-06-18 21:07] VITALS: BP 102/51; PULSE 107; RESP 20; O2SAT 96
--- NOTE | 2025-06-18 21:21 | PHA.PROG ---
Admission Date/Time: June 18, 2025 17:22 Indication: SEPSIS Weight in k.967 kg Serum Creatinine - Last 168 Hours 06/18/25 14:13 Creatinine 0.63 Estimated CrCl and GFR - Last 168 Hours 06/18/25 14:13 Estim Creat Clear Calc 63.5 Estimated GFR > 60 Vancomycin Loading Dose: 1500 Current Vancomycin Dosing Regimen: 750 Q 12H Vancomycin Monitoring using AUC goal of 400 - 600 range with trough as surrogate marker: 518 Date and Time for next Vancomycin Level to be drawn: 06/20 @ 0700 Pharmacist Comments on Vancomycin Plan: Vancomycin dosing will take advantage of [employer] as a clinical decision support tool that uses Bayesian modeling to calculate individual patient's pharmacokinetic parameters and forecast the patient's drug concentration time course with the target goal AUC 24 range of 400 - 600 mg/L/hr.
[2025-06-18 21:30] VITALS: BP 102/47; PULSE 105; RESP 22; O2SAT 95
[2025-06-18 21:44] LABS: Glucose, Whole Blood 133 mg/dL (60-115)
[2025-06-19] VITALS (9 sets, daily range): BP systolic 96–156; BP diastolic 54–83; PULSE 58–117; RESP 16–22; TEMP 36.6–38.4; O2SAT 92–96
--- NOTE | 2025-06-19 00:37 | PC.NURSE ---
Pt found to have an episode of diarrhea, pt was cleaned and bed linens changed. Also noted to have rectal temp of 101.1 F, Pt medicated with Tylenol for fever as charted.
--- NOTE | 2025-06-19 00:45 | PC.NURSE ---
Pt coccyx area noted to be reddened, pt repositioned on to her right side with pillow.
--- NOTE | 2025-06-19 02:53 | PC.NURSE ---
Pt had multiple episodes of loose stool. Provider Notified. Pt cleaned, barrier cream applied to reddened area on coccyx and repositioned.
[2025-06-19 04:44] LABS: CDiff Gene PCR POSITIVE (Negative)
--- NOTE | 2025-06-19 05:00 | ECG_ITS ---
Test Reason : sepsis work up Blood Pressure : */* mmHG Vent. Rate : 103 BPM Atrial Rate : 103 BPM P-R Int : 152 ms QRS Dur : 152 ms QT Int : 390 ms P-R-T Axes : 69 74 57 degrees QTcB Int : 510 ms Sinus tachycardia Possible Left atrial enlargement Right bundle branch block Abnormal ECG When compared with ECG of 18-Jun-2025 14:22, Premature ventricular complexes are no longer Present Criteria for Inferior infarct are no longer Present T wave inversion less evident in Anterior leads Referred By: Leida Ferrari Electronically Signed By: DESIREE MONTENEGRO MD
[2025-06-19 05:20] LABS: Hematocrit 34.3 % (37.0-47.0); Hemoglobin 10.8 g/dl (12.0-16.0); Mean Corpuscular HGB Conc 31.5 g/dl (31.0-35.0); Mean Corpuscular Hemoglobin 32.0 pg (27.0-33.0); Mean Corpuscular Volume 101.5 fL (80.0-98.0); NRBC Abs Auto 0.000 X10*3/uL (0.0-0.012); NRBC Pct Auto 0.0 /100WBC (0.0-0.2); Platelet Count 265 X10*3/uL (160-400); Red Blood Count 3.38 X10*6/uL (4.20-5.50)
[2025-06-19 05:21] LABS: WBC ABN SCTR FOR CBC 1
--- NOTE | 2025-06-19 05:28 | PC.NURSE ---
EKG sent to Dr. Salazar at 0513.
[2025-06-19 05:44] LABS: Thyroid Stimulating Hormone 4.94 uIU/mL (0.32-4.0)
[2025-06-19 05:46] LABS: Alanine Aminotransferase 8 U/L (0-31); Albumin Level 2.5 g/dL (3.5-5.0); Alkaline Phosphatase 50 U/L (39-117); Anion Gap 11 (12-20); Aspartate Amino Transferase 31 U/L (5-31); Blood Urea Nitrogen 8 mg/dL (9-16); Calcium 7.3 mg/dL (8.4-10.2); Carbon Dioxide 21 mmol/L (22-29); Chloride 106 mmol/L (96-108); Creatinine Clr Calc Pharmacy 76.9; Estimated Glomerular Filt Rate > 60; Potassium 3.4 mmol/L (3.3-5.1); Sodium 135 mmol/L (135-145); Total Protein 5.1 g/dL (6.5-8.0)
[2025-06-19 05:47] LABS: CDiff Toxin Positive (Negative)
[2025-06-19 05:48] LABS: CDIFF Internal ctrl Dots and bkg OK (V)
[2025-06-19 06:01] LABS: Atypical Lymphs Percent Manual 2 % (0-6); Band Neutrophils Percent 35 % (3-5); Lymphocytes Percent Manual 3 % (20-40); Monocytes Percent Manual 4 % (2-11); Neutrophils Percent Manual 56 % (45-73)
[2025-06-19 06:10] LABS: Large Platelet PRESENT
[2025-06-19 06:11] LABS: Macrocytosis 1+ (5-14) /OIF; RBC Morphology NORMAL
[2025-06-19 06:13] LABS: Dohle Bodies PRESENT; Toxic Granulation PRESENT; Toxic Vacuolation PRESENT
[2025-06-19 06:21] LABS: Atypical Lymph Absolute Manual 0.3 x10*3/uL; Burr Cells 1+ (0-2) /OIF; Lymphocytes Absolute Manual 0.4 X10*3/uL (1.2-4.9); Monocytes Absolute Manual 0.5 X10*3/uL (0.1-1.2); Neutrophils Absolute Manual 12.5 X10*3/uL (2.0-8.3); White Blood Count 13.7 X10*3/uL (4.8-10.8)
--- NOTE | 2025-06-19 06:21 | PM.EVENT ---
Event Note Date of Service: 06/19/25 Event Note: pt was having diarrhea overnight, c diff positive, was switched to po vancomycin. Time Spent With Patient Time: Total time managing care of this patient today ____ minutes.
[2025-06-19 07:33] LABS: Glucose, Whole Blood 155 mg/dL (60-115)
--- NOTE | 2025-06-19 11:13 | HO.NURTONUR ---
80 yo female presenting from home with reports of increased AMS and diarrhea from VNA, pt with known chronic UTI and ABX use. Pt tachycardic since arrival, found to be febrile, and was initiated as a sepsis protocol, workup. Chest Xray -, Brain CT could not exclude a superimposed stroke. Pt had an elevated WBC, Lactic acid, low potassium of 2.9 with 4 10meq bags provided for replacement. #20 to the Left AC and Right AC, D5NS at 100ml/hr given, pt able to take her medications whole although she can only take one medication at a time, prefers to administer them herself and if crushed will only take them in applesauce. Pt with Cdiff, continuous diarrhea that has been reported to slow down overnight. Pt has been NPO.
[2025-06-19 11:29] LABS: E. coli EAEC Not Detected (Not Detect.); E. coli EPEC Not Detected (Not Detect.); E. coli ETEC Not Detected (Not Detect.); E. coli STEC Not Detected (Not Detect.); Shigella sp./EIEC Not Detected (Not Detect.)
--- NOTE | 2025-06-19 14:57 | HO.PM.IMPN ---
Subjective Subjective Date of Service: 06/19/25 Physical Exam Vital Signs: Vital Signs: Last Vital Signs Temp 98.1 F 06/19/25 12:52 Pulse 112 H 06/19/25 12:52 Resp 20 06/19/25 12:52 BP 156/69 H 06/19/25 12:52 Pulse Ox 96 06/19/25 12:52 O2 Del Method Room Air 06/19/25 12:52 BMI result Body Mass Index 22.3 Objective Data Active Medications Acetaminophen (Acetaminophen 325 Mg Tablet) 650 mg PO Q6H PRN PRN Reason: Pain, Mild 1-3,fever,headache Last Admin: 06/19/25 00:33 Dose: 650 mg Documented By: OK Calcium Carbonate (Calcium Carbonate 750 Mg Tab.Chew) 750 mg PO Q4H PRN PRN Reason: Heartburn Dextrose (Dextrose 50 % 25 Gm/50 Ml Syringe) 25 gm IVPUSH Q15M PRN; Protocol PRN Reason: per Hypoglycemia Standing Ord. Docusate Sodium (Docusate Sodium 100 Mg Capsule) 100 mg PO BID [facility] Last Admin: 06/19/25 10:37 Dose: 100 mg Documented By: BRADLY Enoxaparin Sodium (Enoxaparin Sodium 40 Mg/0.4 Ml Syringe) 40 mg SUBCUT Q24H [facility] Last Admin: 06/18/25 18:29 Dose: 40 mg Documented By: CAR Glucose (Glucose Gel 15 Gm Gel..Gram.) 15 gm PO Q15M PRN; Protocol PRN Reason: per Hypoglycemia Standing Ord. Dextrose/Sodium Chloride (D5ns) 1,000 mls @ 100 mls/hr IVCONT .Q10H [facility] Last Admin: 06/19/25 14:47 Dose: 100 mls/hr Documented By: ALLYSON Levofloxacin (Levaquin) 750 mg in 150 mls @ 100 mls/hr IV Q24H [facility] Last Infusion: 06/18/25 21:00 Dose: Infused Documented By: OK Sodium Chloride (Ns) 1,000 mls @ 100 mls/hr IVCONT .Q10H [facility] Last Admin: 06/19/25 04:43 Dose: Not Given Documented By: OK Non-Admin Reason: Medication Discontinued Insulin Human Lispro (Insulin Lispro 100 Unit/Ml 3 Ml Vial) 0 unit SUBCUT QIDACHS [facility]; Protocol Last Admin: 06/19/25 13:07 Dose: Not Given Documented By: ALLYSON Non-Admin Reason: off unit ed Levothyroxine Sodium (Levothyroxine Sodium 100 Mcg Tablet) 100 mcg PO DAILY@0600 [facility] Last Admin: 06/19/25 05:47 Dose: 100 mcg Documented By: OK Magnesium Hydroxide (Milk Of Magnesia 30 Ml Oral.Susp) 30 ml PO DAILY PRN PRN Reason: Constipation Magnesium Hydroxide (Milk Of Magnesia 30 Ml Oral.Susp) 30 ml PO DAILY PRN PRN Reason: Constipation Melatonin (Melatonin 3 Mg Tablet) 6 mg PO BEDTIME PRN PRN Reason: Insomnia Melatonin (Melatonin 3 Mg Tablet) 6 mg PO BEDTIME PRN PRN Reason: Insomnia Ondansetron HCl (Ondansetron Hcl 4 Mg/2 Ml Vial) 4 mg IVPUSH Q8H PRN PRN Reason: Nausea and Vomiting Polyethylene Glycol (Polyethylene Glycol 3350 17 Gm Powd.Pack) 17 gm PO DAILY PRN PRN Reason: Constipation Senna (Sennosides 8.6 Mg Tablet) 17.2 mg PO BEDTIME [facility] Last Admin: 06/18/25 22:17 Dose: Not Given Documented By: OK Non-Admin Reason: Patient Refused Sertraline HCl (Sertraline Hcl 50 Mg Tablet) 50 mg PO DAILY [facility] Last Admin: 06/19/25 10:38 Dose: 50 mg Documented By: BRADLY Sodium Chloride (0.9 % Sodium Chloride Flush 3 Ml Syringe) 3 ml IVFLUSH QSHIFT [facility] Last Admin: 06/19/25 11:36 Dose: Not Given Documented By: ALLYSON Non-Admin Reason: Duplicate Order Vancomycin HCl (Vancomycin Hcl 125 Mg Capsule) 125 mg PO Q6H [facility] Stop: 06/29/25 06:29 Last Admin: 06/19/25 13:14 Dose: 125 mg Documented By: ALLYSON Labs 06/19/25 03:48 06/19/25 03:48 Labs: Laboratory Results - last 24 hr 06/18/25 06/18/25 06/18/25 14:13 15:13 17:40 MCV MCH MCHC RDW Plt Count MPV Immature Gran % (Auto) Neut % (Auto) Lymph % (Auto) [place] % (Auto) Eos % (Auto) Baso % (Auto) Lymph # (Auto) [place] # (Auto) Eos # (Auto) Baso # (Auto) Abs Immat Gran (auto) Absolute Neuts (auto) Absolute Nucleated RBC Nucleated RBC % (auto) Neutrophils % (Manual) 74 H Band Neutrophils % 15 H Lymphocytes % (Manual) 5 L Atypical Lymphs % (Man) Monocytes % (Manual) 4 Metamyelocytes % 2 Abs Neuts (Manual) 18.2 H Lymphocytes # (Manual) 1.0 L Atyp Lymphs # (Manual) Monocytes # (Manual) 0.8 Metamyelocytes # 0.4 Toxic Granulation Toxic Vacuolation PRESENT Dohle Bodies PRESENT Platelet Estimate NORMAL Large Platelets PRESENT Plt Morphology Comment NOTED RBC Morphology NOTED Macrocytosis Christy Cells Schistocytes 1+ (0-2) Anion Gap Estim Creat Clear Calc Estimated GFR POC Glucose Random Glucose Lactic Acid 2.5 H* Lactic Acid F/U @ 2Hr 1.7 Calcium Magnesium 1.9 Total Bilirubin AST ALT Alkaline Phosphatase NT-Pro-B Natriuret Pep 971.1 H Total Protein Albumin TSH 5.18 H Free T4 1.14 Stl C. cayetanensis PCR Stool Rotavirus A PCR Stl Adenov F 40/41 PCR Stool Astrovirus (PCR) Stool Campylobacter PCR Stool Cryptosporidium PCR Stl Sh Tox Pr E STEC PCR Stool E coli O157 PCR Stl Enterotoxigenic E PCR Stool EPEC (PCR) Stool EAEC (PCR) Stl E. histolytica PCR Stool Giardia Lamblia PCR Stl P. shigelloides PCR Stool Salmonella PCR Stool Sapovirus (PCR) Stl Shigella/EIEC PCR St Y.enterocolitica PCR Stool Vibrio (PCR) Stl Vibrio cholerae PCR Stl Norovirus GI/GII PCR C. difficile Tox B Gene C. difficile Toxin A&B C. difficile Interpret 06/18/25 06/19/25 06/19/25 21:40 03:08 03:48 MCV 101.5 H MCH 32.0 MCHC 31.5 RDW 13.7 Plt Count 265 MPV 10.1 Immature Gran % (Auto) Cancelled Neut % (Auto) Cancelled Lymph % (Auto) Cancelled [place] % (Auto) Cancelled Eos % (Auto) Cancelled Baso % (Auto) Cancelled Lymph # (Auto) Cancelled [place] # (Auto) Cancelled Eos # (Auto) Cancelled Baso # (Auto) Cancelled Abs Immat Gran (auto) Cancelled Absolute Neuts (auto) Cancelled Absolute Nucleated RBC 0.000 Nucleated RBC % (auto) 0.0 Neutrophils % (Manual) 56 Band Neutrophils % 35 H Lymphocytes % (Manual) 3 L Atypical Lymphs % (Man) 2 Monocytes % (Manual) 4 Metamyelocytes % Abs Neuts (Manual) 12.5 H Lymphocytes # (Manual) 0.4 L Atyp Lymphs # (Manual) 0.3 Monocytes # (Manual) 0.5 Metamyelocytes # Toxic Granulation PRESENT Toxic Vacuolation PRESENT Dohle Bodies PRESENT Platelet Estimate NORMAL Large Platelets PRESENT Plt Morphology Comment NORMAL RBC Morphology NORMAL Macrocytosis 1+ (5-14) Christy Cells 1+ (0-2) Schistocytes Anion Gap 11 L Estim Creat Clear Calc 76.9 Estimated GFR > 60 POC Glucose 133 H Random Glucose 145 H Lactic Acid Lactic Acid F/U @ 2Hr Calcium 7.3 L D Magnesium Total Bilirubin 0.5 AST 31 ALT 8 Alkaline Phosphatase 50 NT-Pro-B Natriuret Pep Total Protein 5.1 L Albumin 2.5 L TSH 4.94 H Free T4 Stl C. cayetanensis PCR Not Detected Stool Rotavirus A PCR Not Detected Stl Adenov F 40/41 PCR Not Detected Stool Astrovirus (PCR) Not Detected Stool Campylobacter PCR Not Detected Stool Cryptosporidium PCR Not Detected Stl Sh Tox Pr E STEC PCR Not Detected Stool E coli O157 PCR Not applicable Stl Enterotoxigenic E PCR Not Detected Stool EPEC (PCR) Not Detected Stool EAEC (PCR) Not Detected Stl E. histolytica PCR Not Detected Stool Giardia Lamblia PCR Not Detected Stl P. shigelloides PCR Not Detected Stool Salmonella PCR Not Detected Stool Sapovirus (PCR) Not Detected Stl Shigella/EIEC PCR Not Detected St Y.enterocolitica PCR Not Detected Stool Vibrio (PCR) Not Detected Stl Vibrio cholerae PCR Not Detected Stl Norovirus GI/GII PCR Not Detected C. difficile Tox B Gene POSITIVE A* C. difficile Toxin A&B Positive A* C. difficile Interpret SEE NOTE 06/19/25 07:28 MCV MCH MCHC RDW Plt Count MPV Immature Gran % (Auto) Neut % (Auto) Lymph % (Auto) [place] % (Auto) Eos % (Auto) Baso % (Auto) Lymph # (Auto) [place] # (Auto) Eos # (Auto) Baso # (Auto) Abs Immat Gran (auto) Absolute Neuts (auto) Absolute Nucleated RBC Nucleated RBC % (auto) Neutrophils % (Manual) Band Neutrophils % Lymphocytes % (Manual) Atypical Lymphs % (Man) Monocytes % (Manual) Metamyelocytes % Abs Neuts (Manual) Lymphocytes # (Manual) Atyp Lymphs # (Manual) Monocytes # (Manual) Metamyelocytes # Toxic Granulation Toxic Vacuolation Dohle Bodies Platelet Estimate Large Platelets Plt Morphology Comment RBC Morphology Macrocytosis Christy Cells Schistocytes Anion Gap Estim Creat Clear Calc Estimated GFR POC Glucose 155 H Random Glucose Lactic Acid Lactic Acid F/U @ 2Hr Calcium Magnesium Total Bilirubin AST ALT Alkaline Phosphatase NT-Pro-B Natriuret Pep Total Protein Albumin TSH Free T4 Stl C. cayetanensis PCR Stool Rotavirus A PCR Stl Adenov F 40/41 PCR Stool Astrovirus (PCR) Stool Campylobacter PCR Stool Cryptosporidium PCR Stl Sh Tox Pr E STEC PCR Stool E coli O157 PCR Stl Enterotoxigenic E PCR Stool EPEC (PCR) Stool EAEC (PCR) Stl E. histolytica PCR Stool Giardia Lamblia PCR Stl P. shigelloides PCR Stool Salmonella PCR Stool Sapovirus (PCR) Stl Shigella/EIEC PCR St Y.enterocolitica PCR Stool Vibrio (PCR) Stl Vibrio cholerae PCR Stl Norovirus GI/GII PCR C. difficile Tox B Gene C. difficile Toxin A&B C. difficile Interpret Assessment and Plan (1) Acute diarrhea: Status: Acute Plan 80-year-old female with a history of dementia , pulm nodule (incidentaloma),hypothyroidism, chronic anemia,, B12 deficiency, osteoporosis, macular degeneration BIBA 2/2 unwitnessed fall s/p significant deconditioning who was recently admitted a month ago for fall and was noted to have UTI and was discharged to a SNF. A VNA noted her to be significantly altered compared to her baseline and brought her to the ED. 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
--- NOTE | 2025-06-19 15:27 | MHC.CM.PN ---
pt is from home where she had [facility] receommended str mesage left for son re same referral made to [facility] as pt was dcd from recently
[2025-06-19 15:45] LABS: Glucose, Whole Blood 161 mg/dL (60-115)
[2025-06-19 16:19] LABS: Appearance Urine Cloudy; Glucose Urine UA Negative (Negative); PH 6.0 (5.0-9.0); Specific Gravity - Urine 1.025 (1.005-1.025); UMIC TRIGGER UA YES
[2025-06-19] MEDS: 0.9 % Sodium Chloride Flush 3 ML SYRINGE IVFLUSH (20:49)
[2025-06-19 20:52] LABS: Glucose, Whole Blood 177 mg/dL (60-115)
[2025-06-20 03:58] VITALS: BP 138/79; PULSE 110; RESP 16; TEMP 36.7; O2SAT 93
--- NOTE | 2025-06-20 04:30 | PC.NURSE ---
Patient reports not being able to void. Abdominal distention noted. Bladder scanned for 405cc. Provider notidied, orders to straight cath. Straight cath'ed for 425cc of dark chapis urine. Patient tolerated well.
[2025-06-20 07:40] VITALS: BP 138/64; PULSE 113; RESP 20; TEMP 36.3; O2SAT 96
[2025-06-20 07:49] LABS: Glucose, Whole Blood 172 mg/dL (60-115)
[2025-06-20] MEDS: Metoprolol Succinate ER 25 MG TAB.ER.24H PO (08:24)
[2025-06-20 09:18] LABS: Alanine Aminotransferase 9 U/L (0-31); Albumin Level 2.5 g/dL (3.5-5.0); Alkaline Phosphatase 79 U/L (39-117); Anion Gap 15 (12-20); Aspartate Amino Transferase 34 U/L (5-31); Calcium 7.9 mg/dL (8.4-10.2); Carbon Dioxide 17 mmol/L (22-29); Chloride 108 mmol/L (96-108); Potassium 3.5 mmol/L (3.3-5.1); Sodium 136 mmol/L (135-145); Total Protein 5.5 g/dL (6.5-8.0)
[2025-06-20 09:29] LABS: Blood Urea Nitrogen 12 mg/dL (9-16); Creatinine Clr Calc Pharmacy 52.6; Estimated Glomerular Filt Rate > 60
[2025-06-20 09:59] LABS: Hematocrit 49.1 % (37.0-47.0); Hemoglobin 15.5 g/dl (12.0-16.0); Mean Corpuscular HGB Conc 31.6 g/dl (31.0-35.0); Mean Corpuscular Hemoglobin 32.3 pg (27.0-33.0); Mean Corpuscular Volume 102.3 fL (80.0-98.0); NRBC Abs Auto 0.080 X10*3/uL (0.0-0.012); NRBC Pct Auto 0.4 /100WBC (0.0-0.2); Platelet Count 294 X10*3/uL (160-400); Red Blood Count 4.80 X10*6/uL (4.20-5.50)
[2025-06-20 10:14] LABS: WBC ABN SCTR FOR CBC 1
[2025-06-20 10:18] LABS: White Blood Count 22.4 X10*3/uL (4.8-10.8)
--- NOTE | 2025-06-20 10:24 | HO.WOUND ---
Wound Consult: Initial 80 yr old female admitted [place] [facility] See progress notes and H&P for detailed history. Wound consult placed for coccyx. Patient agreeable to assessment and photo documentation. Patient confused but redirectable. Patient seen on previous admission with unstageable pressure injury to sacrum - now healed to intact red area that is blanching. lower on coccyx and upper buttocks with area of deep red and maroon/purple areas of intact nonblanching skin. Likely combination of pressure and moisture in the setting of c.diff/fecal incontinence. Coccyx extending across upper buttocks Etiology: deep tissue pressure injury Present on Admission Measurements: 8cm x 8cm x 0cm Wound Bed: intact deep red nonblanching with localized are of purple over right coccyx/upper buttock area Drainage / Odor: none Edges: ? irregular Alesia wound: ? No Induration, Fluctuance or Warmth noted Pain: none Goals of Treatment: ? offloading with turns and foam, triad paste for moisture barrier Left lateral ankle Etiology: unstageable pressure injury Present on Admission Measurements: 0.4cm x 0.4cm x 0.1cm Wound Bed: dry stable eschar Drainage / Odor: none Edges: ? attached Alesia wound: ? No Induration, Fluctuance or Warmth noted mild redness Pain: none Goals of Treatment offloading and skin prep Right lateral ankle intact pink and blanching - previous admission PI, now resurfaced. Recommendations: 1. Turn and Reposition every 2 hours and as needed for patient comfort. Use pillows or wedges to support off loading positions. 2. Off Load all bony prominences with use of pillows and heel boots if needed. Apply Preventative foams where needed. 3. Monitor for incontinence and moisture control, use barrier creams when needed for prevention and treatment. 4. Provide adequate and supplemental nutrition. 5. Order or Continue low air loss mattress. 6. When applicable maintain blood glucose levels per Providers order. Coccyx/buttocks: Off Load Pressure with Q2 hr turns and use of pillows - Cleanse with PH balance spray or wipes, pat dry. ?Apply thin layer of Triad to wound bed. Do not remove all of paste between applications as this may cause further skin damage.? Cover with foam dressing to aid in off loading and protection from friction. Change every 3 days and PRN. Left lateral ankle: offload with pillows, apply skin prep BID and PRN Re-consult wound care Nurse for wound deterioration or wound changes.
--- NOTE | 2025-06-20 10:49 | MHC.CM.PN ---
Patient does not want to return to [facility]. She has accepted a bed offered by [facility]. They have initiated the insurance authorization process. Patient's son Sebas was notified that the patient is cleared to discharge to [facility]. He directed this technical report writer to check with the patient on choice. She declined the bed offer from [facility]. She has been there recently. She does not want to return . [facility].
[2025-06-20 10:58] LABS: Atypical Lymph Absolute Manual 0.4 x10*3/uL; Atypical Lymphs Percent Manual 2 % (0-6); Band Neutrophils Percent 22 % (3-5); Lymphocytes Absolute Manual 1.1 X10*3/uL (1.2-4.9); Lymphocytes Percent Manual 5 % (20-40); Metamyelocytes Absolute 0.7 X10*3/uL; Metamyelocytes Percent 3 %; Monocytes Absolute Manual 3.1 X10*3/uL (0.1-1.2); Monocytes Percent Manual 14 % (2-11); Myelocytes Absolute 0.4 X10*/uL; Myelocytes Percent 2 %; Neutrophils Absolute Manual 16.4 X10*3/uL (2.0-8.3); Neutrophils Percent Manual 51 % (45-73); Promyelocytes Absolute 0.2 X10*3/uL; Promyelocytes Percent 1 %
[2025-06-20 11:00] LABS: Acanthocytes 3+ (>5) /OIF; Burr Cells 2+ (3-5) /OIF; RBC Morphology NOTED; Toxic Granulation PRESENT
[2025-06-20 11:01] LABS: Dohle Bodies PRESENT; Toxic Vacuolation PRESENT
[2025-06-20 11:58] LABS: Glucose, Whole Blood 131 mg/dL (60-115)
[2025-06-20 12:00] VITALS: BP 153/79; PULSE 95; RESP 19; TEMP 36.4; O2SAT 93
--- NOTE | 2025-06-20 12:52 | P.PNIM_ITS ---
Subjective Subjective Date of Service: 06/20/25 Review of Systems Follow up encephalopathy secondary to UTI Still mildly confused but better today Physical Exam 2 Exam: Exam: Appearing in no acute distress lung sounds are clear to auscultation heart regular rate rhythm, clear S1, S2 positive bowel sounds, abdomen is soft, nontender neuro patient is alert x3, no focal deficits Vital Signs: Vital Signs: Last Vital Signs Temp 97.6 F 06/20/25 12:00 Pulse 95 06/20/25 12:00 Resp 19 06/20/25 12:00 BP 153/79 H 06/20/25 12:00 Pulse Ox 93 06/20/25 12:00 O2 Del Method Room Air 06/20/25 12:00 BMI result Body Mass Index 22.3 Objective Data Active Medications Acetaminophen (Acetaminophen 325 Mg Tablet) 650 mg PO Q6H PRN PRN Reason: Pain, Mild 1-3,fever,headache Last Admin: 06/19/25 20:40 Dose: 650 mg Documented By: DAGOBERTO Amlodipine Besylate (Amlodipine Besylate 5 Mg Tablet) 5 mg PO DAILY [facility]; Protocol Last Admin: 06/20/25 08:24 Dose: 5 mg Documented By: ALLYSON Calcium Carbonate (Calcium Carbonate 750 Mg Tab.Chew) 750 mg PO Q4H PRN PRN Reason: Heartburn Dextrose (Dextrose 50 % 25 Gm/50 Ml Syringe) 25 gm IVPUSH Q15M PRN; Protocol PRN Reason: per Hypoglycemia Standing Ord. Docusate Sodium (Docusate Sodium 100 Mg Capsule) 100 mg PO BID [facility] Last Admin: 06/20/25 08:11 Dose: Not Given Documented By: ALLYSON Non-Admin Reason: Patient Refused Enoxaparin Sodium (Enoxaparin Sodium 40 Mg/0.4 Ml Syringe) 40 mg SUBCUT Q24H [facility] Last Admin: 06/19/25 17:09 Dose: 40 mg Documented By: ALLYSON Glucose (Glucose Gel 15 Gm Gel..Gram.) 15 gm PO Q15M PRN; Protocol PRN Reason: per Hypoglycemia Standing Ord. Levofloxacin (Levaquin) 750 mg in 150 mls @ 100 mls/hr IV Q24H [facility] Last Infusion: 06/19/25 18:59 Dose: Infused Documented By: ALLYSON Insulin Human Lispro (Insulin Lispro 100 Unit/Ml 3 Ml Vial) 0 unit SUBCUT QIDACHS [facility]; Protocol Last Admin: 06/20/25 11:59 Dose: Not Given Documented By: ALLYSON Non-Admin Reason: No Insulin Coverage Levothyroxine Sodium (Levothyroxine Sodium 100 Mcg Tablet) 100 mcg PO DAILY@0600 [facility] Last Admin: 06/20/25 05:16 Dose: 100 mcg Documented By: DAGOBERTO Magnesium Hydroxide (Milk Of Magnesia 30 Ml Oral.Susp) 30 ml PO DAILY PRN PRN Reason: Constipation Magnesium Hydroxide (Milk Of Magnesia 30 Ml Oral.Susp) 30 ml PO DAILY PRN PRN Reason: Constipation Melatonin (Melatonin 3 Mg Tablet) 6 mg PO BEDTIME PRN PRN Reason: Insomnia Melatonin (Melatonin 3 Mg Tablet) 6 mg PO BEDTIME PRN PRN Reason: Insomnia Metoprolol Succinate (Metoprolol Succinate Er 25 Mg Tab.Er.24h) 25 mg PO DAILY [facility]; Protocol Last Admin: 06/20/25 08:24 Dose: 25 mg Documented By: ALLYSON Ondansetron HCl (Ondansetron Hcl 4 Mg/2 Ml Vial) 4 mg IVPUSH Q8H PRN PRN Reason: Nausea and Vomiting Polyethylene Glycol (Polyethylene Glycol 3350 17 Gm Powd.Pack) 17 gm PO DAILY PRN PRN Reason: Constipation Senna (Sennosides 8.6 Mg Tablet) 17.2 mg PO BEDTIME [facility] Last Admin: 06/19/25 20:40 Dose: 17.2 mg Documented By: DAGOBERTO Sertraline HCl (Sertraline Hcl 50 Mg Tablet) 50 mg PO DAILY [facility] Last Admin: 06/20/25 08:24 Dose: 50 mg Documented By: ALLYSON Sodium Chloride (0.9 % Sodium Chloride Flush 3 Ml Syringe) 3 ml IVFLUSH QSHIFT [facility] Last Admin: 06/20/25 08:29 Dose: Not Given Documented By: ALLYSON Non-Admin Reason: IV Running Vancomycin HCl (Vancomycin Hcl 125 Mg Capsule) 125 mg PO Q6H [facility] Stop: 06/29/25 06:29 Last Admin: 06/20/25 12:18 Dose: 125 mg Documented By: ALLYSON Labs 06/20/25 09:31 06/20/25 08:49 Labs: Laboratory Results - last 24 hr 06/19/25 06/19/25 06/19/25 15:35 16:07 16:07 MCV MCH MCHC RDW Plt Count MPV Immature Gran % (Auto) Neut % (Auto) Lymph % (Auto) [place] % (Auto) Eos % (Auto) Baso % (Auto) Lymph # (Auto) [place] # (Auto) Eos # (Auto) Baso # (Auto) Abs Immat Gran (auto) Absolute Neuts (auto) Absolute Nucleated RBC Nucleated RBC % (auto) Neutrophils % (Manual) Band Neutrophils % Lymphocytes % (Manual) Atypical Lymphs % (Man) Monocytes % (Manual) Metamyelocytes % Myelocytes % Promyelocytes % Abs Neuts (Manual) Lymphocytes # (Manual) Atyp Lymphs # (Manual) Monocytes # (Manual) Metamyelocytes # Myelocytes # Promyelocytes # Nucleated RBCs Toxic Granulation Toxic Vacuolation Dohle Bodies Platelet Estimate Giant Platelets Plt Morphology Comment RBC Morphology [place] Cells Acanthocytes (Spur) Anion Gap Estim Creat Clear Calc Estimated GFR POC Glucose 161 H Random Glucose Calcium Total Bilirubin AST ALT Alkaline Phosphatase Total Protein Albumin Urine Color Cancelled Dark Yellow Urine Appearance Cancelled Urine pH Ur Specific Ware Urine Protein Urine Glucose (UA) Urine Ketones Urine Blood Urine Nitrite Ur Leukocyte Esterase Urine RBC Urine WBC Ur Squamous Epith Cells Urine Bacteria Hyaline Casts 06/19/25 06/19/25 06/19/25 16:07 16:07 16:07 MCV MCH MCHC RDW Plt Count MPV Immature Gran % (Auto) Neut % (Auto) Lymph % (Auto) [place] % (Auto) Eos % (Auto) Baso % (Auto) Lymph # (Auto) [place] # (Auto) Eos # (Auto) Baso # (Auto) Abs Immat Gran (auto) Absolute Neuts (auto) Absolute Nucleated RBC Nucleated RBC % (auto) Neutrophils % (Manual) Band Neutrophils % Lymphocytes % (Manual) Atypical Lymphs % (Man) Monocytes % (Manual) Metamyelocytes % Myelocytes % Promyelocytes % Abs Neuts (Manual) Lymphocytes # (Manual) Atyp Lymphs # (Manual) Monocytes # (Manual) Metamyelocytes # Myelocytes # Promyelocytes # Nucleated RBCs Toxic Granulation Toxic Vacuolation Dohle Bodies Platelet Estimate Giant Platelets Plt Morphology Comment RBC Morphology [place] Cells Acanthocytes (Spur) Anion Gap Estim Creat Clear Calc Estimated GFR POC Glucose Random Glucose Calcium Total Bilirubin AST ALT Alkaline Phosphatase Total Protein Albumin Urine Color Urine Appearance Cloudy Urine pH Cancelled 6.0 Ur Specific Ware Cancelled 1.025 Urine Protein Cancelled Urine Glucose (UA) Urine Ketones Urine Blood Urine Nitrite Ur Leukocyte Esterase Urine RBC Urine WBC Ur Squamous Epith Cells Urine Bacteria Hyaline Casts 06/19/25 06/19/25 06/19/25 16:07 16:07 16:07 MCV MCH MCHC RDW Plt Count MPV Immature Gran % (Auto) Neut % (Auto) Lymph % (Auto) [place] % (Auto) Eos % (Auto) Baso % (Auto) Lymph # (Auto) [place] # (Auto) Eos # (Auto) Baso # (Auto) Abs Immat Gran (auto) Absolute Neuts (auto) Absolute Nucleated RBC Nucleated RBC % (auto) Neutrophils % (Manual) Band Neutrophils % Lymphocytes % (Manual) Atypical Lymphs % (Man) Monocytes % (Manual) Metamyelocytes % Myelocytes % Promyelocytes % Abs Neuts (Manual) Lymphocytes # (Manual) Atyp Lymphs # (Manual) Monocytes # (Manual) Metamyelocytes # Myelocytes # Promyelocytes # Nucleated RBCs Toxic Granulation Toxic Vacuolation Dohle Bodies Platelet Estimate Giant Platelets Plt Morphology Comment RBC Morphology [place] Cells Acanthocytes (Spur) Anion Gap Estim Creat Clear Calc Estimated GFR POC Glucose Random Glucose Calcium Total Bilirubin AST ALT Alkaline Phosphatase Total Protein Albumin Urine Color Urine Appearance Urine pH Ur Specific Ware Urine Protein 100 (2+) H Urine Glucose (UA) Cancelled Negative Urine Ketones Cancelled Negative Urine Blood Cancelled Urine Nitrite Ur Leukocyte Esterase Urine RBC Urine WBC Ur Squamous Epith Cells Urine Bacteria Hyaline Casts 06/19/25 06/19/25 06/19/25 16:07 16:07 16:07 MCV MCH MCHC RDW Plt Count MPV Immature Gran % (Auto) Neut % (Auto) Lymph % (Auto) [place] % (Auto) Eos % (Auto) Baso % (Auto) Lymph # (Auto) [place] # (Auto) Eos # (Auto) Baso # (Auto) Abs Immat Gran (auto) Absolute Neuts (auto) Absolute Nucleated RBC Nucleated RBC % (auto) Neutrophils % (Manual) Band Neutrophils % Lymphocytes % (Manual) Atypical Lymphs % (Man) Monocytes % (Manual) Metamyelocytes % Myelocytes % Promyelocytes % Abs Neuts (Manual) Lymphocytes # (Manual) Atyp Lymphs # (Manual) Monocytes # (Manual) Metamyelocytes # Myelocytes # Promyelocytes # Nucleated RBCs Toxic Granulation Toxic Vacuolation Dohle Bodies Platelet Estimate Giant Platelets Plt Morphology Comment RBC Morphology Christy Cells Acanthocytes (Spur) Anion Gap Estim Creat Clear Calc Estimated GFR POC Glucose Random Glucose Calcium Total Bilirubin AST ALT Alkaline Phosphatase Total Protein Albumin Urine Color Urine Appearance Urine pH Ur Specific Ware Urine Protein Urine Glucose (UA) Urine Ketones Urine Blood Moderate (2+) H Urine Nitrite Cancelled Negative Ur Leukocyte Esterase Cancelled Moderate (2+) H Urine RBC >20 H Urine WBC 21-50 H Ur Squamous Epith Cells 0-2 Urine Bacteria 4+ Hyaline Casts 0-2 06/19/25 06/19/25 06/20/25 16:08 20:47 07:44 MCV MCH MCHC RDW Plt Count MPV Immature Gran % (Auto) Neut % (Auto) Lymph % (Auto) [place] % (Auto) Eos % (Auto) Baso % (Auto) Lymph # (Auto) [place] # (Auto) Eos # (Auto) Baso # (Auto) Abs Immat Gran (auto) Absolute Neuts (auto) Absolute Nucleated RBC Nucleated RBC % (auto) Neutrophils % (Manual) Band Neutrophils % Lymphocytes % (Manual) Atypical Lymphs % (Man) Monocytes % (Manual) Metamyelocytes % Myelocytes % Promyelocytes % Abs Neuts (Manual) Lymphocytes # (Manual) Atyp Lymphs # (Manual) Monocytes # (Manual) Metamyelocytes # Myelocytes # Promyelocytes # Nucleated RBCs Toxic Granulation Toxic Vacuolation Dohle Bodies Platelet Estimate Giant Platelets Plt Morphology Comment RBC Morphology Christy Cells Acanthocytes (Spur) Anion Gap Estim Creat Clear Calc Estimated GFR POC Glucose 177 H 172 H Random Glucose Calcium Total Bilirubin AST ALT Alkaline Phosphatase Total Protein Albumin Urine Color Cancelled Urine Appearance Cancelled Urine pH Cancelled Ur Specific [place] Cancelled Urine Protein Cancelled Urine Glucose (UA) Cancelled Urine Ketones Cancelled Urine Blood Cancelled Urine Nitrite Cancelled Ur Leukocyte Esterase Cancelled Urine RBC Urine WBC Ur Squamous Epith Cells Urine Bacteria Hyaline Casts 06/20/25 06/20/25 06/20/25 08:49 09:31 11:46 MCV 102.3 H MCH 32.3 MCHC 31.6 RDW 13.6 Plt Count 294 MPV 10.7 Immature Gran % (Auto) Cancelled Neut % (Auto) Cancelled Lymph % (Auto) Cancelled [place] % (Auto) Cancelled Eos % (Auto) Cancelled Baso % (Auto) Cancelled Lymph # (Auto) Cancelled [place] # (Auto) Cancelled Eos # (Auto) Cancelled Baso # (Auto) Cancelled Abs Immat Gran (auto) Cancelled Absolute Neuts (auto) Cancelled Absolute Nucleated RBC 0.080 H Nucleated RBC % (auto) 0.4 H Neutrophils % (Manual) 51 Band Neutrophils % 22 H Lymphocytes % (Manual) 5 L Atypical Lymphs % (Man) 2 Monocytes % (Manual) 14 H Metamyelocytes % 3 Myelocytes % 2 Promyelocytes % 1 Abs Neuts (Manual) 16.4 H Lymphocytes # (Manual) 1.1 L Atyp Lymphs # (Manual) 0.4 Monocytes # (Manual) 3.1 H Metamyelocytes # 0.7 Myelocytes # 0.4 Promyelocytes # 0.2 Nucleated RBCs 3 H Toxic Granulation PRESENT Toxic Vacuolation PRESENT Dohle Bodies PRESENT Platelet Estimate NORMAL Giant Platelets PRESENT Plt Morphology Comment NOTED RBC Morphology NOTED Christy Cells 2+ (3-5) Acanthocytes (Spur) 3+ (>5) Anion Gap 15 Estim Creat Clear Calc 52.6 Estimated GFR > 60 POC Glucose 131 H Random Glucose 165 H Calcium 7.9 L D Total Bilirubin 0.2 AST 34 H ALT 9 Alkaline Phosphatase 79 Total Protein 5.5 L Albumin 2.5 L Urine Color Urine Appearance Urine pH Ur Specific Ware Urine Protein Urine Glucose (UA) Urine Ketones Urine Blood Urine Nitrite Ur Leukocyte Esterase Urine RBC Urine WBC Ur Squamous Epith Cells Urine Bacteria Hyaline Casts Microbiology Microbiology Results: Microbiology 06/18/25 15:13 Blood Culture - Preliminary Blood - Venous No growth after 24 hours. 06/18/25 15:13 Blood Culture - Preliminary Blood - Venous No growth after 24 hours. Assessment and Plan (1) Acute diarrhea: Status: Acute Plan 80-year-old female with a history of dementia , pulm nodule (incidentaloma),hypothyroidism, chronic anemia,, B12 deficiency, osteoporosis, macular degeneration BIBA 2/2 unwitnessed fall s/p significant deconditioning who was recently admitted a month ago for fall and was noted to have UTI and was discharged to a SNF. A VNA noted her to be significantly altered compared to her baseline and brought her to the ED. 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
[2025-06-20 13:10] VITALS: BMI 22.3
--- NOTE | 2025-06-20 13:18 | MHC.CLN ---
CONSULT DIET RX: 2 GRAM SODIUM. INCREASED NUTRITION NEEDS DUE TO IMPAIRED SKIN INTEGRITY. SKIN WITH DTI TO COCCYX AND UNSTAGEABLE AREA TO LEFT LATERAL ANKLE. ADDING ENSURE MAX BID (300 KCALS, 60 G PROTEIN) TO PROMOTE WOUND HEALING. FOLLOW FOR PO INTAKE AND WOUND HEALING. SEE CLINICAL NUTRITION ASSESSMENT 06/20/25.
[2025-06-20 16:00] VITALS: BP 125/58; PULSE 86; RESP 19; TEMP 36.4; O2SAT 98
[2025-06-20 16:54] LABS: Appearance Urine Cloudy; Glucose Urine UA Negative (Negative); PH 5.5 (5.0-9.0); Specific Gravity - Urine 1.025 (1.005-1.025); UMIC TRIGGER UACC YES
[2025-06-20 16:54] LABS: Glucose, Whole Blood 166 mg/dL (60-115)
--- NOTE | 2025-06-20 18:35 | PC.NURSE ---
Pt refused chest xray today @ 2pm. Educated pt on need for xray. still refused. magaly made aware
[2025-06-20 19:17] VITALS: BP 164/80; PULSE 98; RESP 20; TEMP 36.1; O2SAT 95
[2025-06-20 20:34] LABS: Glucose, Whole Blood 138 mg/dL (60-115)
[2025-06-20] MEDS: 0.9 % Sodium Chloride Flush 3 ML SYRINGE IVFLUSH (20:37)
[2025-06-20 23:56] VITALS: BP 160/78; PULSE 97; RESP 20; TEMP 36.1; O2SAT 94
--- NOTE | 2025-06-21 | ECG_ITS ---
Test Reason : Tachycardia Blood Pressure : */* mmHG Vent. Rate : 106 BPM Atrial Rate : 106 BPM P-R Int : 142 ms QRS Dur : 134 ms QT Int : 370 ms P-R-T Axes : 70 -20 45 degrees QTcB Int : 491 ms Sinus tachycardia with frequent Premature atrial complexes with intermittent aberrant ventricular conduction Right bundle branch block Inferior infarct , age undetermined Abnormal ECG When compared with ECG of 19-Jun-2025 05:02, Premature atrial complexes are now Present Questionable change in QRS axis Referred By: Azalea Phelps Electronically Signed By: DESIREE MONTENEGRO MD
[2025-06-21 04:00] VITALS: BP 160/80
[2025-06-21 04:40] VITALS: BP 113/76
[2025-06-21] MEDS: Furosemide 20 MG/2 ML VIAL IVPUSH (04:40)
--- NOTE | 2025-06-21 04:41 | PM.EVENT ---
Event Note Date of Service: 06/21/25 Event Note: Called bedside as patient is experiencing work of breathing. She has been on IV fluids and has urinated minimally. She has had intermittent urinary retention requiring straight catheterization. Current bladder scan only 100 mL. Patient is having conversational dyspnea. On exam crackles bilaterally. Tachycardic. No pedal edema. Chest x-ray, EKG and telemetry ordered. Lasix 20 mg IV x1 and morphine 1 mg IV x1. Klein catheter to be placed due to intermittent urinary retention and to monitor strict I's and O's. case discussed with Dr Salazar. Time Spent With Patient Time: Total time managing care of this patient today ____ minutes.
--- NOTE | 2025-06-21 05:17 | ECG_ITS ---
Test Reason : CP Blood Pressure : */* mmHG Vent. Rate : 37 BPM Atrial Rate : * BPM P-R Int : * ms QRS Dur : 134 ms QT Int : 480 ms P-R-T Axes : * 6 51 degrees QTcB Int : 376 ms Junctional bradycardia Right bundle branch block Possible Inferior infarct , age undetermined Abnormal ECG When compared with ECG of 21-Jun-2025 04:24, Junctional bradycardia has replaced Sinus rhythm Vent. rate has decreased by 69 bpm Referred By: Mckenzie Mckeon Electronically Signed By: DESIREE MONTENEGRO MD
[2025-06-21 05:30] VITALS: PULSE 38; RESP 20
[2025-06-21 06:00] VITALS: PULSE 87; RESP 20
[2025-06-21] MEDS: Albuterol/Iprat 2.5/0.5MG 3 ML AMPUL.NEB INHALE (06:16)
--- NOTE | 2025-06-21 06:16 | P.EN_ITS ---
Event Note Date of Service: 06/21/25 Event Note: Acute hypoxic respiratory failure: Patient suddenly became hypoxic around 04:00. RN mentioned that patient was conversive prior to that but suddenly become stopped talking and not responding even to verbal and painful stimuli. Patient was hypoxic. Initially the team felt patient had crackles on lung exam and gave her a dose of Lasix. Patient put out only 50 cc of urine. Course patient continues to not respond; and also hypoxic. Patient blood pr essure went from 115 systolic to 70s systolic. Patient was given fluid bolus. Placed on high-flow oxygen. On lung exam patient has no lung sounds heard on left side-suspected mucus plugging. Chest x-ray appeared clear. Unable to obtain blood cause her labs. Patient was very hard stick. Patient was continued on high-flow oxygen added non-rebreather with oxygenation improved from low 80s to high 80s. Heart rate also improved from 30s to 90s. Sinus rhythm with occasional PVCs. Patient continued to have no gag reflex. Pupils are sluggish to react. Patient spontaneously moves all 4 extremities. Patient has agonal breathing and occasional grunting. Prognosis very guarded. I spoke to the patient's son who is the healthcare proxy-mentioned that he has not been in contact with the patient for a long time only gotten contact with her about few days ago. He is not aware of the DNR DNI status but he would respect her wishes. detention paperwork also showed code status-DNR/DNI/no PEG tube placement. No MOLST form in the computer. Admitting team also mentioned patient code status is DNR/DNI. Discussed with the patient's son about the goals of care, mentioned he agrees to the current management. And if she does not show any progress would be inclined to keep her comfort measures. All the team is updated about the plan of care. Update: Comfort measures only: Patient's son arrived. Discussed in detail about the patient's current prognosis. Patient continues to have agonal breathing. Patient code status changed to comfort measures only. Ordered morphine for pain Ativan for anxiety Scopolamine patch Manager Spanish consult, case management consult. team updated. Time Spent With Patient Time: Total time managing care of this patient today ____ minutes.
[2025-06-21 06:34] VITALS: RESP 28
--- NOTE | 2025-06-21 07:37 | PC.NURSE ---
At approximately 0345, this RN went in to perform incontinence care on patient. Upon arrival, patient alert, oriented to self only, otherwise pleasantly confused, able to have conversation.Patient complaining of difficulty breathing, and discomfort..Patient incontinent of small amount of urine. Tolerated incontinence care well, able to assist with turning and repositioning. Bladder scanned for 110 cc. When finished, increased work of breathing noted, diaphoretic. IV fluids stopped. Provider notified at 0412. Provider to bedside, ordered 20mg lasix IV x 1 and morphine 1mg x 1, administered per OCT. BP 119/78. Heart rate fluctuating between 120-150. EKG obtained. Unable to obtain O2 saturation on patient despite multiple attempts. CXR obtained. Provider called back to bedside at 0500, patient becoming less responsive, breathing more agonal, respiratory at bedside, neb treatment administered, patient placed on highflow. Manual BP 70/42 at 0510. Patient unresponsive to voice/pain. Respiratory Therapist able to perform deep suctioning removing scant amounts of mucus, patient able to move air and improve respiratory status. Settings maxed out on Highflow in addition to? non rebreather. Absent to poor O2 saturation reading, highest O2 shown was 88%. At 0530, patient noted to have increased groaning, but unable to respond to verbal stimuli. Family called to bedside, code status changed to comfort measures.
--- NOTE | 2025-06-21 07:42 | P.DN_ITS ---
Discharge Sum: Prov Provider Primary care physician: Ashley Hernandez MD Consults: 06/19/25 13:02 Consult to Wound Care Routine Reason for consultation: st 1 to coccyx. areas of unblanchable redness 06/21/25 06:43 Consult to Case Management Routine Comment: Consult to Animal Laboratory Helper Routine Comment: Consult to Hospice Routine Comment: Pronouncing clinician: Ute Crain Discharge Sum: Diag PCOD Cause of : Acute respiratory failure Contributing Factors (1) Acute diarrhea: (2) Acute UTI: (3) Aspiration into airway: (4) Acute respiratory failure with hypoxia: Discharge Sum: Summary Date and Time Date of admission: 06/19/25 09:09 Date of : 06/21/25 Time of : 07:20 Summary Details: From H&P on the day of admission Patient is a 80-year-old female with PMH notable for adult failure to thrive, recent UTI, recurrent falls, dementia, in cident to [place] (pulmonary nodule), hypothyroidism, chronic anemia, B12 deficiency, osteoporosis, macular degeneration was brought in by ambulance when her VNA noticed that she was more confused than her usual and given her recent admission a month ago for a UTI, transferred her to the ED for further workup. Patient was quite weak, somnolent and unable to provide history given her baseline dementia and I was unable to reach the VNA for more history and patient lives alone. Hence history and physical is mainly from imaging and prior notes. Patient spiked a fever of 102.9 while in the ED. Patient receiving sepsis workup and antibiotics ceftriaxone and vancomycin. Labs notable for leukocytosis, venous lactate, altered mental status, elevated proBNP Acute metabolic encephalopathy secondary to UTI + failure to thrive, being treated with IV antibiotics. Persistent Leukocytosis, afebrile, blood cx neg from 06/18. Cdif positive, being treated with po vancomycin. Overnight 06/21 Patient was hypoxic. Initially the team felt patient had crackles on lung exam and gave her a dose of Lasix. Patient put out only 50 cc of urine. Course patient continues to not respond; and also hypoxic. Patient blood pressure went from 115 systolic to 70s systolic. Patient was given fluid bolus. Placed on high-flow oxygen. Continued to desaturate, Patient was continued on high-flow oxygen added non-rebreather with oxygenation improved from low 80s to high 80s. Bradycardia with HR in the 30s. Sinus rhythm with occasional PVCs. Patient noted to have no gag reflex. Pupils sluggish to react. Noted to have agonal breathing and occasional grunting. Overnight team spoke with the patient's family and her code status was changed to DNR/DNI, she continued to deteriorate and she was changed to comfort measures only. She was started on comfort measures/medications and passed comfortably. She was pronounced at 07:20 with her son at the bedside. Additional Data Confirmation of as documented by pronouncing clinician: no pulse Family: at bedside Attending physician: RIGOBERTO Goodman Was code activated?: No
--- NOTE | 2025-06-21 08:34 | PC.NURSE ---
Pt's son at bedside at time of passing. Provider in to pronounce @[id number]. Sales Representative [employer] in for family support. Son unsure of home at this time.
== END 2025-06-21 08:33 | disposition expired | DRG 871 ==
LOC: HO.ED 16:29 → HO.EDOVER 17:38 → HO.S3 06-19 09:28
PROVIDERS: Hospitalist; Nurse Practitioner Acute Care; Physician Assistant; Physician Assistant Medical; Admitting Provider Student in an Organized Health Care Education/Training Program; Emergency Provider Emergency Medicine; PCP Internal Medicine; Visit Provider Physician Assistant Medical
DX: A41.9 Sepsis, unspecified organism (principal); G93.41 Metabolic encephalopathy; J96.01 Acute respiratory failure with hypoxia; A04.72 Enterocolitis due to Clostridium difficile, not specified as recurrent; E03.9 Hypothyroidism, unspecified; E87.6 Hypokalemia; R29.6 Repeated falls; R33.9 Retention of urine, unspecified; Z91.81 History of falling; Z66 Do not resuscitate; Z51.5 Encounter for palliative care; F03.90 Unspecified dementia, unspecified severity, without behavioral disturbance, psychotic disturbance, mood disturbance, and anxiety; D64.9 Anemia, unspecified; I10 Essential (primary) hypertension; R62.7 Adult failure to thrive; Z68.22 Body mass index [BMI] 22.0-22.9, adult; Z20.822 Contact with and (suspected) exposure to COVID-19; Z87.891 Personal history of nicotine dependence; Z79.890 Hormone replacement therapy; Z79.899 Other long term (current) drug therapy
CPT/HCPCS: 36415; 70450; 71045; 80053; 81001; 81003; 82947; 83605; 83735; 83880; 84439; 84443; 85007; 85025; 85027; 85610; 87040; 87324; 87493; 87502; 87507; 87635; 93005; 94640; 97162; 97165; 99285; J0696; J1650; J1938; J1956; J2270; J3374; J3475; J3480

== ENCOUNTER → 2025-06-18 13:22 | Outpatient (BNV) | payer MEDICARE, SELFPAY | PROVIDERS: Emergency Provider Emergency Medicine; PCP Internal Medicine; Visit Provider Radiology Diagnostic Radiology | DX: R90.82 White matter disease, unspecified (principal); I69.398 Other sequelae of cerebral infarction; J44.9 Chronic obstructive pulmonary disease, unspecified | CPT/HCPCS: 70450; 71045 ==

== ENCOUNTER → 2025-06-18 13:22 | Outpatient (BNV) | payer MEDICARE, SELFPAY | PROVIDERS: Emergency Provider Emergency Medicine; PCP Internal Medicine; Visit Provider Internal Medicine Cardiovascular Disease | DX: I49.3 Ventricular premature depolarization (principal); I45.10 Unspecified right bundle-branch block; I51.7 Cardiomegaly; R00.0 Tachycardia, unspecified | CPT/HCPCS: 93010 ==

== ENCOUNTER → 2025-06-18 17:22 | Outpatient (BNV) | payer MEDICARE, SELFPAY | PROVIDERS: Admitting Provider Student in an Organized Health Care Education/Training Program; Emergency Provider Emergency Medicine; PCP Internal Medicine; Visit Provider Student in an Organized Health Care Education/Training Program | DX: R41.82 Altered mental status, unspecified (principal) | CPT/HCPCS: 99222; 99232; 99499 ==

== ENCOUNTER → 2025-06-19 05:00 | Outpatient (BNV) | payer MEDICARE, SELFPAY | PROVIDERS: Admitting Provider Student in an Organized Health Care Education/Training Program; Emergency Provider Emergency Medicine; PCP Internal Medicine; Visit Provider Internal Medicine Cardiovascular Disease | DX: R00.0 Tachycardia, unspecified (principal); I45.10 Unspecified right bundle-branch block | CPT/HCPCS: 93010 ==

== ENCOUNTER 2025-06-19 09:09 | Outpatient (BNV) | payer MEDICARE, SELFPAY | END 2025-06-21 04:20 | PROVIDERS: Admitting Provider Student in an Organized Health Care Education/Training Program; Emergency Provider Emergency Medicine; PCP Internal Medicine; Visit Provider Radiology Diagnostic Radiology | DX: J98.11 Atelectasis (principal) | CPT/HCPCS: 71045 ==

== ENCOUNTER 2025-06-19 09:09 | Outpatient (BNV) | payer MEDICARE, SELFPAY | END 2025-06-21 04:24 | PROVIDERS: Admitting Provider Student in an Organized Health Care Education/Training Program; Emergency Provider Emergency Medicine; PCP Internal Medicine; Visit Provider Internal Medicine Cardiovascular Disease | DX: I49.1 Atrial premature depolarization (principal); I45.10 Unspecified right bundle-branch block; R00.0 Tachycardia, unspecified; R00.1 Bradycardia, unspecified | CPT/HCPCS: 93010 ==